=== PATIENT | male | born 1935 | race Caucasian/White ===

== ENCOUNTER → 2016-10-02 | Outpatient (CLI) | payer MEDICARE, BC ==
--- NOTE | 2016-10-04 07:35 | USB ---
Reason for exam: clinical finding. Indicated problem(s): pain in both breasts. Physical Findings: Nurse Summary: bilateral breast pain x 1 month, all soft, nodular, movable on exam (nurse ts). US Breast BILAT Right breast ultrasound including all four quadrants, the retroareolar region and axilla demonstrates no cystic or solid lesion seen. Left breast ultrasound including all four quadrants, the retroareolar region and axilla demonstrates no cystic or solid lesion seen. These results were verbally communicated with the patient and result sheet given to the patient on 10/03/16. ASSESSMENT: Negative, BI-RAD 1 RECOMMENDATION: Clinical management of both breasts. Manage on a clinical basis with regard to pain.
== END | disposition home or self-care (01) ==
LOC: RADUSWWP 14:15
PROVIDERS: ATTEND Family Medicine
DX: N64.4 Mastodynia (principal)

== ENCOUNTER 2017-05-18 12:58 | Inpatient (IN) | payer MEDICARE, BC ==
[2017-05-18] MEDS ORDERED: FUROSEMIDE 10 MG/ML 4 ML VIAL IV STA (13:14)
--- NOTE | 2017-05-18 13:19 | ED ---
General Adult HPI - General Chief complaint: Shortness of Breath Stated complaint: SOB Time Seen by Provider: 05/18/17 13:03 Source: patient, EMS, RN notes reviewed Mode of arrival: EMS Limitations: no limitations - History of Present Illness Initial comments: Patient is a pleasant 81-year-old male presenting to the emergency department with difficulty in breathing. Patient has no history of previous lung problems. Patient did have a fall just over a week ago with reported rib fractures. Patient states breathing started bothering him a couple hours ago and has worsened since that time. No chest pain. No fevers. No cough. No leg pain or leg swelling. No history of similar symptoms previously. - Related Data Home Medications Medication Instructions Recorded Confirmed ALPRAZolam 1 mg PO TID PRN 12/23/15 05/18/17 Isosorbide Mononitrate [Isosorbide 30 mg PO DAILY 12/23/15 05/18/17 Mononitrate ER] Losartan Potassium [Cozaar] 50 mg PO DAILY 12/23/15 05/18/17 Simvastatin [Zocor] 20 mg PO HS 12/23/15 05/18/17 Tamsulosin [Flomax] 0.4 mg PO DAILY 12/23/15 05/18/17 amLODIPine BESYLATE [Norvasc] 5 mg PO DAILY 12/23/15 05/18/17 glyBURIDE [Diabeta] 5 mg PO 5XD 12/23/15 05/18/17 metFORMIN HCL [Glucophage] 500 mg PO TID 12/23/15 05/18/17 Aspirin 81 mg PO DAILY 05/18/17 05/18/17 Cholecalciferol [Vitamin D3] 1,000 unit PO DAILY 05/18/17 05/18/17 Cyanocobalamin (Vitamin B-12) 1,000 mcg PO DAILY 05/18/17 05/18/17 [Vitamin B-12] DULoxetine HCL [Cymbalta] 60 mg PO DAILY 05/18/17 05/18/17 Folic Acid 0.8 mg PO DAILY 05/18/17 05/18/17 Garlic 1 tab PO DAILY 05/18/17 05/18/17 Glucosam/Samy-Msm1/C/Brant/Bosw 1 tab PO DAILY 05/18/17 05/18/17 [Glucosamine-Chondroitin Tablet] Pyridoxine HCl (Vitamin B6) 100 mg PO DAILY 05/18/17 05/18/17 [Vitamin B-6] Vitamin E (Dl,Tocopheryl Acet) 400 unit PO DAILY 05/18/17 05/18/17 [Vitamin E] traZODone HCL [Desyrel] 100 mg PO HS 05/18/17 05/18/17 Allergies Allergy/AdvReac Type Severity Reaction Status Date / Time No Known Allergies Allergy Verified 12/23/15 12:46 Review of Systems ROS Statement: Those systems with pertinent positive or pertinent negative responses have been documented in the HPI. ROS Other: All systems not noted in ROS Statement are negative. Constitutional: Denies: fever Eyes: Denies: eye pain ENT: Denies: ear pain Respiratory: Reports: dyspnea Cardiovascular: Denies: chest pain Endocrine: Reports: fatigue Gastrointestinal: Denies: abdominal pain Genitourinary: Denies: dysuria Musculoskeletal: Reports: back pain (Right-sided rib pain) Skin: Reports: rash (Bruising from rib injury) Neurological: Denies: headache Past Medical History Past Medical History: Diabetes Mellitus, Hyperlipidemia, Hypertension, Prostate Disorder, Skin Disorder History of Any Multi-Drug Resistant Organisms: None Reported Additional Past Surgical History / Comment(s): skin cancer removed from side of left face Past Psychological History: No Psychological Hx Reported Smoking Status: Never smoker Past Alcohol Use History: None Reported Past Drug Use History: None Reported General Exam Limitations: no limitations General appearance: alert, in distress Head exam: Present: atraumatic Eye exam: Present: normal appearance, PERRL ENT exam: Present: normal oropharynx Neck exam: Present: normal inspection Respiratory exam: Present: respiratory distress, rales Cardiovascular Exam: Present: regular rate, normal rhythm GI/Abdominal exam: Present: soft. Absent: tenderness Extremities exam: Present: normal inspection. Absent: pedal edema, calf tenderness Back exam: Present: tenderness (Posterior right lateral ribs below the scapula with ecchymosis.) Neurological exam: Present: alert Psychiatric exam: Present: normal affect, normal mood Skin exam: Present: other (Lower rib bruising posterior.) Course Vital Signs 05/18/17 05/18/17 05/18/17 13:01 13:50 14:06 Temperature 96.9 F L Pulse Rate 91 83 92 Respiratory 30 H 22 22 Rate Blood Pressure 139/68 107/57 88/55 O2 Sat by Pulse 94 L 95 93 L Oximetry EKG Findings - EKG Comments: EKG Findings:: Sinus rhythm and 95. WA 148. QRS 122. QT 390. QTC 490. Left axis. LVH with repolarization changes. Medical Decision Making - Medical Decision Making Patient clinically appears more like CHF than pneumonia. Patient reexamined and significant improvement with BiPAP. Patient updated. Case discussed in detail with Dr. Reynolds, who will admit for Dr. More. He will come to evaluate patient. He does request consults with cardiology and pulmonary Dr. Romero. - Lab Data Result diagrams: 05/18/17 13:14 05/18/17 13:14 Lab Results 05/18/17 05/18/17 05/18/17 Range/Units 13:14 13:14 13:14 WBC 6.8 (3.8-10.6) k/uL RBC 4.14 L (4.30-5.90) m/uL Hgb 13.2 (13.0-17.5) gm/dL Hct 39.8 (39.0-53.0) % MCV 96.1 (80.0-100.0) fL MCH 31.8 (25.0-35.0) pg MCHC 33.1 (31.0-37.0) g/dL RDW 13.9 (11.5-15.5) % Plt Count 139 L (150-450) k/uL Neutrophils % 89 % Lymphocytes % 6 % Monocytes % 3 % Eosinophils % 1 % Basophils % 0 % Neutrophils # 6.0 (1.3-7.7) k/uL Lymphocytes # 0.4 L (1.0-4.8) k/uL Monocytes # 0.2 (0-1.0) k/uL Eosinophils # 0.1 (0-0.7) k/uL Basophils # 0.0 (0-0.2) k/uL PT (9.0-12.0) sec INR (<1.2) APTT (22.0-30.0) sec Sodium 132 L (137-145) mmol/L Potassium 5.9 H (3.5-5.1) mmol/L Chloride 101 (98-107) mmol/L Carbon Dioxide 22 (22-30) mmol/L Anion Gap 9 mmol/L BUN 38 H (9-20) mg/dL Creatinine 0.97 (0.66-1.25) mg/dL Est GFR (MDRD) Af Amer >60 (>60 ml/min/1.73 sqM) Est GFR (MDRD) Non-Af >60 (>60 ml/min/1.73 sqM) Glucose 435 H (74-99) mg/dL Plasma Lactic Acid Nicholas (0.7-2.0) mmol/L Calcium 8.4 (8.4-10.2) mg/dL Total Bilirubin 1.0 (0.2-1.3) mg/dL AST 82 H (17-59) U/L ALT 41 (21-72) U/L Alkaline Phosphatase 53 (38-126) U/L Total Creatine Kinase 151 (55-170) U/L CK-MB (CK-2) 6.2 H* (0.0-2.4) ng/mL CK-MB (CK-2) Rel Index 4.1 Troponin I 1.990 H* (0.000-0.034) ng/mL NT-Pro-B Natriuret Pep pg/mL Total Protein 6.9 (6.3-8.2) g/dL Albumin 3.7 (3.5-5.0) g/dL 05/18/17 05/18/17 05/18/17 Range/Units 13:14 13:14 13:14 WBC (3.8-10.6) k/uL RBC (4.30-5.90) m/uL Hgb (13.0-17.5) gm/dL Hct (39.0-53.0) % MCV (80.0-100.0) fL MCH (25.0-35.0) pg MCHC (31.0-37.0) g/dL RDW (11.5-15.5) % Plt Count (150-450) k/uL Neutrophils % % Lymphocytes % % Monocytes % % Eosinophils % % Basophils % % Neutrophils # (1.3-7.7) k/uL Lymphocytes # (1.0-4.8) k/uL Monocytes # (0-1.0) k/uL Eosinophils # (0-0.7) k/uL Basophils # (0-0.2) k/uL PT 9.9 (9.0-12.0) sec INR 1.0 (<1.2) APTT 20.5 L (22.0-30.0) sec Sodium (137-145) mmol/L Potassium (3.5-5.1) mmol/L Chloride (98-107) mmol/L Carbon Dioxide (22-30) mmol/L Anion Gap mmol/L BUN (9-20) mg/dL Creatinine (0.66-1.25) mg/dL Est GFR (MDRD) Af Amer (>60 ml/min/1.73 sqM) Est GFR (MDRD) Non-Af (>60 ml/min/1.73 sqM) Glucose (74-99) mg/dL Plasma Lactic Acid Nicholas 1.8 (0.7-2.0) mmol/L Calcium (8.4-10.2) mg/dL Total Bilirubin (0.2-1.3) mg/dL AST (17-59) U/L ALT (21-72) U/L Alkaline Phosphatase (38-126) U/L Total Creatine Kinase (55-170) U/L CK-MB (CK-2) (0.0-2.4) ng/mL CK-MB (CK-2) Rel Index Troponin I (0.000-0.034) ng/mL NT-Pro-B Natriuret Pep 2820 pg/mL Total Protein (6.3-8.2) g/dL Albumin (3.5-5.0) g/dL - Radiology Data Radiology results: image reviewed (Chest x-ray is read by radiologist shows bibasilar infiltrates, correlate for atelectasis. Developing pneumonia not excluded. Radiologist did not have concern for pulmonary vasculature however does appear accentuated to me.) Critical Care Time Critical Care Time: Yes Total Critical Care Time: 33 Disposition Clinical Impression: NSTEMI (non-ST elevated myocardial infarction), Acute respiratory failure Disposition: ADMITTED IP TO THIS HOSP Condition: Serious Referrals: Burton More DO [Primary Care Provider] - 1-2 days Decision Time: 14:40
[2017-05-18 13:27] LABS: Basophils % (A) 0 %; CH 31.8; CHCM 33.2; Eosinophils # (A) 0.1 k/uL (0-0.7); Eosinophils % (A) 1 %; HCT 39.8 % (39.0-53.0); HDW 2.69; HGB 13.2 gm/dL (13.0-17.5); Luc % (Auto) 1; Lymphocytes # (A) 0.4 k/uL (1.0-4.8); Lymphocytes % (A) 6 %; MCH 31.8 pg (25.0-35.0); MCHC 33.1 g/dL (31.0-37.0); MCV 96.1 fL (80.0-100.0); Mean Platelet Volume 8.8; Monocytes # (A) 0.2 k/uL (0-1.0); Monocytes % (A) 3 %; Neutrophils % (A) 89 %; RBC 4.14 m/uL (4.30-5.90); RDW 13.9 % (11.5-15.5); WBC 6.8 k/uL (3.8-10.6); WBC (Perox) 7.09
[2017-05-18 13:35] LABS: Prothrombin Time 9.9 sec (9.0-12.0)
[2017-05-18] MEDS ORDERED: NITROGLYCERIN OINT 1 INCH/GM PACKET TOPICAL STA (13:39)
[2017-05-18] MEDS ORDERED: ENALAPRILAT 1.25 MG/ML 1 ML VIAL IVP STA (13:40)
[2017-05-18 13:45] LABS: ALT 41 U/L (21-72); AST 82 U/L (17-59); Alkaline Phosphatase 53 U/L (38-126); Anion Gap 9 mmol/L; Blood Urea Nitrogen 38 mg/dL (9-20); Calcium 8.4 mg/dL (8.4-10.2); Carbon Dioxide 22 mmol/L (22-30); Chloride 101 mmol/L (98-107); Glucose 435 mg/dL (74-99); Non-African American GFR(MDRD) >60 (>60 ml/min/1.73 sqM); Potassium 5.9 mmol/L (3.5-5.1); Sodium 132 mmol/L (137-145); Total Protein 6.9 g/dL (6.3-8.2)
--- NOTE | 2017-05-18 13:46 | XR ---
EXAMINATION TYPE: XR chest 1V portable DATE OF EXAM: 05/18/2017 COMPARISON: 02/11/2013 INDICATION: Dyspnea difficulty breathing TECHNIQUE: Single frontal view of the chest is obtained. FINDINGS: The heart size is normal. The pulmonary vasculature is normal. Bibasilar infiltrates are present. IMPRESSION: 1. Bibasilar infiltrates. Correlate for atelectasis. Developing pneumonia is not excluded.
[2017-05-18 13:53] LABS: Partial Thromboplastin Time 20.5 sec (22.0-30.0)
[2017-05-18 14:20] LABS: Creatine Kinase MB 6.2 ng/mL (0.0-2.4); Troponin I 1.99 ng/mL (0.000-0.034)
[2017-05-18] MEDS ORDERED: ASPIRIN 81 MG CHEW PO STA (14:41)
[2017-05-18] MEDS ORDERED: HEPARIN SODIUM,PORCINE 5,000 UNIT/ML 1 ML VIAL IV ONE (14:42)
[2017-05-18] MEDS ORDERED: NITROGLYCERIN SL TABS 0.4 MG TAB SUBLINGUAL PRN (14:42)
[2017-05-18] MEDS ORDERED: HEPARIN SODIUM,PORCINE 5,000 UNIT/ML 1 ML VIAL IV PRN (14:42)
[2017-05-18] MEDS ORDERED: LEVOFLOXACIN 250MG-D5W PMX 250 MG in DEXTROSE/WATER 1 50ML.BAG IVPB STA (14:49)
[2017-05-18 15:19] LABS: Glucose,Whole Blood 463 mg/dL (75-99)
[2017-05-18] MEDS: HEPARIN SODIUM,PORCINE/D5W PMX 25,000 UNIT in DEXTROSE/WATER 1 500ML.BAG IV SCH (15:27)
--- NOTE | 2017-05-18 15:27 | P.HPIM ---
History of Present Illness H&P Date: 05/18/17 Chief Complaint: Shortness of breath This is an 81-year-old male patient of Dr. More with a past medical history diabetes mellitus type 2, hyperlipidemia, hypertension, enlarged prostate, skin cancer, anxiety and depression, patient was in his usual state of health about Sunday when he fell down and landed on the right side of his back, patient developed to have a significant bruising in the back, he went and saw Dr. More yesterday the office he did receive 2 injection and the patient went back home, patient woke up in the morning he was feeling fine and he took 2 Tylenol No. 3 because of his back pain, and the patient suddenly developed to have a significant rattling in his chest. Patient's the ask with her neighbors oh was a nurse to come and see the patient and she recommended for the patient to go to the ER for evaluation and treatment patient was found to have a an acute diastolic heart failure and his troponin came back surprisingly slightly elevated at 1.9 his EKG did not show any evidence of ST elevation, patient was ruled in non-ST elevation WA he was started on IV heparin, he was started also on nitroglycerin paste, he was placed on aspirin 325 mg orally once every day, metoprolol 25 mg orally twice every day, cardiology consultation was obtained as well as pulmonary consultation, patient was placed initially on the BiPAP because of significant hypoxemia was given Lasix 40 mg IV push 1. Review of Systems Constitutional: Reports weakness, Denies anorexia, Denies chronic headaches, Denies chronic pain, Denies lethargy, Denies malaise, Denies weight gain, Denies weight loss Eyes: denies blurred vision, denies bulging eye, denies decreased vision, denies diplopia Ears: bilateral: decreased hearing Ears, nose, mouth and throat: Denies dysphagia, Denies neck lump, Denies swelling in throat, Denies sore throat Cardiovascular: Reports decreased exercise tolerance, Reports dyspnea on exertion, Reports high blood pressure, Reports shortness of breath, Denies chest pain, Denies rapid heart beat, Denies syncope Respiratory: Reports congestion, Reports dyspnea, Reports wheezing, Denies home oxygen, Denies sleep apnea, Denies snoring Gastrointestinal: Denies abdominal pain, Denies bloating, Denies BRBPR, Denies heartburn, Denies melena, Denies nausea, Denies vomiting Genitourinary: Reports nocturia, Denies dysuria, Denies polyuria Musculoskeletal: Reports low back pain, Denies myalgias Musculoskeletal: absent: ankle pain, ankle stiffness, ankle swelling, elbow pain , elbow stiffness, elbow swelling, foot pain, foot stiffness, foot swelling, hand pain, hand stiffness, hand swelling, hip pain, hip stiffness, hip swelling , knee pain, knee stiffness, knee swelling, shoulder pain, shoulder stiffness, shoulder swelling, wrist pain, wrist stiffness, wrist swelling Integumentary: Denies pruritus, Denies rash Neurological: Denies numbness, Denies weakness Psychiatric: Reports anxiety, Reports depression, Denies sadness/tearfulness, Denies sleep disturbances, Denies suicidal ideation Endocrine: Denies fatigue, Denies weight change Past Medical History Past Medical History: Coronary Artery Disease (CAD), Diabetes Mellitus, GERD/ Reflux, Hyperlipidemia, Hypertension, Osteoarthritis (OA), Prostate Disorder, Skin Disorder History of Any Multi-Drug Resistant Organisms: None Reported Additional Past Surgical History / Comment(s): skin cancer removed from side of left face Past Psychological History: No Psychological Hx Reported, Anxiety, Depression Smoking Status: Never smoker Past Alcohol Use History: None Reported Additional Past Alcohol Use History / Comment(s): Patient was a smoker of cigars briefly. No marijuana or illicit drug use. No alcohol use or abuse. Patient lives at home with his . 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 Past Drug Use History: None Reported - Past Family History Father Additional Family Medical History / Comment(s): Father at age 76 from skin cancer. Mother Family Medical History: Hyperlipidemia Additional Family Medical History / Comment(s): Mother at age 50 from coronary artery disease. Brother(s) Additional Family Medical History / Comment(s): She has one brother that has with competition from diabetes. Patient does not have any sisters. Son(s) Additional Family Medical History / Comment(s): Patient has 2 sons and one has history of coronary artery disease status post 3 vessel CABG. Patient has one daughter with no major medical problems. Medications and Allergies Home Medications Medication Instructions Recorded Confirmed Type ALPRAZolam 1 mg PO TID PRN 12/23/15 05/18/17 History Isosorbide Mononitrate [Isosorbide 30 mg PO DAILY 12/23/15 05/18/17 History Mononitrate ER] Losartan Potassium [Cozaar] 50 mg PO DAILY 12/23/15 05/18/17 History Simvastatin [Zocor] 20 mg PO HS 12/23/15 05/18/17 History Tamsulosin [Flomax] 0.4 mg PO DAILY 12/23/15 05/18/17 History amLODIPine BESYLATE [Norvasc] 5 mg PO DAILY 12/23/15 05/18/17 History glyBURIDE [Diabeta] 5 mg PO 5XD 12/23/15 05/18/17 History metFORMIN HCL [Glucophage] 500 mg PO TID 12/23/15 05/18/17 History Aspirin 81 mg PO DAILY 05/18/17 05/18/17 History Cholecalciferol [Vitamin D3] 1,000 unit PO DAILY 05/18/17 05/18/17 History Cyanocobalamin (Vitamin B-12) 1,000 mcg PO DAILY 05/18/17 05/18/17 History [Vitamin B-12] DULoxetine HCL [Cymbalta] 60 mg PO DAILY 05/18/17 05/18/17 History Folic Acid 0.8 mg PO DAILY 05/18/17 05/18/17 History Garlic 1 tab PO DAILY 05/18/17 05/18/17 History Glucosam/Samy-Msm1/C/Brant/Bosw 1 tab PO DAILY 05/18/17 05/18/17 History [Glucosamine-Chondroitin Tablet] Pyridoxine HCl (Vitamin B6) 100 mg PO DAILY 05/18/17 05/18/17 History [Vitamin B-6] Vitamin E (Dl,Tocopheryl Acet) 400 unit PO DAILY 05/18/17 05/18/17 History [Vitamin E] traZODone HCL [Desyrel] 100 mg PO HS 05/18/17 05/18/17 History Allergies Allergy/AdvReac Type Severity Reaction Status Date / Time No Known Allergies Allergy Verified 12/23/15 12:46 Physical Exam Vitals: Vital Signs Temp Pulse Resp BP Pulse Ox 05/18/17 14:06 92 22 88/55 93 L 05/18/17 13:50 83 22 107/57 95 05/18/17 13:01 96.9 F L 91 30 H 139/68 94 L Intake and Output 05/17/17 05/18/17 05/18/17 22:59 06:59 14:59 Other: Weight 90.718 kg Patient Weight 05/19/17 06:59 Weight 90.718 kg - Constitutional General appearance: average body habitus, mild distress - EENT Eyes: anicteric sclerae, EOMI, PERRLA, no ptosis, no scleral icterus, normal appearance ENT: hard of hearing, NA/AT, no thrush, no tonsillar exudates Ears: bilateral: normal - Neck Neck: no lymphadenopathy, normal ROM, no rigidity, no stridor, no thyromegaly Carotids: bilateral: upstroke normal Thyroid: bilateral: normal size - Respiratory Respiratory: bilateral: diminished, negative: dullness, rales, rhonchi, wheezing , prolonged expiration - Cardiovascular Rhythm: regular Heart sounds: normal: S1, S2 Abnormal Heart Sounds: systolic murmur, no rub, S3 Gallop, no click - Gastrointestinal General gastrointestinal: normal bowel sounds, soft, no splenomegaly, no tenderness, no umbilical hernia, no ventral hernia - Integumentary Integumentary: normal, normal turgor - Neurologic Neurologic: CNII-XII intact - Musculoskeletal Musculoskeletal: generalized weakness, strength equal bilaterally - Psychiatric Psychiatric: A&O x's 3, appropriate affect, intact judgment & insight Results CBC & Chem 7: 05/18/17 13:14 05/18/17 13:14 Labs: Abnormal Lab Results - Last 24 Hours (Table) 05/18/17 05/18/17 05/18/17 Range/Units 13:14 13:14 13:14 RBC 4.14 L (4.30-5.90) m/uL Plt Count 139 L (150-450) k/uL Lymphocytes # 0.4 L (1.0-4.8) k/uL APTT (22.0-30.0) sec Sodium 132 L (137-145) mmol/L Potassium 5.9 H (3.5-5.1) mmol/L BUN 38 H (9-20) mg/dL Glucose 435 H (74-99) mg/dL AST 82 H (17-59) U/L CK-MB (CK-2) 6.2 H* (0.0-2.4) ng/mL Troponin I 1.990 H* (0.000-0.034) ng/mL 05/18/17 Range/Units 13:14 RBC (4.30-5.90) m/uL Plt Count (150-450) k/uL Lymphocytes # (1.0-4.8) k/uL APTT 20.5 L (22.0-30.0) sec Sodium (137-145) mmol/L Potassium (3.5-5.1) mmol/L BUN (9-20) mg/dL Glucose (74-99) mg/dL AST (17-59) U/L CK-MB (CK-2) (0.0-2.4) ng/mL Troponin I (0.000-0.034) ng/mL Thrombosis Risk Factor Assmnt - DVT/VTE Prophylaxis DVT/VTE Prophylaxis: Pharmacologic Prophylaxis ordered, Mechanical Prophylaxis ordered Assessment and Plan Plan: Assessment and plan: 1. Acute respiratory failure due to acute diastolic heart failure due to non- ST elevation WA, and possible pneumonia. Start the patient on IV heparin drip per protocol. Continue patient on aspirin 325 mg orally once every day, nitro glycerin paste 1 inch every 6 hours, continue patient on metoprolol 12.5 mg orally twice every day, hold off losartan because of his hypotension, start the patient on Levaquin 250 mg IV piggyback every 24 hours, place the patient on BiPAP, patient will be given Lasix 40 mg IV push every 12 hours, echocardiogram , cardiology consultation, pulmonary consultation from Dr. Cyr. 2. Acute diastolic heart failure. Continue metoprolol 12.5 mg orally twice every day, hold off losartan for now, continue Lasix 40 mg IV push every 12 hours, continue BiPAP for now. 3. Non-ST elevation WA. The patient would be started on aspirin 325 mg orally once every day, metoprolol 12.5 mg orally twice every day, heparin drip, simvastatin or Lipitor 10 mg orally once every day, cardiology consultation, echocardiogram for evaluation of LV function. 4. Possible bilateral pneumonia. Start the patient on Levaquin 250 mg IV piggyback every 24 hours, nebulized treatment albuterol 2.5 mg every 4 hours as needed, Continue oxygen support, pulmonary consultation. 5. Enlarged prostate. Continue Flomax 0.4 g orally once every day. 6. Diabetes mellitus type 2. Hold the patient metformin and glipizide, start the patient on sliding scale insulin for now. 7. Diabetic polyneuropathy. Stable at this time. 8. Hyperlipidemia. Continue patient on Lipitor 10 mg orally once every day. 9. Depression. Continue Cymbalta 60 mg orally once every day. 10. Anxiety disorder. Continue patient on Xanax 1 mg orally twice a day as needed. 11. DVT prophylaxis. Continue heparin drip for now. 12. GI prophylaxis. Continue PPI. 13. Patient is full code. 14. Admitted to inpatient. Estimate a length of stay 2 midnights.
[2017-05-18] MEDS ORDERED: INSULIN LISPRO (humaLOG) 300 UNIT/3 ML VIAL SQ ONE (15:45)
[2017-05-18 16:46] LABS: Glucose,Whole Blood 445 mg/dL (75-99)
[2017-05-18] MEDS: INSULIN LISPRO (humaLOG) 300 UNIT/3 ML VIAL SQ SCH ×2 (16:54→22:19)
[2017-05-18] MEDS: NITROGLYCERIN OINT 1 INCH/GM PACKET TOPICAL SCH (16:55)
[2017-05-18] MEDS ORDERED: NALOXONE 0.4 MG/ML 1 ML VIAL IV PRN (16:58)
[2017-05-18 18:49] LABS: Appearance,Urine Clear (Clear); Bilirubin,Urine Negative (Negative); Glucose,Urine (UA) 4+ (Negative); Ketones,Urine Trace (Negative); Leukocyte Esterase,Urine Negative (Negative); Nitrite,Urine Negative (Negative); Protein,Urine Negative (Negative); Specific Gravity,Urine 1.011 (1.001-1.035); UA Billing (MACRO vs. MICRO) CHEM; Urobilinogen,Urine <2.0 mg/dL (<2.0)
--- NOTE | 2017-05-18 19:49 | P.CNPUL ---
History of Present Illness Consult date: 05/18/17 Reason for consult: dyspnea History of present illness: 81-year-old male patient, presented to the emergency department today after he had fallen at home and landed on his right posterior chest area and he developed a significant area of bruise at the impact site. The patient came into the hospital because of worsening shortness of breath. He had received 2 injections at that his primary care physician's office for pain and he had been also utilizing Tylenol No. 3's. He has no hemoptysis. No pleurisy. No anginal -type of chest pain. His chest x-ray showed increased pulmonary vascular marking and course infiltrates in the lung bases and the patient's troponin was at 1.9 at time of admission with some nonsignificant ST segment depression over the lateral leads. The patient was started on IV heparin and aspirin and metoprolol. The patient was given a dose of Lasix. His blood pressure is borderline right now with a systolic in the mid 90s. He is admitted to the intensive care unit. Note that he was quite short of breath initially at time of admission where he was placed on a BiPAP at a pressure of 14/7 cm of water. Currently is off the BiPAP. He was on 6 L which got wean down to 4 L and he can be further weaned down knowing that his pulse ox on 4 L around 96-97%. He has a Parker catheter. Urine output is adequate for now. No change in mental status. No head trauma. No exposure to asbestos over the years. No history of any smoking. Review of Systems Constitutional: Reports fever, Reports weakness Eyes: bilateral blurred vision, bilateral decreased vision, denies bulging eye Ears: bilateral: decreased hearing, deny: ear discharge, earache Ears, nose, mouth and throat: Denies headache, Denies sore throat Cardiovascular: Reports chest pain, Reports decreased exercise tolerance, Reports shortness of breath Respiratory: Reports dyspnea Genitourinary: Reports as per HPI Musculoskeletal: Denies myalgias Musculoskeletal: absent: ankle pain, ankle stiffness, ankle swelling Integumentary: Denies pruritus, Denies rash Neurological: Denies numbness, Denies weakness Psychiatric: Denies anxiety, Denies depression Endocrine: Denies fatigue, Denies weight change Past Medical History Past Medical History: Coronary Artery Disease (CAD), Cancer, Diabetes Mellitus, Hyperlipidemia, Hypertension, Osteoarthritis (OA), Prostate Disorder, Skin Disorder Additional Past Medical History / Comment(s): Coronary artery disease, hyperlipidemia, hypertension, osteoarthritis, BPH, diabetes mellitus, shingles, skin cancer History of Any Multi-Drug Resistant Organisms: None Reported Past Surgical History: Heart Catheterization Additional Past Surgical History / Comment(s): skin cancer removed from side of left face, COLONOSCOPY X2, VARICOSE VEINS SX Past Anesthesia/Blood Transfusion Reactions: No Reported Reaction Smoking Status: Former smoker - Past Family History Father Additional Family Medical History / Comment(s): Father at age 76 from skin cancer. Mother Family Medical History: Hyperlipidemia Additional Family Medical History / Comment(s): Mother at age 50 from coronary artery disease. Brother(s) Family Medical History: CVA/TIA, Diabetes Mellitus Additional Family Medical History / Comment(s): one brother that has with competition from diabetes. Patient does not have any sisters. Son(s) Additional Family Medical History / Comment(s): Patient has 2 sons and one has history of coronary artery disease status post 3 vessel CABG. Patient has one daughter with no major medical problems. Medications and Allergies Home Medications Medication Instructions Recorded Confirmed Type ALPRAZolam 1 mg PO TID PRN 12/23/15 05/18/17 History Isosorbide Mononitrate [Isosorbide 30 mg PO DAILY 12/23/15 05/18/17 History Mononitrate ER] Losartan Potassium [Cozaar] 50 mg PO DAILY 12/23/15 05/18/17 History Simvastatin [Zocor] 20 mg PO HS 12/23/15 05/18/17 History Tamsulosin [Flomax] 0.4 mg PO DAILY 12/23/15 05/18/17 History amLODIPine BESYLATE [Norvasc] 5 mg PO DAILY 12/23/15 05/18/17 History glyBURIDE [Diabeta] 5 mg PO 5XD 12/23/15 05/18/17 History metFORMIN HCL [Glucophage] 500 mg PO TID 12/23/15 05/18/17 History Aspirin 81 mg PO DAILY 05/18/17 05/18/17 History Cholecalciferol [Vitamin D3] 1,000 unit PO DAILY 05/18/17 05/18/17 History Cyanocobalamin (Vitamin B-12) 1,000 mcg PO DAILY 05/18/17 05/18/17 History [Vitamin B-12] DULoxetine HCL [Cymbalta] 60 mg PO DAILY 05/18/17 05/18/17 History Folic Acid 0.8 mg PO DAILY 05/18/17 05/18/17 History Garlic 1 tab PO DAILY 05/18/17 05/18/17 History Glucosam/Samy-Msm1/C/Brant/Bosw 1 tab PO DAILY 05/18/17 05/18/17 History [Glucosamine-Chondroitin Tablet] Pyridoxine HCl (Vitamin B6) 100 mg PO DAILY 05/18/17 05/18/17 History [Vitamin B-6] Vitamin E (Dl,Tocopheryl Acet) 400 unit PO DAILY 05/18/17 05/18/17 History [Vitamin E] traZODone HCL [Desyrel] 100 mg PO HS 05/18/17 05/18/17 History Allergies Allergy/AdvReac Type Severity Reaction Status Date / Time No Known Allergies Allergy Verified 12/23/15 12:46 Physical Exam Vitals: Vital Signs Temp Pulse Resp BP Pulse Ox 05/18/17 18:00 72 21 92/51 100 05/18/17 17:00 78 20 100/56 99 05/18/17 16:28 97.5 F L 73 18 100 05/18/17 16:00 97 F L 80 22 88/53 96 05/18/17 15:45 75 20 84/51 99 05/18/17 15:00 79 20 104/56 97 05/18/17 14:06 92 22 88/55 93 L 05/18/17 13:50 83 22 107/57 95 05/18/17 13:01 96.9 F L 91 30 H 139/68 94 L Intake and Output 05/18/17 05/18/17 05/18/17 06:59 14:59 22:59 Intake Total 80 Output Total 675 Balance -595 Intake: IV 80 0.9 60 Heparin Sodium,Porcine/ 20 D5w Pmx 25,000 unit In Dextrose/Water 1 500ml. bag @ 11.024 UNITS/KG/HR 20 mls/hr IV .Q24H [facility] Rx #:[id number] Output: Urine 675 Other: Voiding Method Indwelling Catheter Weight 90.718 kg Patient Weight 05/19/17 06:59 Weight 90.718 kg The patient appeared well nourished and normally developed. Vital signs as documented. Head exam is unremarkable. No scleral icterus or corneal arcus noted. Neck is without jugular venous distension, thyromegaly, or carotid bruits. Carotid upstrokes are brisk bilaterally. Lungs reveal coarse crackles in lung bases bilaterally. There is also an area of bruise over the right lateral chest area. No significant deformity. Area is tender to touch.. Cardiac exam reveals the PMI to be normally sized and situated. Rhythm is regular. First and second heart sounds normal. No murmurs, rubs or gallops. Abdominal exam reveals normal bowel sounds, no masses, no organomegaly and no aortic enlargement. Extremities are nonedematous and both femoral and pedal pulses are normal. Results - Laboratory Findings CBC and BMP: 05/18/17 13:14 05/18/17 13:14 PT/INR, D-dimer PT 9.9 sec (9.0-12.0) 05/18/17 13:14 INR 1.0 (<1.2) 05/18/17 13:14 Abnormal lab findings: Abnormal Labs 05/18/17 05/18/17 05/18/17 13:14 13:14 13:14 RBC 4.14 L Plt Count 139 L Lymphocytes # 0.4 L APTT Sodium 132 L Potassium 5.9 H BUN 38 H Glucose 435 H POC Glucose (mg/dL) AST 82 H CK-MB (CK-2) 6.2 H* Troponin I 1.990 H* Urine Glucose (UA) Urine Ketones 05/18/17 05/18/17 05/18/17 13:14 15:17 16:35 RBC Plt Count Lymphocytes # APTT 20.5 L Sodium Potassium BUN Glucose POC Glucose (mg/dL) 463 H 445 H AST CK-MB (CK-2) Troponin I Urine Glucose (UA) Urine Ketones 05/18/17 16:45 RBC Plt Count Lymphocytes # APTT Sodium Potassium BUN Glucose POC Glucose (mg/dL) AST CK-MB (CK-2) Troponin I Urine Glucose (UA) 4+ H Urine Ketones Trace H - Diagnostic Findings Chest x-ray: image reviewed Assessment and Plan Plan: Assessment 1 acute shortness of breath with acute hypoxic respiratory failure, post fall and blunt trauma to the right chest. Chest x-ray shows coarse interstitial infiltrates bilaterally. Rule out underlying interstitial lung disease/ fibrosis. Rule out underlying CHF. The patient was initially placed on a BiPAP currently is on 4 L about 2 by nasal cannula. Echo cardiac rhythm is in progress. The patient is being diuresis. CAT scan of the chest is to follow 2 acute troponin elevation, rule out non-STEMI. EKG shows some minor ST segment changes 3 coronary artery disease, history of 4 CHF other diastolic dysfunction. History, echocardiogram is pending 5 diabetes mellitus type 2 6 diabetic peripheral neuropathy 7 hyperlipidemia 8 depression 9 chronic anxiety 10 skin cancer 11 BPH 12 marked impaired hearing 13 unexpected falls Plan Proceed with a CAT scan of the chest without contrast to investigate and evaluate the area of trauma and make sure there is no evidence of any pulmonary contusion, rib fractures, or any pleural effusions. This will also be needed to evaluate for interstitial lung disease as I suspect that the patient may have underlying interstitial lung disease/fibrosis. Echocardiogram. Continue IV heparin and aspirin for now. Cardiology evaluation regarding the troponins. Monitor troponin every 8 hours 3 Continue metoprolol. Outpatient medication will be ordered resume. [place] 05/325 for pain control every 6-8 hours. We'll continue to follow. Keep the patient ICU. Discontinue the BiPAP for now. Wean off FiO2 to maintain a saturation above 92%.
[2017-05-18] MEDS ORDERED: HYDROcodone/APAP 5-325MG 1 EACH TAB PO PRN (19:58)
[2017-05-18 20:51] LABS: Troponin I 12.7 ng/mL (0.000-0.034)
[2017-05-18 20:52] LABS: Glucose,Whole Blood 381 mg/dL (75-99)
[2017-05-18] MEDS ORDERED: ATORVASTATIN 10 MG TAB PO SCH (21:00)
[2017-05-18] MEDS ORDERED: traZODone HCL 100 MG TAB PO SCH (21:00)
--- NOTE | 2017-05-18 21:43 | CT ---
EXAMINATION TYPE: CT chest wo con DATE OF EXAM: 05/18/2017 COMPARISON: NONE HISTORY: Recent fall. Shortness of breath. CT DLP: 477.00 mGycm. Automated Exposure Control for Dose Reduction was Utilized. TECHNIQUE: CT scan of the thorax is performed without IV contrast. FINDINGS: There are bilateral pleural effusions with basilar pulmonary infiltrates and atelectasis. There is no sign of a pulmonary mass. Heart is enlarged. There is coronary artery calcification. There is athero sclerotic calcification in the thoracic aorta. There is no evidence of aortic aneurysm. I see no medi astinal adenopathy. There is no pericardial effusion. The bony thorax shows hypertrophic spurring anteriorly in the mid a nd lower thoracic spine. I see no bony destructive process. There is interposition of the hepatic fle xure of the colon noted which is a normal variant. There is dense calcification involving the right a drenal gland consistent with old hemorrhage. IMPRESSION: Atherosclerotic vascular disease. Pleural effusions with basilar pulmonary infiltrates and atelectasi s. Cardiomegaly. This could relate to congestive heart failure.
[2017-05-18 22:19] LABS: Hemoglobin A1C 6.6 % (4.2-6.1)
[2017-05-18] MEDS: FUROSEMIDE 10 MG/ML 4 ML VIAL IV SCH (22:19)
[2017-05-19] MEDS: NITROGLYCERIN OINT 1 INCH/GM PACKET TOPICAL SCH ×4 (00:04→17:31)
[2017-05-19 02:32] LABS: Creatine Kinase MB 43.9 ng/mL (0.0-2.4); Troponin I 21.1 ng/mL (0.000-0.034)
[2017-05-19 04:52] LABS: Basophils % (A) 0 %; CH 32.1; CHCM 34.1; Eosinophils # (A) 0.1 k/uL (0-0.7); Eosinophils % (A) 1 %; HCT 34.3 % (39.0-53.0); HDW 2.66; HGB 11.9 gm/dL (13.0-17.5); Luc % (Auto) 2; Lymphocytes # (A) 0.5 k/uL (1.0-4.8); Lymphocytes % (A) 8 %; MCH 32.9 pg (25.0-35.0); MCHC 34.8 g/dL (31.0-37.0); MCV 94.7 fL (80.0-100.0); Monocytes # (A) 0.4 k/uL (0-1.0); Monocytes % (A) 6 %; Neutrophils # (A) 5.1 k/uL (1.3-7.7); Neutrophils % (A) 84 %; RBC 3.63 m/uL (4.30-5.90); RDW 13.8 % (11.5-15.5); WBC 6.1 k/uL (3.8-10.6); WBC (Perox) 6.69
[2017-05-19 05:07] LABS: Blood Urea Nitrogen 40 mg/dL (9-20); Calcium 8.1 mg/dL (8.4-10.2); Chloride 100 mmol/L (98-107); Cholesterol 129 mg/dL (<200); Glucose 57 mg/dL (74-99); HDL Cholesterol 46 mg/dL (40-60); Magnesium 2.3 mg/dL (1.6-2.3); Non-African American GFR(MDRD) >60 (>60 ml/min/1.73 sqM); Phosphorous 3.6 mg/dL (2.5-4.5); Sodium 136 mmol/L (137-145)
[2017-05-19 05:08] LABS: Anion Gap 7 mmol/L; Carbon Dioxide 29 mmol/L (22-30)
[2017-05-19 06:07] LABS: Glucose,Whole Blood 61 mg/dL (75-99)
[2017-05-19] MEDS: HYDROcodone/APAP 5-325MG 1 EACH TAB PO PRN ×4 (06:11→21:49)
[2017-05-19 06:31] LABS: Glucose,Whole Blood 97 mg/dL (75-99)
[2017-05-19 07:59] LABS: Glucose,Whole Blood 128 mg/dL (75-99)
[2017-05-19] MEDS ORDERED: PANTOPRAZOLE 40 MG/10 ML VIAL IV SCH (09:00)
[2017-05-19] MEDS ORDERED: ASPIRIN 325 MG TAB PO SCH (09:00)
[2017-05-19] MEDS: FUROSEMIDE 10 MG/ML 4 ML VIAL IV SCH ×2 (09:03→21:23)
[2017-05-19] MEDS: TAMSULOSIN 0.4 MG CAP.ER.24H PO SCH (09:04)
[2017-05-19] MEDS: DULoxetine HCL 60 MG CAPSULE.DR PO SCH (09:04)
[2017-05-19] MEDS: INSULIN LISPRO (humaLOG) 300 UNIT/3 ML VIAL SQ SCH ×4 (09:05→21:26)
--- NOTE | 2017-05-19 09:17 | ECHOF ---
Referral Reason:Heart Failure,nstemi MEASUREMENTS -------- HEIGHT: 172.7 cm WEIGHT: 90.7 kg BP: 79/51 RVIDd: 2.9 cm (< 3.3) IVSd: 0.9 cm (0.6 - 1.1) LVIDd: 5.6 cm (3.9 - 5.3) LVPWd: 1.1 cm (0.6 - 1.1) EDV(Teich): 156 ml IVSs: 1.6 cm LVIDs: 4.4 cm LVPWs: 1.3 cm %IVS Thck: 91 % ESV(Teich): 87 ml EF(Teich): 44 % %FS: 22 % SV(Teich): 69 ml LA Diam: 4.1 cm (2.7 - 3.8) LVOT Diam: 2.2 cm LALs A4C: 6.7 cm LAAs A4C: 20.9 cm LAESV A-L A4C: 55 ml LAESV MOD A4C: 53 ml LALs A2C: 6.1 cm LAAs A2C: 21.8 cm LAESV A-L A2C: 67 ml LAESV MOD A2C: 64 ml LAESV(A-L): 64 ml LAESV Index (A-L): 31.02 ml/m Ao Diam: 3.4 cm (2.0 - 3.7) AV Cusp: 1.9 cm (1.5 - 2.6) MV EXCURSION: 15.271 mm (> 18.000) MV EF SLOPE: 41 mm/s (70 - 150) EPSS: 1.5 cm MV E Jake: 0.50 m/s MV DecT: 328 ms MV Dec [place]: 1.5 m/s MV A Jake: 1.15 m/s MV E/A Ratio: 0.43 MV PHT: 95 ms E/E': 13.93 E': 0.04 m/s AV Vmax: 1.42 m/s AV maxP.19 mmHg TR Vmax: 2.42 m/s TR maxP.48 mmHg RAP: 5.00 mmHg RVSP: 28.48 mmHg FINDINGS -------- Sinus rhythm. This was a technically difficult study with suboptimal views. The left ventricular size is normal. There is borderline concentric left ventricular hypertrophy. Overall left ventricular systolic function is mildly impaired with, an EF between 45 - 50 %. The right ventricle is normal in size. LA is midly dilated 29-33ml/m2. The right atrium is normal in size. 1.5mg of Definity was utilized for enhancement of images Aortic valve is trileaflet and is moderately thickened. Mild mitral annular calcification present. Mild tricuspid regurgitation present. Right ventricular systolic pressure is normal at < 35 mmHg. The pulmonic valve was not well visualized. The aortic root size is normal. IVC Not well visulized. There is no pericardial effusion. CONCLUSIONS -------- 1. Sinus rhythm. 2. Mild mitral annular calcification present. 3. Mild tricuspid regurgitation present. 4. Right ventricular systolic pressure is normal at < 35 mmHg. 5. The pulmonic valve was not well visualized. 6. The aortic root size is normal. 7. IVC Not well visulized. 8. There is no pericardial effusion. 9. This was a technically difficult study with suboptimal views. 10. The left ventricular size is normal. 11. There is borderline concentric left ventricular hypertrophy. 12. The right ventricle is normal in size. 13. LA is midly dilated 29-33ml/m2. 14. The right atrium is normal in size. 15. 1.5mg of Definity was utilized for enhancement of images 16. Aortic valve is trileaflet and is moderately thickened. SOCIAL MEDIA JOB TITLES: Airam Justin RDCS
--- NOTE | 2017-05-19 10:10 | P.PN ---
Subjective 81-year-old male patient, presented to the emergency department today after he had fallen at home and landed on his right posterior chest area and he developed a significant area of bruise at the impact site. The patient came into the hospital because of worsening shortness of breath. He had received 2 injections at that his primary care physician's office for pain and he had been also utilizing Tylenol No. 3's. He has no hemoptysis. No pleurisy. No anginal -type of chest pain. His chest x-ray showed increased pulmonary vascular marking and course infiltrates in the lung bases and the patient's troponin was at 1.9 at time of admission with some nonsignificant ST segment depression over the lateral leads. The patient was started on IV heparin and aspirin and metoprolol. The patient was given a dose of Lasix. His blood pressure is borderline right now with a systolic in the mid 90s. He is admitted to the intensive care unit. Note that he was quite short of breath initially at time of admission where he was placed on a BiPAP at a pressure of 14/7 cm of water. Currently is off the BiPAP. He was on 6 L which got wean down to 4 L and he can be further weaned down knowing that his pulse ox on 4 L around 96-97%. He has a Parker catheter. Urine output is adequate for now. No change in mental status. No head trauma. No exposure to asbestos over the years. No history of any smoking. On 05/19/2017 the patient is being seen in follow-up in intensive care unit. A CAT scan of the chest was done yesterday and it showed some small effusion and atelectatic changes in lung bases bilaterally. No evidence of an interstitial lung disease. The patient is resting comfortably in bed on 3:30 of oxygen nasal cannula and a pulse ox around 94%. Troponins peaked at 21 and the patient clearly had an acute non-ST segment elevation myocardial infarction. He remains free of any anginal chest pain. He is having some pain over the bruised area in the right posterior chest area. The patient IV heparin. The patient is on aspirin. The patient is on beta blockers. Cardiology on the case. Echocardiogram will be obtained to assess LV function and looking for any valvular abnormalities. He was taken off diuretics. Blood pressure is in the most recent blood pressure reading is 100/56. Producing adequate amount of urine output. The fluid balance is -1.3 L over the past 24 hours. Cardiac rhythm is sinus. Objective - Vital Signs Vital signs: Vital Signs Temp 97.6 F 05/19/17 08:00 Pulse 83 05/19/17 09:00 Resp 16 05/19/17 09:00 BP 109/56 05/19/17 09:00 Pulse Ox 94 L 05/19/17 09:00 Intake & Output 05/18/17 05/19/17 05/19/17 18:59 06:59 18:59 Intake Total 80 523.667 501.0 Output Total 675 1245 450 Balance -595 -721.333 51.0 Weight 90.718 kg 91.4 kg Intake: IV 80 220 111.0 0.9 60 220 60 Heparin Sodium,Porcine/ 20 51.0 D5w Pmx 25,000 unit In Dextrose/Water 1 500ml. bag @ 11.024 UNITS/KG/HR 20 mls/hr IV .Q24H [facility] Rx #:[id number] Intake, IV Titration 303.667 Amount Heparin Sodium,Porcine/ 303.667 D5w Pmx 25,000 unit In Dextrose/Water 1 500ml. bag @ 11.024 UNITS/KG/HR 20 mls/hr IV .Q24H [facility] Rx #:[id number] Oral 390 Output: Urine 675 1245 450 Other: Voiding Method Indwelling Catheter Indwelling Catheter # Voids 0 - Exam The patient appeared well nourished and normally developed. Vital signs as documented. Head exam is unremarkable. No scleral icterus or corneal arcus noted. Neck is without jugular venous distension, thyromegaly, or carotid bruits. Carotid upstrokes are brisk bilaterally. Lungs reveal coarse crackles in lung bases bilaterally. There is also an area of bruise over the right lateral chest area. No significant deformity. Area is tender to touch.. Cardiac exam reveals the PMI to be normally sized and situated. Rhythm is regular. First and second heart sounds normal. No murmurs, rubs or gallops. Abdominal exam reveals normal bowel sounds, no masses, no organomegaly and no aortic enlargement. Extremities are nonedematous and both femoral and pedal pulses are normal. - Labs CBC & Chem 7: 05/19/17 04:31 05/19/17 04:31 Labs: Abnormal Lab Results - Last 24 Hours (Table) 05/18/17 05/18/17 05/18/17 Range/Units 13:14 13:14 13:14 RBC 4.14 L (4.30-5.90) m/uL Hgb (13.0-17.5) gm/dL Hct (39.0-53.0) % Plt Count 139 L (150-450) k/uL Lymphocytes # 0.4 L (1.0-4.8) k/uL APTT (22.0-30.0) sec Sodium 132 L (137-145) mmol/L Potassium 5.9 H (3.5-5.1) mmol/L BUN 38 H (9-20) mg/dL Glucose 435 H (74-99) mg/dL POC Glucose (mg/dL) (75-99) mg/dL Hemoglobin A1c (4.2-6.1) % Calcium (8.4-10.2) mg/dL AST 82 H (17-59) U/L Total Creatine Kinase (55-170) U/L CK-MB (CK-2) 6.2 H* (0.0-2.4) ng/mL Troponin I 1.990 H* (0.000-0.034) ng/mL Urine Glucose (UA) (Negative) Urine Ketones (Negative) 05/18/17 05/18/17 05/18/17 Range/Units 13:14 13:14 15:17 RBC (4.30-5.90) m/uL Hgb (13.0-17.5) gm/dL Hct (39.0-53.0) % Plt Count (150-450) k/uL Lymphocytes # (1.0-4.8) k/uL APTT 20.5 L (22.0-30.0) sec Sodium (137-145) mmol/L Potassium (3.5-5.1) mmol/L BUN (9-20) mg/dL Glucose (74-99) mg/dL POC Glucose (mg/dL) 463 H (75-99) mg/dL Hemoglobin A1c 6.6 H (4.2-6.1) % Calcium (8.4-10.2) mg/dL AST (17-59) U/L Total Creatine Kinase (55-170) U/L CK-MB (CK-2) (0.0-2.4) ng/mL Troponin I (0.000-0.034) ng/mL Urine Glucose (UA) (Negative) Urine Ketones (Negative) 05/18/17 05/18/17 05/18/17 Range/Units 16:35 16:45 20:02 RBC (4.30-5.90) m/uL Hgb (13.0-17.5) gm/dL Hct (39.0-53.0) % Plt Count (150-450) k/uL Lymphocytes # (1.0-4.8) k/uL APTT (22.0-30.0) sec Sodium (137-145) mmol/L Potassium (3.5-5.1) mmol/L BUN (9-20) mg/dL Glucose (74-99) mg/dL POC Glucose (mg/dL) 445 H (75-99) mg/dL Hemoglobin A1c (4.2-6.1) % Calcium (8.4-10.2) mg/dL AST (17-59) U/L Total Creatine Kinase 432 H (55-170) U/L CK-MB (CK-2) 42.0 H* (0.0-2.4) ng/mL Troponin I 12.700 H* (0.000-0.034) ng/mL Urine Glucose (UA) 4+ H (Negative) Urine Ketones Trace H (Negative) 05/18/17 05/18/17 05/19/17 Range/Units 20:02 20:51 01:48 RBC (4.30-5.90) m/uL Hgb (13.0-17.5) gm/dL Hct (39.0-53.0) % Plt Count (150-450) k/uL Lymphocytes # (1.0-4.8) k/uL APTT 46.6 H (22.0-30.0) sec Sodium (137-145) mmol/L Potassium (3.5-5.1) mmol/L BUN (9-20) mg/dL Glucose (74-99) mg/dL POC Glucose (mg/dL) 381 H (75-99) mg/dL Hemoglobin A1c (4.2-6.1) % Calcium (8.4-10.2) mg/dL AST (17-59) U/L Total Creatine Kinase 494 H (55-170) U/L CK-MB (CK-2) 43.9 H* (0.0-2.4) ng/mL Troponin I 21.100 H* (0.000-0.034) ng/mL Urine Glucose (UA) (Negative) Urine Ketones (Negative) 05/19/17 05/19/17 05/19/17 Range/Units 04:31 04:31 04:31 RBC 3.63 L (4.30-5.90) m/uL Hgb 11.9 L (13.0-17.5) gm/dL Hct 34.3 L (39.0-53.0) % Plt Count 144 L (150-450) k/uL Lymphocytes # 0.5 L (1.0-4.8) k/uL APTT 34.4 H (22.0-30.0) sec Sodium 136 L (137-145) mmol/L Potassium (3.5-5.1) mmol/L BUN 40 H (9-20) mg/dL Glucose 57 L (74-99) mg/dL POC Glucose (mg/dL) (75-99) mg/dL Hemoglobin A1c (4.2-6.1) % Calcium 8.1 L (8.4-10.2) mg/dL AST (17-59) U/L Total Creatine Kinase (55-170) U/L CK-MB (CK-2) (0.0-2.4) ng/mL Troponin I (0.000-0.034) ng/mL Urine Glucose (UA) (Negative) Urine Ketones (Negative) 05/19/17 05/19/17 Range/Units 06:05 07:57 RBC (4.30-5.90) m/uL Hgb (13.0-17.5) gm/dL Hct (39.0-53.0) % Plt Count (150-450) k/uL Lymphocytes # (1.0-4.8) k/uL APTT (22.0-30.0) sec Sodium (137-145) mmol/L Potassium (3.5-5.1) mmol/L BUN (9-20) mg/dL Glucose (74-99) mg/dL POC Glucose (mg/dL) 61 L 128 H (75-99) mg/dL Hemoglobin A1c (4.2-6.1) % Calcium (8.4-10.2) mg/dL AST (17-59) U/L Total Creatine Kinase (55-170) U/L CK-MB (CK-2) (0.0-2.4) ng/mL Troponin I (0.000-0.034) ng/mL Urine Glucose (UA) (Negative) Urine Ketones (Negative) Microbiology - Last 24 Hours (Table) 05/18/17 13:14 Blood Culture - Final Blood Assessment and Plan Plan: Assessment 1 acute shortness of breath with acute hypoxic respiratory failure, post fall and blunt trauma to the right chest. Chest x-ray shows coarse interstitial infiltrates bilaterally. CT of the chest was noted. There is no evidence of any interstitial lung disease. There is some atelectasis and small effusion the lung bases bilaterally. 2 acute nonSTEMI. EKG shows some minor ST segment changes, depression and the troponin peaked at 21. No angina. Currently on IV heparin and aspirin and the patient is also on beta blockers. No significant cardiac arrhythmias. 3 coronary artery disease, history of 4 CHF other diastolic dysfunction. Echocardiogram was ordered for today. 5 diabetes mellitus type 2 6 diabetic peripheral neuropathy 7 hyperlipidemia 8 depression 9 chronic anxiety 10 skin cancer 11 BPH 12 marked impaired hearing 13 unexpected fall Plan The patient will be kept in ICU for another 24 hours. Continue aspirin and IV heparin and beta blockers. Continue pain control with oral [place]. Continue monitoring this patient. Echocardiogram. Cardiology follow-up.
[2017-05-19] MEDS ORDERED: MAGNESIUM HYDROXIDE 2,400 MG/10 ML CUP PO PRN (10:43)
[2017-05-19] MEDS ORDERED: METOPROLOL TARTRATE 12.5 MG TAB PO SCH (10:45)
[2017-05-19] MEDS: SENNOSIDES-DOCUSATE SODIUM 1 EACH TAB PO SCH ×2 (11:19→21:22)
[2017-05-19 12:24] LABS: Glucose,Whole Blood 305 mg/dL (75-99)
[2017-05-19 12:36] LABS: Glucose,Whole Blood 303 mg/dL (75-99)
[2017-05-19] MEDS ORDERED: METOPROLOL TARTRATE 12.5 MG TAB PO STA (13:35)
--- NOTE | 2017-05-19 13:36 | P.PN ---
Subjective This is an 81-year-old male patient of Dr. More with a past medical history diabetes mellitus type 2, hyperlipidemia, hypertension, enlarged prostate, skin cancer, anxiety and depression, patient was in his usual state of health about Sunday when he fell down and landed on the right side of his back, patient developed to have a significant bruising in the back, he went and saw Dr. More yesterday the office he did receive 2 injection and the patient went back home, patient woke up in the morning he was feeling fine and he took 2 Tylenol No. 3 because of his back pain, and the patient suddenly developed to have a significant rattling in his chest. Patient's the ask with her neighbors oh was a nurse to come and see the patient and she recommended for the patient to go to the ER for evaluation and treatment patient was found to have a an acute diastolic heart failure and his troponin came back surprisingly slightly elevated at 1.9 his EKG did not show any evidence of ST elevation, patient was ruled in non-ST elevation NC he was started on IV heparin, he was started also on nitroglycerin paste, he was placed on aspirin 325 mg orally once every day, metoprolol 25 mg orally twice every day, cardiology consultation was obtained as well as pulmonary consultation, patient was placed initially on the BiPAP because of significant hypoxemia was given Lasix 40 mg IV push 1. 9/: Patient remains in intensive care unit. He has been seen and followed by Dr. Cyr. He is currently off BiPAP and pulse ox is 94% on nasal cannula. CAT scan of the chest was done yesterday that shows small effusion and atelectatic changes in the lung bases bilaterally. Cardiology consult is pending. Echocardiogram is pending. Troponins are 1.990, 12.7, 21.1. He is continued on heparin drip, aspirin, Lipitor, Imdur and metoprolol. He is complaining of constipation for which Senokot and milk of magnesia added. Objective - Vital Signs Vital signs: Vital Signs Temp 97.6 F 05/19/17 00:00 Pulse 77 05/19/17 07:00 Resp 13 05/19/17 07:00 BP 147/79 05/19/17 07:00 Pulse Ox 95 05/19/17 07:00 Intake & Output 0905/19/17 05/19/17 18:59 06:59 18:59 Intake Total 80 523.667 170 Output Total 675 1245 100 Balance -595 -721.333 70 Weight 90.718 kg 91.4 kg Intake: IV 80 220 20 0.9 60 220 20 Heparin Sodium,Porcine/ 20 D5w Pmx 25,000 unit In Dextrose/Water 1 500ml. bag @ 11.024 UNITS/KG/HR 20 mls/hr IV .Q24H [facility] Rx #:[id number] Intake, IV Titration 303.667 Amount Heparin Sodium,Porcine/ 303.667 D5w Pmx 25,000 unit In Dextrose/Water 1 500ml. bag @ 11.024 UNITS/KG/HR 20 mls/hr IV .Q24H [facility] Rx #:[id number] Oral 150 Output: Urine 675 1245 100 Other: Voiding Method Indwelling Catheter Indwelling Catheter - Exam General appearance: average body habitus, mild distress - EENT Eyes: anicteric sclerae, EOMI, PERRLA, no ptosis, no scleral icterus, normal appearance ENT: hard of hearing, NA/AT, no thrush, no tonsillar exudates Ears: bilateral: normal - Neck Neck: no lymphadenopathy, normal ROM, no rigidity, no stridor, no thyromegaly Carotids: bilateral: upstroke normal Thyroid: bilateral: normal size - Respiratory Respiratory: bilateral: diminished, negative: dullness, rales, rhonchi, wheezing , prolonged expiration - Cardiovascular Rhythm: regular Heart sounds: normal: S1, S2 Abnormal Heart Sounds: systolic murmur, no rub, S3 Gallop, no click - Gastrointestinal General gastrointestinal: normal bowel sounds, soft, no splenomegaly, no tenderness, no umbilical hernia, no ventral hernia - Integumentary Integumentary: normal, normal turgor - Neurologic Neurologic: CNII-XII intact - Musculoskeletal Musculoskeletal: generalized weakness, strength equal bilaterally - Psychiatric Psychiatric: A&O x's 3, appropriate affect, intact judgment & insight - Labs CBC & Chem 7: 05/19/17 04:31 05/19/17 04:31 Labs: Abnormal Lab Results - Last 24 Hours (Table) 05/18/17 05/18/17 05/18/17 Range/Units 13:14 13:14 13:14 RBC 4.14 L (4.30-5.90) m/uL Hgb (13.0-17.5) gm/dL Hct (39.0-53.0) % Plt Count 139 L (150-450) k/uL Lymphocytes # 0.4 L (1.0-4.8) k/uL APTT (22.0-30.0) sec Sodium 132 L (137-145) mmol/L Potassium 5.9 H (3.5-5.1) mmol/L BUN 38 H (9-20) mg/dL Glucose 435 H (74-99) mg/dL POC Glucose (mg/dL) (75-99) mg/dL Hemoglobin A1c (4.2-6.1) % Calcium (8.4-10.2) mg/dL AST 82 H (17-59) U/L Total Creatine Kinase (55-170) U/L CK-MB (CK-2) 6.2 H* (0.0-2.4) ng/mL Troponin I 1.990 H* (0.000-0.034) ng/mL Urine Glucose (UA) (Negative) Urine Ketones (Negative) 05/18/17 05/18/17 05/18/17 Range/Units 13:14 13:14 15:17 RBC (4.30-5.90) m/uL Hgb (13.0-17.5) gm/dL Hct (39.0-53.0) % Plt Count (150-450) k/uL Lymphocytes # (1.0-4.8) k/uL APTT 20.5 L (22.0-30.0) sec Sodium (137-145) mmol/L Potassium (3.5-5.1) mmol/L BUN (9-20) mg/dL Glucose (74-99) mg/dL POC Glucose (mg/dL) 463 H (75-99) mg/dL Hemoglobin A1c 6.6 H (4.2-6.1) % Calcium (8.4-10.2) mg/dL AST (17-59) U/L Total Creatine Kinase (55-170) U/L CK-MB (CK-2) (0.0-2.4) ng/mL Troponin I (0.000-0.034) ng/mL Urine Glucose (UA) (Negative) Urine Ketones (Negative) 05/18/17 05/18/17 05/18/17 Range/Units 16:35 16:45 20:02 RBC (4.30-5.90) m/uL Hgb (13.0-17.5) gm/dL Hct (39.0-53.0) % Plt Count (150-450) k/uL Lymphocytes # (1.0-4.8) k/uL APTT (22.0-30.0) sec Sodium (137-145) mmol/L Potassium (3.5-5.1) mmol/L BUN (9-20) mg/dL Glucose (74-99) mg/dL POC Glucose (mg/dL) 445 H (75-99) mg/dL Hemoglobin A1c (4.2-6.1) % Calcium (8.4-10.2) mg/dL AST (17-59) U/L Total Creatine Kinase 432 H (55-170) U/L CK-MB (CK-2) 42.0 H* (0.0-2.4) ng/mL Troponin I 12.700 H* (0.000-0.034) ng/mL Urine Glucose (UA) 4+ H (Negative) Urine Ketones Trace H (Negative) 05/18/17 05/18/17 05/19/17 Range/Units 20:02 20:51 01:48 RBC (4.30-5.90) m/uL Hgb (13.0-17.5) gm/dL Hct (39.0-53.0) % Plt Count (150-450) k/uL Lymphocytes # (1.0-4.8) k/uL APTT 46.6 H (22.0-30.0) sec Sodium (137-145) mmol/L Potassium (3.5-5.1) mmol/L BUN (9-20) mg/dL Glucose (74-99) mg/dL POC Glucose (mg/dL) 381 H (75-99) mg/dL Hemoglobin A1c (4.2-6.1) % Calcium (8.4-10.2) mg/dL AST (17-59) U/L Total Creatine Kinase 494 H (55-170) U/L CK-MB (CK-2) 43.9 H* (0.0-2.4) ng/mL Troponin I 21.100 H* (0.000-0.034) ng/mL Urine Glucose (UA) (Negative) Urine Ketones (Negative) 05/19/17 05/19/17 05/19/17 Range/Units 04:31 04:31 04:31 RBC 3.63 L (4.30-5.90) m/uL Hgb 11.9 L (13.0-17.5) gm/dL Hct 34.3 L (39.0-53.0) % Plt Count 144 L (150-450) k/uL Lymphocytes # 0.5 L (1.0-4.8) k/uL APTT 34.4 H (22.0-30.0) sec Sodium 136 L (137-145) mmol/L Potassium (3.5-5.1) mmol/L BUN 40 H (9-20) mg/dL Glucose 57 L (74-99) mg/dL POC Glucose (mg/dL) (75-99) mg/dL Hemoglobin A1c (4.2-6.1) % Calcium 8.1 L (8.4-10.2) mg/dL AST (17-59) U/L Total Creatine Kinase (55-170) U/L CK-MB (CK-2) (0.0-2.4) ng/mL Troponin I (0.000-0.034) ng/mL Urine Glucose (UA) (Negative) Urine Ketones (Negative) 05/19/17 Range/Units 06:05 RBC (4.30-5.90) m/uL Hgb (13.0-17.5) gm/dL Hct (39.0-53.0) % Plt Count (150-450) k/uL Lymphocytes # (1.0-4.8) k/uL APTT (22.0-30.0) sec Sodium (137-145) mmol/L Potassium (3.5-5.1) mmol/L BUN (9-20) mg/dL Glucose (74-99) mg/dL POC Glucose (mg/dL) 61 L (75-99) mg/dL Hemoglobin A1c (4.2-6.1) % Calcium (8.4-10.2) mg/dL AST (17-59) U/L Total Creatine Kinase (55-170) U/L CK-MB (CK-2) (0.0-2.4) ng/mL Troponin I (0.000-0.034) ng/mL Urine Glucose (UA) (Negative) Urine Ketones (Negative) Assessment and Plan Plan: 1. Acute hypoxic respiratory failure due to acute diastolic heart failure due to non-ST elevation NC, and possible pneumonia. Start the patient on IV heparin drip per protocol. Continue patient on aspirin 325 mg orally once every day, nitro glycerin paste 1 inch every 6 hours, continue patient on metoprolol 12.5 mg orally twice every day, hold off losartan because of his hypotension, start the patient on Levaquin 250 mg IV piggyback every 24 hours, place the patient on BiPAP, patient will be given Lasix 40 mg IV push every 12 hours, echocardiogram, cardiology consultation, pulmonary consultation from Dr. Cyr. 2. Acute diastolic heart failure. Continue metoprolol 12.5 mg orally twice every day, hold off losartan for now, continue Lasix 40 mg IV push every 12 hours, continue BiPAP for now. 3. Non-ST elevation NC. The patient would be started on aspirin 325 mg orally once every day, metoprolol 12.5 mg orally twice every day, heparin drip, simvastatin or Lipitor 10 mg orally once every day, cardiology consultation, echocardiogram for evaluation of LV function. 4. Possible bilateral pneumonia. Start the patient on Levaquin 250 mg IV piggyback every 24 hours, nebulized treatment albuterol 2.5 mg every 4 hours as needed, Continue oxygen support, pulmonary consultation. 5. Enlarged prostate. Continue Flomax 0.4 g orally once every day. 6. Diabetes mellitus type 2. Hold the patient metformin and glipizide, start the patient on sliding scale insulin for now. 7. Diabetic polyneuropathy. Stable at this time. 8. Hyperlipidemia. Continue patient on Lipitor 10 mg orally once every day. 9. Depression. Continue Cymbalta 60 mg orally once every day. 10. Anxiety disorder. Continue patient on Xanax 1 mg orally twice a day as needed. 11. DVT prophylaxis. Continue heparin drip for now. 12. GI prophylaxis. Continue PPI. 13. Patient is full code. Discharge plan: To be determined Impression and plan of care have been directed as dictated by the signing physician. Ping Sue nurse practitioner acting as scribe for signing physician.
[2017-05-19] MEDS: HEPARIN SODIUM,PORCINE/D5W PMX 25,000 UNIT in DEXTROSE/WATER 1 500ML.BAG IV SCH (14:24)
[2017-05-19] MEDS ORDERED: LEVOFLOXACIN 250MG-D5W PMX 250 MG in DEXTROSE/WATER 1 50ML.BAG IVPB SCH (15:00)
[2017-05-19] MEDS: ALPRAZolam 0.5 MG TAB PO PRN (15:19)
--- NOTE | 2017-05-19 16:32 | CONS ---
CONSULTATION This is an 81-year-old, male patient, who presents to the ER with difficulty breathing. Cardiology is consulted because of an abnormal ECG and abnormal troponin. The patient denied any chest discomfort. His symptoms are complaints of shortness of breath and frequent falls. He fell about a week back and had rib fractures. MEDICATION LIST: Was reviewed and includes: 1. Alprazolam. 2. Nitrates. 3. Losartan. 4. Simvastatin. 5. Flomax. 6. Amlodipine. 7. Glyburide. 8. Metformin. 9. Aspirin. 10.Vitamin D3. ALLERGIES: No known drug allergies. PATIENT'S PAST MEDICAL HISTORY: Includes diabetes, dyslipidemia, hypertension, enlarged prostate and skin cancer. PHYSICAL EXAMINATION: His initial blood pressure was 110/68 mmHg. His respirations 30 per minute. He was afebrile. Today his blood pressure is 117/76 mmHg, pulse rate in the 80s. He looks a lot more comfortable. Breath sounds are reduced bilaterally. Crackles in the bases. HEART: Sounds S1, S2 was soft and I hear no obvious murmur. ABDOMEN: Soft. Extremities are warm. [address] elevation in leads V1, as well as AVR on admission with ST depression in the lateral precordial leads and high lateral leads. 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 The followup ECG shows improvement in the ST elevations in AVR and V1. LABS: Reviewed. His initial hemoglobin was 13.2, now it is 11.9, initial potassium was 5.9, how it is 4.0, sodium 136, BUN is mildly elevated. Creatinine is 1.02. First troponin 1.9, second troponin 12, third troponin 21 and LDL 73. IMPRESSION: 1. Non-Q-wave myocardial infarction. 2. Coronary artery disease. Probably involving the proximal LAD at least proximal LAD. 3. Patient is DNR status. 4. Diabetes. 5. Hypertension. SUGGEST: Continue two baby aspirins, continue atorvastatin 40 mg p.o. daily. Continue IV Lasix for now and tomorrow we will switch to p.o. Lasix if he is p.o. Lasix switch to isosorbide/nitrates. I would stop the heparin today. Increase metoprolol to 25 mg twice daily and maximize this. Medical management for coronary artery disease. Overall prognosis is poor. MMODL / IJN: [id number] /
[2017-05-19 17:28] LABS: Glucose,Whole Blood 192 mg/dL (75-99)
[2017-05-19] MEDS: ATORVASTATIN 40 MG TAB PO SCH (21:23)
[2017-05-19 21:26] LABS: Glucose,Whole Blood 162 mg/dL (75-99)
[2017-05-19] MEDS: METOPROLOL TARTRATE 25 MG TAB PO SCH (22:57)
[2017-05-20] MEDS: NITROGLYCERIN OINT 1 INCH/GM PACKET TOPICAL SCH ×2 (00:23→05:36)
[2017-05-20 06:21] LABS: Basophils % (A) 0 %; CH 30.8; CHCM 32.9; Eosinophils # (A) 0.1 k/uL (0-0.7); Eosinophils % (A) 2 %; HCT 34.6 % (39.0-53.0); HDW 2.64; HGB 11.6 gm/dL (13.0-17.5); Luc # (Auto) 0.14; Luc % (Auto) 3; Lymphocytes # (A) 0.6 k/uL (1.0-4.8); Lymphocytes % (A) 11 %; MCH 31.6 pg (25.0-35.0); MCHC 33.5 g/dL (31.0-37.0); MCV 94.1 fL (80.0-100.0); Mean Platelet Volume 7.3; Monocytes # (A) 0.3 k/uL (0-1.0); Monocytes % (A) 6 %; Neutrophils # (A) 3.9 k/uL (1.3-7.7); Neutrophils % (A) 78 %; RBC 3.67 m/uL (4.30-5.90); RDW 13.4 % (11.5-15.5); WBC (Perox) 5.17
[2017-05-20 06:27] LABS: Glucose,Whole Blood 144 mg/dL (75-99)
[2017-05-20 06:33] LABS: Anion Gap 4 mmol/L; Blood Urea Nitrogen 32 mg/dL (9-20); Calcium 7.8 mg/dL (8.4-10.2); Carbon Dioxide 33 mmol/L (22-30); Chloride 98 mmol/L (98-107); Glucose 118 mg/dL (74-99); Magnesium 2.2 mg/dL (1.6-2.3); Non-African American GFR(MDRD) >60 (>60 ml/min/1.73 sqM); Phosphorous 3.3 mg/dL (2.5-4.5); Potassium 4.9 mmol/L (3.5-5.1); Sodium 135 mmol/L (137-145)
[2017-05-20] MEDS: PANTOPRAZOLE 40 MG TABLET PO SCH (06:49)
[2017-05-20] MEDS: HYDROcodone/APAP 5-325MG 1 EACH TAB PO PRN ×4 (06:51→21:19)
[2017-05-20] MEDS: INSULIN LISPRO (humaLOG) 300 UNIT/3 ML VIAL SQ SCH ×4 (08:18→21:18)
[2017-05-20] MEDS: DULoxetine HCL 60 MG CAPSULE.DR PO SCH (08:19)
[2017-05-20] MEDS: ASPIRIN 81 MG CHEW PO SCH (08:19)
[2017-05-20] MEDS: METOPROLOL TARTRATE 25 MG TAB PO SCH ×2 (08:19→21:18)
[2017-05-20] MEDS: FUROSEMIDE 10 MG/ML 4 ML VIAL IV SCH ×2 (08:19→21:18)
[2017-05-20] MEDS: TAMSULOSIN 0.4 MG CAP.ER.24H PO SCH (08:20)
[2017-05-20] MEDS: SENNOSIDES-DOCUSATE SODIUM 1 EACH TAB PO SCH ×2 (08:35→21:18)
[2017-05-20] MEDS: ISOSORBIDE MONONITRATE ER 30 MG TAB.ER.24H PO SCH ×2 (08:37→10:14)
[2017-05-20] MEDS ORDERED: TAMSULOSIN 0.4 MG CAP.ER.24H PO SCH (09:02)
--- NOTE | 2017-05-20 10:43 | P.PN ---
Subjective This is an 81-year-old male patient of Dr. More with a past medical history diabetes mellitus type 2, hyperlipidemia, hypertension, enlarged prostate, skin cancer, anxiety and depression, patient was in his usual state of health about Sunday when he fell down and landed on the right side of his back, patient developed to have a significant bruising in the back, he went and saw Dr. More yesterday the office he did receive 2 injection and the patient went back home, patient woke up in the morning he was feeling fine and he took 2 Tylenol No. 3 because of his back pain, and the patient suddenly developed to have a significant rattling in his chest. Patient's the ask with her neighbors oh was a nurse to come and see the patient and she recommended for the patient to go to the ER for evaluation and treatment patient was found to have a an acute diastolic heart failure and his troponin came back surprisingly slightly elevated at 1.9 his EKG did not show any evidence of ST elevation, patient was ruled in non-ST elevation [place] he was started on IV heparin, he was started also on nitroglycerin paste, he was placed on aspirin 325 mg orally once every day, metoprolol 25 mg orally twice every day, cardiology consultation was obtained as well as pulmonary consultation, patient was placed initially on the BiPAP because of significant hypoxemia was given Lasix 40 mg IV push 1. 05/19: Patient remains in intensive care unit. He has been seen and followed by Dr. Cyr. He is currently off BiPAP and pulse ox is 94% on nasal cannula. CAT scan of the chest was done yesterday that shows small effusion and atelectatic changes in the lung bases bilaterally. Cardiology consult is pending. Echocardiogram is pending. Troponins are 1.990, 12.7, 21.1. He is continued on heparin drip, aspirin, Lipitor, Imdur and metoprolol. He is complaining of constipation for which Senokot and milk of magnesia added. 05/20: Patient has been seen by Dr. Savage regarding non-Q wave myocardial infarction. Heparin drip stopped, metoprolol increased. Nitro paste will be discontinued and patient resumed on Imdur as recommended by Dr. Savage. He is currently on Lasix 40 mg IV every 12 hours. Patient states he slept well last night. He denies any shortness of breath. He did have a bowel movement this morning which was normal without blood or tarriness. PT, OT and social work consult added for discharge planning. Objective - Vital Signs Vital signs: Vital Signs Temp 97.4 F L 05/20/17 04:00 Pulse 78 05/20/17 04:00 Resp 15 05/20/17 04:00 BP 121/57 05/20/17 04:00 Pulse Ox 99 05/20/17 04:00 Intake & Output 05/19/17 05/20/17 05/20/17 18:59 06:59 18:59 Intake Total 1962.773 500 Output Total 2795 1915 Balance -832.227 -1415 Intake: IV 515.0 140 0.9 260 140 Heparin Sodium,Porcine/ 255.0 D5w Pmx 25,000 unit In Dextrose/Water 1 500ml. bag @ 11.024 UNITS/KG/HR 20 mls/hr IV .Q24H [facility] Rx #:[id number] Intake, IV Titration 337.773 Amount Heparin Sodium,Porcine/ 287.773 D5w Pmx 25,000 unit In Dextrose/Water 1 500ml. bag @ 11.024 UNITS/KG/HR 20 mls/hr IV .Q24H [facility] Rx #:[id number] Levofloxacin 250Mg-D5w 50 Pmx 250 mg In Dextrose/ Water 1 50ml.bag @ 50 mls /hr IVPB Q24H [facility] Rx#: [id number] Oral 1110 360 Output: Urine 2794 1914 Uretheral (Parker) 850 Other: Voiding Method Indwelling Catheter Indwelling Catheter # Voids 0 - Exam General appearance: average body habitus, mild distress - EENT Eyes: anicteric sclerae, EOMI, PERRLA, no ptosis, no scleral icterus, normal appearance ENT: hard of hearing, NA/AT, no thrush, no tonsillar exudates Ears: bilateral: normal - Neck Neck: no lymphadenopathy, normal ROM, no rigidity, no stridor, no thyromegaly Carotids: bilateral: upstroke normal Thyroid: bilateral: normal size - Respiratory Respiratory: bilateral: diminished, negative: dullness, rales, rhonchi, wheezing , prolonged expiration - Cardiovascular Rhythm: regular Heart sounds: normal: S1, S2 Abnormal Heart Sounds: systolic murmur, no rub, S3 Gallop, no click - Gastrointestinal General gastrointestinal: normal bowel sounds, soft, no splenomegaly, no tenderness, no umbilical hernia, no ventral hernia - Integumentary Integumentary: normal, normal turgor - Neurologic Neurologic: CNII-XII intact - Musculoskeletal Musculoskeletal: generalized weakness, strength equal bilaterally - Psychiatric Psychiatric: A&O x's 3, appropriate affect, intact judgment & insight - Labs CBC & Chem 7: 05/20/17 05:33 05/20/17 05:33 Labs: Abnormal Lab Results - Last 24 Hours (Table) 05/19/17 05/19/17 05/19/17 Range/Units 11:48 12:21 12:36 RBC (4.30-5.90) m/uL Hgb (13.0-17.5) gm/dL Hct (39.0-53.0) % Lymphocytes # (1.0-4.8) k/uL APTT 53.7 H (22.0-30.0) sec Sodium (137-145) mmol/L Carbon Dioxide (22-30) mmol/L BUN (9-20) mg/dL Glucose (74-99) mg/dL POC Glucose (mg/dL) 305 H 303 H (75-99) mg/dL Calcium (8.4-10.2) mg/dL 05/19/17 05/19/17 05/20/17 Range/Units 17:26 21:25 05:33 RBC 3.67 L (4.30-5.90) m/uL Hgb 11.6 L (13.0-17.5) gm/dL Hct 34.6 L (39.0-53.0) % Lymphocytes # 0.6 L (1.0-4.8) k/uL APTT (22.0-30.0) sec Sodium (137-145) mmol/L Carbon Dioxide (22-30) mmol/L BUN (9-20) mg/dL Glucose (74-99) mg/dL POC Glucose (mg/dL) 192 H 162 H (75-99) mg/dL Calcium (8.4-10.2) mg/dL 05/20/17 05/20/17 Range/Units 05:33 06:26 RBC (4.30-5.90) m/uL Hgb (13.0-17.5) gm/dL Hct (39.0-53.0) % Lymphocytes # (1.0-4.8) k/uL APTT (22.0-30.0) sec Sodium 135 L (137-145) mmol/L Carbon Dioxide 33 H (22-30) mmol/L BUN 32 H (9-20) mg/dL Glucose 118 H (74-99) mg/dL POC Glucose (mg/dL) 144 H (75-99) mg/dL Calcium 7.8 L (8.4-10.2) mg/dL Microbiology - Last 24 Hours (Table) 05/18/17 13:14 Blood Culture Gram Stain - Preliminary Blood Blood Culture - Preliminary Coagulase Negative Staph 05/18/17 13:14 Blood Culture - Final Blood Assessment and Plan Plan: 1. Acute hypoxic respiratory failure due to acute diastolic heart failure due to non-ST elevation AR, and possible pneumonia. Off heparin drip. Continue patient on aspirin 162 mg orally once every day, imdur, metoprolol 25 mg orally twice every day, hold off losartan because of his hypotension, start the patient on Levaquin 250 mg oral every 24 hours, oxygen, Lasix 40 mg IV push every 12 hours, echocardiogram, cardiology consultation, pulmonary consultation from Dr. Cyr. 2. Acute diastolic heart failure. Continue metoprolol 25 mg orally twice every day, hold off losartan for now, continue Lasix 40 mg IV push every 12 hours, continue BiPAP for now. 3. Non-ST elevation AR. The patient would be started on aspirin 162 mg orally once every day, metoprolol 25 mg orally twice every day, simvastatin or Lipitor every day, cardiology consultation, echocardiogram for evaluation of LV function. 4. Possible bilateral pneumonia. Start the patient on Levaquin 250 mg IV piggyback every 24 hours, nebulized treatment albuterol 2.5 mg every 4 hours as needed, Continue oxygen support, pulmonary consultation. 5. Enlarged prostate. Continue Flomax 0.8 mg orally once every day. 6. Diabetes mellitus type 2. Hold the patient metformin and glipizide, start the patient on sliding scale insulin for now. 7. Diabetic polyneuropathy. Stable at this time. 8. Hyperlipidemia. Continue patient on Lipitor 10 mg orally once every day. 9. Depression, recurrent. Continue Cymbalta 60 mg orally once every day. 10. Anxiety disorder, generalized. Continue patient on Xanax 1 mg orally twice a day as needed. 11. DVT prophylaxis. Continue heparin drip for now. 12. GI prophylaxis. Continue PPI. 13. Patient is full code. Discharge plan: To be determined Impression and plan of care have been directed as dictated by the signing physician. Ping Sue nurse practitioner acting as scribe for signing physician.
[2017-05-20 11:50] LABS: Glucose,Whole Blood 300 mg/dL (75-99)
[2017-05-20] MEDS ORDERED: LEVOFLOXACIN 250 MG TAB PO SCH (15:00)
--- NOTE | 2017-05-20 15:34 | P.PN ---
Subjective 81-year-old male patient, presented to the emergency department today after he had fallen at home and landed on his right posterior chest area and he developed a significant area of bruise at the impact site. The patient came into the hospital because of worsening shortness of breath. He had received 2 injections at that his primary care physician's office for pain and he had been also utilizing Tylenol No. 3's. He has no hemoptysis. No pleurisy. No anginal -type of chest pain. His chest x-ray showed increased pulmonary vascular marking and course infiltrates in the lung bases and the patient's troponin was at 1.9 at time of admission with some nonsignificant ST segment depression over the lateral leads. The patient was started on IV heparin and aspirin and metoprolol. The patient was given a dose of Lasix. His blood pressure is borderline right now with a systolic in the mid 90s. He is admitted to the intensive care unit. Note that he was quite short of breath initially at time of admission where he was placed on a BiPAP at a pressure of 14/7 cm of water. Currently is off the BiPAP. He was on 6 L which got wean down to 4 L and he can be further weaned down knowing that his pulse ox on 4 L around 96-97%. He has a Parker catheter. Urine output is adequate for now. No change in mental status. No head trauma. No exposure to asbestos over the years. No history of any smoking. On 05/19/2017 the patient is being seen in follow-up in intensive care unit. A CAT scan of the chest was done yesterday and it showed some small effusion and atelectatic changes in lung bases bilaterally. No evidence of an interstitial lung disease. The patient is resting comfortably in bed on 3:30 of oxygen nasal cannula and a pulse ox around 94%. Troponins peaked at 21 and the patient clearly had an acute non-ST segment elevation myocardial infarction. He remains free of any anginal chest pain. He is having some pain over the bruised area in the right posterior chest area. The patient IV heparin. The patient is on aspirin. The patient is on beta blockers. Cardiology on the case. Echocardiogram will be obtained to assess LV function and looking for any valvular abnormalities. He was taken off diuretics. Blood pressure is in the most recent blood pressure reading is 100/56. Producing adequate amount of urine output. The fluid balance is -1.3 L over the past 24 hours. Cardiac rhythm is sinus. On 05/20/2017 I'm seeing this patient in follow-up. The patient is doing well. No specific complaints. No chest pain. No nausea vomiting or abdominal pain. The patient is free of any chest pain. No change in mental status. He is hard of hearing. I'm able to communicate with him. No focal neurological deficits. His been quite stable and moved out of the intensive care unit yesterday and has been no other significant events over the past 24 hours. He is on IV Lasix. B on his up to 32 with a creatinine of 1.1. He is also receiving empiric antibiotic coverage with Levaquin. Objective - Vital Signs Vital signs: Vital Signs Temp 98.3 F 05/20/17 11:15 Pulse 74 05/20/17 11:15 Resp 16 05/20/17 11:15 BP 105/59 05/20/17 11:15 Pulse Ox 97 05/20/17 11:15 Intake & Output 05/19/17 05/20/17 05/20/17 18:59 06:59 18:59 Intake Total 1962.773 500 540 Output Total 2795 1915 Balance -832.227 -1415 540 Intake: IV 515.0 140 0.9 260 140 Heparin Sodium,Porcine/ 255.0 D5w Pmx 25,000 unit In Dextrose/Water 1 500ml. bag @ 11.024 UNITS/KG/HR 20 mls/hr IV .Q24H [facility] Rx #:[id number] Intake, IV Titration 337.773 Amount Heparin Sodium,Porcine/ 287.773 D5w Pmx 25,000 unit In Dextrose/Water 1 500ml. bag @ 11.024 UNITS/KG/HR 20 mls/hr IV .Q24H [facility] Rx #:[id number] Levofloxacin 250Mg-D5w 50 Pmx 250 mg In Dextrose/ Water 1 50ml.bag @ 50 mls /hr IVPB Q24H [facility] Rx#: [id number] Oral 1110 360 540 Output: Urine 2795 1915 Uretheral (Parker) 850 Other: Voiding Method Indwelling Catheter Indwelling Catheter Toilet # Voids 0 2 - Exam The patient appeared well nourished and normally developed. Vital signs as documented. Head exam is unremarkable. No scleral icterus or corneal arcus noted. Neck is without jugular venous distension, thyromegaly, or carotid bruits. Carotid upstrokes are brisk bilaterally. Lungs reveal coarse crackles in lung bases bilaterally. There is also an area of bruise over the right lateral chest area. No significant deformity. Area is tender to touch.. Cardiac exam reveals the PMI to be normally sized and situated. Rhythm is regular. First and second heart sounds normal. No murmurs, rubs or gallops. Abdominal exam reveals normal bowel sounds, no masses, no organomegaly and no aortic enlargement. Extremities are nonedematous and both femoral and pedal pulses are normal. - Labs CBC & Chem 7: 05/20/17 05:33 05/20/17 05:33 Labs: Abnormal Lab Results - Last 24 Hours (Table) 05/19/17 05/19/17 05/20/17 Range/Units 17:26 21:25 05:33 RBC 3.67 L (4.30-5.90) m/uL Hgb 11.6 L (13.0-17.5) gm/dL Hct 34.6 L (39.0-53.0) % Lymphocytes # 0.6 L (1.0-4.8) k/uL Sodium (137-145) mmol/L Carbon Dioxide (22-30) mmol/L BUN (9-20) mg/dL Glucose (74-99) mg/dL POC Glucose (mg/dL) 192 H 162 H (75-99) mg/dL Calcium (8.4-10.2) mg/dL 05/20/17 05/20/17 05/20/17 Range/Units 05:33 06:26 11:48 RBC (4.30-5.90) m/uL Hgb (13.0-17.5) gm/dL Hct (39.0-53.0) % Lymphocytes # (1.0-4.8) k/uL Sodium 135 L (137-145) mmol/L Carbon Dioxide 33 H (22-30) mmol/L BUN 32 H (9-20) mg/dL Glucose 118 H (74-99) mg/dL POC Glucose (mg/dL) 144 H 300 H (75-99) mg/dL Calcium 7.8 L (8.4-10.2) mg/dL Microbiology - Last 24 Hours (Table) 05/19/17 11:48 Blood Culture - Preliminary Blood No Growth after 24 hours 05/18/17 13:14 Blood Culture Gram Stain - Preliminary Blood Blood Culture - Preliminary Coagulase Negative Staph Assessment and Plan Plan: Assessment 1 acute shortness of breath with acute hypoxic respiratory failure, post fall and blunt trauma to the right chest. Chest x-ray shows coarse interstitial infiltrates bilaterally. CT of the chest was noted. There is no evidence of any interstitial lung disease. There is some atelectasis and small effusion the lung bases bilaterally. On 04/19/2017 the patient is being seen in follow-up. Oxygenation is improved and the patient's pulse ox is back to normal, and the patient's has a normal pulse ox on room air. 2 acute nonSTEMI. EKG shows some minor ST segment changes, depression and the troponin peaked at 21. No angina. IV heparin has been discontinued. The patient is currently on aspirin, Lipitor, and metoprolol. Cardiology is on the case. 3 coronary artery disease, history of 4 CHF other diastolic dysfunction. 5 diabetes mellitus type 2 6 diabetic peripheral neuropathy 7 hyperlipidemia 8 depression 9 chronic anxiety 10 skin cancer 11 BPH 12 marked impaired hearing 13 unexpected fall Plan Patient is quite stable at this point. The echocardiogram was noted. The patient has an ejection fraction of 45-50%. Amylase mildly dilated. No significant valvular disease. He is on aspirin. He is on beta blockers. Cardiology is on the case. May switch to oral Lasix in the morning.
[2017-05-20 15:51] VITALS: BMI 30.6
[2017-05-20 17:41] LABS: Glucose,Whole Blood 164 mg/dL (75-99)
[2017-05-20 21:11] LABS: Glucose,Whole Blood 297 mg/dL (75-99)
[2017-05-20] MEDS: ATORVASTATIN 40 MG TAB PO SCH (21:18)
[2017-05-20] MEDS: ALPRAZolam 0.5 MG TAB PO PRN (22:30)
[2017-05-21] MEDS: HYDROcodone/APAP 5-325MG 1 EACH TAB PO PRN (03:13)
[2017-05-21 04:20] VITALS: RESP 18
[2017-05-21 05:53] LABS: Glucose,Whole Blood 208 mg/dL (75-99)
[2017-05-21 06:35] LABS: Basophils % (A) 0 %; CH 32.2; CHCM 34.2; Eosinophils # (A) 0.1 k/uL (0-0.7); Eosinophils % (A) 1 %; HCT 33.2 % (39.0-53.0); HDW 2.68; HGB 11.2 gm/dL (13.0-17.5); Luc # (Auto) 0.12; Luc % (Auto) 3; Lymphocytes # (A) 0.6 k/uL (1.0-4.8); Lymphocytes % (A) 15 %; MCH 31.9 pg (25.0-35.0); MCHC 33.7 g/dL (31.0-37.0); MCV 94.7 fL (80.0-100.0); Monocytes # (A) 0.2 k/uL (0-1.0); Monocytes % (A) 5 %; Neutrophils # (A) 3.1 k/uL (1.3-7.7); Neutrophils % (A) 76 %; RBC 3.51 m/uL (4.30-5.90); RDW 13.9 % (11.5-15.5); WBC 4.1 k/uL (3.8-10.6); WBC (Perox) 4.23
[2017-05-21 06:47] LABS: Anion Gap 6 mmol/L; Blood Urea Nitrogen 29 mg/dL (9-20); Calcium 8.2 mg/dL (8.4-10.2); Carbon Dioxide 32 mmol/L (22-30); Chloride 98 mmol/L (98-107); Glucose 182 mg/dL (74-99); Non-African American GFR(MDRD) >60 (>60 ml/min/1.73 sqM); Phosphorous 3.6 mg/dL (2.5-4.5); Potassium 4.3 mmol/L (3.5-5.1); Sodium 136 mmol/L (137-145)
[2017-05-21] MEDS: PANTOPRAZOLE 40 MG TABLET PO SCH (07:41)
[2017-05-21] MEDS: INSULIN LISPRO (humaLOG) 300 UNIT/3 ML VIAL SQ SCH (07:41)
[2017-05-21] MEDS: DULoxetine HCL 60 MG CAPSULE.DR PO SCH (08:41)
[2017-05-21] MEDS: SENNOSIDES-DOCUSATE SODIUM 1 EACH TAB PO SCH (08:41)
[2017-05-21] MEDS: METOPROLOL TARTRATE 25 MG TAB PO SCH (08:41)
[2017-05-21] MEDS: ISOSORBIDE MONONITRATE ER 30 MG TAB.ER.24H PO SCH (08:42)
[2017-05-21] MEDS: FUROSEMIDE 10 MG/ML 4 ML VIAL IV SCH (08:42)
[2017-05-21] MEDS: ASPIRIN 81 MG CHEW PO SCH (08:43)
[2017-05-21 10:36] VITALS: BP 114/67; PULSE 77; TEMP 98.3
--- NOTE | 2017-05-21 11:23 | P.PN ---
Subjective Elderly gentleman who came in complaining of shortness of breath. Abnormal troponins. He is doing very well he is lying flat in bed he looks very comfortable he is ablating to the bathroom. Vitals are stable blood pressure 114/67 mmHg normal respirations no respiratory distress pulse rate in the 70s and 80s and he is afebrile 98.3F Breath sounds are reduced (No rhonchi no crackles Heart sounds S1 and S2 are soft no S3 gallop Abdomen is soft nontender Extremities are warm there is no edema Impression Non-Q wave myocardial infarction Coronary artery disease possibly involving the proximal LAD Adult-onset diabetes on medical treatment Hypertension Plan Continue medical treatment patient is doing well Ambulate in the hallways Discharge planning Maximal medical treatment for CAD and non-Q wave MN recommended Follow-up with PCP Objective - Vital Signs Vital signs: Vital Signs Temp 98.3 F 05/21/17 08:00 Pulse 77 05/21/17 08:00 Resp 18 05/21/17 08:00 BP 114/67 05/21/17 08:00 Pulse Ox 98 05/21/17 08:00 Intake & Output 05/20/17 05/21/17 05/21/17 18:59 06:59 18:59 Intake Total 660 360 Output Total 900 250 Balance 660 -900 110 Weight 91.4 kg 89.4 kg Intake: IV 20 0.9 20 Oral 660 340 Output: Urine 900 250 Other: Voiding Method Toilet Toilet Toilet Urinal Urinal # Voids 2 4 - Labs CBC & Chem 7: 05/21/17 05:56 05/21/17 05:56 Labs: Abnormal Lab Results - Last 24 Hours (Table) 05/20/17 05/20/17 05/20/17 Range/Units 11:48 17:12 21:06 RBC (4.30-5.90) m/uL Hgb (13.0-17.5) gm/dL Hct (39.0-53.0) % Plt Count (150-450) k/uL Lymphocytes # (1.0-4.8) k/uL Sodium (137-145) mmol/L Carbon Dioxide (22-30) mmol/L BUN (9-20) mg/dL Glucose (74-99) mg/dL POC Glucose (mg/dL) 300 H 164 H 297 H (75-99) mg/dL Calcium (8.4-10.2) mg/dL 05/21/17 05/21/17 05/21/17 Range/Units 05:52 05:56 05:56 RBC 3.51 L (4.30-5.90) m/uL Hgb 11.2 L (13.0-17.5) gm/dL Hct 33.2 L (39.0-53.0) % Plt Count 142 L (150-450) k/uL Lymphocytes # 0.6 L (1.0-4.8) k/uL Sodium 136 L (137-145) mmol/L Carbon Dioxide 32 H (22-30) mmol/L BUN 29 H (9-20) mg/dL Glucose 182 H (74-99) mg/dL POC Glucose (mg/dL) 208 H (75-99) mg/dL Calcium 8.2 L (8.4-10.2) mg/dL Microbiology - Last 24 Hours (Table) 05/18/17 13:14 Blood Culture Gram Stain - Final Blood Blood Culture - Final Staph hominis sub sp. hominis 05/19/17 11:48 Blood Culture - Preliminary Blood No Growth after 24 hours
[2017-05-21 11:41] LABS: Glucose,Whole Blood 269 mg/dL (75-99)
[2017-05-21] MEDS ORDERED: metFORMIN 500 MG TAB PO SCH (12:30)
--- NOTE | 2017-05-21 13:56 | P.PN ---
Subjective 81-year-old male patient, presented to the emergency department today after he had fallen at home and landed on his right posterior chest area and he developed a significant area of bruise at the impact site. The patient came into the hospital because of worsening shortness of breath. He had received 2 injections at that his primary care physician's office for pain and he had been also utilizing Tylenol No. 3's. He has no hemoptysis. No pleurisy. No anginal -type of chest pain. His chest x-ray showed increased pulmonary vascular marking and course infiltrates in the lung bases and the patient's troponin was at 1.9 at time of admission with some nonsignificant ST segment depression over the lateral leads. The patient was started on IV heparin and aspirin and metoprolol. The patient was given a dose of Lasix. His blood pressure is borderline right now with a systolic in the mid 90s. He is admitted to the intensive care unit. Note that he was quite short of breath initially at time of admission where he was placed on a BiPAP at a pressure of 14/7 cm of water. Currently is off the BiPAP. He was on 6 L which got wean down to 4 L and he can be further weaned down knowing that his pulse ox on 4 L around 96-97%. He has a Parker catheter. Urine output is adequate for now. No change in mental status. No head trauma. No exposure to asbestos over the years. No history of any smoking. On 05/19/2017 the patient is being seen in follow-up in intensive care unit. A CAT scan of the chest was done yesterday and it showed some small effusion and atelectatic changes in lung bases bilaterally. No evidence of an interstitial lung disease. The patient is resting comfortably in bed on 3:30 of oxygen nasal cannula and a pulse ox around 94%. Troponins peaked at 21 and the patient clearly had an acute non-ST segment elevation myocardial infarction. He remains free of any anginal chest pain. He is having some pain over the bruised area in the right posterior chest area. The patient IV heparin. The patient is on aspirin. The patient is on beta blockers. Cardiology on the case. Echocardiogram will be obtained to assess LV function and looking for any valvular abnormalities. He was taken off diuretics. Blood pressure is in the most recent blood pressure reading is 100/56. Producing adequate amount of urine output. The fluid balance is -1.3 L over the past 24 hours. Cardiac rhythm is sinus. On 05/20/2017 I'm seeing this patient in follow-up. The patient is doing well. No specific complaints. No chest pain. No nausea vomiting or abdominal pain. The patient is free of any chest pain. No change in mental status. He is hard of hearing. I'm able to communicate with him. No focal neurological deficits. His been quite stable and moved out of the intensive care unit yesterday and has been no other significant events over the past 24 hours. He is on IV Lasix. B on his up to 32 with a creatinine of 1.1. He is also receiving empiric antibiotic coverage with Levaquin. On 4016 the patient has no specific complaints. No chest pain. No shortness of breath. Resting comfortably in bed. No other significant events overnight. The patient is on aspirin. The patient is on metoprolol. The patient is on oral Lasix 40 mg twice a day. The patient is on NG or. The patient is on high- dose Lipitor. He is also completing a course of Levaquin. Objective - Vital Signs Vital signs: Vital Signs Temp 98.3 F 05/21/17 08:00 Pulse 77 05/21/17 08:00 Resp 18 05/21/17 08:00 BP 114/67 05/21/17 08:00 Pulse Ox 98 05/21/17 08:00 Intake & Output 05/20/17 05/21/17 05/21/17 18:59 06:59 18:59 Intake Total 660 360 Output Total 900 250 Balance 660 -900 110 Weight 91.4 kg 89.4 kg Intake: IV 20 0.9 20 Oral 660 340 Output: Urine 900 250 Other: Voiding Method Toilet Toilet Toilet Urinal Urinal # Voids 2 4 - Exam The patient appeared well nourished and normally developed. Vital signs as documented. Head exam is unremarkable. No scleral icterus or corneal arcus noted. Neck is without jugular venous distension, thyromegaly, or carotid bruits. Carotid upstrokes are brisk bilaterally. Lungs reveal coarse crackles in lung bases bilaterally. There is also an area of bruise over the right lateral chest area. No significant deformity. Area is tender to touch.. Cardiac exam reveals the PMI to be normally sized and situated. Rhythm is regular. First and second heart sounds normal. No murmurs, rubs or gallops. Abdominal exam reveals normal bowel sounds, no masses, no organomegaly and no aortic enlargement. Extremities are nonedematous and both femoral and pedal pulses are normal. - Labs CBC & Chem 7: 05/21/17 05:56 05/21/17 05:56 Labs: Abnormal Lab Results - Last 24 Hours (Table) 05/20/17 05/20/17 05/21/17 Range/Units 17:12 21:06 05:52 RBC (4.30-5.90) m/uL Hgb (13.0-17.5) gm/dL Hct (39.0-53.0) % Plt Count (150-450) k/uL Lymphocytes # (1.0-4.8) k/uL Sodium (137-145) mmol/L Carbon Dioxide (22-30) mmol/L BUN (9-20) mg/dL Glucose (74-99) mg/dL POC Glucose (mg/dL) 164 H 297 H 208 H (75-99) mg/dL Calcium (8.4-10.2) mg/dL 05/21/17 05/21/17 05/21/17 Range/Units 05:56 05:56 11:34 RBC 3.51 L (4.30-5.90) m/uL Hgb 11.2 L (13.0-17.5) gm/dL Hct 33.2 L (39.0-53.0) % Plt Count 142 L (150-450) k/uL Lymphocytes # 0.6 L (1.0-4.8) k/uL Sodium 136 L (137-145) mmol/L Carbon Dioxide 32 H (22-30) mmol/L BUN 29 H (9-20) mg/dL Glucose 182 H (74-99) mg/dL POC Glucose (mg/dL) 269 H (75-99) mg/dL Calcium 8.2 L (8.4-10.2) mg/dL Microbiology - Last 24 Hours (Table) 05/18/17 13:14 Blood Culture Gram Stain - Final Blood Blood Culture - Final Staph hominis sub sp. hominis 05/19/17 11:48 Blood Culture - Preliminary Blood No Growth after 24 hours Assessment and Plan Plan: Assessment 1 acute shortness of breath with acute hypoxic respiratory failure, post fall and blunt trauma to the right chest. Chest x-ray shows coarse interstitial infiltrates bilaterally. CT of the chest was noted. There is no evidence of any interstitial lung disease. There is some atelectasis and small effusion the lung bases bilaterally. On 05/20/2017 the patient is being seen in follow-up. Oxygenation is improved and the patient's pulse ox is back to normal, and the patient's has a normal pulse ox on room air. On 05/21/2017 the patient is completely recovered and the patient is back to his baseline. No significant shortness of breath at this point. Is completing a course of Levaquin and he is also on oral diuretics. 2 acute nonSTEMI. EKG shows some minor ST segment changes, depression and the troponin peaked at 21. No angina. IV heparin has been discontinued. The patient is currently on aspirin, Lipitor, and metoprolol. Cardiology is on the case. The recommendations are medical treatment at this point. He will follow- up with cardiology on outpatient basis. 3 coronary artery disease, history of 4 CHF other diastolic dysfunction. 5 diabetes mellitus type 2 6 diabetic peripheral neuropathy 7 hyperlipidemia 8 depression 9 chronic anxiety 10 skin cancer 11 BPH 12 marked impaired hearing 13 unexpected fall Plan Patient is quite stable at this point. The echocardiogram was noted. The patient has an ejection fraction of 45-50%. Discharge planning is in progress. Pulmonary and cardiac status are both stable at this point. Medical treatment regarding the acute non-STEMI. Follow-up with cardiology on outpatient basis.
--- NOTE | 2017-05-23 08:31 | P.DS ---
Providers Date of admission: 05/18/17 14:45 Expected date of discharge: 05/21/17 Attending physician: Tate Reynolds Consults: 05/18/17 14:42 Consult Physician Stat Consulting Provider: Yogesh Cyr Consult Reason/Comments: resp failure Do you want consulting provider notified?: Yes Consult Physician Urgent Consulting Provider: Adrian Savage Consult Reason/Comments: nstemi Do you want consulting provider notified?: Yes Primary care physician: Burton More [facility] Course: This is an 81-year-old male patient of Dr. More with a past medical history diabetes mellitus type 2, hyperlipidemia, hypertension, enlarged prostate, skin cancer, anxiety and depression, patient was in his usual state of health about Sunday when he fell down and landed on the right side of his back, patient developed to have a significant bruising in the back, he went and saw Dr. More yesterday the office he did receive 2 injection and the patient went back home, patient woke up in the morning he was feeling fine and he took 2 Tylenol No. 3 because of his back pain, and the patient suddenly developed to have a significant rattling in his chest. Patient's the ask with her neighbors oh was a nurse to come and see the patient and she recommended for the patient to go to the ER for evaluation and treatment patient was found to have a an acute diastolic heart failure and his troponin came back surprisingly slightly elevated at 1.9 his EKG did not show any evidence of ST elevation, patient was ruled in non-ST elevation ND he was started on IV heparin, he was started also on nitroglycerin paste, he was placed on aspirin 325 mg orally once every day, metoprolol 25 mg orally twice every day, cardiology consultation was obtained as well as pulmonary consultation, patient was placed initially on the BiPAP because of significant hypoxemia was given Lasix 40 mg IV push 1. 05/19: Patient remains in intensive care unit. He has been seen and followed by Dr. Cyr. He is currently off BiPAP and pulse ox is 94% on nasal cannula. CAT scan of the chest was done yesterday that shows small effusion and atelectatic changes in the lung bases bilaterally. Cardiology consult is pending. Echocardiogram is pending. Troponins are 1.990, 12.7, 21.1. He is continued on heparin drip, aspirin, Lipitor, Imdur and metoprolol. He is complaining of constipation for which Senokot and milk of magnesia added. 05/20: Patient has been seen by Dr. Savage regarding non-Q wave myocardial infarction. Heparin drip stopped, metoprolol increased. Nitro paste will be discontinued and patient resumed on Imdur as recommended by Dr. Savage. He is currently on Lasix 40 mg IV every 12 hours. Patient states he slept well last night. He denies any shortness of breath. He did have a bowel movement this morning which was normal without blood or tarriness. PT, OT and social work consult added for discharge planning. 05/21: Patient has been afebrile. Pulse ox 94% on room air. Capillary blood glucose running between 164 and 300. BUN is 29 creatinine 1.07. Hemoglobin is stable at 11.2. Initial blood culture is showing staph hominis subspecies and repeat blood culture the following day showed no growth. Physical therapy has recommended home with homecare. Patient states he did not sleep well last night and trazadone will be resumed. Cardiology has cleared him for discharge. Patient is very anxious to go home today. Patient will be discharged home today in stable condition. Noted that his is concerned about depression and recommended the patient follow-up with counselor as an outpatient.. Discharge diagnoses: 1. Acute hypoxic respiratory failure due to acute diastolic heart failure due to non-ST elevation ND, and possible pneumonia. 2. Acute diastolic heart failure. 3. Non-ST elevation ND. 4. Possible bilateral pneumonia. 5. Enlarged prostate. 6. Diabetes mellitus type 2. 7. Diabetic polyneuropathy. 8. Hyperlipidemia. 9. Depression, recurrent. 10. Anxiety disorder, generalized. Discharge plan: Home with homecare Impression and plan of care have been directed as dictated by the signing physician. Ping Sue nurse practitioner acting as scribe for signing physician. Patient Condition at Discharge: Good Plan - Discharge Summary New Discharge Prescriptions: New Furosemide [Lasix] 40 mg PO BID #60 tablet Levofloxacin [Levaquin] 250 mg PO Q24H #4 tab Metoprolol Tartrate [Lopressor] 25 mg PO BID #60 tab Nitroglycerin Sl Tabs [Nitrostat] 0.4 mg SUBLINGUAL Q5M PRN #50 tab PRN Reason: Chest Pain Continue Simvastatin [Zocor] 20 mg PO HS Isosorbide Mononitrate [Isosorbide Mononitrate ER] 30 mg PO DAILY metFORMIN HCL [Glucophage] 500 mg PO TID glyBURIDE [Diabeta] 5 mg PO 5XD Tamsulosin [Flomax] 0.8 mg PO DAILY ALPRAZolam 1 mg PO TID PRN PRN Reason: Anxiety Aspirin 81 mg PO DAILY DULoxetine HCL [Cymbalta] 60 mg PO DAILY traZODone HCL [Desyrel] 100 mg PO HS Vitamin E (Dl,Tocopheryl Acet) [Vitamin E] 400 unit PO DAILY Pyridoxine HCl (Vitamin B6) [Vitamin B-6] 100 mg PO DAILY Glucosam/Samy-Msm1/C/Brant/Bosw [Glucosamine-Chondroitin Tablet] 1 tab PO DAILY Garlic 1 tab PO DAILY Cyanocobalamin (Vitamin B-12) [Vitamin B-12] 1,000 mcg PO DAILY Cholecalciferol [Vitamin D3] 1,000 unit PO DAILY Folic Acid 0.8 mg PO DAILY Discontinued amLODIPine BESYLATE [Norvasc] 5 mg PO DAILY Losartan Potassium [Cozaar] 50 mg PO DAILY Tamsulosin [Flomax] Tamsulosin [Flomax] Discharge Medication List ALPRAZolam 1 mg PO TID PRN 12/23/15 [History] Isosorbide Mononitrate [Isosorbide Mononitrate ER] 30 mg PO DAILY 12/23/15 [ History] Simvastatin [Zocor] 20 mg PO HS 12/23/15 [History] Tamsulosin [Flomax] 0.8 mg PO DAILY 12/23/15 [History] glyBURIDE [Diabeta] 5 mg PO 5XD 12/23/15 [History] metFORMIN HCL [Glucophage] 500 mg PO TID 12/23/15 [History] Aspirin 81 mg PO DAILY 05/18/17 [History] Cholecalciferol [Vitamin D3] 1,000 unit PO DAILY 05/18/17 [History] Cyanocobalamin (Vitamin B-12) [Vitamin B-12] 1,000 mcg PO DAILY 05/18/17 [ History] DULoxetine HCL [Cymbalta] 60 mg PO DAILY 05/18/17 [History] Folic Acid 0.8 mg PO DAILY 05/18/17 [History] Garlic 1 tab PO DAILY 05/18/17 [History] Glucosam/Samy-Msm1/C/Brant/Bosw [Glucosamine-Chondroitin Tablet] 1 tab PO DAILY 05/18/17 [History] Pyridoxine HCl (Vitamin B6) [Vitamin B-6] 100 mg PO DAILY 05/18/17 [History] Vitamin E (Dl,Tocopheryl Acet) [Vitamin E] 400 unit PO DAILY 05/18/17 [History] traZODone HCL [Desyrel] 100 mg PO HS 05/18/17 [History] Furosemide [Lasix] 40 mg PO BID #60 tablet 05/21/17 [Rx] Levofloxacin [Levaquin] 250 mg PO Q24H #4 tab 05/21/17 [Rx] Metoprolol Tartrate [Lopressor] 25 mg PO BID #60 tab 05/21/17 [Rx] Nitroglycerin Sl Tabs [Nitrostat] 0.4 mg SUBLINGUAL Q5M PRN #50 tab 05/21/17 [Rx ] Follow up Appointment(s)/Referral(s): [facility] [Provider Group] - 1 Week (office closed for holiday all info given to patient.) Burton More DO [Primary Care Provider] - 3 Days (office closed for holiday. ) Yogesh Cyr MD [STAFF PHYSICIAN] - 2 Weeks (office closed for holiday all info given to patient) Discharge Disposition: HOME SELF-CARE
== END 2017-05-21 12:29 | disposition home or self-care (01) | DRG 280 ==
LOC: EC 12:58 → 6ICU 14:45 → 6SEL 05-20 03:03
PROVIDERS: ADMIT Internal Medicine; ATTEND Internal Medicine
DX: I21.4 Non-ST elevation (NSTEMI) myocardial infarction (principal); I50.31 Acute diastolic (congestive) heart failure; J96.01 Acute respiratory failure with hypoxia; J18.9 Pneumonia, unspecified organism; I11.0 Hypertensive heart disease with heart failure; E11.42 Type 2 diabetes mellitus with diabetic polyneuropathy; J98.11 Atelectasis; E78.5 Hyperlipidemia, unspecified; F32.9 Major depressive disorder, single episode, unspecified; F41.1 Generalized anxiety disorder; H91.90 Unspecified hearing loss, unspecified ear; I25.10 Atherosclerotic heart disease of native coronary artery without angina pectoris; K21.9 Gastro-esophageal reflux disease without esophagitis; K59.00 Constipation, unspecified; N40.0 Benign prostatic hyperplasia without lower urinary tract symptoms; R29.6 Repeated falls; Z66 Do not resuscitate; W19.XXXA Unspecified fall, initial encounter; Y92.009 Unspecified place in unspecified non-institutional (private) residence as the place of occurrence of the external cause; Z79.82 Long term (current) use of aspirin; Z79.899 Other long term (current) drug therapy; Z80.8 Family history of malignant neoplasm of other organs or systems; Z82.49 Family history of ischemic heart disease and other diseases of the circulatory system; Z83.3 Family history of diabetes mellitus; Z85.828 Personal history of other malignant neoplasm of skin; Z87.891 Personal history of nicotine dependence; Z79.84 Long term (current) use of oral hypoglycemic drugs
CPT/HCPCS: 36415; 71010; 71250; 80048; 80053; 80061; 81003; 82550; 82553; 83036; 83605; 83735; 83880; 84100; 84484; 85025; 85610; 85730; 87040; 87077; 87186; 93005; 93306; 94660; 94760; 96365; 96368; 96375; 96376; 99291

== ENCOUNTER 2017-05-22 13:04 | Inpatient (IN) | payer MEDICARE, BC ==
[2017-05-22 13:46] LABS: Glucose,Whole Blood >600 mg/dL (75-99)
[2017-05-22] MEDS ORDERED: SODIUM CHLORIDE 0.9% 1,000 ML IV STA (13:46)
--- NOTE | 2017-05-22 14:09 | ED ---
General Adult HPI - General Chief complaint: Neuro Symptoms/Deficit Stated complaint: Confused/Weakness Time Seen by Provider: 05/22/17 13:46 Source: family, RN notes reviewed, old records reviewed Mode of arrival: ambulatory Limitations: no limitations - History of Present Illness Initial comments: This is an 81-year-old male the ER for evaluation. Patient is poor strain secondary to hearing difficulties. Patient states feels weak inability to walk. He has some back pain from a fall as of recently but no neurological issues. Patient was discharged hospital after having a non-ST elevated [place], denies fever but he has severe shortness of breath and hypoxia upon arrival to the emergency room. Patient placed on oxygen with improvement. - Related Data Home Medications Medication Instructions Recorded Confirmed ALPRAZolam 1 mg PO TID PRN 12/23/15 05/18/17 Isosorbide Mononitrate [Isosorbide 30 mg PO DAILY 12/23/15 05/18/17 Mononitrate ER] Simvastatin [Zocor] 20 mg PO HS 12/23/15 05/18/17 Tamsulosin [Flomax] 0.8 mg PO DAILY 12/23/15 05/19/17 glyBURIDE [Diabeta] 5 mg PO 5XD 12/23/15 05/18/17 metFORMIN HCL [Glucophage] 500 mg PO TID 12/23/15 05/18/17 Aspirin 81 mg PO DAILY 05/18/17 05/18/17 Cholecalciferol [Vitamin D3] 1,000 unit PO DAILY 05/18/17 05/18/17 Cyanocobalamin (Vitamin B-12) 1,000 mcg PO DAILY 05/18/17 05/18/17 [Vitamin B-12] DULoxetine HCL [Cymbalta] 60 mg PO DAILY 05/18/17 05/18/17 Folic Acid 0.8 mg PO DAILY 05/18/17 05/18/17 Garlic 1 tab PO DAILY 05/18/17 05/18/17 Glucosam/Samy-Msm1/C/Brant/Bosw 1 tab PO DAILY 05/18/17 05/18/17 [Glucosamine-Chondroitin Tablet] Pyridoxine HCl (Vitamin B6) 100 mg PO DAILY 05/18/17 05/18/17 [Vitamin B-6] Vitamin E (Dl,Tocopheryl Acet) 400 unit PO DAILY 05/18/17 05/18/17 [Vitamin E] traZODone HCL [Desyrel] 100 mg PO HS 05/18/17 05/18/17 Previous Rx's Medication Instructions Recorded Furosemide [Lasix] 40 mg PO BID #60 tablet 05/21/17 Levofloxacin [Levaquin] 250 mg PO Q24H #4 tab 05/21/17 Metoprolol Tartrate [Lopressor] 25 mg PO BID #60 tab 05/21/17 Nitroglycerin Sl Tabs [Nitrostat] 0.4 mg SUBLINGUAL Q5M PRN #50 tab 05/21/17 Allergies Allergy/AdvReac Type Severity Reaction Status Date / Time No Known Allergies Allergy Verified 05/22/17 14:43 Review of Systems ROS Statement: Those systems with pertinent positive or pertinent negative responses have been documented in the HPI. ROS Other: All systems not noted in ROS Statement are negative. Past Medical History Past Medical History: Coronary Artery Disease (CAD), Cancer, Diabetes Mellitus, Hyperlipidemia, Hypertension, Osteoarthritis (OA), Prostate Disorder, Skin Disorder Additional Past Medical History / Comment(s): Coronary artery disease, hyperlipidemia, hypertension, osteoarthritis, BPH, diabetes mellitus, shingles, skin cancer History of Any Multi-Drug Resistant Organisms: None Reported Past Surgical History: Heart Catheterization Additional Past Surgical History / Comment(s): skin cancer removed from side of left face, COLONOSCOPY X2, VARICOSE VEINS SX Past Anesthesia/Blood Transfusion Reactions: No Reported Reaction Past Psychological History: Anxiety, Depression Smoking Status: Former smoker Past Alcohol Use History: None Reported Past Drug Use History: None Reported - Past Family History Father Additional Family Medical History / Comment(s): Father at age 76 from skin cancer. Mother Family Medical History: Hyperlipidemia Additional Family Medical History / Comment(s): Mother at age 50 from coronary artery disease. Brother(s) Family Medical History: CVA/TIA, Diabetes Mellitus Additional Family Medical History / Comment(s): one brother that has with competition from diabetes. Patient does not have any sisters. Son(s) Additional Family Medical History / Comment(s): Patient has 2 sons and one has history of coronary artery disease status post 3 vessel CABG. Patient has one daughter with no major medical problems. General Exam Limitations: no limitations General appearance: anxious Head exam: Present: atraumatic, normocephalic, normal inspection Eye exam: Present: normal appearance, PERRL, EOMI. Absent: scleral icterus, conjunctival injection, periorbital swelling ENT exam: Present: normal exam, mucous membranes moist Neck exam: Present: normal inspection. Absent: tenderness, meningismus, lymphadenopathy Respiratory exam: Present: normal lung sounds bilaterally, accessory muscle use , decreased breath sounds, prolonged expiratory. Absent: respiratory distress, wheezes, rhonchi, stridor Cardiovascular Exam: Present: regular rate, normal rhythm, normal heart sounds. Absent: systolic murmur, diastolic murmur, rubs, gallop, clicks GI/Abdominal exam: Present: soft, normal bowel sounds. Absent: distended, tenderness, guarding, rebound, rigid Extremities exam: Present: normal inspection, full ROM, normal capillary refill. Absent: tenderness, pedal edema, joint swelling, calf tenderness Back exam: Present: normal inspection Neurological exam: Present: alert, oriented X3, CN II-XII intact Psychiatric exam: Present: normal affect, normal mood Skin exam: Present: warm, dry, intact, normal color. Absent: rash Course Vital Signs 05/22/17 05/22/17 05/22/17 13:10 13:46 14:27 Temperature 97 F L Pulse Rate 109 H 105 H 106 H Respiratory 20 20 Rate Blood Pressure 82/50 80/45 O2 Sat by Pulse 93 L 93 L Oximetry 05/22/17 14:36 Temperature Pulse Rate 101 H Respiratory Rate Blood Pressure O2 Sat by Pulse Oximetry - Reevaluation(s) Reevaluation #1: 05/22/17 14:24 Severe shortness of breath which is improved with oxygen Reevaluation #2: 05/22/17 14:48 Patient again was Sapir severe hypoxia we will place on BiPAP, will slowly mildly fluid resuscitate, Reevaluation #3: 05/22/17 14:48 Patient's blood pressure is maintaining though low, will place central line, IV vasopressors EKG Findings - EKG Comments: EKG Findings:: EKG shows sinus tachycardia rate 104, NC 208, QRS 154, QTC 512 Medical Decision Making - Medical Decision Making 81 no BETSY who recently is suffered from non-ST elevated [place], heart failure issue at this time. Patient's having decreased perfusion, shock Q renal failure, lactic acidosis, patient will be admitted for cardiopulmonary resuscitation and further evaluation and treatment - Lab Data Result diagrams: 05/22/17 13:59 05/22/17 13:59 Lab Results 05/22/17 05/22/17 05/22/17 Range/Units 13:35 13:59 13:59 WBC 9.7 (3.8-10.6) k/uL RBC 4.27 L (4.30-5.90) m/uL Hgb 13.4 (13.0-17.5) gm/dL Hct 41.4 (39.0-53.0) % MCV 97.0 (80.0-100.0) fL MCH 31.5 (25.0-35.0) pg MCHC 32.4 (31.0-37.0) g/dL RDW 14.3 (11.5-15.5) % Plt Count 188 (150-450) k/uL Neutrophils % 90 % Lymphocytes % 4 % Monocytes % 4 % Eosinophils % 0 % Basophils % 0 % Neutrophils # 8.8 H (1.3-7.7) k/uL Lymphocytes # 0.4 L (1.0-4.8) k/uL Monocytes # 0.4 (0-1.0) k/uL Eosinophils # 0.0 (0-0.7) k/uL Basophils # 0.0 (0-0.2) k/uL PT (9.0-12.0) sec INR (<1.2) APTT (22.0-30.0) sec VBG pH 7.35 (7.31-7.41) VBG pCO2 36 L (37-51) mmHg VBG HCO3 19 L (24-28) mmol/L Sodium (137-145) mmol/L Potassium (3.5-5.1) mmol/L Chloride (98-107) mmol/L Carbon Dioxide (22-30) mmol/L Anion Gap mmol/L BUN (9-20) mg/dL Creatinine (0.66-1.25) mg/dL Est GFR (MDRD) Af Amer (>60 ml/min/1.73 sqM) Est GFR (MDRD) Non-Af (>60 ml/min/1.73 sqM) Glucose (74-99) mg/dL POC Glucose (mg/dL) >600 H (75-99) mg/dL POC Glu [employer] ID [place] Plasma Lactic Acid Nicholas (0.7-2.0) mmol/L Calcium (8.4-10.2) mg/dL Phosphorus (2.5-4.5) mg/dL Magnesium (1.6-2.3) mg/dL Total Bilirubin (0.2-1.3) mg/dL AST (17-59) U/L ALT (21-72) U/L Alkaline Phosphatase (38-126) U/L Total Protein (6.3-8.2) g/dL Albumin (3.5-5.0) g/dL 05/22/17 05/22/17 05/22/17 Range/Units 13:59 13:59 13:59 WBC (3.8-10.6) k/uL RBC (4.30-5.90) m/uL Hgb (13.0-17.5) gm/dL Hct (39.0-53.0) % MCV (80.0-100.0) fL MCH (25.0-35.0) pg MCHC (31.0-37.0) g/dL RDW (11.5-15.5) % Plt Count (150-450) k/uL Neutrophils % % Lymphocytes % % Monocytes % % Eosinophils % % Basophils % % Neutrophils # (1.3-7.7) k/uL Lymphocytes # (1.0-4.8) k/uL Monocytes # (0-1.0) k/uL Eosinophils # (0-0.7) k/uL Basophils # (0-0.2) k/uL PT 11.6 (9.0-12.0) sec INR 1.2 H (<1.2) APTT 22.2 (22.0-30.0) sec VBG pH (7.31-7.41) VBG pCO2 (37-51) mmHg VBG HCO3 (24-28) mmol/L Sodium 130 L (137-145) mmol/L Potassium 6.4 H* (3.5-5.1) mmol/L Chloride 94 L (98-107) mmol/L Carbon Dioxide 18 L (22-30) mmol/L Anion Gap 18 mmol/L BUN 52 H (9-20) mg/dL Creatinine 2.40 H (0.66-1.25) mg/dL Est GFR (MDRD) Af Amer 32 (>60 ml/min/1.73 sqM) Est GFR (MDRD) Non-Af 26 (>60 ml/min/1.73 sqM) Glucose 610 H* (74-99) mg/dL POC Glucose (mg/dL) (75-99) mg/dL POC Glu [employer] ID Plasma Lactic Acid Nicholas 9.1 H* (0.7-2.0) mmol/L Calcium 8.4 (8.4-10.2) mg/dL Phosphorus 5.7 H (2.5-4.5) mg/dL Magnesium 2.8 H (1.6-2.3) mg/dL Total Bilirubin 1.1 (0.2-1.3) mg/dL AST 1337 H (17-59) U/L ALT 979 H (21-72) U/L Alkaline Phosphatase 80 (38-126) U/L Total Protein 6.1 L (6.3-8.2) g/dL Albumin 3.6 (3.5-5.0) g/dL - Radiology Data Radiology results: report reviewed (Chest x-ray remains the most part unchanged from prior), image reviewed Critical Care Time Critical Care Time: Yes Total Critical Care Time: 31 Disposition Clinical Impression: Acute respiratory failure, NSTEMI (non-ST elevated myocardial infarction), Hypoxia, CHF (congestive heart failure), ARF (acute renal failure), Cardiogenic shock Disposition: ADMITTED IP TO THIS [facility] Condition: Serious Referrals: Burton More DO [Primary Care Provider] - 1-2 days
[2017-05-22] MEDS ORDERED: INSULIN REGULAR 100 UNIT/ML VIAL IV ONE (14:10)
[2017-05-22] MEDS ORDERED: INSULIN REGULAR 100 UNIT/ML VIAL SQ ONE (14:10)
[2017-05-22] MEDS ORDERED: IPRATROPIUM-ALBUTEROL 3 ML NEB INHALATION STA (14:11)
[2017-05-22 14:12] LABS: Basophils % (A) 0 %; CHCM 33.2; Eosinophils % (A) 0 %; HCT 41.4 % (39.0-53.0); HDW 2.59; HGB 13.4 gm/dL (13.0-17.5); Luc % (Auto) 1; Lymphocytes # (A) 0.4 k/uL (1.0-4.8); Lymphocytes % (A) 4 %; MCH 31.5 pg (25.0-35.0); MCHC 32.4 g/dL (31.0-37.0); Mean Platelet Volume 8.5; Monocytes # (A) 0.4 k/uL (0-1.0); Monocytes % (A) 4 %; Neutrophils # (A) 8.8 k/uL (1.3-7.7); Neutrophils % (A) 90 %; RBC 4.27 m/uL (4.30-5.90); RDW 14.3 % (11.5-15.5); WBC 9.7 k/uL (3.8-10.6); WBC (Perox) 10.18
[2017-05-22 14:15] LABS: VBG PH 7.35 (7.31-7.41)
[2017-05-22 14:22] LABS: Calcium 8.4 mg/dL (8.4-10.2); Magnesium 2.8 mg/dL (1.6-2.3); Phosphorous 5.7 mg/dL (2.5-4.5); Total Bilirubin 1.1 mg/dL (0.2-1.3); Total Protein 6.1 g/dL (6.3-8.2)
[2017-05-22 14:23] LABS: INR 1.2 (<1.2); Partial Thromboplastin Time 22.2 sec (22.0-30.0); Prothrombin Time 11.6 sec (9.0-12.0)
[2017-05-22 14:32] LABS: Potassium 6.4 mmol/L (3.5-5.1)
--- NOTE | 2017-05-22 14:37 | XR ---
EXAMINATION TYPE: XR chest 2V DATE OF EXAM: 05/22/2017 COMPARISON: Prior chest x-ray 05/18/2017 HISTORY: Weakness, abnormal chest x-ray TECHNIQUE: Frontal and lateral views of the chest are obtained. FINDINGS: Patient is rotated, heart may be enlarged. No evident pneumothorax. Bibasilar increased de nsity is present. Interstitium is improved. There is some improvement in aeration as compared to prio r exam. Dense vascular calcifications are noted. IMPRESSION: Some improvement in volume status. Suspect basilar pleural effusions and associated atel ectasis versus edema, correlate to exclude pneumonia.
[2017-05-22] MEDS ORDERED: CALCIUM GLUCONATE 1,000 MG in SODIUM CHLORIDE 0.9% 100 ML IVPB ONE (14:39)
[2017-05-22] MEDS ORDERED: SODIUM CHLORIDE 0.9% 500 ML IV STA (14:39)
[2017-05-22] MEDS ORDERED: SODIUM CHLORIDE 0.9% 500 ML IV ONE (14:42)
[2017-05-22] MEDS ORDERED: NITROGLYCERIN SL TABS 0.4 MG TAB SUBLINGUAL PRN (14:42)
[2017-05-22] MEDS ORDERED: LEVOFLOXACIN 750MG-D5W PMX 750 MG in DEXTROSE/WATER 1 150ML.BAG IVPB STA (14:49)
[2017-05-22] MEDS ORDERED: PIPERACILLIN-TAZOBACTAM 3.375 GM in DEXTROSE/WATER 1 50ML.BAG IVPB STA (14:49)
[2017-05-22 15:00] LABS: Troponin I 60.6 ng/mL (0.000-0.034)
[2017-05-22 15:41] LABS: Glucose,Whole Blood 501 mg/dL (75-99)
[2017-05-22 15:46] LABS: Appearance,Urine Clear (Clear); Bilirubin,Urine Negative (Negative); Glucose,Urine (UA) 4+ (Negative); Ketones,Urine Trace (Negative); Leukocyte Esterase,Urine Negative (Negative); Nitrite,Urine Negative (Negative); Protein,Urine Trace (Negative); Specific Gravity,Urine 1.016 (1.001-1.035); UA Billing (MACRO vs. MICRO) CHEM; Urobilinogen,Urine <2.0 mg/dL (<2.0)
--- NOTE | 2017-05-22 15:48 | XR ---
EXAMINATION TYPE: XR chest 1V portable DATE OF EXAM: 05/22/2017 COMPARISON: Prior chest x-ray same date earlier time HISTORY: Status post central venous catheter placement TECHNIQUE: Single frontal view of the chest is obtained. FINDINGS: Interval placement of a right jugular central venous catheter, distal tip is within the ri ght atrium. No evident pneumothorax. IMPRESSION: No evident complication status post central venous catheter placement.
[2017-05-22 16:23] LABS: Glucose,Whole Blood 462 mg/dL (75-99)
[2017-05-22] MEDS ORDERED: INSULIN REGULAR BOLUS (FROM DRIP BAG) IV PRN (16:23)
--- NOTE | 2017-05-22 16:24 | P.CNPUL ---
History of Present Illness Consult date: 05/22/17 Requesting physician: Tate Reynolds Chief complaint: Weakness, back pain from previous follow-up. History of present illness: This is an 81-year-old gentleman who follows with Dr. More as his primary care physician. He has a history of coronary artery disease, hyperlipidemia, hypertension, osteoarthritis, benign prosthetic hypertrophy, diabetes Jeff, shingles, skin cancer. He was recently admitted here on 05/18/2017 for a non- ST segment elevation myocardial infarction. His echocardiogram revealed mildly impaired left ventricular systolic function with estimated ejection fraction 45- 50%. He was seen and evaluated by cardiology who plan to treat the patient medically. He was seen and evaluated by Dr. Cyr as well for acute hypoxic respiratory failure which was felt to be status post blunt trauma to the right chest. His x-ray at that time revealed coarse interstitial infiltrates bilaterally. Computed tomography scan of the chest revealed atherosclerotic valvular disease, pleural effusions with basilar pulmonary infiltrates and atelectasis. The patient had recovered well and was seen last yesterday prior to his discharge he had no pulmonary complaints. No complaints of chest pain and he was discharged home. He presented here to the emergency room today with complaints of significant lower extremity weakness and shortness of breath. His chest x-ray as compared to one on 05/18/2017 showed improvement enzymes status. There is still suspected basilar pleural effusions with associated atelectasis. He did have some issues with hypoxia initially presenting on room air at 93% however he is now on BiPAP at 35% FiO2. He is initially hypotensive but not initiated on pressors. Current blood pressure 94/52 with a mean arterial pressure of 66. He is slightly tachycardic at 103. Lab results reveal a potassium of 6.4. AST 1337, ALT 979, total creatinine kinase of 735 with a troponin of 60.6. Review of Systems ROS unobtainable: due to mental status Past Medical History Past Medical History: Coronary Artery Disease (CAD), Cancer, Diabetes Mellitus, Hyperlipidemia, Hypertension, Osteoarthritis (OA), Prostate Disorder, Skin Disorder Additional Past Medical History / Comment(s): Coronary artery disease, hyperlipidemia, hypertension, osteoarthritis, BPH, diabetes mellitus, shingles, skin cancer History of Any Multi-Drug Resistant Organisms: None Reported Past Surgical History: Heart Catheterization Additional Past Surgical History / Comment(s): skin cancer removed from side of left face, COLONOSCOPY X2, VARICOSE VEINS SX Past Anesthesia/Blood Transfusion Reactions: No Reported Reaction Past Psychological History: Anxiety, Depression Smoking Status: Former smoker Past Alcohol Use History: None Reported Past Drug Use History: None Reported - Past Family History Father Additional Family Medical History / Comment(s): Father at age 76 from skin cancer. Mother Family Medical History: Hyperlipidemia Additional Family Medical History / Comment(s): Mother at age 50 from coronary artery disease. Brother(s) Family Medical History: CVA/TIA, Diabetes Mellitus Additional Family Medical History / Comment(s): one brother that has with competition from diabetes. Patient does not have any sisters. Son(s) Additional Family Medical History / Comment(s): Patient has 2 sons and one has history of coronary artery disease status post 3 vessel CABG. Patient has one daughter with no major medical problems. Medications and Allergies Home Medications Medication Instructions Recorded Confirmed Type ALPRAZolam 1 mg PO TID PRN 12/23/15 05/22/17 History Isosorbide Mononitrate [Isosorbide 30 mg PO DAILY 12/23/15 05/22/17 History Mononitrate ER] Simvastatin [Zocor] 20 mg PO HS 12/23/15 05/22/17 History Tamsulosin [Flomax] 0.8 mg PO DAILY 12/23/15 05/22/17 History glyBURIDE [Diabeta] 5 mg PO 5XD 12/23/15 05/22/17 History metFORMIN HCL [Glucophage] 500 mg PO TID 12/23/15 05/22/17 History Aspirin 81 mg PO DAILY 05/18/17 05/22/17 History Cholecalciferol [Vitamin D3] 1,000 unit PO DAILY 05/18/17 05/22/17 History Cyanocobalamin (Vitamin B-12) 1,000 mcg PO DAILY 05/18/17 05/22/17 History [Vitamin B-12] DULoxetine HCL [Cymbalta] 60 mg PO DAILY 05/18/17 05/22/17 History Folic Acid 0.8 mg PO DAILY 05/18/17 05/22/17 History Garlic 1 tab PO DAILY 05/18/17 05/22/17 History Glucosam/Samy-Msm1/C/Brant/Bosw 1 tab PO DAILY 05/18/17 05/22/17 History [Glucosamine-Chondroitin Tablet] Pyridoxine HCl (Vitamin B6) 100 mg PO DAILY 05/18/17 05/22/17 History [Vitamin B-6] Vitamin E (Dl,Tocopheryl Acet) 400 unit PO DAILY 05/18/17 05/22/17 History [Vitamin E] traZODone HCL [Desyrel] 100 mg PO HS 05/18/17 05/22/17 History Furosemide [Lasix] 40 mg PO BID #60 tablet 05/21/17 05/22/17 Rx Levofloxacin [Levaquin] 250 mg PO Q24H #4 tab 05/21/17 05/22/17 Rx Metoprolol Tartrate [Lopressor] 25 mg PO BID #60 tab 05/21/17 05/22/17 Rx Nitroglycerin Sl Tabs [Nitrostat] 0.4 mg SUBLINGUAL Q5M PRN #50 tab 05/21/1701/31 Rx Allergies Allergy/AdvReac Type Severity Reaction Status Date / Time No Known Allergies Allergy Verified 05/22/17 14:43 Physical Exam Vitals: Vital Signs Temp Pulse Resp BP Pulse Ox 05/22/17 15:37 103 H 20 94/52 98 05/22/17 14:50 104 H 22 81/52 96 05/22/17 14:39 103 H 22 88/50 96 05/22/17 14:36 101 H 05/22/17 14:27 106 H 05/22/17 13:46 105 H 20 80/45 93 L 05/22/17 13:10 97 F L 109 H 20 82/50 93 L Intake and Output 05/22/17 05/22/17 05/22/17 06:59 14:59 22:59 Output Total 300 Balance -300 Output: Urine 300 Uretheral (Parker) 300 Other: Weight 90.718 kg Patient Weight 05/23/17 06:59 Weight 90.718 kg GENERAL EXAM: Obtunded. HEAD: Normocephalic. EYES: Normal reaction of pupils, equal size. NOSE: Clear with pink turbinates. THROAT: No erythema or exudates. NECK: No masses, no JVD. CHEST: No chest wall deformity. LUNGS: Equal air entry with faint crackles in the posterior bases.. CVS: S1 and S2 normal with no audible murmurs, regular rhythm. ABDOMEN: No hepatosplenomegaly, normal bowel sounds, no guarding or rigidity. Extremities: There is trace peripheral edema. No clubbing, no cyanosis. Peripheral pulses are intact. Results - Laboratory Findings CBC and BMP: 05/22/17 13:59 05/22/17 13:59 PT/INR, D-dimer PT 11.6 sec (9.0-12.0) 05/22/17 13:59 INR 1.2 (<1.2) H 05/22/17 13:59 Abnormal lab findings: Abnormal Labs 05/22/17 05/22/17 05/22/17 13:35 13:59 13:59 RBC Neutrophils # Lymphocytes # INR VBG pCO2 36 L VBG HCO3 19 L Sodium Potassium Chloride Carbon Dioxide BUN Creatinine Glucose POC Glucose (mg/dL) >600 H Plasma Lactic Acid Nicholas Phosphorus Magnesium AST ALT Total Creatine Kinase 735 H CK-MB (CK-2) 29.0 H* Troponin I 60.600 H* Total Protein Urine Protein Urine Glucose (UA) Urine Ketones 05/22/17 05/22/17 05/22/17 13:59 13:59 13:59 RBC 4.27 L Neutrophils # 8.8 H Lymphocytes # 0.4 L INR VBG pCO2 VBG HCO3 Sodium 130 L Potassium 6.4 H* Chloride 94 L Carbon Dioxide 18 L BUN 52 H Creatinine 2.40 H Glucose 610 H* POC Glucose (mg/dL) Plasma Lactic Acid Nicholas 9.1 H* Phosphorus 5.7 H Magnesium 2.8 H AST 1337 H ALT 979 H Total Creatine Kinase CK-MB (CK-2) Troponin I Total Protein 6.1 L Urine Protein Urine Glucose (UA) Urine Ketones 05/22/17 05/22/17 05/22/17 13:59 15:34 15:39 RBC Neutrophils # Lymphocytes # INR 1.2 H VBG pCO2 VBG HCO3 Sodium Potassium Chloride Carbon Dioxide BUN Creatinine Glucose POC Glucose (mg/dL) 501 H Plasma Lactic Acid Nicholas Phosphorus Magnesium AST ALT Total Creatine Kinase CK-MB (CK-2) Troponin I Total Protein Urine Protein Trace H Urine Glucose (UA) 4+ H Urine Ketones Trace H - Diagnostic Findings Chest x-ray: image reviewed Assessment and Plan Plan: Impression: #1 Cardiogenic shock secondary to acute myocardial infarction. #2 Elevated LFTs secondary to above. #3 Hyperkalemia with metabolic lactic acidosis. #4 Acute hypoxic respiratory failure secondary to above currently on BiPAP. #5 Recent discharge following non-ST segment elevation myocardial infarction. 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 #7 Diabetes mellitus, type II with significant hyperglycemia initial blood glucose of 610. #8 Diabetic peripheral neuropathy. #9 Hyperlipidemia. #10 History of depression/anxiety. #11 History of skin cancer. #12 Benign prostatic hypertrophy. #13 Hearing-impaired. #14 Recent fall. #15 Poor overall functional performance based on the above-mentioned multiple comorbidities. Plan: The patient was seen and evaluated by Dr. Jolly. His chest x-ray, EKG and labs were all reviewed. He feels this is mostly picture of cardiogenic shock secondary to acute myocardial infarction. We will initiate a heparin drip. We' ll repeat his echo. Obtain blood gases. Continue with BiPAP. Titrate the FiO2 to maintain O2 saturations greater than 90%. We will discontinue the Levaquin and continue with Zosyn. We'll utilize pressors for mean arterial pressures less than 65. We will initiate an insulin drip. We'll transfer the patient to the intensive care unit. CODE STATUS needs to be addressed as he was a DO NOT RESUSCITATE/DO NOT INTUBATE on his last admission. Family is not available at the moment. In the interim, we'll continue with full supportive care. His overall prognosis remains quite poor and guarded. We'll continue to follow. Time with Patient: Greater than 30
[2017-05-22 16:53] LABS: ABG Base Excess -4.2 mmol/L; ABG HCO3 19 mmol/L (21-25); ABG PCO2 27 mmHg (35-45); ABG PH 7.47 (7.35-7.45); ABG PO2 98 mmHg (83-108); ABG TCO2 20 mmol/L (19-24)
[2017-05-22] MEDS: HEPARIN SODIUM,PORCINE/D5W PMX 25,000 UNIT in DEXTROSE/WATER 1 500ML.BAG IV SCH (16:59)
[2017-05-22 17:06] LABS: Glucose,Whole Blood 489 mg/dL (75-99)
[2017-05-22] MEDS: NOREPINEPHRIN 16 MG-0.9%NS PMX 16 MG/250 ML ML IV SCH (17:40)
[2017-05-22] MEDS: INSULIN REGULAR 100 UNIT in SODIUM CHLORIDE 0.9% 100 ML IV SCH (17:50)
[2017-05-22 18:21] LABS: Glucose,Whole Blood 435 mg/dL (75-99)
[2017-05-22 18:57] LABS: Glucose,Whole Blood 362 mg/dL (75-99)
[2017-05-22 20:37] LABS: Glucose,Whole Blood 233 mg/dL (75-99)
[2017-05-22 20:46] LABS: Creatine Kinase MB 53.4 ng/mL (0.0-2.4)
[2017-05-22 22:03] LABS: Glucose,Whole Blood 162 mg/dL (75-99)
--- NOTE | 2017-05-22 22:25 | CONS ---
CONSULTATION This is an 81-year-old gentleman who just got discharged home from the hospital following his admission with non ST-segment elevation OR that was managed with optimal medical therapy. The patient was brought back in complaining of worsening shortness of breath and had very high troponin at 60 for which cardiology has been consulted. He is in the intensive care unit. Hypertensive. Has both renal and liver failure that is new compared to his last admission. The patient appears short of breath and currently has a BiPAP machine on. EKG shows sinus rhythm, with his EKG shows sinus rhythm with changes of left bundle branch block. EKG is somewhat similar to the EKG at last admission. An echocardiogram at that time, revealed a mildly elevated systolic, he has mild LV systolic dysfunction. The patient's prognosis is guarded. We are treating him with intravenous heparin, aspirin. When blood pressure improves we will consider starting him on beta blockers and nitrates. PAST MEDICAL HISTORY: Is significant for hypertension, CAD and [id number] diabetes. ALLERGIES: No known drug allergies. FAMILY HISTORY: Negative for premature coronary artery disease. SOCIAL HISTORY: Is negative for current smoking, ETOH use or drug abuse. REVIEW OF SYSTEMS: HEENT is unremarkable. Cardiac As described above. RESPIRATORY: As described above. GI negative. Genitourinary negative. Allergy/Immunology: Negative. Skin: Negative. Musculoskeletal positive for arthritis. Psycho/social: Negative. Endocrine: Negative. Derm: Negative. CONSTITUTIONAL: Significant for fatigue and tired. Oncological negative. Hematological: Negative. NEUROLOGIC: Alert and oriented. EXAM: The heart rate is around 100 beats per minute. Blood pressure is 94/52, respirations 20, O2 saturation is 98% on BiPAP. There is no jugular venous distention. Chest exam reveals diminished air entry with occasional crackles. Heart exam reveals first and second heart sounds. No gallop. No murmur. No rub. ABDOMEN: Soft, nontender. Extremities did not reveal any edema. Peripheral pulses felt. LABS: Showed that the blood gases showed a pH of 7.4, O2 saturation of 98, troponin is elevated at 60. BUN is 52, creatinine is 2.4. AST and ALT elevated. Hemoglobin is 13.4 and BNP is 52,000. ASSESSMENT: 1. Acute non ST-segment elevation OR. 2. Acute liver failure. 3. Acute onset renal failure. PLAN: The patient's prognosis is guarded. We will continue to treat with IV heparin. Obtain a 2D echo to document his LV function. Give him aspirin, nitrates and beta-blockers when blood pressure improves. MMODL / IJN: [id number] /
[2017-05-22] MEDS: FUROSEMIDE 10 MG/ML 4 ML VIAL IV SCH (22:30)
[2017-05-22 22:54] LABS: Glucose,Whole Blood 153 mg/dL (75-99)
[2017-05-22 23:58] LABS: Glucose,Whole Blood 129 mg/dL (75-99)
[2017-05-23] MEDS ORDERED: FUROSEMIDE 10 MG/ML 10 ML VIAL IV STA (00:12)
[2017-05-23 01:01] LABS: Glucose,Whole Blood 159 mg/dL (75-99)
[2017-05-23] MEDS: HEPARIN SODIUM,PORCINE 5,000 UNIT/ML 1 ML VIAL IV PRN ×2 (01:54→09:54)
[2017-05-23 01:59] LABS: Glucose,Whole Blood 166 mg/dL (75-99)
[2017-05-23 03:04] LABS: Glucose,Whole Blood 187 mg/dL (75-99)
[2017-05-23 03:23] LABS: Creatine Kinase MB 65.2 ng/mL (0.0-2.4)
[2017-05-23 04:03] LABS: Glucose,Whole Blood 207 mg/dL (75-99)
[2017-05-23 04:31] LABS: Basophils % (A) 0 %; CH 32.1; CHCM 33.7; Eosinophils % (A) 0 %; HCT 40.7 % (39.0-53.0); HDW 2.54; HGB 13.5 gm/dL (13.0-17.5); Luc # (Auto) 0.22; Luc % (Auto) 1; Lymphocytes # (A) 0.9 k/uL (1.0-4.8); Lymphocytes % (A) 6 %; MCH 31.7 pg (25.0-35.0); MCHC 33.1 g/dL (31.0-37.0); MCV 95.8 fL (80.0-100.0); Mean Platelet Volume 8.5; Monocytes # (A) 0.6 k/uL (0-1.0); Monocytes % (A) 4 %; Neutrophils # (A) 13.7 k/uL (1.3-7.7); Neutrophils % (A) 89 %; RBC 4.25 m/uL (4.30-5.90); RDW 14.3 % (11.5-15.5); WBC 15.4 k/uL (3.8-10.6); WBC (Perox) 15.21
[2017-05-23 04:51] LABS: Calcium 8.4 mg/dL (8.4-10.2); Magnesium 2.7 mg/dL (1.6-2.3); Phosphorous 5.1 mg/dL (2.5-4.5); Potassium 4.8 mmol/L (3.5-5.1); Total Bilirubin 0.7 mg/dL (0.2-1.3); Total Protein 6.1 g/dL (6.3-8.2)
[2017-05-23 04:58] LABS: Glucose,Whole Blood 194 mg/dL (75-99)
[2017-05-23 06:01] LABS: Glucose,Whole Blood 161 mg/dL (75-99)
[2017-05-23 06:54] LABS: Glucose,Whole Blood 149 mg/dL (75-99)
[2017-05-23 08:06] LABS: Glucose,Whole Blood 152 mg/dL (75-99)
[2017-05-23] MEDS: FUROSEMIDE 10 MG/ML 4 ML VIAL IV SCH ×2 (08:52→20:27)
[2017-05-23] MEDS: ASPIRIN 325 MG TAB PO SCH (08:52)
[2017-05-23] MEDS: DULoxetine HCL 60 MG CAPSULE.DR PO SCH (08:52)
[2017-05-23] MEDS ORDERED: ENOXAPARIN 40 MG/0.4 ML SYRINGE SQ SCH (09:00)
[2017-05-23 09:12] LABS: Glucose,Whole Blood 169 mg/dL (75-99)
--- NOTE | 2017-05-23 09:24 | XR ---
EXAMINATION TYPE: XR chest 1V portable DATE OF EXAM: 05/23/2017 COMPARISON: 05/22/2017 INDICATION: Possible pneumonia, previous abnormal chest TECHNIQUE: Single frontal view of the chest is obtained. FINDINGS: The heart size is normal. The pulmonary vasculature is normal. Small left pleural effusion is present. Mild right lower lobe infiltrate is present. Central venous c atheter is present on the right with the tip in the proximal right atrium. IMPRESSION: 1. Mild developing right lower lobe infiltrate. Correlate for atelectasis or pneumonia. 2. Small left pleural effusion.
[2017-05-23] MEDS: METOPROLOL TARTRATE 25 MG TAB PO SCH ×2 (09:29→20:27)
[2017-05-23 10:11] LABS: Glucose,Whole Blood 182 mg/dL (75-99)
[2017-05-23] MEDS: PIPERACILLIN-TAZOBACTAM 3.375 GM in DEXTROSE/WATER 1 50ML.BAG IVPB SCH ×3 (10:55→23:53)
[2017-05-23 11:27] LABS: Glucose,Whole Blood 235 mg/dL (75-99)
--- NOTE | 2017-05-23 11:34 | P.PN ---
Subjective Principal diagnosis: Acute myocardial infarction with cardiogenic shock Patient was admitted yesterday evening with symptoms of shortness of breath fatigue and not feeling well. He has had acute myocardial infarction. Troponin was 60 and his initial presentation and had gone all the way up to 200. He was in respiratory failure and had cardiogenic shock with hypotension liver failure and renal failure and his initial presentation. His breathing is better this morning. We treated him with intravenous diuretics. He had an echocardiogram. Results are pending at this time. Patient's prognosis is guarded. Is currently on intravenous Levophed. Developed atrial fibrillation. He is on IV heparin. I'm going to start him on oral amiodarone. Objective - Vital Signs Vital signs: Vital Signs Temp 97.8 F 05/23/17 08:15 Pulse 92 05/23/17 10:15 Resp 24 05/23/17 10:15 BP 96/64 05/23/17 10:15 Pulse Ox 100 05/23/17 10:15 Intake & Output 05/22/17 05/23/17 05/23/17 18:59 06:59 18:59 Intake Total 697.962 610.329 766.131 Output Total 720 382 145 Balance -22.038 228.329 621.131 Weight 90.718 kg 94 kg 95.5 kg Intake: IV 690 390 90 0.9 NACL 40 390 90 0.9 nacl bolus 500 levaquin 150 Intake, IV Titration 7.962 220.329 176.131 Amount Heparin Sodium,Porcine/ 178.553 167.64 D5w Pmx 25,000 unit In Dextrose/Water 1 500ml. bag @ 11 UNITS/KG/HR 19. 95 mls/hr IV .Q24H KIM Rx #:[id number] Insulin Regular 100 unit 7.962 41.776 3.791 In Sodium Chloride 0.9% 100 ml @ Per Protocol IV .Q0M KIM Rx#:[id number] Norepinephrin 16 mg-0.9% 4.7 Ns Pmx 16 mg In 250 ml @ Titrate IV .Q0M KIM Rx#: [id number] Oral 500 Output: Urine 720 382 145 Uretheral (Parker) 300 Other: Voiding Method Indwelling Catheter Indwelling Catheter Indwelling Catheter - Exam Patient appears in mild respiratory distress. Blood pressure is in the 90s systolic. Heart rate is 120s and irregularly irregular chest exam reveals diminished air entry with occasional rhonchi heart exam reveals first and second heart sounds are regular rhythm abdomen is soft exemption extremities reveal trace edema I reviewed labs. Patient has renal insufficiency elevated liver enzymes and elevated troponin - Labs CBC & Chem 7: 05/23/17 03:48 05/23/17 03:48 Labs: Abnormal Lab Results - Last 24 Hours (Table) 05/22/17 05/22/17 05/22/17 Range/Units 13:35 13:59 13:59 WBC (3.8-10.6) k/uL RBC (4.30-5.90) m/uL Neutrophils # (1.3-7.7) k/uL Lymphocytes # (1.0-4.8) k/uL INR (<1.2) APTT (22.0-30.0) sec ABG pH (7.35-7.45) ABG pCO2 (35-45) mmHg ABG HCO3 (21-25) mmol/L ABG O2 Saturation (94-97) % VBG pCO2 36 L (37-51) mmHg VBG HCO3 19 L (24-28) mmol/L Sodium (137-145) mmol/L Potassium (3.5-5.1) mmol/L Chloride (98-107) mmol/L Carbon Dioxide (22-30) mmol/L BUN (9-20) mg/dL Creatinine (0.66-1.25) mg/dL Glucose (74-99) mg/dL POC Glucose (mg/dL) >600 H (75-99) mg/dL Plasma Lactic Acid Nicholas (0.7-2.0) mmol/L Phosphorus (2.5-4.5) mg/dL Magnesium (1.6-2.3) mg/dL AST (17-59) U/L ALT (21-72) U/L Total Creatine Kinase 735 H (55-170) U/L CK-MB (CK-2) 29.0 H* (0.0-2.4) ng/mL Troponin I 60.600 H* (0.000-0.034) ng/mL Total Protein (6.3-8.2) g/dL Albumin (3.5-5.0) g/dL HDL Cholesterol (40-60) mg/dL Urine Protein (Negative) Urine Glucose (UA) (Negative) Urine Ketones (Negative) 05/22/17 05/22/17 05/22/17 Range/Units 13:59 13:59 13:59 WBC (3.8-10.6) k/uL RBC 4.27 L (4.30-5.90) m/uL Neutrophils # 8.8 H (1.3-7.7) k/uL Lymphocytes # 0.4 L (1.0-4.8) k/uL INR (<1.2) APTT (22.0-30.0) sec ABG pH (7.35-7.45) ABG pCO2 (35-45) mmHg ABG HCO3 (21-25) mmol/L ABG O2 Saturation (94-97) % VBG pCO2 (37-51) mmHg VBG HCO3 (24-28) mmol/L Sodium 130 L (137-145) mmol/L Potassium 6.4 H* (3.5-5.1) mmol/L Chloride 94 L (98-107) mmol/L Carbon Dioxide 18 L (22-30) mmol/L BUN 52 H (9-20) mg/dL Creatinine 2.40 H (0.66-1.25) mg/dL Glucose 610 H* (74-99) mg/dL POC Glucose (mg/dL) (75-99) mg/dL Plasma Lactic Acid Nicholas 9.1 H* (0.7-2.0) mmol/L Phosphorus 5.7 H (2.5-4.5) mg/dL Magnesium 2.8 H (1.6-2.3) mg/dL AST 1337 H (17-59) U/L ALT 979 H (21-72) U/L Total Creatine Kinase (55-170) U/L CK-MB (CK-2) (0.0-2.4) ng/mL Troponin I (0.000-0.034) ng/mL Total Protein 6.1 L (6.3-8.2) g/dL Albumin (3.5-5.0) g/dL HDL Cholesterol (40-60) mg/dL Urine Protein (Negative) Urine Glucose (UA) (Negative) Urine Ketones (Negative) 05/22/17 05/22/17 05/22/17 Range/Units 13:59 15:34 15:39 WBC (3.8-10.6) k/uL RBC (4.30-5.90) m/uL Neutrophils # (1.3-7.7) k/uL Lymphocytes # (1.0-4.8) k/uL INR 1.2 H (<1.2) APTT (22.0-30.0) sec ABG pH (7.35-7.45) ABG pCO2 (35-45) mmHg ABG HCO3 (21-25) mmol/L ABG O2 Saturation (94-97) % VBG pCO2 (37-51) mmHg VBG HCO3 (24-28) mmol/L Sodium (137-145) mmol/L Potassium (3.5-5.1) mmol/L Chloride (98-107) mmol/L Carbon Dioxide (22-30) mmol/L BUN (9-20) mg/dL Creatinine (0.66-1.25) mg/dL Glucose (74-99) mg/dL POC Glucose (mg/dL) 501 H (75-99) mg/dL Plasma Lactic Acid Nicholas (0.7-2.0) mmol/L Phosphorus (2.5-4.5) mg/dL Magnesium (1.6-2.3) mg/dL AST (17-59) U/L ALT (21-72) U/L Total Creatine Kinase (55-170) U/L CK-MB (CK-2) (0.0-2.4) ng/mL Troponin I (0.000-0.034) ng/mL Total Protein (6.3-8.2) g/dL Albumin (3.5-5.0) g/dL HDL Cholesterol (40-60) mg/dL Urine Protein Trace H (Negative) Urine Glucose (UA) 4+ H (Negative) Urine Ketones Trace H (Negative) 05/22/17 05/22/17 05/22/17 Range/Units 16:15 16:47 17:04 WBC (3.8-10.6) k/uL RBC (4.30-5.90) m/uL Neutrophils # (1.3-7.7) k/uL Lymphocytes # (1.0-4.8) k/uL INR (<1.2) APTT (22.0-30.0) sec ABG pH 7.47 H (7.35-7.45) ABG pCO2 27 L (35-45) mmHg ABG HCO3 19 L (21-25) mmol/L ABG O2 Saturation 98.0 H (94-97) % VBG pCO2 (37-51) mmHg VBG HCO3 (24-28) mmol/L Sodium (137-145) mmol/L Potassium (3.5-5.1) mmol/L Chloride (98-107) mmol/L Carbon Dioxide (22-30) mmol/L BUN (9-20) mg/dL Creatinine (0.66-1.25) mg/dL Glucose (74-99) mg/dL POC Glucose (mg/dL) 462 H 489 H (75-99) mg/dL Plasma Lactic Acid Nicholas (0.7-2.0) mmol/L Phosphorus (2.5-4.5) mg/dL Magnesium (1.6-2.3) mg/dL AST (17-59) U/L ALT (21-72) U/L Total Creatine Kinase (55-170) U/L CK-MB (CK-2) (0.0-2.4) ng/mL Troponin I (0.000-0.034) ng/mL Total Protein (6.3-8.2) g/dL Albumin (3.5-5.0) g/dL HDL Cholesterol (40-60) mg/dL Urine Protein (Negative) Urine Glucose (UA) (Negative) Urine Ketones (Negative) 05/22/17 05/22/17 05/22/17 Range/Units 18:08 18:18 18:55 WBC (3.8-10.6) k/uL RBC (4.30-5.90) m/uL Neutrophils # (1.3-7.7) k/uL Lymphocytes # (1.0-4.8) k/uL INR (<1.2) APTT (22.0-30.0) sec ABG pH (7.35-7.45) ABG pCO2 (35-45) mmHg ABG HCO3 (21-25) mmol/L ABG O2 Saturation (94-97) % VBG pCO2 (37-51) mmHg VBG HCO3 (24-28) mmol/L Sodium (137-145) mmol/L Potassium (3.5-5.1) mmol/L Chloride (98-107) mmol/L Carbon Dioxide (22-30) mmol/L BUN (9-20) mg/dL Creatinine (0.66-1.25) mg/dL Glucose (74-99) mg/dL POC Glucose (mg/dL) 435 H 362 H (75-99) mg/dL Plasma Lactic Acid Nicholas 5.0 H* (0.7-2.0) mmol/L Phosphorus (2.5-4.5) mg/dL Magnesium (1.6-2.3) mg/dL AST (17-59) U/L ALT (21-72) U/L Total Creatine Kinase (55-170) U/L CK-MB (CK-2) (0.0-2.4) ng/mL Troponin I (0.000-0.034) ng/mL Total Protein (6.3-8.2) g/dL Albumin (3.5-5.0) g/dL HDL Cholesterol (40-60) mg/dL Urine Protein (Negative) Urine Glucose (UA) (Negative) Urine Ketones (Negative) 05/22/17 05/22/17 05/22/17 Range/Units 19:38 20:31 22:02 WBC (3.8-10.6) k/uL RBC (4.30-5.90) m/uL Neutrophils # (1.3-7.7) k/uL Lymphocytes # (1.0-4.8) k/uL INR (<1.2) APTT (22.0-30.0) sec ABG pH (7.35-7.45) ABG pCO2 (35-45) mmHg ABG HCO3 (21-25) mmol/L ABG O2 Saturation (94-97) % VBG pCO2 (37-51) mmHg VBG HCO3 (24-28) mmol/L Sodium (137-145) mmol/L Potassium (3.5-5.1) mmol/L Chloride (98-107) mmol/L Carbon Dioxide (22-30) mmol/L BUN (9-20) mg/dL Creatinine (0.66-1.25) mg/dL Glucose (74-99) mg/dL POC Glucose (mg/dL) 233 H 162 H (75-99) mg/dL Plasma Lactic Acid Nicholas (0.7-2.0) mmol/L Phosphorus (2.5-4.5) mg/dL Magnesium (1.6-2.3) mg/dL AST (17-59) U/L ALT (21-72) U/L Total Creatine Kinase 1312 H (55-170) U/L CK-MB (CK-2) 53.4 H* (0.0-2.4) ng/mL Troponin I 182.000 H* (0.000-0.034) ng/mL Total Protein (6.3-8.2) g/dL Albumin (3.5-5.0) g/dL HDL Cholesterol (40-60) mg/dL Urine Protein (Negative) Urine Glucose (UA) (Negative) Urine Ketones (Negative) 05/22/17 05/22/17 05/22/17 Range/Units 22:49 22:52 23:56 WBC (3.8-10.6) k/uL RBC (4.30-5.90) m/uL Neutrophils # (1.3-7.7) k/uL Lymphocytes # (1.0-4.8) k/uL INR (<1.2) APTT (22.0-30.0) sec ABG pH (7.35-7.45) ABG pCO2 (35-45) mmHg ABG HCO3 (21-25) mmol/L ABG O2 Saturation (94-97) % VBG pCO2 (37-51) mmHg VBG HCO3 (24-28) mmol/L Sodium (137-145) mmol/L Potassium (3.5-5.1) mmol/L Chloride (98-107) mmol/L Carbon Dioxide (22-30) mmol/L BUN (9-20) mg/dL Creatinine (0.66-1.25) mg/dL Glucose (74-99) mg/dL POC Glucose (mg/dL) 153 H 129 H (75-99) mg/dL Plasma Lactic Acid Nicholas 4.0 H* (0.7-2.0) mmol/L Phosphorus (2.5-4.5) mg/dL Magnesium (1.6-2.3) mg/dL AST (17-59) U/L ALT (21-72) U/L Total Creatine Kinase (55-170) U/L CK-MB (CK-2) (0.0-2.4) ng/mL Troponin I (0.000-0.034) ng/mL Total Protein (6.3-8.2) g/dL Albumin (3.5-5.0) g/dL HDL Cholesterol (40-60) mg/dL Urine Protein (Negative) Urine Glucose (UA) (Negative) Urine Ketones (Negative) 05/23/17 05/23/17 05/23/17 Range/Units 00:58 01:55 01:58 WBC (3.8-10.6) k/uL RBC (4.30-5.90) m/uL Neutrophils # (1.3-7.7) k/uL Lymphocytes # (1.0-4.8) k/uL INR (<1.2) APTT (22.0-30.0) sec ABG pH (7.35-7.45) ABG pCO2 (35-45) mmHg ABG HCO3 (21-25) mmol/L ABG O2 Saturation (94-97) % VBG pCO2 (37-51) mmHg VBG HCO3 (24-28) mmol/L Sodium (137-145) mmol/L Potassium (3.5-5.1) mmol/L Chloride (98-107) mmol/L Carbon Dioxide (22-30) mmol/L BUN (9-20) mg/dL Creatinine (0.66-1.25) mg/dL Glucose (74-99) mg/dL POC Glucose (mg/dL) 159 H 166 H (75-99) mg/dL Plasma Lactic Acid Nicholas (0.7-2.0) mmol/L Phosphorus (2.5-4.5) mg/dL Magnesium (1.6-2.3) mg/dL AST (17-59) U/L ALT (21-72) U/L Total Creatine Kinase 2082 H (55-170) U/L CK-MB (CK-2) 65.2 H* (0.0-2.4) ng/mL Troponin I 209.000 H* (0.000-0.034) ng/mL Total Protein (6.3-8.2) g/dL Albumin (3.5-5.0) g/dL HDL Cholesterol (40-60) mg/dL Urine Protein (Negative) Urine Glucose (UA) (Negative) Urine Ketones (Negative) 05/23/17 05/23/17 05/23/17 Range/Units 03:02 03:48 03:48 WBC 15.4 H (3.8-10.6) k/uL RBC 4.25 L (4.30-5.90) m/uL Neutrophils # 13.7 H (1.3-7.7) k/uL Lymphocytes # 0.9 L (1.0-4.8) k/uL INR (<1.2) APTT (22.0-30.0) sec ABG pH (7.35-7.45) ABG pCO2 (35-45) mmHg ABG HCO3 (21-25) mmol/L ABG O2 Saturation (94-97) % VBG pCO2 (37-51) mmHg VBG HCO3 (24-28) mmol/L Sodium 133 L (137-145) mmol/L Potassium (3.5-5.1) mmol/L Chloride 96 L (98-107) mmol/L Carbon Dioxide (22-30) mmol/L BUN 68 H (9-20) mg/dL Creatinine 2.50 H (0.66-1.25) mg/dL Glucose 190 H (74-99) mg/dL POC Glucose (mg/dL) 187 H (75-99) mg/dL Plasma Lactic Acid Nicholas (0.7-2.0) mmol/L Phosphorus 5.1 H (2.5-4.5) mg/dL Magnesium 2.7 H (1.6-2.3) mg/dL AST 3335 H (17-59) U/L ALT 3372 H (21-72) U/L Total Creatine Kinase (55-170) U/L CK-MB (CK-2) (0.0-2.4) ng/mL Troponin I (0.000-0.034) ng/mL Total Protein 6.1 L (6.3-8.2) g/dL Albumin 3.4 L (3.5-5.0) g/dL HDL Cholesterol 38 L (40-60) mg/dL Urine Protein (Negative) Urine Glucose (UA) (Negative) Urine Ketones (Negative) 05/23/17 05/23/17 05/23/17 Range/Units 03:48 04:00 04:56 WBC (3.8-10.6) k/uL RBC (4.30-5.90) m/uL Neutrophils # (1.3-7.7) k/uL Lymphocytes # (1.0-4.8) k/uL INR (<1.2) APTT (22.0-30.0) sec ABG pH (7.35-7.45) ABG pCO2 (35-45) mmHg ABG HCO3 (21-25) mmol/L ABG O2 Saturation (94-97) % VBG pCO2 (37-51) mmHg VBG HCO3 (24-28) mmol/L Sodium (137-145) mmol/L Potassium (3.5-5.1) mmol/L Chloride (98-107) mmol/L Carbon Dioxide (22-30) mmol/L BUN (9-20) mg/dL Creatinine (0.66-1.25) mg/dL Glucose (74-99) mg/dL POC Glucose (mg/dL) 207 H 194 H (75-99) mg/dL Plasma Lactic Acid Nicholas 2.6 H* (0.7-2.0) mmol/L Phosphorus (2.5-4.5) mg/dL Magnesium (1.6-2.3) mg/dL AST (17-59) U/L ALT (21-72) U/L Total Creatine Kinase (55-170) U/L CK-MB (CK-2) (0.0-2.4) ng/mL Troponin I (0.000-0.034) ng/mL Total Protein (6.3-8.2) g/dL Albumin (3.5-5.0) g/dL HDL Cholesterol (40-60) mg/dL Urine Protein (Negative) Urine Glucose (UA) (Negative) Urine Ketones (Negative) 05/23/17 05/23/17 05/23/17 Range/Units 05:59 06:53 07:40 WBC (3.8-10.6) k/uL RBC (4.30-5.90) m/uL Neutrophils # (1.3-7.7) k/uL Lymphocytes # (1.0-4.8) k/uL INR (<1.2) APTT 36.5 H (22.0-30.0) sec ABG pH (7.35-7.45) ABG pCO2 (35-45) mmHg ABG HCO3 (21-25) mmol/L ABG O2 Saturation (94-97) % VBG pCO2 (37-51) mmHg VBG HCO3 (24-28) mmol/L Sodium (137-145) mmol/L Potassium (3.5-5.1) mmol/L Chloride (98-107) mmol/L Carbon Dioxide (22-30) mmol/L BUN (9-20) mg/dL Creatinine (0.66-1.25) mg/dL Glucose (74-99) mg/dL POC Glucose (mg/dL) 161 H 149 H (75-99) mg/dL Plasma Lactic Acid Nicholas (0.7-2.0) mmol/L Phosphorus (2.5-4.5) mg/dL Magnesium (1.6-2.3) mg/dL AST (17-59) U/L ALT (21-72) U/L Total Creatine Kinase (55-170) U/L CK-MB (CK-2) (0.0-2.4) ng/mL Troponin I (0.000-0.034) ng/mL Total Protein (6.3-8.2) g/dL Albumin (3.5-5.0) g/dL HDL Cholesterol (40-60) mg/dL Urine Protein (Negative) Urine Glucose (UA) (Negative) Urine Ketones (Negative) 05/23/17 05/23/17 05/23/17 Range/Units 07:40 07:40 08:05 WBC (3.8-10.6) k/uL RBC (4.30-5.90) m/uL Neutrophils # (1.3-7.7) k/uL Lymphocytes # (1.0-4.8) k/uL INR (<1.2) APTT (22.0-30.0) sec ABG pH (7.35-7.45) ABG pCO2 (35-45) mmHg ABG HCO3 (21-25) mmol/L ABG O2 Saturation (94-97) % VBG pCO2 (37-51) mmHg VBG HCO3 (24-28) mmol/L Sodium (137-145) mmol/L Potassium (3.5-5.1) mmol/L Chloride (98-107) mmol/L Carbon Dioxide (22-30) mmol/L BUN (9-20) mg/dL Creatinine (0.66-1.25) mg/dL Glucose (74-99) mg/dL POC Glucose (mg/dL) 152 H (75-99) mg/dL Plasma Lactic Acid Nicholas 2.5 H* (0.7-2.0) mmol/L Phosphorus (2.5-4.5) mg/dL Magnesium (1.6-2.3) mg/dL AST (17-59) U/L ALT (21-72) U/L Total Creatine Kinase (55-170) U/L CK-MB (CK-2) (0.0-2.4) ng/mL Troponin I 125.000 H* (0.000-0.034) ng/mL Total Protein (6.3-8.2) g/dL Albumin (3.5-5.0) g/dL HDL Cholesterol (40-60) mg/dL Urine Protein (Negative) Urine Glucose (UA) (Negative) Urine Ketones (Negative) 05/23/17 05/23/17 05/23/17 Range/Units 09:09 10:09 11:25 WBC (3.8-10.6) k/uL RBC (4.30-5.90) m/uL Neutrophils # (1.3-7.7) k/uL Lymphocytes # (1.0-4.8) k/uL INR (<1.2) APTT (22.0-30.0) sec ABG pH (7.35-7.45) ABG pCO2 (35-45) mmHg ABG HCO3 (21-25) mmol/L ABG O2 Saturation (94-97) % VBG pCO2 (37-51) mmHg VBG HCO3 (24-28) mmol/L Sodium (137-145) mmol/L Potassium (3.5-5.1) mmol/L Chloride (98-107) mmol/L Carbon Dioxide (22-30) mmol/L BUN (9-20) mg/dL Creatinine (0.66-1.25) mg/dL Glucose (74-99) mg/dL POC Glucose (mg/dL) 169 H 182 H 235 H (75-99) mg/dL Plasma Lactic Acid Nicholas (0.7-2.0) mmol/L Phosphorus (2.5-4.5) mg/dL Magnesium (1.6-2.3) mg/dL AST (17-59) U/L ALT (21-72) U/L Total Creatine Kinase (55-170) U/L CK-MB (CK-2) (0.0-2.4) ng/mL Troponin I (0.000-0.034) ng/mL Total Protein (6.3-8.2) g/dL Albumin (3.5-5.0) g/dL HDL Cholesterol (40-60) mg/dL Urine Protein (Negative) Urine Glucose (UA) (Negative) Urine Ketones (Negative) Microbiology - Last 24 Hours (Table) 05/22/17 15:34 Urine Culture - Preliminary Urine,Catheterized Assessment and Plan Plan: Assessment and plan: Acute myocardial infarction Cardiogenic shock Multiorgan failure afib with rvr Prognosis is guarded. He is on Levophed IV Lasix in the urine output doesn't improve by tomorrow I will consider starting on dobutamine. He is in atrial fibrillation I'm going to start him on amiodarone
[2017-05-23] MEDS: AMIODARONE 200 MG TAB PO SCH ×2 (11:51→20:27)
--- NOTE | 2017-05-23 12:08 | P.PN ---
Subjective Principal diagnosis: Acute cardiogenic shock This is an 81-year-old gentleman who follows with Dr. More as his primary care physician. He has a history of coronary artery disease, hyperlipidemia, hypertension, osteoarthritis, benign prosthetic hypertrophy, diabetes Jeff, shingles, skin cancer. He was recently admitted here on 05/18/2017 for a non- ST segment elevation myocardial infarction. His echocardiogram revealed mildly impaired left ventricular systolic function with estimated ejection fraction 45- 50%. He was seen and evaluated by cardiology who plan to treat the patient medically. He was seen and evaluated by Dr. Cyr as well for acute hypoxic respiratory failure which was felt to be status post blunt trauma to the right chest. His x-ray at that time revealed coarse interstitial infiltrates bilaterally. Computed tomography scan of the chest revealed atherosclerotic valvular disease, pleural effusions with basilar pulmonary infiltrates and atelectasis. The patient had recovered well and was seen last yesterday prior to his discharge he had no pulmonary complaints. No complaints of chest pain and he was discharged home. He presented here to the emergency room today with complaints of significant lower extremity weakness and shortness of breath. His chest x-ray as compared to one on 05/18/2017 showed improvement enzymes status. There is still suspected basilar pleural effusions with associated atelectasis. He did have some issues with hypoxia initially presenting on room air at 93% however he is now on BiPAP at 35% FiO2. He is initially hypotensive but not initiated on pressors. Current blood pressure 94/52 with a mean arterial pressure of 66. He is slightly tachycardic at 103. Lab results reveal a potassium of 6.4. AST 1337, ALT 979, total creatinine kinase of 735 with a troponin of 60.6. Patient was reevaluated today on 05/23/2017, seems to be doing surprisingly better than expected. Patient remains on norepinephrine for low blood pressure at 5 mcg/m, urine output seems to be picking up this morning about 50 mL per hour. Mental status seems to be much improved compared to yesterday. Patient is intermittently on BiPAP and on nasal cannula. Denies any specific complaints , no shortness of breath, no chest pain, no nausea, no vomiting, patient is actually sitting in bed and eating his breakfast. WBC count is 15.4 hemoglobin is 13.5 PTT is 36.5. BUN is about the same at 68 creatinine is about the same at 2.50 sugar is well controlled 190 today. Liver enzymes are much higher today compared to yesterday, patient basically has a shock liver. Troponin is coming down from 180 to yesterday, today it is 125. Chest x-ray is showing mostly atelectasis in the right lower lobe and small left pleural effusion. Objective - Vital Signs Vital signs: Vital Signs Temp 97.8 F 05/23/17 08:15 Pulse 135 H 05/23/17 11:45 Resp 21 05/23/17 11:45 BP 98/61 05/23/17 11:45 Pulse Ox 100 05/23/17 11:45 Intake & Output 05/22/17 05/23/17 05/23/17 18:59 06:59 18:59 Intake Total 697.962 610.329 822.411 Output Total 720 382 255 Balance -22.038 228.329 567.411 Weight 90.718 kg 94 kg 95.5 kg Intake: IV 690 390 130 0.9 NACL 40 390 130 0.9 nacl bolus 500 levaquin 150 Intake, IV Titration 7.962 220.329 192.411 Amount Heparin Sodium,Porcine/ 178.553 167.64 D5w Pmx 25,000 unit In Dextrose/Water 1 500ml. bag @ 11 UNITS/KG/HR 19. 95 mls/hr IV .Q24H [facility] Rx #:[id number] Insulin Regular 100 unit 7.962 41.776 7.571 In Sodium Chloride 0.9% 100 ml @ Per Protocol IV .Q0M [facility] Rx#:[id number] Norepinephrin 16 mg-0.9% 4.7 Ns Pmx 16 mg In 250 ml @ Titrate IV .Q0M [facility] Rx#: [id number] Piperacillin-Tazobactam 3 12.5 .375 gm In Dextrose/Water 1 50ml.bag @ 12.5 mls/hr IVPB ONCE [facility] Rx#: [id number] Oral 500 Output: Urine 720 382 255 Uretheral (Parker) 300 Other: Voiding Method Indwelling Catheter Indwelling Catheter Indwelling Catheter - Exam GENERAL EXAM: Obtunded. HEAD: Normocephalic. EYES: Normal reaction of pupils, equal size. NOSE: Clear with pink turbinates. THROAT: No erythema or exudates. NECK: No masses, no JVD. CHEST: No chest wall deformity. LUNGS: Equal air entry with faint crackles in the posterior bases.. CVS: S1 and S2 normal with no audible murmurs, regular rhythm. ABDOMEN: No hepatosplenomegaly, normal bowel sounds, no guarding or rigidity. Extremities: There is trace peripheral edema. No clubbing, no cyanosis. Peripheral pulses are intact. - Labs CBC & Chem 7: 05/23/17 03:48 05/23/17 03:48 Labs: Abnormal Lab Results - Last 24 Hours (Table) 05/22/17 05/22/17 05/22/17 Range/Units 13:35 13:59 13:59 WBC (3.8-10.6) k/uL RBC (4.30-5.90) m/uL Neutrophils # (1.3-7.7) k/uL Lymphocytes # (1.0-4.8) k/uL INR (<1.2) APTT (22.0-30.0) sec ABG pH (7.35-7.45) ABG pCO2 (35-45) mmHg ABG HCO3 (21-25) mmol/L ABG O2 Saturation (94-97) % VBG pCO2 36 L (37-51) mmHg VBG HCO3 19 L (24-28) mmol/L Sodium (137-145) mmol/L Potassium (3.5-5.1) mmol/L Chloride (98-107) mmol/L Carbon Dioxide (22-30) mmol/L BUN (9-20) mg/dL Creatinine (0.66-1.25) mg/dL Glucose (74-99) mg/dL POC Glucose (mg/dL) >600 H (75-99) mg/dL Plasma Lactic Acid Nicholas (0.7-2.0) mmol/L Phosphorus (2.5-4.5) mg/dL Magnesium (1.6-2.3) mg/dL AST (17-59) U/L ALT (21-72) U/L Total Creatine Kinase 735 H (55-170) U/L CK-MB (CK-2) 29.0 H* (0.0-2.4) ng/mL Troponin I 60.600 H* (0.000-0.034) ng/mL Total Protein (6.3-8.2) g/dL Albumin (3.5-5.0) g/dL HDL Cholesterol (40-60) mg/dL Urine Protein (Negative) Urine Glucose (UA) (Negative) Urine Ketones (Negative) 05/22/17 05/22/17 05/22/17 Range/Units 13:59 13:59 13:59 WBC (3.8-10.6) k/uL RBC 4.27 L (4.30-5.90) m/uL Neutrophils # 8.8 H (1.3-7.7) k/uL Lymphocytes # 0.4 L (1.0-4.8) k/uL INR (<1.2) APTT (22.0-30.0) sec ABG pH (7.35-7.45) ABG pCO2 (35-45) mmHg ABG HCO3 (21-25) mmol/L ABG O2 Saturation (94-97) % VBG pCO2 (37-51) mmHg VBG HCO3 (24-28) mmol/L Sodium 130 L (137-145) mmol/L Potassium 6.4 H* (3.5-5.1) mmol/L Chloride 94 L (98-107) mmol/L Carbon Dioxide 18 L (22-30) mmol/L BUN 52 H (9-20) mg/dL Creatinine 2.40 H (0.66-1.25) mg/dL Glucose 610 H* (74-99) mg/dL POC Glucose (mg/dL) (75-99) mg/dL Plasma Lactic Acid Nicholas 9.1 H* (0.7-2.0) mmol/L Phosphorus 5.7 H (2.5-4.5) mg/dL Magnesium 2.8 H (1.6-2.3) mg/dL AST 1337 H (17-59) U/L ALT 979 H (21-72) U/L Total Creatine Kinase (55-170) U/L CK-MB (CK-2) (0.0-2.4) ng/mL Troponin I (0.000-0.034) ng/mL Total Protein 6.1 L (6.3-8.2) g/dL Albumin (3.5-5.0) g/dL HDL Cholesterol (40-60) mg/dL Urine Protein (Negative) Urine Glucose (UA) (Negative) Urine Ketones (Negative) 05/22/17 05/22/17 05/22/17 Range/Units 13:59 15:34 15:39 WBC (3.8-10.6) k/uL RBC (4.30-5.90) m/uL Neutrophils # (1.3-7.7) k/uL Lymphocytes # (1.0-4.8) k/uL INR 1.2 H (<1.2) APTT (22.0-30.0) sec ABG pH (7.35-7.45) ABG pCO2 (35-45) mmHg ABG HCO3 (21-25) mmol/L ABG O2 Saturation (94-97) % VBG pCO2 (37-51) mmHg VBG HCO3 (24-28) mmol/L Sodium (137-145) mmol/L Potassium (3.5-5.1) mmol/L Chloride (98-107) mmol/L Carbon Dioxide (22-30) mmol/L BUN (9-20) mg/dL Creatinine (0.66-1.25) mg/dL Glucose (74-99) mg/dL POC Glucose (mg/dL) 501 H (75-99) mg/dL Plasma Lactic Acid Nicholas (0.7-2.0) mmol/L Phosphorus (2.5-4.5) mg/dL Magnesium (1.6-2.3) mg/dL AST (17-59) U/L ALT (21-72) U/L Total Creatine Kinase (55-170) U/L CK-MB (CK-2) (0.0-2.4) ng/mL Troponin I (0.000-0.034) ng/mL Total Protein (6.3-8.2) g/dL Albumin (3.5-5.0) g/dL HDL Cholesterol (40-60) mg/dL Urine Protein Trace H (Negative) Urine Glucose (UA) 4+ H (Negative) Urine Ketones Trace H (Negative) 05/22/17 05/22/17 05/22/17 Range/Units 16:15 16:47 17:04 WBC (3.8-10.6) k/uL RBC (4.30-5.90) m/uL Neutrophils # (1.3-7.7) k/uL Lymphocytes # (1.0-4.8) k/uL INR (<1.2) APTT (22.0-30.0) sec ABG pH 7.47 H (7.35-7.45) ABG pCO2 27 L (35-45) mmHg ABG HCO3 19 L (21-25) mmol/L ABG O2 Saturation 98.0 H (94-97) % VBG pCO2 (37-51) mmHg VBG HCO3 (24-28) mmol/L Sodium (137-145) mmol/L Potassium (3.5-5.1) mmol/L Chloride (98-107) mmol/L Carbon Dioxide (22-30) mmol/L BUN (9-20) mg/dL Creatinine (0.66-1.25) mg/dL Glucose (74-99) mg/dL POC Glucose (mg/dL) 462 H 489 H (75-99) mg/dL Plasma Lactic Acid Nicholas (0.7-2.0) mmol/L Phosphorus (2.5-4.5) mg/dL Magnesium (1.6-2.3) mg/dL AST (17-59) U/L ALT (21-72) U/L Total Creatine Kinase (55-170) U/L CK-MB (CK-2) (0.0-2.4) ng/mL Troponin I (0.000-0.034) ng/mL Total Protein (6.3-8.2) g/dL Albumin (3.5-5.0) g/dL HDL Cholesterol (40-60) mg/dL Urine Protein (Negative) Urine Glucose (UA) (Negative) Urine Ketones (Negative) 05/22/17 05/22/17 05/22/17 Range/Units 18:08 18:18 18:55 WBC (3.8-10.6) k/uL RBC (4.30-5.90) m/uL Neutrophils # (1.3-7.7) k/uL Lymphocytes # (1.0-4.8) k/uL INR (<1.2) APTT (22.0-30.0) sec ABG pH (7.35-7.45) ABG pCO2 (35-45) mmHg ABG HCO3 (21-25) mmol/L ABG O2 Saturation (94-97) % VBG pCO2 (37-51) mmHg VBG HCO3 (24-28) mmol/L Sodium (137-145) mmol/L Potassium (3.5-5.1) mmol/L Chloride (98-107) mmol/L Carbon Dioxide (22-30) mmol/L BUN (9-20) mg/dL Creatinine (0.66-1.25) mg/dL Glucose (74-99) mg/dL POC Glucose (mg/dL) 435 H 362 H (75-99) mg/dL Plasma Lactic Acid Nicholas 5.0 H* (0.7-2.0) mmol/L Phosphorus (2.5-4.5) mg/dL Magnesium (1.6-2.3) mg/dL AST (17-59) U/L ALT (21-72) U/L Total Creatine Kinase (55-170) U/L CK-MB (CK-2) (0.0-2.4) ng/mL Troponin I (0.000-0.034) ng/mL Total Protein (6.3-8.2) g/dL Albumin (3.5-5.0) g/dL HDL Cholesterol (40-60) mg/dL Urine Protein (Negative) Urine Glucose (UA) (Negative) Urine Ketones (Negative) 05/22/17 05/22/17 05/22/17 Range/Units 19:38 20:31 22:02 WBC (3.8-10.6) k/uL RBC (4.30-5.90) m/uL Neutrophils # (1.3-7.7) k/uL Lymphocytes # (1.0-4.8) k/uL INR (<1.2) APTT (22.0-30.0) sec ABG pH (7.35-7.45) ABG pCO2 (35-45) mmHg ABG HCO3 (21-25) mmol/L ABG O2 Saturation (94-97) % VBG pCO2 (37-51) mmHg VBG HCO3 (24-28) mmol/L Sodium (137-145) mmol/L Potassium (3.5-5.1) mmol/L Chloride (98-107) mmol/L Carbon Dioxide (22-30) mmol/L BUN (9-20) mg/dL Creatinine (0.66-1.25) mg/dL Glucose (74-99) mg/dL POC Glucose (mg/dL) 233 H 162 H (75-99) mg/dL Plasma Lactic Acid Nicholas (0.7-2.0) mmol/L Phosphorus (2.5-4.5) mg/dL Magnesium (1.6-2.3) mg/dL AST (17-59) U/L ALT (21-72) U/L Total Creatine Kinase 1312 H (55-170) U/L CK-MB (CK-2) 53.4 H* (0.0-2.4) ng/mL Troponin I 182.000 H* (0.000-0.034) ng/mL Total Protein (6.3-8.2) g/dL Albumin (3.5-5.0) g/dL HDL Cholesterol (40-60) mg/dL Urine Protein (Negative) Urine Glucose (UA) (Negative) Urine Ketones (Negative) 05/22/17 05/22/17 05/22/17 Range/Units 22:49 22:52 23:56 WBC (3.8-10.6) k/uL RBC (4.30-5.90) m/uL Neutrophils # (1.3-7.7) k/uL Lymphocytes # (1.0-4.8) k/uL INR (<1.2) APTT (22.0-30.0) sec ABG pH (7.35-7.45) ABG pCO2 (35-45) mmHg ABG HCO3 (21-25) mmol/L ABG O2 Saturation (94-97) % VBG pCO2 (37-51) mmHg VBG HCO3 (24-28) mmol/L Sodium (137-145) mmol/L Potassium (3.5-5.1) mmol/L Chloride (98-107) mmol/L Carbon Dioxide (22-30) mmol/L BUN (9-20) mg/dL Creatinine (0.66-1.25) mg/dL Glucose (74-99) mg/dL POC Glucose (mg/dL) 153 H 129 H (75-99) mg/dL Plasma Lactic Acid Nicholas 4.0 H* (0.7-2.0) mmol/L Phosphorus (2.5-4.5) mg/dL Magnesium (1.6-2.3) mg/dL AST (17-59) U/L ALT (21-72) U/L Total Creatine Kinase (55-170) U/L CK-MB (CK-2) (0.0-2.4) ng/mL Troponin I (0.000-0.034) ng/mL Total Protein (6.3-8.2) g/dL Albumin (3.5-5.0) g/dL HDL Cholesterol (40-60) mg/dL Urine Protein (Negative) Urine Glucose (UA) (Negative) Urine Ketones (Negative) 05/23/17 05/23/17 05/23/17 Range/Units 00:58 01:55 01:58 WBC (3.8-10.6) k/uL RBC (4.30-5.90) m/uL Neutrophils # (1.3-7.7) k/uL Lymphocytes # (1.0-4.8) k/uL INR (<1.2) APTT (22.0-30.0) sec ABG pH (7.35-7.45) ABG pCO2 (35-45) mmHg ABG HCO3 (21-25) mmol/L ABG O2 Saturation (94-97) % VBG pCO2 (37-51) mmHg VBG HCO3 (24-28) mmol/L Sodium (137-145) mmol/L Potassium (3.5-5.1) mmol/L Chloride (98-107) mmol/L Carbon Dioxide (22-30) mmol/L BUN (9-20) mg/dL Creatinine (0.66-1.25) mg/dL Glucose (74-99) mg/dL POC Glucose (mg/dL) 159 H 166 H (75-99) mg/dL Plasma Lactic Acid Nicholas (0.7-2.0) mmol/L Phosphorus (2.5-4.5) mg/dL Magnesium (1.6-2.3) mg/dL AST (17-59) U/L ALT (21-72) U/L Total Creatine Kinase 2082 H (55-170) U/L CK-MB (CK-2) 65.2 H* (0.0-2.4) ng/mL Troponin I 209.000 H* (0.000-0.034) ng/mL Total Protein (6.3-8.2) g/dL Albumin (3.5-5.0) g/dL HDL Cholesterol (40-60) mg/dL Urine Protein (Negative) Urine Glucose (UA) (Negative) Urine Ketones (Negative) 05/23/17 05/23/17 05/23/17 Range/Units 03:02 03:48 03:48 WBC 15.4 H (3.8-10.6) k/uL RBC 4.25 L (4.30-5.90) m/uL Neutrophils # 13.7 H (1.3-7.7) k/uL Lymphocytes # 0.9 L (1.0-4.8) k/uL INR (<1.2) APTT (22.0-30.0) sec ABG pH (7.35-7.45) ABG pCO2 (35-45) mmHg ABG HCO3 (21-25) mmol/L ABG O2 Saturation (94-97) % VBG pCO2 (37-51) mmHg VBG HCO3 (24-28) mmol/L Sodium 133 L (137-145) mmol/L Potassium (3.5-5.1) mmol/L Chloride 96 L (98-107) mmol/L Carbon Dioxide (22-30) mmol/L BUN 68 H (9-20) mg/dL Creatinine 2.50 H (0.66-1.25) mg/dL Glucose 190 H (74-99) mg/dL POC Glucose (mg/dL) 187 H (75-99) mg/dL Plasma Lactic Acid Nicholas (0.7-2.0) mmol/L Phosphorus 5.1 H (2.5-4.5) mg/dL Magnesium 2.7 H (1.6-2.3) mg/dL AST 3335 H (17-59) U/L ALT 3372 H (21-72) U/L Total Creatine Kinase (55-170) U/L CK-MB (CK-2) (0.0-2.4) ng/mL Troponin I (0.000-0.034) ng/mL Total Protein 6.1 L (6.3-8.2) g/dL Albumin 3.4 L (3.5-5.0) g/dL HDL Cholesterol 38 L (40-60) mg/dL Urine Protein (Negative) Urine Glucose (UA) (Negative) Urine Ketones (Negative) 05/23/17 05/23/17 05/23/17 Range/Units 03:48 04:00 04:56 WBC (3.8-10.6) k/uL RBC (4.30-5.90) m/uL Neutrophils # (1.3-7.7) k/uL Lymphocytes # (1.0-4.8) k/uL INR (<1.2) APTT (22.0-30.0) sec ABG pH (7.35-7.45) ABG pCO2 (35-45) mmHg ABG HCO3 (21-25) mmol/L ABG O2 Saturation (94-97) % VBG pCO2 (37-51) mmHg VBG HCO3 (24-28) mmol/L Sodium (137-145) mmol/L Potassium (3.5-5.1) mmol/L Chloride (98-107) mmol/L Carbon Dioxide (22-30) mmol/L BUN (9-20) mg/dL Creatinine (0.66-1.25) mg/dL Glucose (74-99) mg/dL POC Glucose (mg/dL) 207 H 194 H (75-99) mg/dL Plasma Lactic Acid Nicholas 2.6 H* (0.7-2.0) mmol/L Phosphorus (2.5-4.5) mg/dL Magnesium (1.6-2.3) mg/dL AST (17-59) U/L ALT (21-72) U/L Total Creatine Kinase (55-170) U/L CK-MB (CK-2) (0.0-2.4) ng/mL Troponin I (0.000-0.034) ng/mL Total Protein (6.3-8.2) g/dL Albumin (3.5-5.0) g/dL HDL Cholesterol (40-60) mg/dL Urine Protein (Negative) Urine Glucose (UA) (Negative) Urine Ketones (Negative) 05/23/17 05/23/17 05/23/17 Range/Units 05:59 06:53 07:40 WBC (3.8-10.6) k/uL RBC (4.30-5.90) m/uL Neutrophils # (1.3-7.7) k/uL Lymphocytes # (1.0-4.8) k/uL INR (<1.2) APTT 36.5 H (22.0-30.0) sec ABG pH (7.35-7.45) ABG pCO2 (35-45) mmHg ABG HCO3 (21-25) mmol/L ABG O2 Saturation (94-97) % VBG pCO2 (37-51) mmHg VBG HCO3 (24-28) mmol/L Sodium (137-145) mmol/L Potassium (3.5-5.1) mmol/L Chloride (98-107) mmol/L Carbon Dioxide (22-30) mmol/L BUN (9-20) mg/dL Creatinine (0.66-1.25) mg/dL Glucose (74-99) mg/dL POC Glucose (mg/dL) 161 H 149 H (75-99) mg/dL Plasma Lactic Acid Nicholas (0.7-2.0) mmol/L Phosphorus (2.5-4.5) mg/dL Magnesium (1.6-2.3) mg/dL AST (17-59) U/L ALT (21-72) U/L Total Creatine Kinase (55-170) U/L CK-MB (CK-2) (0.0-2.4) ng/mL Troponin I (0.000-0.034) ng/mL Total Protein (6.3-8.2) g/dL Albumin (3.5-5.0) g/dL HDL Cholesterol (40-60) mg/dL Urine Protein (Negative) Urine Glucose (UA) (Negative) Urine Ketones (Negative) 05/23/17 05/23/17 05/23/17 Range/Units 07:40 07:40 08:05 WBC (3.8-10.6) k/uL RBC (4.30-5.90) m/uL Neutrophils # (1.3-7.7) k/uL Lymphocytes # (1.0-4.8) k/uL INR (<1.2) APTT (22.0-30.0) sec ABG pH (7.35-7.45) ABG pCO2 (35-45) mmHg ABG HCO3 (21-25) mmol/L ABG O2 Saturation (94-97) % VBG pCO2 (37-51) mmHg VBG HCO3 (24-28) mmol/L Sodium (137-145) mmol/L Potassium (3.5-5.1) mmol/L Chloride (98-107) mmol/L Carbon Dioxide (22-30) mmol/L BUN (9-20) mg/dL Creatinine (0.66-1.25) mg/dL Glucose (74-99) mg/dL POC Glucose (mg/dL) 152 H (75-99) mg/dL Plasma Lactic Acid Nicholas 2.5 H* (0.7-2.0) mmol/L Phosphorus (2.5-4.5) mg/dL Magnesium (1.6-2.3) mg/dL AST (17-59) U/L ALT (21-72) U/L Total Creatine Kinase (55-170) U/L CK-MB (CK-2) (0.0-2.4) ng/mL Troponin I 125.000 H* (0.000-0.034) ng/mL Total Protein (6.3-8.2) g/dL Albumin (3.5-5.0) g/dL HDL Cholesterol (40-60) mg/dL Urine Protein (Negative) Urine Glucose (UA) (Negative) Urine Ketones (Negative) 05/23/17 05/23/17 05/23/17 Range/Units 09:09 10:09 11:25 WBC (3.8-10.6) k/uL RBC (4.30-5.90) m/uL Neutrophils # (1.3-7.7) k/uL Lymphocytes # (1.0-4.8) k/uL INR (<1.2) APTT (22.0-30.0) sec ABG pH (7.35-7.45) ABG pCO2 (35-45) mmHg ABG HCO3 (21-25) mmol/L ABG O2 Saturation (94-97) % VBG pCO2 (37-51) mmHg VBG HCO3 (24-28) mmol/L Sodium (137-145) mmol/L Potassium (3.5-5.1) mmol/L Chloride (98-107) mmol/L Carbon Dioxide (22-30) mmol/L BUN (9-20) mg/dL Creatinine (0.66-1.25) mg/dL Glucose (74-99) mg/dL POC Glucose (mg/dL) 169 H 182 H 235 H (75-99) mg/dL Plasma Lactic Acid Nicholas (0.7-2.0) mmol/L Phosphorus (2.5-4.5) mg/dL Magnesium (1.6-2.3) mg/dL AST (17-59) U/L ALT (21-72) U/L Total Creatine Kinase (55-170) U/L CK-MB (CK-2) (0.0-2.4) ng/mL Troponin I (0.000-0.034) ng/mL Total Protein (6.3-8.2) g/dL Albumin (3.5-5.0) g/dL HDL Cholesterol (40-60) mg/dL Urine Protein (Negative) Urine Glucose (UA) (Negative) Urine Ketones (Negative) Microbiology - Last 24 Hours (Table) 05/22/17 15:34 Urine Culture - Preliminary Urine,Catheterized Assessment and Plan Plan: #1 acute Cardiogenic shock secondary to acute myocardial infarction. #2 Elevated LFTs secondary to above. #3 Hyperkalemia with metabolic lactic acidosis. #4 Acute hypoxic respiratory failure secondary to above currently on BiPAP. #5 Recent discharge following non-ST segment elevation myocardial infarction. 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 #7 Diabetes mellitus, type II with significant hyperglycemia initial blood glucose of 610. #8 Diabetic peripheral neuropathy. #9 Hyperlipidemia. #10 History of depression/anxiety. #11 History of skin cancer. #12 Benign prostatic hypertrophy. #13 Hearing-impaired. #14 Recent fall. #15 Poor overall functional performance based on the above-mentioned multiple comorbidities. Recommendation: Continue present supportive care measures, continue norepinephrine, continue BiPAP as needed, continue heparin drip, continue insulin drip, continue antibiotics empirically, continue Lasix 40 mg IV push every 12 hours, continue amiodarone, and continue beta blockers as well as Nitrostat. Prognosis remains extremely poor and guarded, we'll continue to follow closely in the ICU. Surprisingly again, the patient is doing much better clinically than expected considering his abnormal labs and his presentation. Time with Patient: Less than 30
[2017-05-23 12:20] LABS: Glucose,Whole Blood 202 mg/dL (75-99)
[2017-05-23 13:21] LABS: Glucose,Whole Blood 201 mg/dL (75-99)
--- NOTE | 2017-05-23 13:38 | P.HPIM ---
History of Present Illness H&P Date: 05/23/17 Chief Complaint: Difficulty in ambulating This is an 81-year-old gentleman who is a poor historian, patient of Dr. Burton More. He has underlying history off recent non-ST myocardial infarction recently discharged from our facility from 05/18/2017 to 05/21/2017 at that admission he also had trauma and lumbar contusion from a fall at home, diastolic CHF with elevated troponins, he required management of his hypoxemia with Lasix and BiPAP, he was heparinized. His peak troponin during the last admission was 21.1 Dr. alvarez has seen the patient from cardiology, and medical management was provided for the non-Q-wave UT with increasing dose off metoprolol and resumption of oral Imdur. CAT scan of the chest shows pleural effusion no discrete changes for pneumonia, he has atelectasis during this last admission, echocardiogram was performed with an EF of 45-50%, right ventricle systolic pressure less than 35, borderline concentric LVH, no aortic stenosis, mild TR and mild MR and no pericardial effusion He presented to the ER secondary to inability to walk, has a hard time walking, patient denies any chest pain or shortness of breath most likely has shortness of breath on exertion, patient denies any worsening edema, however patient is up poor historian with that regard. He complained off low back pain from where the trauma was. He she was hypotensive and dyspneic on ER evaluation, he was transferred to ICU for hemodynamic instability, required pressor agents Levophed , and IV Lasix for CHF. IV Zosyn for possible pneumonia. Liver function tests is elevated so his both the troponin and CPKs. Peak troponin is 182, escalating CPK MB with a peak of 65 Patient aortic initial BiPAP treatments at 35% FiO2. And 3 AST of 13 and 37, ALT 979, CK of 735 troponin 60. ABG of 7.47 , pCO2 of 27 [address]icar[address] Jolly from pulmonary is on consult along with cardiology Review of Systems ROS unobtainable: due to mental status Constitutional: Reports as per HPI Ears, nose, mouth and throat: Reports as per HPI Cardiovascular: Reports as per HPI, Reports decreased exercise tolerance, Reports dyspnea on exertion, Reports edema, Denies chest pain, Denies high blood pressure, Denies irregular heart beat, Denies leg edema, Denies lightheadedness, Denies orthopnea, Denies palpitations, Denies paroxysmal nocturnal dyspnea, Denies phlebitis, Denies rapid heart beat, Denies shortness of breath, Denies syncope Respiratory: Reports as per HPI Gastrointestinal: Reports as per HPI, Reports constipation Genitourinary: Reports as per HPI, Reports flank pain Musculoskeletal: Reports as per HPI, Denies arm numbness/tingling, Denies atrophy, Denies fractures, Denies frequent falls, Denies gait dysfunction, Denies hot joints, Denies leg numbness/tingling, Denies limitation of motion, Denies loss of height, Denies low back pain, Denies morning stiffness, Denies muscle cramps, Denies muscle weakness, Denies myalgias, Denies neck pain, Denies neck stiffness, Denies prior amputations, Denies redness of joints, Denies shooting arm pain, Denies shooting leg pain Integumentary: Reports as per HPI, Denies acne, Denies boils, Denies brittle nails, Denies change in hair/nails, Denies color changes, Denies darkening of skin, Denies depigmentation, Denies dryness, Denies foot/leg ulcers, Denies growths, Denies hirsutism, Denies lesions, Denies onychomycosis, Denies pruritus , Denies rash, Denies sores, Denies striae, Denies unusual bruising, Denies wounds Neurological: Reports as per HPI, Denies aphasia, Denies ataxia, Denies balance difficulties, Denies burning pain, Denies change in mentation, Denies change in smell/taste, Denies change in speech, Denies confusion, Denies convulsions, Denies double vision, Denies gait dysfunction, Denies head injury, Denies headaches, Denies hearing difficulties, Denies lack of coordination, Denies loss of vision, Denies memory loss, Denies migraines, Denies motor disturbance, Denies numbness, Denies paralysis, Denies paresthesias, Denies seizures, Denies sensory deficit, Denies spasticity, Denies syncope, Denies tic, Denies tingling , Denies transient paralysis, Denies tremors, Denies vertigo, Denies weakness, Denies visual changes Psychiatric: Reports as per HPI, Denies anhedonia, Denies anxiety, Denies anxiety attacks, Denies change in appetite, Denies change in libido, Denies change in sleep habits, Denies confusion, Denies depression, Denies difficulty concentrating, Denies disorientation, Denies hallucinations, Denies hopelessness , Denies hypersomnia, Denies insomnia, Denies irritability, Denies memory loss, Denies mood swings, Denies paranoia, Denies sadness/tearfulness, Denies sleep disturbances, Denies suicidal ideation Endocrine: Reports as per HPI, Denies cold intolerance, Denies deepening of the voice, Denies excessive sweating, Denies excessive thirst, Denies fatigue, Denies flushing, Denies heat intolerance, Denies high blood sugars, Denies increase in ring/shoe/hat size, Denies low blood sugars, Denies nocturia, Denies palpitations, Denies polydipsia, Denies polyphagia, Denies polyuria, Denies proptosis, Denies recent glucocorticoid use, Denies thyroid mass, Denies weight change Hematologic/Lymphatic: Reports as per HPI, Denies easy bleeding, Denies easy bruising, Denies lymphadenopathy, Denies lymphedema, Denies thrombophilia Allergic/Immunologic: Reports as per HPI, Denies allergic rhinitis, Denies anaphylaxis, Denies angioedema, Denies gluten intolerance, Denies persistent infections, Denies seasonal allergies, Denies urticaria, Denies wheezing Past Medical History Past Medical History: Coronary Artery Disease (CAD), Cancer, Diabetes Mellitus, Hyperlipidemia, Hypertension, Osteoarthritis (OA), Prostate Disorder, Skin Disorder Additional Past Medical History / Comment(s): Coronary artery disease, hyperlipidemia, hypertension, osteoarthritis, BPH, diabetes mellitus, shingles, skin cancer History of Any Multi-Drug Resistant Organisms: None Reported Past Surgical History: Heart Catheterization Additional Past Surgical History / Comment(s): skin cancer removed from side of left face, COLONOSCOPY X2, VARICOSE VEINS SX Past Anesthesia/Blood Transfusion Reactions: No Reported Reaction Past Psychological History: Anxiety, Depression Smoking Status: Former smoker Past Alcohol Use History: None Reported Past Drug Use History: None Reported - Past Family History Father Additional Family Medical History / Comment(s): Father at age 76 from skin cancer. Mother Family Medical History: Hyperlipidemia Additional Family Medical History / Comment(s): Mother at age 50 from coronary artery disease. Brother(s) Family Medical History: CVA/TIA, Diabetes Mellitus Additional Family Medical History / Comment(s): one brother that has with competition from diabetes. Patient does not have any sisters. Son(s) Additional Family Medical History / Comment(s): Patient has 2 sons and one has history of coronary artery disease status post 3 vessel CABG. Patient has one daughter with no major medical problems. Medications and Allergies Home Medications Medication Instructions Recorded Confirmed Type ALPRAZolam 1 mg PO TID PRN 12/23/15 05/22/17 History Isosorbide Mononitrate [Isosorbide 30 mg PO DAILY 12/23/15 05/22/17 History Mononitrate ER] Simvastatin [Zocor] 20 mg PO HS 12/23/15 05/22/17 History Tamsulosin [Flomax] 0.8 mg PO DAILY 12/23/15 05/22/17 History glyBURIDE [Diabeta] 5 mg PO 5XD 12/23/15 05/22/17 History metFORMIN HCL [Glucophage] 500 mg PO TID 12/23/15 05/22/17 History Aspirin 81 mg PO DAILY 05/18/17 05/22/17 History Cholecalciferol [Vitamin D3] 1,000 unit PO DAILY 05/18/17 05/22/17 History Cyanocobalamin (Vitamin B-12) 1,000 mcg PO DAILY 05/18/17 05/22/17 History [Vitamin B-12] DULoxetine HCL [Cymbalta] 60 mg PO DAILY 05/18/17 05/22/17 History Folic Acid 0.8 mg PO DAILY 05/18/17 05/22/17 History Garlic 1 tab PO DAILY 05/18/17 05/22/17 History Glucosam/Samy-Msm1/C/Brant/Bosw 1 tab PO DAILY 05/18/17 05/22/17 History [Glucosamine-Chondroitin Tablet] Pyridoxine HCl (Vitamin B6) 100 mg PO DAILY 05/18/17 05/22/17 History [Vitamin B-6] Vitamin E (Dl,Tocopheryl Acet) 400 unit PO DAILY 05/18/17 05/22/17 History [Vitamin E] traZODone HCL [Desyrel] 100 mg PO HS 09/01/17 09/05/17 History Furosemide [Lasix] 40 mg PO BID #60 tablet 05/21/17 05/22/17 Rx Levofloxacin [Levaquin] 250 mg PO Q24H #4 tab 05/21/17 05/22/17 Rx Metoprolol Tartrate [Lopressor] 25 mg PO BID #60 tab 05/21/17 05/22/17 Rx Nitroglycerin Sl Tabs [Nitrostat] 0.4 mg SUBLINGUAL Q5M PRN #50 tab 05/21/1701/31 Rx Allergies Allergy/AdvReac Type Severity Reaction Status Date / Time No Known Allergies Allergy Verified 05/22/17 14:43 Physical Exam Vitals: Vital Signs Temp Pulse Pulse Resp BP BP Pulse Ox 05/23/17 12:00 97.5 F L 128 H 130 H 24 93/67 100 05/23/17 11:45 135 H 21 98/61 100 05/23/17 11:30 104 H 24 98/61 100 05/23/17 11:15 115 H 22 98/61 90 L 05/23/17 11:00 101 H 20 96/58 99 05/23/17 10:45 93 24 98 05/23/17 10:30 91 24 96/64 100 05/23/17 10:15 92 24 96/64 100 05/23/17 10:00 101 H 23 96/64 100 05/23/17 09:45 95 20 96/64 100 05/23/17 09:30 97 22 96/64 98 05/23/17 09:15 97 20 96/64 100 05/23/17 09:00 99 21 96/64 100 05/23/17 08:45 100 27 H 99 05/23/17 08:30 97 20 100/73 100 05/23/17 08:15 97.8 F 100 18 107/75 100 05/23/17 08:00 102 H 26 H 99/71 98 05/23/17 07:45 100 15 102/73 100 05/23/17 07:30 98 18 104/62 100 05/23/17 07:15 99 19 108/70 100 05/23/17 07:00 98 20 97/68 100 05/23/17 06:45 100 19 101/68 100 05/23/17 06:30 94 17 100/65 100 05/23/17 06:15 102 H 21 92/58 100 05/23/17 06:00 98 19 100/61 100 05/23/17 05:45 96 21 105/64 100 05/23/17 05:30 95 21 102/65 100 05/23/17 05:15 92 21 103/56 100 05/23/17 05:00 94 19 105/66 100 05/23/17 04:45 93 22 111/75 100 05/23/17 04:30 96 19 104/62 100 05/23/17 04:15 99 17 100 05/23/17 04:00 98 21 107/69 91 L 05/23/17 03:45 90 17 103/70 98 05/23/17 03:30 94 19 106/70 97 05/23/17 03:15 98 18 112/70 98 05/23/17 03:00 95 22 111/63 98 05/23/17 02:45 93 18 106/71 97 05/23/17 02:30 93 21 112/72 97 05/23/17 02:15 97 19 114/69 98 05/23/17 02:00 93 20 111/74 94 L 05/23/17 01:45 92 22 109/72 96 05/23/17 01:30 100 21 107/67 97 05/23/17 01:15 97 21 110/73 97 05/23/17 01:00 95 22 107/74 98 05/23/17 00:45 97 21 111/69 97 05/23/17 00:30 95 21 111/55 97 05/23/17 00:15 95 20 109/71 97 05/23/17 00:04 90 19 105/73 97 05/23/17 00:00 98.4 F 93 21 105/73 97 05/22/17 23:45 93 19 104/67 97 05/22/17 23:30 93 23 113/78 97 05/22/17 23:15 94 22 110/78 97 05/22/17 23:00 91 22 108/63 98 05/22/17 22:45 93 22 109/69 98 05/22/17 22:30 94 22 110/69 97 05/22/17 22:15 93 20 106/74 98 05/22/17 22:00 92 21 116/65 98 05/22/17 21:45 102 H 18 116/73 98 05/22/17 21:30 96 20 100/67 98 05/22/17 21:15 94 20 105/71 98 05/22/17 21:00 90 24 111/72 99 05/22/17 20:45 90 22 111/74 99 05/22/17 20:34 95 24 110/71 98 05/22/17 20:07 94 19 114/72 98 05/22/17 19:22 94 21 113/74 05/22/17 18:44 91 22 111/75 99 05/22/17 17:45 90 33 H 91/59 98 05/22/17 17:30 96 30 H 83/63 98 05/22/17 17:15 96 21 90/66 96 05/22/17 17:00 96 33 H 93/66 97 05/22/17 16:45 93 29 H 91/65 98 05/22/17 16:30 98.4 F 97 18 91/65 98 05/22/17 16:20 102 H 23 97 05/22/17 15:37 103 H 20 94/52 98 05/22/17 14:50 104 H 22 81/52 96 05/22/17 14:39 103 H 22 88/50 96 05/22/17 14:36 101 H 05/22/17 14:27 106 H 05/22/17 13:46 105 H 20 80/45 93 L 05/22/17 13:10 97 F L 109 H 20 82/50 93 L Intake and Output 05/22/17 05/23/17 05/23/17 22:59 06:59 14:59 Intake Total 845.469 712.193 1405.411 Output Total 803 299 330 Balance 42.469 421.725 3369.411 Intake: IV 810 270 170 0.9 NACL 160 270 170 0.9 nacl bolus 500 levaquin 150 Intake, IV Titration 35.469 192.822 192.411 Amount Heparin Sodium,Porcine/ 178.553 167.64 D5w Pmx 25,000 unit In Dextrose/Water 1 500ml. bag @ 11 UNITS/KG/HR 19. 95 mls/hr IV .Q24H KIM Rx #:[id number] Insulin Regular 100 unit 35.469 14.269 7.571 In Sodium Chloride 0.9% 100 ml @ Per Protocol IV .Q0M KIM Rx#:[id number] Norepinephrin 16 mg-0.9% 4.7 Ns Pmx 16 mg In 250 ml @ Titrate IV .Q0M KIM Rx#: [id number] Piperacillin-Tazobactam 3 12.5 .375 gm In Dextrose/Water 1 50ml.bag @ 12.5 mls/hr IVPB ONCE STA Rx#: [id number] Oral 1000 Output: Urine 803 299 330 Uretheral (Parker) 300 Other: Voiding Method Indwelling Catheter Indwelling Catheter Indwelling Catheter Weight 94 kg 95.5 kg Patient Weight 05/24/17 06:59 Weight 95.5 kg - Constitutional General appearance: no average body habitus, cooperative, no disheveled, no mild distress, no morbidly obese, no no acute distress, obese, no severe distress, no thin - EENT Eyes: no abnormal pupil, anicteric sclerae, no disc margins sharp, no edentulous , EOMI, no PERRLA, no fundus normal, no photophobia, dentition normal, no poor dentition, no ptosis, no scleral icterus, normal appearance ENT: hard of hearing, no hearing grossly normal, NA/AT, normal oropharynx, no other, no pharyngeal erythema, no thrush, no tonsillar exudates, no tonsillar swelling - Neck Neck: no lymphadenopathy, normal ROM, no other, no rigidity, no stridor, no thyromegaly - Respiratory Respiratory: bilateral: CTA, diminished, rales - Cardiovascular Rhythm: regular Abnormal Heart Sounds: systolic murmur - Gastrointestinal General gastrointestinal: normal bowel sounds, soft - Integumentary Integumentary: normal - Neurologic Neurologic: CNII-XII intact - Musculoskeletal Musculoskeletal: gait normal, strength equal bilaterally - Psychiatric Psychiatric: A&O x's 3, appropriate affect, intact judgment & insight Results CBC & Chem 7: 05/23/17 03:48 05/23/17 03:48 Labs: Abnormal Lab Results - Last 24 Hours (Table) 05/22/17 05/22/17 05/22/17 Range/Units 13:35 13:59 13:59 WBC (3.8-10.6) k/uL RBC (4.30-5.90) m/uL Neutrophils # (1.3-7.7) k/uL Lymphocytes # (1.0-4.8) k/uL INR (<1.2) APTT (22.0-30.0) sec ABG pH (7.35-7.45) ABG pCO2 (35-45) mmHg ABG HCO3 (21-25) mmol/L ABG O2 Saturation (94-97) % VBG pCO2 36 L (37-51) mmHg VBG HCO3 19 L (24-28) mmol/L Sodium (137-145) mmol/L Potassium (3.5-5.1) mmol/L Chloride (98-107) mmol/L Carbon Dioxide (22-30) mmol/L BUN (9-20) mg/dL Creatinine (0.66-1.25) mg/dL Glucose (74-99) mg/dL POC Glucose (mg/dL) >600 H (75-99) mg/dL Plasma Lactic Acid Nicholas (0.7-2.0) mmol/L Phosphorus (2.5-4.5) mg/dL Magnesium (1.6-2.3) mg/dL AST (17-59) U/L ALT (21-72) U/L Total Creatine Kinase 735 H (55-170) U/L CK-MB (CK-2) 29.0 H* (0.0-2.4) ng/mL Troponin I 60.600 H* (0.000-0.034) ng/mL Total Protein (6.3-8.2) g/dL Albumin (3.5-5.0) g/dL HDL Cholesterol (40-60) mg/dL Urine Protein (Negative) Urine Glucose (UA) (Negative) Urine Ketones (Negative) 05/22/17 05/22/17 05/22/17 Range/Units 13:59 13:59 13:59 WBC (3.8-10.6) k/uL RBC 4.27 L (4.30-5.90) m/uL Neutrophils # 8.8 H (1.3-7.7) k/uL Lymphocytes # 0.4 L (1.0-4.8) k/uL INR (<1.2) APTT (22.0-30.0) sec ABG pH (7.35-7.45) ABG pCO2 (35-45) mmHg ABG HCO3 (21-25) mmol/L ABG O2 Saturation (94-97) % VBG pCO2 (37-51) mmHg VBG HCO3 (24-28) mmol/L Sodium 130 L (137-145) mmol/L Potassium 6.4 H* (3.5-5.1) mmol/L Chloride 94 L (98-107) mmol/L Carbon Dioxide 18 L (22-30) mmol/L BUN 52 H (9-20) mg/dL Creatinine 2.40 H (0.66-1.25) mg/dL Glucose 610 H* (74-99) mg/dL POC Glucose (mg/dL) (75-99) mg/dL Plasma Lactic Acid Nicholas 9.1 H* (0.7-2.0) mmol/L Phosphorus 5.7 H (2.5-4.5) mg/dL Magnesium 2.8 H (1.6-2.3) mg/dL AST 1337 H (17-59) U/L ALT 979 H (21-72) U/L Total Creatine Kinase (55-170) U/L CK-MB (CK-2) (0.0-2.4) ng/mL Troponin I (0.000-0.034) ng/mL Total Protein 6.1 L (6.3-8.2) g/dL Albumin (3.5-5.0) g/dL HDL Cholesterol (40-60) mg/dL Urine Protein (Negative) Urine Glucose (UA) (Negative) Urine Ketones (Negative) 05/22/17 05/22/17 05/22/17 Range/Units 13:59 15:34 15:39 WBC (3.8-10.6) k/uL RBC (4.30-5.90) m/uL Neutrophils # (1.3-7.7) k/uL Lymphocytes # (1.0-4.8) k/uL INR 1.2 H (<1.2) APTT (22.0-30.0) sec ABG pH (7.35-7.45) ABG pCO2 (35-45) mmHg ABG HCO3 (21-25) mmol/L ABG O2 Saturation (94-97) % VBG pCO2 (37-51) mmHg VBG HCO3 (24-28) mmol/L Sodium (137-145) mmol/L Potassium (3.5-5.1) mmol/L Chloride (98-107) mmol/L Carbon Dioxide (22-30) mmol/L BUN (9-20) mg/dL Creatinine (0.66-1.25) mg/dL Glucose (74-99) mg/dL POC Glucose (mg/dL) 501 H (75-99) mg/dL Plasma Lactic Acid Nicholas (0.7-2.0) mmol/L Phosphorus (2.5-4.5) mg/dL Magnesium (1.6-2.3) mg/dL AST (17-59) U/L ALT (21-72) U/L Total Creatine Kinase (55-170) U/L CK-MB (CK-2) (0.0-2.4) ng/mL Troponin I (0.000-0.034) ng/mL Total Protein (6.3-8.2) g/dL Albumin (3.5-5.0) g/dL HDL Cholesterol (40-60) mg/dL Urine Protein Trace H (Negative) Urine Glucose (UA) 4+ H (Negative) Urine Ketones Trace H (Negative) 05/22/17 05/22/17 05/22/17 Range/Units 16:15 16:47 17:04 WBC (3.8-10.6) k/uL RBC (4.30-5.90) m/uL Neutrophils # (1.3-7.7) k/uL Lymphocytes # (1.0-4.8) k/uL INR (<1.2) APTT (22.0-30.0) sec ABG pH 7.47 H (7.35-7.45) ABG pCO2 27 L (35-45) mmHg ABG HCO3 19 L (21-25) mmol/L ABG O2 Saturation 98.0 H (94-97) % VBG pCO2 (37-51) mmHg VBG HCO3 (24-28) mmol/L Sodium (137-145) mmol/L Potassium (3.5-5.1) mmol/L Chloride (98-107) mmol/L Carbon Dioxide (22-30) mmol/L BUN (9-20) mg/dL Creatinine (0.66-1.25) mg/dL Glucose (74-99) mg/dL POC Glucose (mg/dL) 462 H 489 H (75-99) mg/dL Plasma Lactic Acid Nicholas (0.7-2.0) mmol/L Phosphorus (2.5-4.5) mg/dL Magnesium (1.6-2.3) mg/dL AST (17-59) U/L ALT (21-72) U/L Total Creatine Kinase (55-170) U/L CK-MB (CK-2) (0.0-2.4) ng/mL Troponin I (0.000-0.034) ng/mL Total Protein (6.3-8.2) g/dL Albumin (3.5-5.0) g/dL HDL Cholesterol (40-60) mg/dL Urine Protein (Negative) Urine Glucose (UA) (Negative) Urine Ketones (Negative) 05/22/17 05/22/17 05/22/17 Range/Units 18:08 18:18 18:55 WBC (3.8-10.6) k/uL RBC (4.30-5.90) m/uL Neutrophils # (1.3-7.7) k/uL Lymphocytes # (1.0-4.8) k/uL INR (<1.2) APTT (22.0-30.0) sec ABG pH (7.35-7.45) ABG pCO2 (35-45) mmHg ABG HCO3 (21-25) mmol/L ABG O2 Saturation (94-97) % VBG pCO2 (37-51) mmHg VBG HCO3 (24-28) mmol/L Sodium (137-145) mmol/L Potassium (3.5-5.1) mmol/L Chloride (98-107) mmol/L Carbon Dioxide (22-30) mmol/L BUN (9-20) mg/dL Creatinine (0.66-1.25) mg/dL Glucose (74-99) mg/dL POC Glucose (mg/dL) 435 H 362 H (75-99) mg/dL Plasma Lactic Acid Nicholas 5.0 H* (0.7-2.0) mmol/L Phosphorus (2.5-4.5) mg/dL Magnesium (1.6-2.3) mg/dL AST (17-59) U/L ALT (21-72) U/L Total Creatine Kinase (55-170) U/L CK-MB (CK-2) (0.0-2.4) ng/mL Troponin I (0.000-0.034) ng/mL Total Protein (6.3-8.2) g/dL Albumin (3.5-5.0) g/dL HDL Cholesterol (40-60) mg/dL Urine Protein (Negative) Urine Glucose (UA) (Negative) Urine Ketones (Negative) 05/22/17 05/22/17 05/22/17 Range/Units 19:38 20:31 22:02 WBC (3.8-10.6) k/uL RBC (4.30-5.90) m/uL Neutrophils # (1.3-7.7) k/uL Lymphocytes # (1.0-4.8) k/uL INR (<1.2) APTT (22.0-30.0) sec ABG pH (7.35-7.45) ABG pCO2 (35-45) mmHg ABG HCO3 (21-25) mmol/L ABG O2 Saturation (94-97) % VBG pCO2 (37-51) mmHg VBG HCO3 (24-28) mmol/L Sodium (137-145) mmol/L Potassium (3.5-5.1) mmol/L Chloride (98-107) mmol/L Carbon Dioxide (22-30) mmol/L BUN (9-20) mg/dL Creatinine (0.66-1.25) mg/dL Glucose (74-99) mg/dL POC Glucose (mg/dL) 233 H 162 H (75-99) mg/dL Plasma Lactic Acid Nicholas (0.7-2.0) mmol/L Phosphorus (2.5-4.5) mg/dL Magnesium (1.6-2.3) mg/dL AST (17-59) U/L ALT (21-72) U/L Total Creatine Kinase 1312 H (55-170) U/L CK-MB (CK-2) 53.4 H* (0.0-2.4) ng/mL Troponin I 182.000 H* (0.000-0.034) ng/mL Total Protein (6.3-8.2) g/dL Albumin (3.5-5.0) g/dL HDL Cholesterol (40-60) mg/dL Urine Protein (Negative) Urine Glucose (UA) (Negative) Urine Ketones (Negative) 05/22/17 05/22/17 05/22/17 Range/Units 22:49 22:52 23:56 WBC (3.8-10.6) k/uL RBC (4.30-5.90) m/uL Neutrophils # (1.3-7.7) k/uL Lymphocytes # (1.0-4.8) k/uL INR (<1.2) APTT (22.0-30.0) sec ABG pH (7.35-7.45) ABG pCO2 (35-45) mmHg ABG HCO3 (21-25) mmol/L ABG O2 Saturation (94-97) % VBG pCO2 (37-51) mmHg VBG HCO3 (24-28) mmol/L Sodium (137-145) mmol/L Potassium (3.5-5.1) mmol/L Chloride (98-107) mmol/L Carbon Dioxide (22-30) mmol/L BUN (9-20) mg/dL Creatinine (0.66-1.25) mg/dL Glucose (74-99) mg/dL POC Glucose (mg/dL) 153 H 129 H (75-99) mg/dL Plasma Lactic Acid Nicholas 4.0 H* (0.7-2.0) mmol/L Phosphorus (2.5-4.5) mg/dL Magnesium (1.6-2.3) mg/dL AST (17-59) U/L ALT (21-72) U/L Total Creatine Kinase (55-170) U/L CK-MB (CK-2) (0.0-2.4) ng/mL Troponin I (0.000-0.034) ng/mL Total Protein (6.3-8.2) g/dL Albumin (3.5-5.0) g/dL HDL Cholesterol (40-60) mg/dL Urine Protein (Negative) Urine Glucose (UA) (Negative) Urine Ketones (Negative) 05/23/17 05/23/17 05/23/17 Range/Units 00:58 01:55 01:58 WBC (3.8-10.6) k/uL RBC (4.30-5.90) m/uL Neutrophils # (1.3-7.7) k/uL Lymphocytes # (1.0-4.8) k/uL INR (<1.2) APTT (22.0-30.0) sec ABG pH (7.35-7.45) ABG pCO2 (35-45) mmHg ABG HCO3 (21-25) mmol/L ABG O2 Saturation (94-97) % VBG pCO2 (37-51) mmHg VBG HCO3 (24-28) mmol/L Sodium (137-145) mmol/L Potassium (3.5-5.1) mmol/L Chloride (98-107) mmol/L Carbon Dioxide (22-30) mmol/L BUN (9-20) mg/dL Creatinine (0.66-1.25) mg/dL Glucose (74-99) mg/dL POC Glucose (mg/dL) 159 H 166 H (75-99) mg/dL Plasma Lactic Acid Nicholas (0.7-2.0) mmol/L Phosphorus (2.5-4.5) mg/dL Magnesium (1.6-2.3) mg/dL AST (17-59) U/L ALT (21-72) U/L Total Creatine Kinase 2082 H (55-170) U/L CK-MB (CK-2) 65.2 H* (0.0-2.4) ng/mL Troponin I 209.000 H* (0.000-0.034) ng/mL Total Protein (6.3-8.2) g/dL Albumin (3.5-5.0) g/dL HDL Cholesterol (40-60) mg/dL Urine Protein (Negative) Urine Glucose (UA) (Negative) Urine Ketones (Negative) 05/23/17 05/23/17 05/23/17 Range/Units 03:02 03:48 03:48 WBC 15.4 H (3.8-10.6) k/uL RBC 4.25 L (4.30-5.90) m/uL Neutrophils # 13.7 H (1.3-7.7) k/uL Lymphocytes # 0.9 L (1.0-4.8) k/uL INR (<1.2) APTT (22.0-30.0) sec ABG pH (7.35-7.45) ABG pCO2 (35-45) mmHg ABG HCO3 (21-25) mmol/L ABG O2 Saturation (94-97) % VBG pCO2 (37-51) mmHg VBG HCO3 (24-28) mmol/L Sodium 133 L (137-145) mmol/L Potassium (3.5-5.1) mmol/L Chloride 96 L (98-107) mmol/L Carbon Dioxide (22-30) mmol/L BUN 68 H (9-20) mg/dL Creatinine 2.50 H (0.66-1.25) mg/dL Glucose 190 H (74-99) mg/dL POC Glucose (mg/dL) 187 H (75-99) mg/dL Plasma Lactic Acid Nicholas (0.7-2.0) mmol/L Phosphorus 5.1 H (2.5-4.5) mg/dL Magnesium 2.7 H (1.6-2.3) mg/dL AST 3335 H (17-59) U/L ALT 3372 H (21-72) U/L Total Creatine Kinase (55-170) U/L CK-MB (CK-2) (0.0-2.4) ng/mL Troponin I (0.000-0.034) ng/mL Total Protein 6.1 L (6.3-8.2) g/dL Albumin 3.4 L (3.5-5.0) g/dL HDL Cholesterol 38 L (40-60) mg/dL Urine Protein (Negative) Urine Glucose (UA) (Negative) Urine Ketones (Negative) 05/23/17 05/23/17 05/23/17 Range/Units 03:48 04:00 04:56 WBC (3.8-10.6) k/uL RBC (4.30-5.90) m/uL Neutrophils # (1.3-7.7) k/uL Lymphocytes # (1.0-4.8) k/uL INR (<1.2) APTT (22.0-30.0) sec ABG pH (7.35-7.45) ABG pCO2 (35-45) mmHg ABG HCO3 (21-25) mmol/L ABG O2 Saturation (94-97) % VBG pCO2 (37-51) mmHg VBG HCO3 (24-28) mmol/L Sodium (137-145) mmol/L Potassium (3.5-5.1) mmol/L Chloride (98-107) mmol/L Carbon Dioxide (22-30) mmol/L BUN (9-20) mg/dL Creatinine (0.66-1.25) mg/dL Glucose (74-99) mg/dL POC Glucose (mg/dL) 207 H 194 H (75-99) mg/dL Plasma Lactic Acid Nicholas 2.6 H* (0.7-2.0) mmol/L Phosphorus (2.5-4.5) mg/dL Magnesium (1.6-2.3) mg/dL AST (17-59) U/L ALT (21-72) U/L Total Creatine Kinase (55-170) U/L CK-MB (CK-2) (0.0-2.4) ng/mL Troponin I (0.000-0.034) ng/mL Total Protein (6.3-8.2) g/dL Albumin (3.5-5.0) g/dL HDL Cholesterol (40-60) mg/dL Urine Protein (Negative) Urine Glucose (UA) (Negative) Urine Ketones (Negative) 05/23/17 05/23/17 05/23/17 Range/Units 05:59 06:53 07:40 WBC (3.8-10.6) k/uL RBC (4.30-5.90) m/uL Neutrophils # (1.3-7.7) k/uL Lymphocytes # (1.0-4.8) k/uL INR (<1.2) APTT 36.5 H (22.0-30.0) sec ABG pH (7.35-7.45) ABG pCO2 (35-45) mmHg ABG HCO3 (21-25) mmol/L ABG O2 Saturation (94-97) % VBG pCO2 (37-51) mmHg VBG HCO3 (24-28) mmol/L Sodium (137-145) mmol/L Potassium (3.5-5.1) mmol/L Chloride (98-107) mmol/L Carbon Dioxide (22-30) mmol/L BUN (9-20) mg/dL Creatinine (0.66-1.25) mg/dL Glucose (74-99) mg/dL POC Glucose (mg/dL) 161 H 149 H (75-99) mg/dL Plasma Lactic Acid Nicholas (0.7-2.0) mmol/L Phosphorus (2.5-4.5) mg/dL Magnesium (1.6-2.3) mg/dL AST (17-59) U/L ALT (21-72) U/L Total Creatine Kinase (55-170) U/L CK-MB (CK-2) (0.0-2.4) ng/mL Troponin I (0.000-0.034) ng/mL Total Protein (6.3-8.2) g/dL Albumin (3.5-5.0) g/dL HDL Cholesterol (40-60) mg/dL Urine Protein (Negative) Urine Glucose (UA) (Negative) Urine Ketones (Negative) 05/23/17 05/23/17 05/23/17 Range/Units 07:40 07:40 08:05 WBC (3.8-10.6) k/uL RBC (4.30-5.90) m/uL Neutrophils # (1.3-7.7) k/uL Lymphocytes # (1.0-4.8) k/uL INR (<1.2) APTT (22.0-30.0) sec ABG pH (7.35-7.45) ABG pCO2 (35-45) mmHg ABG HCO3 (21-25) mmol/L ABG O2 Saturation (94-97) % VBG pCO2 (37-51) mmHg VBG HCO3 (24-28) mmol/L Sodium (137-145) mmol/L Potassium (3.5-5.1) mmol/L Chloride (98-107) mmol/L Carbon Dioxide (22-30) mmol/L BUN (9-20) mg/dL Creatinine (0.66-1.25) mg/dL Glucose (74-99) mg/dL POC Glucose (mg/dL) 152 H (75-99) mg/dL Plasma Lactic Acid Nicholas 2.5 H* (0.7-2.0) mmol/L Phosphorus (2.5-4.5) mg/dL Magnesium (1.6-2.3) mg/dL AST (17-59) U/L ALT (21-72) U/L Total Creatine Kinase (55-170) U/L CK-MB (CK-2) (0.0-2.4) ng/mL Troponin I 125.000 H* (0.000-0.034) ng/mL Total Protein (6.3-8.2) g/dL Albumin (3.5-5.0) g/dL HDL Cholesterol (40-60) mg/dL Urine Protein (Negative) Urine Glucose (UA) (Negative) Urine Ketones (Negative) 05/23/17 05/23/17 05/23/17 Range/Units 09:09 10:09 11:25 WBC (3.8-10.6) k/uL RBC (4.30-5.90) m/uL Neutrophils # (1.3-7.7) k/uL Lymphocytes # (1.0-4.8) k/uL INR (<1.2) APTT (22.0-30.0) sec ABG pH (7.35-7.45) ABG pCO2 (35-45) mmHg ABG HCO3 (21-25) mmol/L ABG O2 Saturation (94-97) % VBG pCO2 (37-51) mmHg VBG HCO3 (24-28) mmol/L Sodium (137-145) mmol/L Potassium (3.5-5.1) mmol/L Chloride (98-107) mmol/L Carbon Dioxide (22-30) mmol/L BUN (9-20) mg/dL Creatinine (0.66-1.25) mg/dL Glucose (74-99) mg/dL POC Glucose (mg/dL) 169 H 182 H 235 H (75-99) mg/dL Plasma Lactic Acid Nicholas (0.7-2.0) mmol/L Phosphorus (2.5-4.5) mg/dL Magnesium (1.6-2.3) mg/dL AST (17-59) U/L ALT (21-72) U/L Total Creatine Kinase (55-170) U/L CK-MB (CK-2) (0.0-2.4) ng/mL Troponin I (0.000-0.034) ng/mL Total Protein (6.3-8.2) g/dL Albumin (3.5-5.0) g/dL HDL Cholesterol (40-60) mg/dL Urine Protein (Negative) Urine Glucose (UA) (Negative) Urine Ketones (Negative) 05/23/17 05/23/17 Range/Units 12:18 12:18 WBC (3.8-10.6) k/uL RBC (4.30-5.90) m/uL Neutrophils # (1.3-7.7) k/uL Lymphocytes # (1.0-4.8) k/uL INR (<1.2) APTT (22.0-30.0) sec ABG pH (7.35-7.45) ABG pCO2 (35-45) mmHg ABG HCO3 (21-25) mmol/L ABG O2 Saturation (94-97) % VBG pCO2 (37-51) mmHg VBG HCO3 (24-28) mmol/L Sodium (137-145) mmol/L Potassium (3.5-5.1) mmol/L Chloride (98-107) mmol/L Carbon Dioxide (22-30) mmol/L BUN (9-20) mg/dL Creatinine (0.66-1.25) mg/dL Glucose (74-99) mg/dL POC Glucose (mg/dL) 202 H (75-99) mg/dL Plasma Lactic Acid Nicholas 2.7 H* (0.7-2.0) mmol/L Phosphorus (2.5-4.5) mg/dL Magnesium (1.6-2.3) mg/dL AST (17-59) U/L ALT (21-72) U/L Total Creatine Kinase (55-170) U/L CK-MB (CK-2) (0.0-2.4) ng/mL Troponin I (0.000-0.034) ng/mL Total Protein (6.3-8.2) g/dL Albumin (3.5-5.0) g/dL HDL Cholesterol (40-60) mg/dL Urine Protein (Negative) Urine Glucose (UA) (Negative) Urine Ketones (Negative) Microbiology - Last 24 Hours (Table) 05/22/17 15:34 Urine Culture - Preliminary Urine,Catheterized Laboratory Results WBC 15.4 k/uL (3.8-10.6) H 05/23/17 03:48 RBC 4.25 m/uL (4.30-5.90) L 05/23/17 03:48 Hgb 13.5 gm/dL (13.0-17.5) 05/23/17 03:48 Hct 40.7 % (39.0-53.0) 05/23/17 03:48 MCV 95.8 fL (80.0-100.0) 05/23/17 03:48 MCH 31.7 pg (25.0-35.0) 05/23/17 03:48 MCHC 33.1 g/dL (31.0-37.0) 05/23/17 03:48 RDW 14.3 % (11.5-15.5) 05/23/17 03:48 Plt Count 194 k/uL (150-450) 05/23/17 03:48 Neutrophils % 89 % 05/23/17 03:48 Lymphocytes % 6 % 05/23/17 03:48 Monocytes % 4 % 05/23/17 03:48 Eosinophils % 0 % 05/23/17 03:48 Basophils % 0 % 05/23/17 03:48 Neutrophils # 13.7 k/uL (1.3-7.7) H 05/23/17 03:48 Lymphocytes # 0.9 k/uL (1.0-4.8) L 05/23/17 03:48 Monocytes # 0.6 k/uL (0-1.0) 05/23/17 03:48 Eosinophils # 0.0 k/uL (0-0.7) 05/23/17 03:48 Basophils # 0.0 k/uL (0-0.2) 05/23/17 03:48 PT 11.6 sec (9.0-12.0) 05/22/17 13:59 INR 1.2 (<1.2) H 05/22/17 13:59 APTT 36.5 sec (22.0-30.0) H 05/23/17 07:40 Sample Site LBRA 05/22/17 16:47 ABG pH 7.47 (7.35-7.45) H 05/22/17 16:47 ABG pCO2 27 mmHg (35-45) L 05/22/17 16:47 ABG pO2 98 mmHg (83-108) 05/22/17 16:47 ABG HCO3 19 mmol/L (21-25) L 05/22/17 16:47 ABG Total CO2 20 mmol/L (19-24) 05/22/17 16:47 ABG O2 Saturation 98.0 % (94-97) H 05/22/17 16:47 ABG Base Excess -4.2 mmol/L 05/22/17 16:47 VBG pH 7.35 (7.31-7.41) 05/22/17 13:59 VBG pCO2 36 mmHg (37-51) L 05/22/17 13:59 VBG HCO3 19 mmol/L (24-28) L 05/22/17 13:59 FiO2 30 % 05/22/17 16:47 Sodium 133 mmol/L (137-145) L 05/23/17 03:48 Potassium 4.8 mmol/L (3.5-5.1) 05/23/17 03:48 Chloride 96 mmol/L (98-107) L 05/23/17 03:48 Carbon Dioxide 25 mmol/L (22-30) 05/23/17 03:48 Anion Gap 12 mmol/L 05/23/17 03:48 BUN 68 mg/dL (9-20) H 05/23/17 03:48 Creatinine 2.50 mg/dL (0.66-1.25) H 05/23/17 03:48 Est GFR (MDRD) Af Amer 30 (>60 ml/min/1.73 sqM) 05/23/17 03:48 Est GFR (MDRD) Non-Af 25 (>60 ml/min/1.73 sqM) 05/23/17 03:48 Glucose 190 mg/dL (74-99) H 05/23/17 03:48 POC Glucose (mg/dL) 202 mg/dL (75-99) H 05/23/17 12:18 POC Glu Performance Test Engineer ID Yrn Hicks 05/23/17 12:18 Lactic Ac Sepsis Rflx Y 05/23/17 08:57 Plasma Lactic Acid Nicholas 2.7 mmol/L (0.7-2.0) H* 05/23/17 12:18 Calcium 8.4 mg/dL (8.4-10.2) 05/23/17 03:48 Phosphorus 5.1 mg/dL (2.5-4.5) H 05/23/17 03:48 Magnesium 2.7 mg/dL (1.6-2.3) H 05/23/17 03:48 Total Bilirubin 0.7 mg/dL (0.2-1.3) 05/23/17 03:48 AST 3335 U/L (17-59) H 05/23/17 03:48 ALT 3372 U/L (21-72) H 05/23/17 03:48 Alkaline Phosphatase 73 U/L (38-126) 05/23/17 03:48 Total Creatine Kinase 2082 U/L (55-170) H 05/23/17 01:55 CK-MB (CK-2) 65.2 ng/mL (0.0-2.4) H* 05/23/17 01:55 CK-MB (CK-2) Rel Index 05/23/17 01:55 Troponin I 125.000 ng/mL (0.000-0.034) H* 05/23/17 07:40 NT-Pro-B Natriuret Pep 31359 pg/mL 05/22/17 13:59 Total Protein 6.1 g/dL (6.3-8.2) L 05/23/17 03:48 Albumin 3.4 g/dL (3.5-5.0) L 05/23/17 03:48 Triglycerides 42 mg/dL (<150) 05/23/17 03:48 Cholesterol 94 mg/dL (<200) 05/23/17 03:48 LDL Cholesterol, Calc 48 mg/dL (0-99) 05/23/17 03:48 HDL Cholesterol 38 mg/dL (40-60) L 05/23/17 03:48 Lipase 249 U/L (23-300) 05/22/17 13:59 Urine Color Yellow 05/22/17 15:34 Urine Appearance Clear (Clear) 05/22/17 15:34 Urine pH 5.0 (5.0-8.0) 05/22/17 15:34 Ur Specific Hamilton 1.016 (1.001-1.035) 05/22/17 15:34 Urine Protein Trace (Negative) H 05/22/17 15:34 Urine Glucose (UA) 4+ (Negative) H 05/22/17 15:34 Urine Ketones Trace (Negative) H 05/22/17 15:34 Urine Blood Negative (Negative) 05/22/17 15:34 Urine Nitrite Negative (Negative) 05/22/17 15:34 Urine Bilirubin Negative (Negative) 05/22/17 15:34 Urine Urobilinogen <2.0 mg/dL (<2.0) 05/22/17 15:34 Ur Leukocyte Esterase Negative (Negative) 05/22/17 15:34 Thrombosis Risk Factor Assmnt - DVT/VTE Prophylaxis DVT/VTE Prophylaxis: Pharmacologic Prophylaxis ordered, Mechanical Prophylaxis ordered - Choose All That Apply Any of the Below Risk Factors Present?: Yes Each Factor Represents 1 point: Abnormal pulmonary function (COPD), Acute UT, Heart failure (<1month), Sepsis (< 1month) Other Risk Factors: Yes Each Risk Factor Represents 2 Points: Central venous access Thrombosis Risk Factor Assessment Total Risk Factor Score: 6 Thrombosis Risk Factor Assessment Level: High Risk Assessment and Plan Plan: 1 Acute hypoxic respiratory failure due to 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 IV Levophed currently at 4.7 mics Continue patient on aspirin 325 mg orally once every day, sublingual nitroglycerin, metoprolol 25 mg orally twice every day, hold off losartan because of his hypotension, oxygen, Lasix 40 mg IV push every 12 hours, echocardiogram, cardiology consultation, pulmonary consultation from Dr. Cyr. 2. Acute on chronic mixed systolic diastolic heart failure exacerbation with hemodynamic instability and hypotension last echocardiogram and off April 2017. Continue metoprolol 25 mg orally twice every day, hold off losartan for now, continue Lasix 40 mg IV push every 12 hours, continue BiPAP for now. Cardiology following 3. Non-ST elevation UT. The patient would be started on aspirin 325 mg orally once every day, metoprolol 25 mg orally twice every day, simvastatin or Lipitor every day, cardiology consultation, echocardiogram for evaluation of LV function. 4. Possible bilateral pneumonia. Start the patient on Zosyn IV piggyback every 24 hours, with recent hospitalization, hospital acquired pneumonia needs to be covered, nebulized treatment albuterol 2.5 mg every 4 hours as needed, Continue oxygen support, pulmonary consultation. 5 elevated liver function test most likely secondary to CHF, patient however is on amiodarone that was started secondary to atrial fibrillation, this would need to be monitored very closely as well 6. Acute acute kidney failure most likely secondary to ATN and cardiorenal syndrome with hypotension and cardiogenic shock, nephrotoxins will be avoided, maintain systolic blood pressure over 110, patient was seen consultation by Dr. Norman, delaney ultrasound to evaluate for hydronephrosis and urinary retention 7. Diabetes mellitus type 2. Hold the patient metformin and glipizide, currently on insulin drip 8. Diabetic polyneuropathy. Stable at this time. With impaired balance and falls, physical therapy will be seeing the patient 9. Hyperlipidemia. Continue patient on Lipitor 10 mg orally once every day. 10. Anxiety disorder, generalized Depression, recurrent. Continue Cymbalta 60 mg orally once every day.. Continue patient on Xanax 1 mg orally twice a day as needed. Would decrease this to 0.5 mg. 3 times a day a when necessary 11 rhabdomoysis secondary to recent fall, contusion of right flank with bruising , present prior to admission, maintain IV hydration at this time monitor CPKs as well and renal function 12. DVT prophylaxis. Continue heparin drip for now. 13. GI prophylaxis. Continue PPI. 14. Patient is full code. 15. Debility with recurrent falls, contusion on the right lumbar flank area, spine x-rays to be obtained, patient would meet needing therapy at post discharge most likely subacute 16. Enlarged prostate. Continue Flomax 0.8 mg orally once every day. Discharge plan: Subacute rehab expected
[2017-05-23 14:02] LABS: Glucose,Whole Blood 201 mg/dL (75-99)
[2017-05-23 14:43] LABS: Hemoglobin A1C 7.6 % (4.2-6.1)
[2017-05-23 15:07] LABS: Glucose,Whole Blood 167 mg/dL (75-99)
--- NOTE | 2017-05-23 15:14 | CONS ---
CONSULTATION DATE OF CONSULTATION: 05/23/2017 REASON FOR CONSULT: Renal failure. HISTORY OF PRESENT ILLNESS: The patient is an 81-year-old male who was admitted to the hospital with weakness and shortness of breath. He was found to be in CHF. He was also hypotensive and admitted to the ICU. Patient was found to have had an acute TX. His troponin was as high as 200. The troponin I was as high as 209, it is now down to about 125. Patient is maintained on Levophed at 5 mcg. His creatinine was 2.5 mg/dL. Urine output had dropped overnight to about 10 to 15 mL. It seems to have picked up again. Patient did receive 2 doses of IV Lasix with no significant response. His previous creatinine was 1.07 on 05/21/2017. Liver enzymes are also elevated from hypoperfusion and hypotension. PAST MEDICAL HISTORY: Significant for coronary artery disease, hypertension, type 2 diabetes, osteoarthritis, hyperlipidemia, BPH, anxiety, depression. PAST SURGICAL HISTORY: Skin cancer removal from the face and surgery for varicose veins, colonoscopy, heart catheterization. SOCIAL HISTORY: Patient is an ex-smoker. No history of drug abuse or alcohol abuse. MEDICATIONS: At home prior to admission included Zocor, Flomax, DiaBeta, Glucophage, Imdur, vitamin D3, Cymbalta, glucosamine, vitamin B6, trazodone, Lasix, Levaquin, Lopressor, Nitrostat. ALLERGIES: None. REVIEW OF SYSTEMS: As per HPI. Other systems negative. PHYSICAL EXAMINATION: Patient is comfortable. He is on BiPAP. He is not in any acute distress. Blood pressure is 93/67, heart rate 128 per minute. He is afebrile. Examination of the heart S1, S2. Examination lungs, decreased breath sounds at the bases with crackles noted at the bases. Abdomen is soft, nontender. Examination of lower extremities shows no significant edema. Chronic skin changes are noted. CORE DRILL OPERATOR exam is grossly intact. LABS: Sodium 133, potassium 4.8, BUN 68, serum creatinine 2.5, hemoglobin 13.5 g/dL. Lactic acid at 2.6, ALT 3372, AST 3335, and troponin is down to 125 from 209. The UA shows trace protein, no blood. ASSESSMENT: 1. Acute kidney injury secondary to hypotension, hypoperfusion and cardiorenal syndrome with cardiogenic shock. Urine output seems to have improved over the last couple of hours. Will continue with the Levophed. Patient did not respond to Lasix earlier; however, as his urine output picks up and he is more hemodynamically stable, we can repeat the IV Lasix. 2. Status post acute myocardial infarction. Repeat echocardiogram is currently pending. Previous ejection fraction was about 45% to 50%. 3. Hypotension, rule out sepsis. The x-ray shows possible underlying pneumonia. Patient is maintained on antibiotics. PLAN: Continue pressors as needed. Recommend changing the Levaquin to Zosyn and if Levaquin is needed, we need to decrease the dose to adjust for his renal failure. Once the urine output picks up, we can try another dose of Lasix. I discussed with Cardiology regarding dobutamine/inotropic agents; however, in the setting of the acute TX with increased propensity for arrhythmias, we will hold off on that, particularly as urine output seems to have picked up over the last couple of hours. Thank you for this consultation. Will continue to follow the patient with you during his hospitalization. ADRIANO / IJN: [id number] /
--- NOTE | 2017-05-23 15:47 | US ---
EXAMINATION TYPE: US kidneys/renal and bladder DATE OF EXAM: 05/23/2017 COMPARISON: NONE CLINICAL HISTORY: renal failure chf, . EXAM MEASUREMENTS: Right Kidney: 9.5 x 5.0 x 5.1 cm Left Kidney: 11.0 x 5.3 4.5 cm ICU patient, unable to move or hold his breath. Incidental finding some fluid surrounding liver. Right Kidney: No hydronephrosis or masses seen Left Kidney: No hydronephrosis or masses seen Bladder: wnl IMPRESSION: 1. Normal renal ultrasound. 2. Minimal fluid adjacent to the liver noted during this exam
[2017-05-23] MEDS ORDERED: LEVOFLOXACIN 500MG-D5W PMX 500 MG in DEXTROSE/WATER 1 100ML.BAG IVPB SCH ×3 (16:00)
[2017-05-23 16:11] LABS: Glucose,Whole Blood 120 mg/dL (75-99)
[2017-05-23] MEDS: HEPARIN SODIUM,PORCINE/D5W PMX 25,000 UNIT in DEXTROSE/WATER 1 500ML.BAG IV SCH (16:12)
[2017-05-23 17:10] LABS: Glucose,Whole Blood 119 mg/dL (75-99)
[2017-05-23] MEDS: MAG HYDROX/AL HYDROX/SIMETH 30 ML CUP PO PRN (17:42)
[2017-05-23 18:17] LABS: Glucose,Whole Blood 161 mg/dL (75-99)
[2017-05-23 18:56] LABS: Glucose,Whole Blood 189 mg/dL (75-99)
[2017-05-23 19:58] LABS: Glucose,Whole Blood 200 mg/dL (75-99)
[2017-05-23] MEDS: traZODone HCL 100 MG TAB PO SCH (20:28)
[2017-05-23 23:00] LABS: Glucose,Whole Blood 165 mg/dL (75-99)
[2017-05-23 23:49] LABS: Glucose,Whole Blood 143 mg/dL (75-99)
[2017-05-24 00:57] LABS: Glucose,Whole Blood 130 mg/dL (75-99)
[2017-05-24 02:03] LABS: Glucose,Whole Blood 179 mg/dL (75-99)
[2017-05-24 02:59] LABS: Glucose,Whole Blood 185 mg/dL (75-99)
[2017-05-24] MEDS: ALPRAZolam 0.5 MG TAB PO PRN ×2 (03:02→20:08)
[2017-05-24] MEDS: HEPARIN SODIUM,PORCINE/D5W PMX 25,000 UNIT in DEXTROSE/WATER 1 500ML.BAG IV SCH ×2 (03:21→20:09)
[2017-05-24 04:04] LABS: Glucose,Whole Blood 155 mg/dL (75-99)
[2017-05-24 04:54] LABS: Glucose,Whole Blood 140 mg/dL (75-99)
[2017-05-24 05:08] LABS: Basophils % (A) 0 %; CH 32.4; CHCM 34.4; Eosinophils % (A) 0 %; HCT 37.7 % (39.0-53.0); HDW 2.53; HGB 12.7 gm/dL (13.0-17.5); Luc # (Auto) 0.15; Luc % (Auto) 1; Lymphocytes # (A) 0.6 k/uL (1.0-4.8); Lymphocytes % (A) 4 %; MCH 31.8 pg (25.0-35.0); MCHC 33.6 g/dL (31.0-37.0); MCV 94.7 fL (80.0-100.0); Mean Platelet Volume 8.5; Monocytes # (A) 0.7 k/uL (0-1.0); Monocytes % (A) 5 %; Neutrophils # (A) 13.3 k/uL (1.3-7.7); Neutrophils % (A) 90 %; RBC 3.98 m/uL (4.30-5.90); RDW 14.3 % (11.5-15.5); WBC 14.7 k/uL (3.8-10.6); WBC (Perox) 15.58
[2017-05-24 06:01] LABS: Calcium 7.5 mg/dL (8.4-10.2); Magnesium 2.6 mg/dL (1.6-2.3); Phosphorous 5.7 mg/dL (2.5-4.5)
[2017-05-24 06:21] LABS: Glucose,Whole Blood 144 mg/dL (75-99)
[2017-05-24] MEDS: INSULIN REGULAR 100 UNIT in SODIUM CHLORIDE 0.9% 100 ML IV SCH (06:50)
[2017-05-24 06:51] LABS: Glucose,Whole Blood 140 mg/dL (75-99)
--- NOTE | 2017-05-24 07:28 | XR ---
EXAMINATION TYPE: XR chest 1V portable DATE OF EXAM: 05/24/2017 HISTORY: Shortness of breath. COMPARISON: 05/23/2017 TECHNIQUE: Single view of the chest is submitted. FINDINGS: Demonstrated are scattered senescent parenchymal change. Right IJ central venous line is unchanged in position. Increasing opacity right lung may reflect a pleural effusion. Developing infiltrate is difficult to e xclude. The heart is stable. Hilar and mediastinal structures are within normal limits. Degenerative changes are seen of the dorsal spine. IMPRESSION: 1. Increasing opacity right lung may reflect a pleural effusion. Developing infiltrate is difficult to exclude.
[2017-05-24 08:20] LABS: Glucose,Whole Blood 148 mg/dL (75-99)
--- NOTE | 2017-05-24 08:35 | ECHOF ---
Referral Reason:ACS MEASUREMENTS -------- HEIGHT: 172.7 cm WEIGHT: 90.7 kg BP: 90/66 RVIDd: 2.8 cm (< 3.3) IVSd: 0.9 cm (0.6 - 1.1) LVIDd: 6.2 cm (3.9 - 5.3) LVPWd: 0.9 cm (0.6 - 1.1) IVSs: 1.2 cm LVIDs: 5.6 cm LVPWs: 1.2 cm LAESV Index (A-L): 32.91 ml/m Ao Diam: 3.1 cm (2.0 - 3.7) AV Cusp: 1.5 cm (1.5 - 2.6) LA Diam: 4.1 cm (2.7 - 3.8) MV E Jake: 0.59 m/s MV DecT: 163 ms MV A Jake: 0.52 m/s MV E/A Ratio: 1.13 FINDINGS -------- Sinus rhythm. This was a technically difficult study with suboptimal views. The left ventricle is severely dilated. Overall left ventricular systolic function is severely impaired with, an EF < 20%. Global hypokinesis The right ventricle is normal in size. The right ventricular systolic function is severely impaired. LA is midly dilated 29-33ml/m2. The right atrium is normal in size. 1.5MG OF DEFINITY UTLIZED: 2 OR MORE WALL SEGMENTS NOT VISUALIZED. Aortic valve is trileaflet and is moderately thickened. There is no evidence of aortic regurgitation. There is no evidence of aortic stenosis. The mitral valve leaflets are mildly thickened. Mild mitral regurgitation is present. Trace tricuspid regurgitation present. There is no evidence of pulmonary hypertension. The right ventricular systolic pressure, as measured by Doppler, is {RVSP}. The pulmonic valve was not well visualized. The aortic root size is normal. The inferior vena cava is dilated with poor inspiratory collapse which is consistent with estimated right atrial pressure of 20 mmHg. The pericardium is normal. There is no pericardial effusion. CONCLUSIONS -------- 1. Sinus rhythm. 2. The mitral valve leaflets are mildly thickened. 3. Mild mitral regurgitation is present. 4. Trace tricuspid regurgitation present. 5. There is no evidence of pulmonary hypertension. 6. The right ventricular systolic pressure, as measured by Doppler, is {RVSP}. 7. The pulmonic valve was not well visualized. 8. The aortic root size is normal. 9. The inferior vena cava is dilated with poor inspiratory collapse which is consistent with estimated right atrial pressure of 20 mmHg. 10. There is no pericardial effusion. 11. This was a technically difficult study with suboptimal views. 12. The left ventricle is severely dilated. 13. Overall left ventricular systolic function is severely impaired with, an EF < 20%. 14. Global hypokinesis 15. The right ventricular systolic function is severely impaired. 16. LA is midly dilated 29-33ml/m2. 17. 1.5MG OF DEFINITY UTLIZED: 2 OR MORE WALL SEGMENTS NOT VISUALIZED. 18. Aortic valve is trileaflet and is moderately thickened. BIOMEDICAL SPECIALIST: Diaz Gomez RDCS
[2017-05-24] MEDS: PIPERACILLIN-TAZOBACTAM 3.375 GM in DEXTROSE/WATER 1 50ML.BAG IVPB SCH ×2 (08:53→16:56)
[2017-05-24] MEDS: SENNOSIDES-DOCUSATE SODIUM 1 EACH TAB PO SCH (08:57)
[2017-05-24] MEDS: AMIODARONE 200 MG TAB PO SCH ×2 (08:57→20:09)
[2017-05-24] MEDS: ASPIRIN 325 MG TAB PO SCH (08:57)
[2017-05-24] MEDS: DULoxetine HCL 60 MG CAPSULE.DR PO SCH (08:57)
[2017-05-24] MEDS: FUROSEMIDE 10 MG/ML 4 ML VIAL IV SCH ×2 (09:02→20:10)
[2017-05-24 09:14] LABS: Glucose,Whole Blood 233 mg/dL (75-99)
[2017-05-24] MEDS: METOPROLOL TARTRATE 25 MG TAB PO SCH ×2 (10:02→20:16)
[2017-05-24 10:10] LABS: Glucose,Whole Blood 220 mg/dL (75-99)
[2017-05-24] MEDS: NOREPINEPHRIN 16 MG-0.9%NS PMX 16 MG/250 ML ML IV SCH (11:07)
[2017-05-24 11:18] LABS: Glucose,Whole Blood 187 mg/dL (75-99)
--- NOTE | 2017-05-24 11:29 | P.PN ---
Subjective Principal diagnosis: Acute cardiogenic shock This is an 81-year-old gentleman who follows with Dr. More as his primary care physician. He has a history of coronary artery disease, hyperlipidemia, hypertension, osteoarthritis, benign prosthetic hypertrophy, diabetes Jeff, shingles, skin cancer. He was recently admitted here on 05/18/2017 for a non- ST segment elevation myocardial infarction. His echocardiogram revealed mildly impaired left ventricular systolic function with estimated ejection fraction 45- 50%. He was seen and evaluated by cardiology who plan to treat the patient medically. He was seen and evaluated by Dr. Cyr as well for acute hypoxic respiratory failure which was felt to be status post blunt trauma to the right chest. His x-ray at that time revealed coarse interstitial infiltrates bilaterally. Computed tomography scan of the chest revealed atherosclerotic valvular disease, pleural effusions with basilar pulmonary infiltrates and atelectasis. The patient had recovered well and was seen last yesterday prior to his discharge he had no pulmonary complaints. No complaints of chest pain and he was discharged home. He presented here to the emergency room today with complaints of significant lower extremity weakness and shortness of breath. His chest x-ray as compared to one on 05/18/2017 showed improvement enzymes status. There is still suspected basilar pleural effusions with associated atelectasis. He did have some issues with hypoxia initially presenting on room air at 93% however he is now on BiPAP at 35% FiO2. He is initially hypotensive but not initiated on pressors. Current blood pressure 94/52 with a mean arterial pressure of 66. He is slightly tachycardic at 103. Lab results reveal a potassium of 6.4. AST 1337, ALT 979, total creatinine kinase of 735 with a troponin of 60.6. Patient was reevaluated today on 05/23/2017, seems to be doing surprisingly better than expected. Patient remains on norepinephrine for low blood pressure at 5 mcg/m, urine output seems to be picking up this morning about 50 mL per hour. Mental status seems to be much improved compared to yesterday. Patient is intermittently on BiPAP and on nasal cannula. Denies any specific complaints , no shortness of breath, no chest pain, no nausea, no vomiting, patient is actually sitting in bed and eating his breakfast. WBC count is 15.4 hemoglobin is 13.5 PTT is 36.5. BUN is about the same at 68 creatinine is about the same at 2.50 sugar is well controlled 190 today. Liver enzymes are much higher today compared to yesterday, patient basically has a shock liver. Troponin is coming down from 180 to yesterday, today it is 125. Chest x-ray is showing mostly atelectasis in the right lower lobe and small left pleural effusion. Patient was reevaluated today on 05/24/2017, remains on 5 g of norepinephrine, blood pressure remains marginal. Urine output is also marginal about 40 mL per hour. Mental status continues to improve. Patient is on 4 L nasal cannula, off BiPAP. He denies any specific complaints, no shortness of breath no cough no wheezing no chest pain. No nausea no vomiting no abdominal pain. The UVC count is 14.7 hemoglobin is 12.7. PTT is 68.4. Chest x-ray is showing increased opacity in the right lung significance of which is not clear, could very well be an early infiltrate, patient is on Zosyn. Objective - Vital Signs Vital signs: Vital Signs Temp 98.3 F 05/24/17 08:39 Pulse 94 05/24/17 11:00 Resp 21 05/24/17 11:00 BP 94/65 05/24/17 11:00 Pulse Ox 100 05/24/17 11:00 Intake & Output 05/23/17 05/24/17 05/24/17 18:59 06:59 18:59 Intake Total 2528.616 1055.192 497.520 Output Total 600 882 340 Balance 1928.616 173.192 157.520 Weight 95.5 kg 98.2 kg Intake: IV 410 440 120 0.9 NACL 410 440 120 Intake, IV Titration 378.616 615.192 77.520 Amount Heparin Sodium,Porcine/ 321.447 343.866 D5w Pmx 25,000 unit In Dextrose/Water 1 500ml. bag @ 11 UNITS/KG/HR 19. 95 mls/hr IV .Q24H [facility] Rx #:[id number] Insulin Regular 100 unit 27.469 23.793 12.553 In Sodium Chloride 0.9% 100 ml @ Per Protocol IV .Q0M [facility] Rx#:[id number] Norepinephrin 16 mg-0.9% 4.7 185.033 64.967 Ns Pmx 16 mg In 250 ml @ Titrate IV .Q0M [facility] Rx#: [id number] Piperacillin-Tazobactam 3 12.5 .375 gm In Dextrose/Water 1 50ml.bag @ 12.5 mls/hr IVPB ONCE [facility] Rx#: [id number] Piperacillin-Tazobactam 3 12.5 62.5 .375 gm In Dextrose/Water 1 50ml.bag @ 12.5 mls/hr IVPB Q8HR [facility] Rx#: [id number] Oral 1740 300 Output: Urine 600 882 340 Other: Voiding Method Indwelling Catheter Indwelling Catheter Indwelling Catheter - Exam GENERAL EXAM: Alert oriented 3, HEAD: Normocephalic. EYES: Normal reaction of pupils, equal size. NOSE: Clear with pink turbinates. THROAT: No erythema or exudates. NECK: No masses, no JVD. CHEST: No chest wall deformity. LUNGS: Equal air entry with faint crackles in the posterior bases.. CVS: S1 and S2 normal with no audible murmurs, regular rhythm. ABDOMEN: No hepatosplenomegaly, normal bowel sounds, no guarding or rigidity. Extremities: There is trace peripheral edema. No clubbing, no cyanosis. Peripheral pulses are intact. - Labs CBC & Chem 7: 05/24/17 04:45 05/24/17 04:45 Labs: Abnormal Lab Results - Last 24 Hours (Table) 05/23/17 05/23/17 05/23/17 Range/Units 03:48 11:25 12:18 WBC (3.8-10.6) k/uL RBC (4.30-5.90) m/uL Hgb (13.0-17.5) gm/dL Hct (39.0-53.0) % Neutrophils # (1.3-7.7) k/uL Lymphocytes # (1.0-4.8) k/uL APTT (22.0-30.0) sec Sodium (137-145) mmol/L Chloride (98-107) mmol/L BUN (9-20) mg/dL Creatinine (0.66-1.25) mg/dL Glucose (74-99) mg/dL POC Glucose (mg/dL) 235 H (75-99) mg/dL Hemoglobin A1c 7.6 H (4.2-6.1) % Plasma Lactic Acid Nicholas 2.7 H* (0.7-2.0) mmol/L Calcium (8.4-10.2) mg/dL Phosphorus (2.5-4.5) mg/dL Magnesium (1.6-2.3) mg/dL Creatine Kinase (55-170) U/L 05/23/17 05/23/17 05/23/17 Range/Units 12:18 13:19 13:59 WBC (3.8-10.6) k/uL RBC (4.30-5.90) m/uL Hgb (13.0-17.5) gm/dL Hct (39.0-53.0) % Neutrophils # (1.3-7.7) k/uL Lymphocytes # (1.0-4.8) k/uL APTT (22.0-30.0) sec Sodium (137-145) mmol/L Chloride (98-107) mmol/L BUN (9-20) mg/dL Creatinine (0.66-1.25) mg/dL Glucose (74-99) mg/dL POC Glucose (mg/dL) 202 H 201 H 201 H (75-99) mg/dL Hemoglobin A1c (4.2-6.1) % Plasma Lactic Acid Nicholas (0.7-2.0) mmol/L Calcium (8.4-10.2) mg/dL Phosphorus (2.5-4.5) mg/dL Magnesium (1.6-2.3) mg/dL Creatine Kinase (55-170) U/L 05/23/17 05/23/17 05/23/17 Range/Units 15:06 15:25 16:09 WBC (3.8-10.6) k/uL RBC (4.30-5.90) m/uL Hgb (13.0-17.5) gm/dL Hct (39.0-53.0) % Neutrophils # (1.3-7.7) k/uL Lymphocytes # (1.0-4.8) k/uL APTT 58.3 H (22.0-30.0) sec Sodium (137-145) mmol/L Chloride (98-107) mmol/L BUN (9-20) mg/dL Creatinine (0.66-1.25) mg/dL Glucose (74-99) mg/dL POC Glucose (mg/dL) 167 H 120 H (75-99) mg/dL Hemoglobin A1c (4.2-6.1) % Plasma Lactic Acid Nicholas (0.7-2.0) mmol/L Calcium (8.4-10.2) mg/dL Phosphorus (2.5-4.5) mg/dL Magnesium (1.6-2.3) mg/dL Creatine Kinase (55-170) U/L 05/23/17 05/23/17 05/23/17 Range/Units 17:07 18:15 18:54 WBC (3.8-10.6) k/uL RBC (4.30-5.90) m/uL Hgb (13.0-17.5) gm/dL Hct (39.0-53.0) % Neutrophils # (1.3-7.7) k/uL Lymphocytes # (1.0-4.8) k/uL APTT (22.0-30.0) sec Sodium (137-145) mmol/L Chloride (98-107) mmol/L BUN (9-20) mg/dL Creatinine (0.66-1.25) mg/dL Glucose (74-99) mg/dL POC Glucose (mg/dL) 119 H 161 H 189 H (75-99) mg/dL Hemoglobin A1c (4.2-6.1) % Plasma Lactic Acid Nicholas (0.7-2.0) mmol/L Calcium (8.4-10.2) mg/dL Phosphorus (2.5-4.5) mg/dL Magnesium (1.6-2.3) mg/dL Creatine Kinase (55-170) U/L 05/23/17 05/23/17 05/23/17 Range/Units 19:55 22:58 23:45 WBC (3.8-10.6) k/uL RBC (4.30-5.90) m/uL Hgb (13.0-17.5) gm/dL Hct (39.0-53.0) % Neutrophils # (1.3-7.7) k/uL Lymphocytes # (1.0-4.8) k/uL APTT (22.0-30.0) sec Sodium (137-145) mmol/L Chloride (98-107) mmol/L BUN (9-20) mg/dL Creatinine (0.66-1.25) mg/dL Glucose (74-99) mg/dL POC Glucose (mg/dL) 200 H 165 H 143 H (75-99) mg/dL Hemoglobin A1c (4.2-6.1) % Plasma Lactic Acid Nicholas (0.7-2.0) mmol/L Calcium (8.4-10.2) mg/dL Phosphorus (2.5-4.5) mg/dL Magnesium (1.6-2.3) mg/dL Creatine Kinase (55-170) U/L 05/24/17 05/24/17 05/24/17 Range/Units 00:55 02:01 02:57 WBC (3.8-10.6) k/uL RBC (4.30-5.90) m/uL Hgb (13.0-17.5) gm/dL Hct (39.0-53.0) % Neutrophils # (1.3-7.7) k/uL Lymphocytes # (1.0-4.8) k/uL APTT (22.0-30.0) sec Sodium (137-145) mmol/L Chloride (98-107) mmol/L BUN (9-20) mg/dL Creatinine (0.66-1.25) mg/dL Glucose (74-99) mg/dL POC Glucose (mg/dL) 130 H 179 H 185 H (75-99) mg/dL Hemoglobin A1c (4.2-6.1) % Plasma Lactic Acid Nicholas (0.7-2.0) mmol/L Calcium (8.4-10.2) mg/dL Phosphorus (2.5-4.5) mg/dL Magnesium (1.6-2.3) mg/dL Creatine Kinase (55-170) U/L 05/24/17 05/24/17 05/24/17 Range/Units 04:01 04:45 04:45 WBC 14.7 H (3.8-10.6) k/uL RBC 3.98 L (4.30-5.90) m/uL Hgb 12.7 L (13.0-17.5) gm/dL Hct 37.7 L (39.0-53.0) % Neutrophils # 13.3 H (1.3-7.7) k/uL Lymphocytes # 0.6 L (1.0-4.8) k/uL APTT (22.0-30.0) sec Sodium 132 L (137-145) mmol/L Chloride 96 L (98-107) mmol/L BUN 77 H (9-20) mg/dL Creatinine 2.48 H (0.66-1.25) mg/dL Glucose 129 H (74-99) mg/dL POC Glucose (mg/dL) 155 H (75-99) mg/dL Hemoglobin A1c (4.2-6.1) % Plasma Lactic Acid Nicholas (0.7-2.0) mmol/L Calcium 7.5 L (8.4-10.2) mg/dL Phosphorus 5.7 H (2.5-4.5) mg/dL Magnesium 2.6 H (1.6-2.3) mg/dL Creatine Kinase 412 H (55-170) U/L 05/24/17 05/24/17 05/24/17 Range/Units 04:45 04:49 06:20 WBC (3.8-10.6) k/uL RBC (4.30-5.90) m/uL Hgb (13.0-17.5) gm/dL Hct (39.0-53.0) % Neutrophils # (1.3-7.7) k/uL Lymphocytes # (1.0-4.8) k/uL APTT 68.4 H (22.0-30.0) sec Sodium (137-145) mmol/L Chloride (98-107) mmol/L BUN (9-20) mg/dL Creatinine (0.66-1.25) mg/dL Glucose (74-99) mg/dL POC Glucose (mg/dL) 140 H 144 H (75-99) mg/dL Hemoglobin A1c (4.2-6.1) % Plasma Lactic Acid Nicholas (0.7-2.0) mmol/L Calcium (8.4-10.2) mg/dL Phosphorus (2.5-4.5) mg/dL Magnesium (1.6-2.3) mg/dL Creatine Kinase (55-170) U/L 05/24/17 05/24/17 05/24/17 Range/Units 06:49 08:18 09:12 WBC (3.8-10.6) k/uL RBC (4.30-5.90) m/uL Hgb (13.0-17.5) gm/dL Hct (39.0-53.0) % Neutrophils # (1.3-7.7) k/uL Lymphocytes # (1.0-4.8) k/uL APTT (22.0-30.0) sec Sodium (137-145) mmol/L Chloride (98-107) mmol/L BUN (9-20) mg/dL Creatinine (0.66-1.25) mg/dL Glucose (74-99) mg/dL POC Glucose (mg/dL) 140 H 148 H 233 H (75-99) mg/dL Hemoglobin A1c (4.2-6.1) % Plasma Lactic Acid Nicholas (0.7-2.0) mmol/L Calcium (8.4-10.2) mg/dL Phosphorus (2.5-4.5) mg/dL Magnesium (1.6-2.3) mg/dL Creatine Kinase (55-170) U/L 05/24/17 05/24/17 Range/Units 10:08 11:16 WBC (3.8-10.6) k/uL RBC (4.30-5.90) m/uL Hgb (13.0-17.5) gm/dL Hct (39.0-53.0) % Neutrophils # (1.3-7.7) k/uL Lymphocytes # (1.0-4.8) k/uL APTT (22.0-30.0) sec Sodium (137-145) mmol/L Chloride (98-107) mmol/L BUN (9-20) mg/dL Creatinine (0.66-1.25) mg/dL Glucose (74-99) mg/dL POC Glucose (mg/dL) 220 H 187 H (75-99) mg/dL Hemoglobin A1c (4.2-6.1) % Plasma Lactic Acid Nicholas (0.7-2.0) mmol/L Calcium (8.4-10.2) mg/dL Phosphorus (2.5-4.5) mg/dL Magnesium (1.6-2.3) mg/dL Creatine Kinase (55-170) U/L Microbiology - Last 24 Hours (Table) 05/22/17 15:34 Urine Culture - Final Urine,Catheterized Assessment and Plan Plan: #1 acute Cardiogenic shock secondary to acute myocardial infarction. #2 Elevated LFTs secondary to above. #3 Hyperkalemia with metabolic lactic acidosis. #4 Acute hypoxic respiratory failure secondary to above currently on BiPAP. #5 Recent discharge following non-ST segment elevation myocardial infarction. 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 #7 Diabetes mellitus, type II with significant hyperglycemia initial blood glucose of 610. #8 Diabetic peripheral neuropathy. #9 Hyperlipidemia. #10 History of depression/anxiety. #11 History of skin cancer. #12 Benign prostatic hypertrophy. #13 Hearing-impaired. #14 Recent fall. #15 Poor overall functional performance based on the above-mentioned multiple comorbidities. Recommendation: Continue present supportive care measures, continue norepinephrine, continue BiPAP as needed, continue heparin drip, continue insulin drip, continue antibiotics empirically, continue Lasix 40 mg IV push every 12 hours, continue amiodarone, and continue beta blockers as well as Nitrostat. Prognosis remains extremely poor and guarded, we'll continue to follow closely in the ICU. Time with Patient: Less than 30
--- NOTE | 2017-05-24 11:59 | P.PN ---
Subjective Patient is seen in follow-up for acute kidney injury. Renal function is stable with creatinine at 2.48 today. Patient presented with an acute MN. His oral intake is good. He's currently on 14 mics of levofed. He remains nonoliguric. Patient is not a very reliable historian. He is still maintained on heparin drip as well as oral amiodarone for atrial fibrillation. Vital signs are stable. General: The patient appeared well nourished and normally developed. HEENT: Head exam is unremarkable. Neck is without jugular venous distension. LUNGS: Lungs are clear to auscultation and percussion. Breath sounds decreased. HEART: Rate and Rhythm are regular. First and second heart sounds normal. No murmurs, rubs or gallops. ABDOMEN: Abdominal exam reveals normal bowel sounds. Non-tender and non- distended. No evidence of peritonitis. EXTREMITITES: No clubbing, cyanosis, or edema. Objective - Vital Signs Vital signs: Vital Signs Temp 98.3 F 05/24/17 08:39 Pulse 94 05/24/17 11:00 Resp 21 05/24/17 11:00 BP 94/65 05/24/17 11:00 Pulse Ox 100 05/24/17 11:00 Intake & Output 05/23/17 05/24/17 05/24/17 18:59 06:59 18:59 Intake Total 2528.616 1055.192 497.520 Output Total 600 882 340 Balance 1928.616 173.192 157.520 Weight 95.5 kg 98.2 kg Intake: IV 410 440 120 0.9 NACL 410 440 120 Intake, IV Titration 378.616 615.192 77.520 Amount Heparin Sodium,Porcine/ 321.447 343.866 D5w Pmx 25,000 unit In Dextrose/Water 1 500ml. bag @ 11 UNITS/KG/HR 19. 95 mls/hr IV .Q24H [facility] Rx #:[id number] Insulin Regular 100 unit 27.469 23.793 12.553 In Sodium Chloride 0.9% 100 ml @ Per Protocol IV .Q0M [facility] Rx#:[id number] Norepinephrin 16 mg-0.9% 4.7 185.033 64.967 Ns Pmx 16 mg In 250 ml @ Titrate IV .Q0M [facility] Rx#: [id number] Piperacillin-Tazobactam 3 12.5 .375 gm In Dextrose/Water 1 50ml.bag @ 12.5 mls/hr IVPB ONCE [facility] Rx#: [id number] Piperacillin-Tazobactam 3 12.5 62.5 .375 gm In Dextrose/Water 1 50ml.bag @ 12.5 mls/hr IVPB Q8HR [facility] Rx#: [id number] Oral 1740 300 Output: Urine 600 882 340 Other: Voiding Method Indwelling Catheter Indwelling Catheter Indwelling Catheter - Labs CBC & Chem 7: 05/24/17 04:45 05/24/17 04:45 Labs: Abnormal Lab Results - Last 24 Hours (Table) 05/23/17 05/23/17 05/23/17 Range/Units 03:48 12:18 12:18 WBC (3.8-10.6) k/uL RBC (4.30-5.90) m/uL Hgb (13.0-17.5) gm/dL Hct (39.0-53.0) % Neutrophils # (1.3-7.7) k/uL Lymphocytes # (1.0-4.8) k/uL APTT (22.0-30.0) sec Sodium (137-145) mmol/L Chloride (98-107) mmol/L BUN (9-20) mg/dL Creatinine (0.66-1.25) mg/dL Glucose (74-99) mg/dL POC Glucose (mg/dL) 202 H (75-99) mg/dL Hemoglobin A1c 7.6 H (4.2-6.1) % Plasma Lactic Acid Nicholas 2.7 H* (0.7-2.0) mmol/L Calcium (8.4-10.2) mg/dL Phosphorus (2.5-4.5) mg/dL Magnesium (1.6-2.3) mg/dL Creatine Kinase (55-170) U/L 05/23/17 05/23/17 05/23/17 Range/Units 13:19 13:59 15:06 WBC (3.8-10.6) k/uL RBC (4.30-5.90) m/uL Hgb (13.0-17.5) gm/dL Hct (39.0-53.0) % Neutrophils # (1.3-7.7) k/uL Lymphocytes # (1.0-4.8) k/uL APTT (22.0-30.0) sec Sodium (137-145) mmol/L Chloride (98-107) mmol/L BUN (9-20) mg/dL Creatinine (0.66-1.25) mg/dL Glucose (74-99) mg/dL POC Glucose (mg/dL) 201 H 201 H 167 H (75-99) mg/dL Hemoglobin A1c (4.2-6.1) % Plasma Lactic Acid Nicholas (0.7-2.0) mmol/L Calcium (8.4-10.2) mg/dL Phosphorus (2.5-4.5) mg/dL Magnesium (1.6-2.3) mg/dL Creatine Kinase (55-170) U/L 05/23/17 05/23/17 05/23/17 Range/Units 15:25 16:09 17:07 WBC (3.8-10.6) k/uL RBC (4.30-5.90) m/uL Hgb (13.0-17.5) gm/dL Hct (39.0-53.0) % Neutrophils # (1.3-7.7) k/uL Lymphocytes # (1.0-4.8) k/uL APTT 58.3 H (22.0-30.0) sec Sodium (137-145) mmol/L Chloride (98-107) mmol/L BUN (9-20) mg/dL Creatinine (0.66-1.25) mg/dL Glucose (74-99) mg/dL POC Glucose (mg/dL) 120 H 119 H (75-99) mg/dL Hemoglobin A1c (4.2-6.1) % Plasma Lactic Acid Nicholas (0.7-2.0) mmol/L Calcium (8.4-10.2) mg/dL Phosphorus (2.5-4.5) mg/dL Magnesium (1.6-2.3) mg/dL Creatine Kinase (55-170) U/L 05/23/17 05/23/17 05/23/17 Range/Units 18:15 18:54 19:55 WBC (3.8-10.6) k/uL RBC (4.30-5.90) m/uL Hgb (13.0-17.5) gm/dL Hct (39.0-53.0) % Neutrophils # (1.3-7.7) k/uL Lymphocytes # (1.0-4.8) k/uL APTT (22.0-30.0) sec Sodium (137-145) mmol/L Chloride (98-107) mmol/L BUN (9-20) mg/dL Creatinine (0.66-1.25) mg/dL Glucose (74-99) mg/dL POC Glucose (mg/dL) 161 H 189 H 200 H (75-99) mg/dL Hemoglobin A1c (4.2-6.1) % Plasma Lactic Acid Nicholas (0.7-2.0) mmol/L Calcium (8.4-10.2) mg/dL Phosphorus (2.5-4.5) mg/dL Magnesium (1.6-2.3) mg/dL Creatine Kinase (55-170) U/L 05/23/17 05/23/17 05/24/17 Range/Units 22:58 23:45 00:55 WBC (3.8-10.6) k/uL RBC (4.30-5.90) m/uL Hgb (13.0-17.5) gm/dL Hct (39.0-53.0) % Neutrophils # (1.3-7.7) k/uL Lymphocytes # (1.0-4.8) k/uL APTT (22.0-30.0) sec Sodium (137-145) mmol/L Chloride (98-107) mmol/L BUN (9-20) mg/dL Creatinine (0.66-1.25) mg/dL Glucose (74-99) mg/dL POC Glucose (mg/dL) 165 H 143 H 130 H (75-99) mg/dL Hemoglobin A1c (4.2-6.1) % Plasma Lactic Acid Nicholas (0.7-2.0) mmol/L Calcium (8.4-10.2) mg/dL Phosphorus (2.5-4.5) mg/dL Magnesium (1.6-2.3) mg/dL Creatine Kinase (55-170) U/L 05/24/17 05/24/17 05/24/17 Range/Units 02:01 02:57 04:01 WBC (3.8-10.6) k/uL RBC (4.30-5.90) m/uL Hgb (13.0-17.5) gm/dL Hct (39.0-53.0) % Neutrophils # (1.3-7.7) k/uL Lymphocytes # (1.0-4.8) k/uL APTT (22.0-30.0) sec Sodium (137-145) mmol/L Chloride (98-107) mmol/L BUN (9-20) mg/dL Creatinine (0.66-1.25) mg/dL Glucose (74-99) mg/dL POC Glucose (mg/dL) 179 H 185 H 155 H (75-99) mg/dL Hemoglobin A1c (4.2-6.1) % Plasma Lactic Acid Nicholas (0.7-2.0) mmol/L Calcium (8.4-10.2) mg/dL Phosphorus (2.5-4.5) mg/dL Magnesium (1.6-2.3) mg/dL Creatine Kinase (55-170) U/L 05/24/17 05/24/17 05/24/17 Range/Units 04:45 04:45 04:45 WBC 14.7 H (3.8-10.6) k/uL RBC 3.98 L (4.30-5.90) m/uL Hgb 12.7 L (13.0-17.5) gm/dL Hct 37.7 L (39.0-53.0) % Neutrophils # 13.3 H (1.3-7.7) k/uL Lymphocytes # 0.6 L (1.0-4.8) k/uL APTT 68.4 H (22.0-30.0) sec Sodium 132 L (137-145) mmol/L Chloride 96 L (98-107) mmol/L BUN 77 H (9-20) mg/dL Creatinine 2.48 H (0.66-1.25) mg/dL Glucose 129 H (74-99) mg/dL POC Glucose (mg/dL) (75-99) mg/dL Hemoglobin A1c (4.2-6.1) % Plasma Lactic Acid Nicholas (0.7-2.0) mmol/L Calcium 7.5 L (8.4-10.2) mg/dL Phosphorus 5.7 H (2.5-4.5) mg/dL Magnesium 2.6 H (1.6-2.3) mg/dL Creatine Kinase 412 H (55-170) U/L 05/24/17 05/24/17 05/24/17 Range/Units 04:49 06:20 06:49 WBC (3.8-10.6) k/uL RBC (4.30-5.90) m/uL Hgb (13.0-17.5) gm/dL Hct (39.0-53.0) % Neutrophils # (1.3-7.7) k/uL Lymphocytes # (1.0-4.8) k/uL APTT (22.0-30.0) sec Sodium (137-145) mmol/L Chloride (98-107) mmol/L BUN (9-20) mg/dL Creatinine (0.66-1.25) mg/dL Glucose (74-99) mg/dL POC Glucose (mg/dL) 140 H 144 H 140 H (75-99) mg/dL Hemoglobin A1c (4.2-6.1) % Plasma Lactic Acid Nicholas (0.7-2.0) mmol/L Calcium (8.4-10.2) mg/dL Phosphorus (2.5-4.5) mg/dL Magnesium (1.6-2.3) mg/dL Creatine Kinase (55-170) U/L 05/24/17 05/24/17 05/24/17 Range/Units 08:18 09:12 10:08 WBC (3.8-10.6) k/uL RBC (4.30-5.90) m/uL Hgb (13.0-17.5) gm/dL Hct (39.0-53.0) % Neutrophils # (1.3-7.7) k/uL Lymphocytes # (1.0-4.8) k/uL APTT (22.0-30.0) sec Sodium (137-145) mmol/L Chloride (98-107) mmol/L BUN (9-20) mg/dL Creatinine (0.66-1.25) mg/dL Glucose (74-99) mg/dL POC Glucose (mg/dL) 148 H 233 H 220 H (75-99) mg/dL Hemoglobin A1c (4.2-6.1) % Plasma Lactic Acid Nicholas (0.7-2.0) mmol/L Calcium (8.4-10.2) mg/dL Phosphorus (2.5-4.5) mg/dL Magnesium (1.6-2.3) mg/dL Creatine Kinase (55-170) U/L 05/24/17 Range/Units 11:16 WBC (3.8-10.6) k/uL RBC (4.30-5.90) m/uL Hgb (13.0-17.5) gm/dL Hct (39.0-53.0) % Neutrophils # (1.3-7.7) k/uL Lymphocytes # (1.0-4.8) k/uL APTT (22.0-30.0) sec Sodium (137-145) mmol/L Chloride (98-107) mmol/L BUN (9-20) mg/dL Creatinine (0.66-1.25) mg/dL Glucose (74-99) mg/dL POC Glucose (mg/dL) 187 H (75-99) mg/dL Hemoglobin A1c (4.2-6.1) % Plasma Lactic Acid Nicholas (0.7-2.0) mmol/L Calcium (8.4-10.2) mg/dL Phosphorus (2.5-4.5) mg/dL Magnesium (1.6-2.3) mg/dL Creatine Kinase (55-170) U/L Microbiology - Last 24 Hours (Table) 05/22/17 15:34 Urine Culture - Final Urine,Catheterized Assessment and Plan Plan: Assessment: #1. Nonoliguric acute kidney injury secondary to ischemic ATN secondary to cardiogenic shock. Renal function stable with creatinine at 2.4 today. No evidence of obstructive uropathy. #2. Status post acute myocardial infarction. #3. Atrial fibrillation maintained on IV heparin as well as oral amiodarone. #4. Questionable pneumonia. #5. Systolic CHF with repeat echocardiogram revealing ejection fraction of less than 20%. #6. Transaminitis related to hypotension and hypoperfusion. Plan: Continue Lasix 40 mg IV twice daily. Follow-up morning chest x-ray. Wean levofed as blood pressure tolerates. Encourage oral intake. Cardiology following. Continue to avoid nephrotoxins.
[2017-05-24 12:16] LABS: Glucose,Whole Blood 157 mg/dL (75-99)
[2017-05-24] MEDS ORDERED: BENZOCAINE/MENTHOL LOZENG 1 EACH LOZENGE MUCOUS MEM PRN (12:19)
--- NOTE | 2017-05-24 12:22 | P.PN ---
Subjective Principal diagnosis: Acute myocardial infarction with cardiogenic shock Patient is doing much better urine output has improved renal functions are getting better he is on IV Lasix echocardiogram shows severe LV dysfunction. Patient still remains in cardiogenic shock with hypotension related to recent large myocardial infarction is not a candidate for invasive angiography. Will continue with aggressive medical therapy Objective - Vital Signs Vital signs: Vital Signs Temp 98.3 F 05/24/17 08:39 Pulse 94 05/24/17 11:00 Resp 21 05/24/17 11:00 BP 94/65 05/24/17 11:00 Pulse Ox 100 05/24/17 11:00 Intake & Output 05/23/17 05/24/17 05/24/17 18:59 06:59 18:59 Intake Total 2528.616 1055.192 497.520 Output Total 600 882 340 Balance 1928.616 173.192 157.520 Weight 95.5 kg 98.2 kg Intake: IV 410 440 120 0.9 NACL 410 440 120 Intake, IV Titration 378.616 615.192 77.520 Amount Heparin Sodium,Porcine/ 321.447 343.866 D5w Pmx 25,000 unit In Dextrose/Water 1 500ml. bag @ 11 UNITS/KG/HR 19. 95 mls/hr IV .Q24H [facility] Rx #:[id number] Insulin Regular 100 unit 27.469 23.793 12.553 In Sodium Chloride 0.9% 100 ml @ Per Protocol IV .Q0M [facility] Rx#:[id number] Norepinephrin 16 mg-0.9% 4.7 185.033 64.967 Ns Pmx 16 mg In 250 ml @ Titrate IV .Q0M [facility] Rx#: [id number] Piperacillin-Tazobactam 3 12.5 .375 gm In Dextrose/Water 1 50ml.bag @ 12.5 mls/hr IVPB ONCE [facility] Rx#: [id number] Piperacillin-Tazobactam 3 12.5 62.5 .375 gm In Dextrose/Water 1 50ml.bag @ 12.5 mls/hr IVPB Q8HR [facility] Rx#: [id number] Oral 1740 300 Output: Urine 600 882 340 Other: Voiding Method Indwelling Catheter Indwelling Catheter Indwelling Catheter - Exam Patient is comfortable at rest heart rate is 80 bpm remains in sinus rhythm blood pressure is 90/60 chest exam reveals good air entry without any crackles or rhonchi heart exam reveals first and second heart sounds no gallop no murmur abdomen is soft exam extremities did not reveal any edema per for pulses are felt - Labs CBC & Chem 7: 05/24/17 04:45 05/24/17 04:45 Labs: Abnormal Lab Results - Last 24 Hours (Table) 05/23/17 05/23/17 05/23/17 Range/Units 03:48 12:18 12:18 WBC (3.8-10.6) k/uL RBC (4.30-5.90) m/uL Hgb (13.0-17.5) gm/dL Hct (39.0-53.0) % Neutrophils # (1.3-7.7) k/uL Lymphocytes # (1.0-4.8) k/uL APTT (22.0-30.0) sec Sodium (137-145) mmol/L Chloride (98-107) mmol/L BUN (9-20) mg/dL Creatinine (0.66-1.25) mg/dL Glucose (74-99) mg/dL POC Glucose (mg/dL) 202 H (75-99) mg/dL Hemoglobin A1c 7.6 H (4.2-6.1) % Plasma Lactic Acid Nicholas 2.7 H* (0.7-2.0) mmol/L Calcium (8.4-10.2) mg/dL Phosphorus (2.5-4.5) mg/dL Magnesium (1.6-2.3) mg/dL Creatine Kinase (55-170) U/L 05/23/17 05/23/17 05/23/17 Range/Units 13:19 13:59 15:06 WBC (3.8-10.6) k/uL RBC (4.30-5.90) m/uL Hgb (13.0-17.5) gm/dL Hct (39.0-53.0) % Neutrophils # (1.3-7.7) k/uL Lymphocytes # (1.0-4.8) k/uL APTT (22.0-30.0) sec Sodium (137-145) mmol/L Chloride (98-107) mmol/L BUN (9-20) mg/dL Creatinine (0.66-1.25) mg/dL Glucose (74-99) mg/dL POC Glucose (mg/dL) 201 H 201 H 167 H (75-99) mg/dL Hemoglobin A1c (4.2-6.1) % Plasma Lactic Acid Nicholas (0.7-2.0) mmol/L Calcium (8.4-10.2) mg/dL Phosphorus (2.5-4.5) mg/dL Magnesium (1.6-2.3) mg/dL Creatine Kinase (55-170) U/L 05/23/17 05/23/17 05/23/17 Range/Units 15:25 16:09 17:07 WBC (3.8-10.6) k/uL RBC (4.30-5.90) m/uL Hgb (13.0-17.5) gm/dL Hct (39.0-53.0) % Neutrophils # (1.3-7.7) k/uL Lymphocytes # (1.0-4.8) k/uL APTT 58.3 H (22.0-30.0) sec Sodium (137-145) mmol/L Chloride (98-107) mmol/L BUN (9-20) mg/dL Creatinine (0.66-1.25) mg/dL Glucose (74-99) mg/dL POC Glucose (mg/dL) 120 H 119 H (75-99) mg/dL Hemoglobin A1c (4.2-6.1) % Plasma Lactic Acid Nicholas (0.7-2.0) mmol/L Calcium (8.4-10.2) mg/dL Phosphorus (2.5-4.5) mg/dL Magnesium (1.6-2.3) mg/dL Creatine Kinase (55-170) U/L 05/23/17 05/23/17 05/23/17 Range/Units 18:15 18:54 19:55 WBC (3.8-10.6) k/uL RBC (4.30-5.90) m/uL Hgb (13.0-17.5) gm/dL Hct (39.0-53.0) % Neutrophils # (1.3-7.7) k/uL Lymphocytes # (1.0-4.8) k/uL APTT (22.0-30.0) sec Sodium (137-145) mmol/L Chloride (98-107) mmol/L BUN (9-20) mg/dL Creatinine (0.66-1.25) mg/dL Glucose (74-99) mg/dL POC Glucose (mg/dL) 161 H 189 H 200 H (75-99) mg/dL Hemoglobin A1c (4.2-6.1) % Plasma Lactic Acid Nicholas (0.7-2.0) mmol/L Calcium (8.4-10.2) mg/dL Phosphorus (2.5-4.5) mg/dL Magnesium (1.6-2.3) mg/dL Creatine Kinase (55-170) U/L 05/23/17 05/23/17 05/24/17 Range/Units 22:58 23:45 00:55 WBC (3.8-10.6) k/uL RBC (4.30-5.90) m/uL Hgb (13.0-17.5) gm/dL Hct (39.0-53.0) % Neutrophils # (1.3-7.7) k/uL Lymphocytes # (1.0-4.8) k/uL APTT (22.0-30.0) sec Sodium (137-145) mmol/L Chloride (98-107) mmol/L BUN (9-20) mg/dL Creatinine (0.66-1.25) mg/dL Glucose (74-99) mg/dL POC Glucose (mg/dL) 165 H 143 H 130 H (75-99) mg/dL Hemoglobin A1c (4.2-6.1) % Plasma Lactic Acid Nicholas (0.7-2.0) mmol/L Calcium (8.4-10.2) mg/dL Phosphorus (2.5-4.5) mg/dL Magnesium (1.6-2.3) mg/dL Creatine Kinase (55-170) U/L 05/24/17 05/24/17 05/24/17 Range/Units 02:01 02:57 04:01 WBC (3.8-10.6) k/uL RBC (4.30-5.90) m/uL Hgb (13.0-17.5) gm/dL Hct (39.0-53.0) % Neutrophils # (1.3-7.7) k/uL Lymphocytes # (1.0-4.8) k/uL APTT (22.0-30.0) sec Sodium (137-145) mmol/L Chloride (98-107) mmol/L BUN (9-20) mg/dL Creatinine (0.66-1.25) mg/dL Glucose (74-99) mg/dL POC Glucose (mg/dL) 179 H 185 H 155 H (75-99) mg/dL Hemoglobin A1c (4.2-6.1) % Plasma Lactic Acid Nicholas (0.7-2.0) mmol/L Calcium (8.4-10.2) mg/dL Phosphorus (2.5-4.5) mg/dL Magnesium (1.6-2.3) mg/dL Creatine Kinase (55-170) U/L 05/24/17 05/24/17 05/24/17 Range/Units 04:45 04:45 04:45 WBC 14.7 H (3.8-10.6) k/uL RBC 3.98 L (4.30-5.90) m/uL Hgb 12.7 L (13.0-17.5) gm/dL Hct 37.7 L (39.0-53.0) % Neutrophils # 13.3 H (1.3-7.7) k/uL Lymphocytes # 0.6 L (1.0-4.8) k/uL APTT 68.4 H (22.0-30.0) sec Sodium 132 L (137-145) mmol/L Chloride 96 L (98-107) mmol/L BUN 77 H (9-20) mg/dL Creatinine 2.48 H (0.66-1.25) mg/dL Glucose 129 H (74-99) mg/dL POC Glucose (mg/dL) (75-99) mg/dL Hemoglobin A1c (4.2-6.1) % Plasma Lactic Acid Nicholas (0.7-2.0) mmol/L Calcium 7.5 L (8.4-10.2) mg/dL Phosphorus 5.7 H (2.5-4.5) mg/dL Magnesium 2.6 H (1.6-2.3) mg/dL Creatine Kinase 412 H (55-170) U/L 05/24/17 05/24/17 05/24/17 Range/Units 04:49 06:20 06:49 WBC (3.8-10.6) k/uL RBC (4.30-5.90) m/uL Hgb (13.0-17.5) gm/dL Hct (39.0-53.0) % Neutrophils # (1.3-7.7) k/uL Lymphocytes # (1.0-4.8) k/uL APTT (22.0-30.0) sec Sodium (137-145) mmol/L Chloride (98-107) mmol/L BUN (9-20) mg/dL Creatinine (0.66-1.25) mg/dL Glucose (74-99) mg/dL POC Glucose (mg/dL) 140 H 144 H 140 H (75-99) mg/dL Hemoglobin A1c (4.2-6.1) % Plasma Lactic Acid Nicholas (0.7-2.0) mmol/L Calcium (8.4-10.2) mg/dL Phosphorus (2.5-4.5) mg/dL Magnesium (1.6-2.3) mg/dL Creatine Kinase (55-170) U/L 05/24/17 05/24/17 05/24/17 Range/Units 08:18 09:12 10:08 WBC (3.8-10.6) k/uL RBC (4.30-5.90) m/uL Hgb (13.0-17.5) gm/dL Hct (39.0-53.0) % Neutrophils # (1.3-7.7) k/uL Lymphocytes # (1.0-4.8) k/uL APTT (22.0-30.0) sec Sodium (137-145) mmol/L Chloride (98-107) mmol/L BUN (9-20) mg/dL Creatinine (0.66-1.25) mg/dL Glucose (74-99) mg/dL POC Glucose (mg/dL) 148 H 233 H 220 H (75-99) mg/dL Hemoglobin A1c (4.2-6.1) % Plasma Lactic Acid Nicholas (0.7-2.0) mmol/L Calcium (8.4-10.2) mg/dL Phosphorus (2.5-4.5) mg/dL Magnesium (1.6-2.3) mg/dL Creatine Kinase (55-170) U/L 05/24/17 05/24/17 Range/Units 11:16 12:13 WBC (3.8-10.6) k/uL RBC (4.30-5.90) m/uL Hgb (13.0-17.5) gm/dL Hct (39.0-53.0) % Neutrophils # (1.3-7.7) k/uL Lymphocytes # (1.0-4.8) k/uL APTT (22.0-30.0) sec Sodium (137-145) mmol/L Chloride (98-107) mmol/L BUN (9-20) mg/dL Creatinine (0.66-1.25) mg/dL Glucose (74-99) mg/dL POC Glucose (mg/dL) 187 H 157 H (75-99) mg/dL Hemoglobin A1c (4.2-6.1) % Plasma Lactic Acid Nicholas (0.7-2.0) mmol/L Calcium (8.4-10.2) mg/dL Phosphorus (2.5-4.5) mg/dL Magnesium (1.6-2.3) mg/dL Creatine Kinase (55-170) U/L Microbiology - Last 24 Hours (Table) 05/22/17 15:34 Urine Culture - Final Urine,Catheterized Assessment and Plan Plan: Acute myocardial infarction with cardiogenic shock Acute renal failure Paroxysmal atrial fibrillation I will continue the IV heparin for today. Patient is an amiodarone which I'm going to continue patient is on Levophed which will be continued. I will take the heparin off tomorrow and consider starting him on anticoagulant.
[2017-05-24] MEDS: INSULIN LISPRO (humaLOG) 300 UNIT/3 ML VIAL SQ SCH ×3 (12:40→20:10)
[2017-05-24] MEDS: glipiZIDE 5 MG TAB PO SCH ×2 (13:03→18:10)
[2017-05-24] MEDS: guaiFENesin 600 MG TABLET.ER PO SCH ×2 (13:03→20:15)
[2017-05-24] MEDS: LACTULOSE 20 GM/30 ML CUP PO SCH ×2 (14:07→18:25)
--- NOTE | 2017-05-24 14:51 | P.PN ---
Subjective This is an 81-year-old gentleman who is a poor historian, patient of Dr. Burton More. He has underlying history of recent non-ST myocardial infarction recently discharged from our facility from 05/18/2017 to 05/21/2017 at that admission he also had trauma and lumbar contusion from a fall at home, diastolic CHF with elevated troponins, he required management of his hypoxemia with Lasix and BiPAP, he was heparinized. His peak troponin during the last admission was 21.1 Dr. alvarez has seen the patient from cardiology, and medical management was provided for the non-Q-wave ME with increasing dose off metoprolol and resumption of oral Imdur. CAT scan of the chest shows pleural effusion no discrete changes for pneumonia, he has atelectasis during this last admission, echocardiogram was performed with an EF of 45-50%, right ventricle systolic pressure less than 35, borderline concentric LVH, no aortic stenosis, mild TR and mild MR and no pericardial effusion He presented to the ER secondary to inability to walk, has a hard time walking, patient denies any chest pain or shortness of breath most likely has shortness of breath on exertion, patient denies any worsening edema, however patient is up poor historian with that regard. He complained off low back pain from where the trauma was. He she was hypotensive and dyspneic on ER evaluation, he was transferred to ICU for hemodynamic instability, required pressor agents Levophed , and IV Lasix for CHF. IV Zosyn for possible pneumonia. Liver function tests is elevated so his both the troponin and CPKs. Peak troponin is 182, escalating CPK MB with a peak of 65 Patient aortic initial BiPAP treatments at 35% FiO2. And 3 AST of 13 and 37, ALT 979, CK of 735 troponin 60. ABG of 7.47 , pCO2 of 27 [address]icarb [address] Jolly from pulmonary is on consult along with cardiology 05/24: Patient remains in the intensive care unit. He is on vasopressors. Insulin drip will be changed over to glipizide and Humalog scale before meals and at bedtime. Lumbar x-rays to be done once patient is hemodynamically stable. Renal ultrasound shows normal findings. There is minimal fluid adjacent to the liver noted. Patient is eating and drinking well. He has had adequate urine output. Repeat BUN is 77 and creatinine 2.48. He is on heparin drip and now switched to oral amiodarone. Nephrology is following for nonoliguric acute kidney injury secondary to ischemic ATN secondary to cardiogenic shock. He is continued on Lasix 40 mg IV twice daily. Echocardiogram reveals EF of less than 20%, mild mitral regurgitation, trace tricuspid regurgitation, no pulmonary hypertension, global hypokinesia. Objective - Vital Signs Vital signs: Vital Signs Temp 98.3 F 05/24/17 08:39 Pulse 73 05/24/17 08:00 Resp 30 H 05/24/17 08:00 BP 73/44 05/24/17 08:39 Pulse Ox 99 05/24/17 08:00 Intake & Output 05/23/17 05/24/17 05/24/17 18:59 06:59 18:59 Intake Total 2528.616 1055.192 396.219 Output Total 600 882 140 Balance 1928.616 173.192 256.219 Weight 95.5 kg 98.2 kg Intake: IV 410 440 60 0.9 NACL 410 440 60 Intake, IV Titration 378.616 615.192 36.219 Amount Heparin Sodium,Porcine/ 321.447 343.866 D5w Pmx 25,000 unit In Dextrose/Water 1 500ml. bag @ 11 UNITS/KG/HR 19. 95 mls/hr IV .Q24H [facility] Rx #:[id number] Insulin Regular 100 unit 27.469 23.793 In Sodium Chloride 0.9% 100 ml @ Per Protocol IV .Q0M [facility] Rx#:[id number] Norepinephrin 16 mg-0.9% 4.7 185.033 36.219 Ns Pmx 16 mg In 250 ml @ Titrate IV .Q0M [facility] Rx#: [id number] Piperacillin-Tazobactam 3 12.5 .375 gm In Dextrose/Water 1 50ml.bag @ 12.5 mls/hr IVPB ONCE [facility] Rx#: [id number] Piperacillin-Tazobactam 3 12.5 62.5 .375 gm In Dextrose/Water 1 50ml.bag @ 12.5 mls/hr IVPB Q8HR [facility] Rx#: [id number] Oral 1740 300 Output: Urine 600 882 140 Other: Voiding Method Indwelling Catheter Indwelling Catheter - Exam General appearance: no average body habitus, cooperative, no disheveled, no mild distress, no morbidly obese, no no acute distress, obese, no severe distress, no thin - EENT Eyes: no abnormal pupil, anicteric sclerae, no disc margins sharp, no edentulous , EOMI, no PERRLA, no fundus normal, no photophobia, dentition normal, no poor dentition, no ptosis, no scleral icterus, normal appearance ENT: hard of hearing, no hearing grossly normal, NA/AT, normal oropharynx, no other, no pharyngeal erythema, no thrush, no tonsillar exudates, no tonsillar swelling - Neck Neck: no lymphadenopathy, normal ROM, no other, no rigidity, no stridor, no thyromegaly - Respiratory Respiratory: bilateral: CTA, diminished, rales - Cardiovascular Rhythm: regular Abnormal Heart Sounds: systolic murmur - Gastrointestinal General gastrointestinal: normal bowel sounds, soft - Integumentary Integumentary: normal - Neurologic Neurologic: CNII-XII intact - Musculoskeletal Musculoskeletal: gait normal, strength equal bilaterally - Psychiatric Psychiatric: A&O x's 3, appropriate affect, intact judgment & insight - Labs CBC & Chem 7: 05/24/17 04:45 05/24/17 04:45 Labs: Abnormal Lab Results - Last 24 Hours (Table) 05/23/17 05/23/17 05/23/17 Range/Units 03:48 07:40 10:09 WBC (3.8-10.6) k/uL RBC (4.30-5.90) m/uL Hgb (13.0-17.5) gm/dL Hct (39.0-53.0) % Neutrophils # (1.3-7.7) k/uL Lymphocytes # (1.0-4.8) k/uL APTT (22.0-30.0) sec Sodium (137-145) mmol/L Chloride (98-107) mmol/L BUN (9-20) mg/dL Creatinine (0.66-1.25) mg/dL Glucose (74-99) mg/dL POC Glucose (mg/dL) 182 H (75-99) mg/dL Hemoglobin A1c 7.6 H (4.2-6.1) % Plasma Lactic Acid Nicholas (0.7-2.0) mmol/L Calcium (8.4-10.2) mg/dL Phosphorus (2.5-4.5) mg/dL Magnesium (1.6-2.3) mg/dL Creatine Kinase (55-170) U/L Troponin I 125.000 H* (0.000-0.034) ng/mL 05/23/17 05/23/17 05/23/17 Range/Units 11:25 12:18 12:18 WBC (3.8-10.6) k/uL RBC (4.30-5.90) m/uL Hgb (13.0-17.5) gm/dL Hct (39.0-53.0) % Neutrophils # (1.3-7.7) k/uL Lymphocytes # (1.0-4.8) k/uL APTT (22.0-30.0) sec Sodium (137-145) mmol/L Chloride (98-107) mmol/L BUN (9-20) mg/dL Creatinine (0.66-1.25) mg/dL Glucose (74-99) mg/dL POC Glucose (mg/dL) 235 H 202 H (75-99) mg/dL Hemoglobin A1c (4.2-6.1) % Plasma Lactic Acid Nicholas 2.7 H* (0.7-2.0) mmol/L Calcium (8.4-10.2) mg/dL Phosphorus (2.5-4.5) mg/dL Magnesium (1.6-2.3) mg/dL Creatine Kinase (55-170) U/L Troponin I (0.000-0.034) ng/mL 05/23/17 05/23/17 05/23/17 Range/Units 13:19 13:59 15:06 WBC (3.8-10.6) k/uL RBC (4.30-5.90) m/uL Hgb (13.0-17.5) gm/dL Hct (39.0-53.0) % Neutrophils # (1.3-7.7) k/uL Lymphocytes # (1.0-4.8) k/uL APTT (22.0-30.0) sec Sodium (137-145) mmol/L Chloride (98-107) mmol/L BUN (9-20) mg/dL Creatinine (0.66-1.25) mg/dL Glucose (74-99) mg/dL POC Glucose (mg/dL) 201 H 201 H 167 H (75-99) mg/dL Hemoglobin A1c (4.2-6.1) % Plasma Lactic Acid Nicholas (0.7-2.0) mmol/L Calcium (8.4-10.2) mg/dL Phosphorus (2.5-4.5) mg/dL Magnesium (1.6-2.3) mg/dL Creatine Kinase (55-170) U/L Troponin I (0.000-0.034) ng/mL 05/23/17 05/23/17 05/23/17 Range/Units 15:25 16:09 17:07 WBC (3.8-10.6) k/uL RBC (4.30-5.90) m/uL Hgb (13.0-17.5) gm/dL Hct (39.0-53.0) % Neutrophils # (1.3-7.7) k/uL Lymphocytes # (1.0-4.8) k/uL APTT 58.3 H (22.0-30.0) sec Sodium (137-145) mmol/L Chloride (98-107) mmol/L BUN (9-20) mg/dL Creatinine (0.66-1.25) mg/dL Glucose (74-99) mg/dL POC Glucose (mg/dL) 120 H 119 H (75-99) mg/dL Hemoglobin A1c (4.2-6.1) % Plasma Lactic Acid Nicholas (0.7-2.0) mmol/L Calcium (8.4-10.2) mg/dL Phosphorus (2.5-4.5) mg/dL Magnesium (1.6-2.3) mg/dL Creatine Kinase (55-170) U/L Troponin I (0.000-0.034) ng/mL 05/23/17 05/23/17 05/23/17 Range/Units 18:15 18:54 19:55 WBC (3.8-10.6) k/uL RBC (4.30-5.90) m/uL Hgb (13.0-17.5) gm/dL Hct (39.0-53.0) % Neutrophils # (1.3-7.7) k/uL Lymphocytes # (1.0-4.8) k/uL APTT (22.0-30.0) sec Sodium (137-145) mmol/L Chloride (98-107) mmol/L BUN (9-20) mg/dL Creatinine (0.66-1.25) mg/dL Glucose (74-99) mg/dL POC Glucose (mg/dL) 161 H 189 H 200 H (75-99) mg/dL Hemoglobin A1c (4.2-6.1) % Plasma Lactic Acid Nicholas (0.7-2.0) mmol/L Calcium (8.4-10.2) mg/dL Phosphorus (2.5-4.5) mg/dL Magnesium (1.6-2.3) mg/dL Creatine Kinase (55-170) U/L Troponin I (0.000-0.034) ng/mL 05/23/17 05/23/17 05/24/17 Range/Units 22:58 23:45 00:55 WBC (3.8-10.6) k/uL RBC (4.30-5.90) m/uL Hgb (13.0-17.5) gm/dL Hct (39.0-53.0) % Neutrophils # (1.3-7.7) k/uL Lymphocytes # (1.0-4.8) k/uL APTT (22.0-30.0) sec Sodium (137-145) mmol/L Chloride (98-107) mmol/L BUN (9-20) mg/dL Creatinine (0.66-1.25) mg/dL Glucose (74-99) mg/dL POC Glucose (mg/dL) 165 H 143 H 130 H (75-99) mg/dL Hemoglobin A1c (4.2-6.1) % Plasma Lactic Acid Nicholas (0.7-2.0) mmol/L Calcium (8.4-10.2) mg/dL Phosphorus (2.5-4.5) mg/dL Magnesium (1.6-2.3) mg/dL Creatine Kinase (55-170) U/L Troponin I (0.000-0.034) ng/mL 05/24/17 05/24/17 05/24/17 Range/Units 02:01 02:57 04:01 WBC (3.8-10.6) k/uL RBC (4.30-5.90) m/uL Hgb (13.0-17.5) gm/dL Hct (39.0-53.0) % Neutrophils # (1.3-7.7) k/uL Lymphocytes # (1.0-4.8) k/uL APTT (22.0-30.0) sec Sodium (137-145) mmol/L Chloride (98-107) mmol/L BUN (9-20) mg/dL Creatinine (0.66-1.25) mg/dL Glucose (74-99) mg/dL POC Glucose (mg/dL) 179 H 185 H 155 H (75-99) mg/dL Hemoglobin A1c (4.2-6.1) % Plasma Lactic Acid Nicholas (0.7-2.0) mmol/L Calcium (8.4-10.2) mg/dL Phosphorus (2.5-4.5) mg/dL Magnesium (1.6-2.3) mg/dL Creatine Kinase (55-170) U/L Troponin I (0.000-0.034) ng/mL 05/24/17 05/24/17 05/24/17 Range/Units 04:45 04:45 04:45 WBC 14.7 H (3.8-10.6) k/uL RBC 3.98 L (4.30-5.90) m/uL Hgb 12.7 L (13.0-17.5) gm/dL Hct 37.7 L (39.0-53.0) % Neutrophils # 13.3 H (1.3-7.7) k/uL Lymphocytes # 0.6 L (1.0-4.8) k/uL APTT 68.4 H (22.0-30.0) sec Sodium 132 L (137-145) mmol/L Chloride 96 L (98-107) mmol/L BUN 77 H (9-20) mg/dL Creatinine 2.48 H (0.66-1.25) mg/dL Glucose 129 H (74-99) mg/dL POC Glucose (mg/dL) (75-99) mg/dL Hemoglobin A1c (4.2-6.1) % Plasma Lactic Acid Nicholas (0.7-2.0) mmol/L Calcium 7.5 L (8.4-10.2) mg/dL Phosphorus 5.7 H (2.5-4.5) mg/dL Magnesium 2.6 H (1.6-2.3) mg/dL Creatine Kinase 412 H (55-170) U/L Troponin I (0.000-0.034) ng/mL 05/24/17 05/24/17 05/24/17 Range/Units 04:49 06:20 06:49 WBC (3.8-10.6) k/uL RBC (4.30-5.90) m/uL Hgb (13.0-17.5) gm/dL Hct (39.0-53.0) % Neutrophils # (1.3-7.7) k/uL Lymphocytes # (1.0-4.8) k/uL APTT (22.0-30.0) sec Sodium (137-145) mmol/L Chloride (98-107) mmol/L BUN (9-20) mg/dL Creatinine (0.66-1.25) mg/dL Glucose (74-99) mg/dL POC Glucose (mg/dL) 140 H 144 H 140 H (75-99) mg/dL Hemoglobin A1c (4.2-6.1) % Plasma Lactic Acid Nicholas (0.7-2.0) mmol/L Calcium (8.4-10.2) mg/dL Phosphorus (2.5-4.5) mg/dL Magnesium (1.6-2.3) mg/dL Creatine Kinase (55-170) U/L Troponin I (0.000-0.034) ng/mL 05/24/17 05/24/17 Range/Units 08:18 09:12 WBC (3.8-10.6) k/uL RBC (4.30-5.90) m/uL Hgb (13.0-17.5) gm/dL Hct (39.0-53.0) % Neutrophils # (1.3-7.7) k/uL Lymphocytes # (1.0-4.8) k/uL APTT (22.0-30.0) sec Sodium (137-145) mmol/L Chloride (98-107) mmol/L BUN (9-20) mg/dL Creatinine (0.66-1.25) mg/dL Glucose (74-99) mg/dL POC Glucose (mg/dL) 148 H 233 H (75-99) mg/dL Hemoglobin A1c (4.2-6.1) % Plasma Lactic Acid Nicholas (0.7-2.0) mmol/L Calcium (8.4-10.2) mg/dL Phosphorus (2.5-4.5) mg/dL Magnesium (1.6-2.3) mg/dL Creatine Kinase (55-170) U/L Troponin I (0.000-0.034) ng/mL Microbiology - Last 24 Hours (Table) 05/22/17 15:34 Urine Culture - Final Urine,Catheterized Assessment and Plan Plan: 1 Acute hypoxic respiratory failure due to acute on chronic systolic and diastolic heart failure due to non-ST elevation ME, with cardiogenic shock. Continue heparin drip. IV Levophed, aspirin 325 mg orally once every day, sublingual nitroglycerin, metoprolol 25 mg orally twice every day, hold off losartan because of his hypotension, oxygen, Lasix 40 mg IV push every 12 hours, echocardiogram, cardiology consultation, pulmonary consultation from Dr. Cyr. 2. Acute on chronic systolic and diastolic heart failure. Continue metoprolol 25 mg orally twice every day, hold off losartan for now, continue Lasix 40 mg IV push every 12 hours, continue BiPAP or oxygen support for now. Cardiology and pulmonary medicine following 3. New non-ST elevation ME with multi-organ failure including acute respiratory failure, acute shock liver, acute kidney injury. Continue aspirin 325 mg orally once every day, metoprolol 25 mg orally twice every day, statin on hold, cardiology consultation, echocardiogram as above. 4. Possible bilateral pneumonia. Start the patient on Zosyn IV piggyback every 24 hours, with recent hospitalization, hospital acquired pneumonia needs to be covered, nebulized treatment albuterol 2.5 mg every 4 hours as needed, Continue oxygen support, pulmonary consultation. 5. Shock liver with acute liver failure. Avoid hypotension. Continue to monitor liver function tests. 6. Acute nonoliguric kidney injury secondary to ischemic ATN secondary to cardiogenic shock. Avoid nephrotoxins, maintain systolic blood pressure over 110, patient was seen consultation by Dr. Norman, renal ultrasound was normal. 7. Paroxysmal atrial fibrillation. Patient is now on amiodarone 400 mg twice daily Diabetes mellitus type 2. Hold the patient metformin. Resume glipizide and discontinue insulin drip. Patient started on Humalog scale 8. Diabetic polyneuropathy. Stable at this time. With impaired balance and falls, physical therapy will be seeing the patient 9. Hyperlipidemia. Continue patient on Lipitor 10 mg orally once every day. 10. Anxiety disorder, generalized Depression, recurrent. Continue Cymbalta 60 mg orally once every day.. Continue patient on Xanax 1 mg orally twice a day as needed. Would decrease this to 0.5 mg. 3 times a day a when necessary 11 rhabdomoysis secondary to recent fall, contusion of right flank with bruising , present prior to admission, maintain IV hydration at this time monitor CPKs as well and renal function. Lumbar x-rays ordered and will be done once hemodynamically stable. 12. DVT prophylaxis. Continue heparin drip for now. 13. GI prophylaxis. Continue PPI. 14. Patient is NO code. 15. Debility with recurrent falls, contusion on the right lumbar flank area, spine x-rays to be obtained, patient would meet needing therapy at post discharge most likely subacute 16. Enlarged prostate. Continue Flomax 0.8 mg orally once every day. Discharge plan: Subacute rehab expected Impression and plan of care have been directed as dictated by the signing physician. Ping Sue nurse practitioner acting as scribe for signing physician.
--- NOTE | 2017-05-24 14:57 | XR ---
EXAMINATION TYPE: XR lumbar spine 2 or 3V DATE OF EXAM: 05/24/2017 CLINICAL HISTORY: pain TECHNIQUE: Three views of the lumbar spine are submitted. COMPARISON: None. FINDINGS: There are 5 lumbar type vertebral bodies identified. The lumbar spine shows satisfactory alignment w ithout evidence of acute fracture or dislocation. Vertebral body heights are within normal limits. Moderate degenerative disc space narrowing and spondylosis. The overlying soft tissue appears unrema rkable. IMPRESSION: No acute fracture or dislocation is seen in the lumbar spine. ICD 10 NO FRACTURE, INITIAL EVALUATION
[2017-05-24 18:08] LABS: Glucose,Whole Blood 345 mg/dL (75-99)
[2017-05-24] MEDS ORDERED: INSULIN LISPRO (humaLOG) 300 UNIT/3 ML VIAL SQ ONE (18:35)
[2017-05-24 20:03] LABS: Glucose,Whole Blood 336 mg/dL (75-99)
[2017-05-24] MEDS: traZODone HCL 100 MG TAB PO SCH (20:15)
[2017-05-25] MEDS: PIPERACILLIN-TAZOBACTAM 3.375 GM in DEXTROSE/WATER 1 50ML.BAG IVPB SCH ×4 (00:27→23:55)
[2017-05-25 02:14] LABS: Glucose,Whole Blood 184 mg/dL (75-99)
[2017-05-25] MEDS: INSULIN LISPRO (humaLOG) 300 UNIT/3 ML VIAL SQ SCH ×5 (03:10→20:23)
[2017-05-25] MEDS: NOREPINEPHRIN 16 MG-0.9%NS PMX 16 MG/250 ML ML IV SCH (04:30)
[2017-05-25 05:44] LABS: Basophils % (A) 0 %; CH 32.3; CHCM 34.7; Eosinophils % (A) 0 %; HCT 38.4 % (39.0-53.0); HGB 13.2 gm/dL (13.0-17.5); Luc # (Auto) 0.25; Luc % (Auto) 2; Lymphocytes # (A) 0.6 k/uL (1.0-4.8); Lymphocytes % (A) 4 %; MCH 32.3 pg (25.0-35.0); MCHC 34.5 g/dL (31.0-37.0); MCV 93.7 fL (80.0-100.0); Mean Platelet Volume 8.2; Monocytes # (A) 0.8 k/uL (0-1.0); Monocytes % (A) 5 %; Neutrophils # (A) 12.7 k/uL (1.3-7.7); Neutrophils % (A) 88 %; RDW 14.6 % (11.5-15.5); WBC 14.4 k/uL (3.8-10.6); WBC (Perox) 14.05
[2017-05-25] MEDS: HEPARIN SODIUM,PORCINE 5,000 UNIT/ML 1 ML VIAL IV PRN (06:08)
[2017-05-25] MEDS ORDERED: GLIMEPIRIDE 1 MG TAB PO SCH ×2 (07:30→17:30)
[2017-05-25 07:49] LABS: Calcium 7.3 mg/dL (8.4-10.2); Potassium 3.8 mmol/L (3.5-5.1)
[2017-05-25 08:00] LABS: Glucose,Whole Blood 169 mg/dL (75-99)
[2017-05-25] MEDS: DULoxetine HCL 60 MG CAPSULE.DR PO SCH (08:37)
[2017-05-25] MEDS: guaiFENesin 600 MG TABLET.ER PO SCH ×2 (08:37→19:09)
[2017-05-25] MEDS: ASPIRIN 325 MG TAB PO SCH (08:37)
[2017-05-25] MEDS: AMIODARONE 200 MG TAB PO SCH ×2 (08:38→20:13)
[2017-05-25] MEDS: LACTULOSE 20 GM/30 ML CUP PO SCH ×2 (08:38→20:12)
[2017-05-25] MEDS: TAMSULOSIN 0.4 MG CAP.ER.24H PO SCH (08:40)
[2017-05-25] MEDS: SENNOSIDES-DOCUSATE SODIUM 1 EACH TAB PO SCH (08:45)
[2017-05-25] MEDS: FUROSEMIDE 10 MG/ML 4 ML VIAL IV SCH ×2 (08:53→20:13)
[2017-05-25] MEDS: METOPROLOL TARTRATE 25 MG TAB PO SCH ×2 (09:00→22:01)
[2017-05-25 10:04] LABS: Glucose,Whole Blood 320 mg/dL (75-99)
[2017-05-25 10:04] LABS: Glucose,Whole Blood 284 mg/dL (75-99)
[2017-05-25 11:02] VITALS: BMI 33.5
[2017-05-25 12:00] LABS: Glucose,Whole Blood 364 mg/dL (75-99)
[2017-05-25] MEDS: HEPARIN SODIUM,PORCINE/D5W PMX 25,000 UNIT in DEXTROSE/WATER 1 500ML.BAG IV SCH (12:09)
--- NOTE | 2017-05-25 12:14 | P.PN ---
Subjective Principal diagnosis: Acute cardiogenic shock This is an 81-year-old gentleman who follows with Dr. More as his primary care physician. He has a history of coronary artery disease, hyperlipidemia, hypertension, osteoarthritis, benign prosthetic hypertrophy, diabetes Jeff, shingles, skin cancer. He was recently admitted here on 05/18/2017 for a non- ST segment elevation myocardial infarction. His echocardiogram revealed mildly impaired left ventricular systolic function with estimated ejection fraction 45- 50%. He was seen and evaluated by cardiology who plan to treat the patient medically. He was seen and evaluated by Dr. Cyr as well for acute hypoxic respiratory failure which was felt to be status post blunt trauma to the right chest. His x-ray at that time revealed coarse interstitial infiltrates bilaterally. Computed tomography scan of the chest revealed atherosclerotic valvular disease, pleural effusions with basilar pulmonary infiltrates and atelectasis. The patient had recovered well and was seen last yesterday prior to his discharge he had no pulmonary complaints. No complaints of chest pain and he was discharged home. He presented here to the emergency room today with complaints of significant lower extremity weakness and shortness of breath. His chest x-ray as compared to one on 05/18/2017 showed improvement enzymes status. There is still suspected basilar pleural effusions with associated atelectasis. He did have some issues with hypoxia initially presenting on room air at 93% however he is now on BiPAP at 35% FiO2. He is initially hypotensive but not initiated on pressors. Current blood pressure 94/52 with a mean arterial pressure of 66. He is slightly tachycardic at 103. Lab results reveal a potassium of 6.4. AST 1337, ALT 979, total creatinine kinase of 735 with a troponin of 60.6. Patient was reevaluated today on 05/23/2017, seems to be doing surprisingly better than expected. Patient remains on norepinephrine for low blood pressure at 5 mcg/m, urine output seems to be picking up this morning about 50 mL per hour. Mental status seems to be much improved compared to yesterday. Patient is intermittently on BiPAP and on nasal cannula. Denies any specific complaints , no shortness of breath, no chest pain, no nausea, no vomiting, patient is actually sitting in bed and eating his breakfast. WBC count is 15.4 hemoglobin is 13.5 PTT is 36.5. BUN is about the same at 68 creatinine is about the same at 2.50 sugar is well controlled 190 today. Liver enzymes are much higher today compared to yesterday, patient basically has a shock liver. Troponin is coming down from 180 to yesterday, today it is 125. Chest x-ray is showing mostly atelectasis in the right lower lobe and small left pleural effusion. Patient was reevaluated today on 05/24/2017, remains on 5 g of norepinephrine, blood pressure remains marginal. Urine output is also marginal about 40 mL per hour. Mental status continues to improve. Patient is on 4 L nasal cannula, off BiPAP. He denies any specific complaints, no shortness of breath no cough no wheezing no chest pain. No nausea no vomiting no abdominal pain. The UVC count is 14.7 hemoglobin is 12.7. PTT is 68.4. Chest x-ray is showing increased opacity in the right lung significance of which is not clear, could very well be an early infiltrate, patient is on Zosyn. Reevaluated today on 05/25/2017, patient is now on a higher dose of norepinephrine , 20 mcg/m, however his mean arterial pressure is in the high 70s, and I recommended cutting down the norepinephrine to a lower dose and titrate to a mean arterial pressure of 65. His urine output seems to be picking up nicely, much improved. Mental status continues to improve. Patient remains on nasal cannula at 4 L. Off BiPAP. Relatively asymptomatic, no cough no wheezing no shortness of breath no chest pain no nausea no vomiting and no abdominal pain. CBC showed leukocytosis with WBC count of 14.4, PTT is therapeutic at 44.5. Basic metabolic profile is normal, BUN is 79 creatinine is 2.08 and significantly improved compared to admission creatinine. No chest x-ray was done today, however the chest x-ray will be ordered for a.m. Objective - Vital Signs Vital signs: Vital Signs Temp 98.4 F 05/25/17 09:00 Pulse 110 H 05/25/17 11:00 Resp 20 05/25/17 11:00 BP 100/58 05/25/17 11:00 Pulse Ox 96 05/25/17 11:00 Intake & Output 05/24/17 05/25/17 05/25/17 18:59 06:59 18:59 Intake Total 7302.546 0022.338 701.925 Output Total 1045 2200 350 Balance 365.952 -270.662 351.925 Weight 98.5 kg 99.9 kg Intake: IV 330 390 90 0.9 NACL 330 390 90 Intake, IV Titration 80.952 1139.338 111.925 Amount Heparin Sodium,Porcine/ 808.4 D5w Pmx 25,000 unit In Dextrose/Water 1 500ml. bag @ 11 UNITS/KG/HR 19. 95 mls/hr IV .Q24H KIM Rx #:[id number] Insulin Regular 100 unit 15.985 In Sodium Chloride 0.9% 100 ml @ Per Protocol IV .Q0M KIM Rx#:[id number] Norepinephrin 16 mg-0.9% 64.967 280.938 111.925 Ns Pmx 16 mg In 250 ml @ Titrate IV .Q0M KIM Rx#: [id number] Piperacillin-Tazobactam 3 50 .375 gm In Dextrose/Water 1 50ml.bag @ 12.5 mls/hr IVPB Q8HR KIM Rx#: [id number] Oral 1000 400 500 Output: Urine 1045 2200 350 Other: Voiding Method Indwelling Catheter Indwelling Catheter - Exam GENERAL EXAM: Alert oriented 3, HEAD: Normocephalic. EYES: Normal reaction of pupils, equal size. NOSE: Clear with pink turbinates. THROAT: No erythema or exudates. NECK: No masses, no JVD. CHEST: No chest wall deformity. LUNGS: Equal air entry with faint crackles in the posterior bases.. CVS: S1 and S2 normal with no audible murmurs, regular rhythm. ABDOMEN: No hepatosplenomegaly, normal bowel sounds, no guarding or rigidity. Extremities: There is trace peripheral edema. No clubbing, no cyanosis. Peripheral pulses are intact. - Labs CBC & Chem 7: 05/25/17 05:05 05/25/17 05:05 Labs: Abnormal Lab Results - Last 24 Hours (Table) 05/24/17 05/24/17 05/24/17 Range/Units 12:13 18:06 20:01 WBC (3.8-10.6) k/uL RBC (4.30-5.90) m/uL Hct (39.0-53.0) % Neutrophils # (1.3-7.7) k/uL Lymphocytes # (1.0-4.8) k/uL APTT (22.0-30.0) sec Sodium (137-145) mmol/L Chloride (98-107) mmol/L BUN (9-20) mg/dL Creatinine (0.66-1.25) mg/dL Glucose (74-99) mg/dL POC Glucose (mg/dL) 157 H 345 H 336 H (75-99) mg/dL Calcium (8.4-10.2) mg/dL 05/25/17 05/25/17 05/25/17 Range/Units 02:12 05:05 05:05 WBC 14.4 H (3.8-10.6) k/uL RBC 4.10 L (4.30-5.90) m/uL Hct 38.4 L (39.0-53.0) % Neutrophils # 12.7 H (1.3-7.7) k/uL Lymphocytes # 0.6 L (1.0-4.8) k/uL APTT 44.5 H (22.0-30.0) sec Sodium (137-145) mmol/L Chloride (98-107) mmol/L BUN (9-20) mg/dL Creatinine (0.66-1.25) mg/dL Glucose (74-99) mg/dL POC Glucose (mg/dL) 184 H (75-99) mg/dL Calcium (8.4-10.2) mg/dL 05/25/17 05/25/17 05/25/17 Range/Units 05:05 07:58 09:59 WBC (3.8-10.6) k/uL RBC (4.30-5.90) m/uL Hct (39.0-53.0) % Neutrophils # (1.3-7.7) k/uL Lymphocytes # (1.0-4.8) k/uL APTT (22.0-30.0) sec Sodium 133 L (137-145) mmol/L Chloride 96 L (98-107) mmol/L BUN 79 H (9-20) mg/dL Creatinine 2.08 H (0.66-1.25) mg/dL Glucose 124 H (74-99) mg/dL POC Glucose (mg/dL) 169 H 320 H (75-99) mg/dL Calcium 7.3 L (8.4-10.2) mg/dL 05/25/17 05/25/17 Range/Units 10:02 11:59 WBC (3.8-10.6) k/uL RBC (4.30-5.90) m/uL Hct (39.0-53.0) % Neutrophils # (1.3-7.7) k/uL Lymphocytes # (1.0-4.8) k/uL APTT (22.0-30.0) sec Sodium (137-145) mmol/L Chloride (98-107) mmol/L BUN (9-20) mg/dL Creatinine (0.66-1.25) mg/dL Glucose (74-99) mg/dL POC Glucose (mg/dL) 284 H 364 H (75-99) mg/dL Calcium (8.4-10.2) mg/dL Assessment and Plan Plan: #1 acute Cardiogenic shock secondary to acute myocardial infarction. #2 Elevated LFTs secondary to above. Being monitored #3 Hyperkalemia with metabolic lactic acidosis. Resolved. #4 Acute hypoxic respiratory failure secondary to above currently on 4 L nasal cannula, improving #5 Recent discharge following non-ST segment elevation myocardial infarction. 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 #7 Diabetes mellitus, type II with significant hyperglycemia initial blood glucose of 610. Patient remains on insulin drip intermittently #8 Diabetic peripheral neuropathy. #9 Hyperlipidemia. #10 History of depression/anxiety. #11 History of skin cancer. #12 Benign prostatic hypertrophy. #13 Hearing-impaired. #14 Recent fall. #15 Poor overall functional performance based on the above-mentioned multiple comorbidities. Recommendation: Continue present supportive care measures, continue norepinephrine, continue BiPAP as needed, continue heparin drip, continue insulin drip, continue antibiotics empirically, continue Lasix 40 mg IV push every 12 hours, continue amiodarone, and continue beta blockers as well as Nitrostat. Prognosis remains extremely poor and guarded, we'll continue to follow closely in the ICU. Discussed his condition with his at bedside. Time with Patient: Less than 30
[2017-05-25] MEDS ORDERED: INSULIN LISPRO (humaLOG) 300 UNIT/3 ML VIAL SQ ONE (13:13)
--- NOTE | 2017-05-25 13:53 | P.PN ---
Subjective Principal diagnosis: Acute myocardial infarction with cardiogenic shock Patient is doing much better urine output has improved renal functions are getting better he is on IV Lasix echocardiogram shows severe LV dysfunction. Patient still remains in cardiogenic shock with hypotension related to recent large myocardial infarction is not a candidate for invasive angiography. Will continue with aggressive medical therapy Patient is reevaluated today. He is feeling much better. Urine output has improved. Renal functions have improved. I'm going to stop the IV heparin put him on a liquid is 2.5 mg twice a day. Still on pressors. Objective - Vital Signs Vital signs: Vital Signs Temp 98.0 F 05/25/17 13:00 Pulse 107 H 05/25/17 13:20 Resp 16 05/25/17 13:20 BP 102/52 05/25/17 13:20 Pulse Ox 100 05/25/17 13:20 Intake & Output 05/24/17 05/25/17 05/25/17 18:59 06:59 18:59 Intake Total 4157.078 0633.338 1723.525 Output Total 1045 2200 675 Balance 365.952 -944.675 6279.525 Weight 98.5 kg 99.9 kg Intake: IV 330 390 180 0.9 NACL 330 390 180 Intake, IV Titration 80.952 1139.338 303.525 Amount Heparin Sodium,Porcine/ 808.4 191.6 D5w Pmx 25,000 unit In Dextrose/Water 1 500ml. bag @ 11 UNITS/KG/HR 19. 95 mls/hr IV .Q24H [facility] Rx #:[id number] Insulin Regular 100 unit 15.985 In Sodium Chloride 0.9% 100 ml @ Per Protocol IV .Q0M KIM Rx#:[id number] Norepinephrin 16 mg-0.9% 64.967 280.938 111.925 Ns Pmx 16 mg In 250 ml @ Titrate IV .Q0M KIM Rx#: [id number] Piperacillin-Tazobactam 3 50 .375 gm In Dextrose/Water 1 50ml.bag @ 12.5 mls/hr IVPB Q8HR K[facility] Rx#: [id number] Oral 8640 659 0163 Output: Urine 1045 2200 675 Other: Voiding Method Indwelling Catheter Indwelling Catheter - Exam Patient is comfortable at rest heart rate is 80 did not 100 bpm blood pressure is 90/60 chest exam reveals diminished air entry with occasional rhonchi bilaterally heart exam reveals first and second heart sounds no gallop abdomen is soft exam extremities did not reveal any edema - Labs CBC & Chem 7: 05/25/17 05:05 05/25/17 05:05 Labs: Abnormal Lab Results - Last 24 Hours (Table) 05/24/17 05/24/17 05/25/17 Range/Units 18:06 20:01 02:12 WBC (3.8-10.6) k/uL RBC (4.30-5.90) m/uL Hct (39.0-53.0) % Neutrophils # (1.3-7.7) k/uL Lymphocytes # (1.0-4.8) k/uL APTT (22.0-30.0) sec Sodium (137-145) mmol/L Chloride (98-107) mmol/L BUN (9-20) mg/dL Creatinine (0.66-1.25) mg/dL Glucose (74-99) mg/dL POC Glucose (mg/dL) 345 H 336 H 184 H (75-99) mg/dL Calcium (8.4-10.2) mg/dL 05/25/17 05/25/17 05/25/17 Range/Units 05:05 05:05 05:05 WBC 14.4 H (3.8-10.6) k/uL RBC 4.10 L (4.30-5.90) m/uL Hct 38.4 L (39.0-53.0) % Neutrophils # 12.7 H (1.3-7.7) k/uL Lymphocytes # 0.6 L (1.0-4.8) k/uL APTT 44.5 H (22.0-30.0) sec Sodium 133 L (137-145) mmol/L Chloride 96 L (98-107) mmol/L BUN 79 H (9-20) mg/dL Creatinine 2.08 H (0.66-1.25) mg/dL Glucose 124 H (74-99) mg/dL POC Glucose (mg/dL) (75-99) mg/dL Calcium 7.3 L (8.4-10.2) mg/dL 05/25/17 05/25/17 05/25/17 Range/Units 07:58 09:59 10:02 WBC (3.8-10.6) k/uL RBC (4.30-5.90) m/uL Hct (39.0-53.0) % Neutrophils # (1.3-7.7) k/uL Lymphocytes # (1.0-4.8) k/uL APTT (22.0-30.0) sec Sodium (137-145) mmol/L Chloride (98-107) mmol/L BUN (9-20) mg/dL Creatinine (0.66-1.25) mg/dL Glucose (74-99) mg/dL POC Glucose (mg/dL) 169 H 320 H 284 H (75-99) mg/dL Calcium (8.4-10.2) mg/dL 05/25/17 Range/Units 11:59 WBC (3.8-10.6) k/uL RBC (4.30-5.90) m/uL Hct (39.0-53.0) % Neutrophils # (1.3-7.7) k/uL Lymphocytes # (1.0-4.8) k/uL APTT (22.0-30.0) sec Sodium (137-145) mmol/L Chloride (98-107) mmol/L BUN (9-20) mg/dL Creatinine (0.66-1.25) mg/dL Glucose (74-99) mg/dL POC Glucose (mg/dL) 364 H (75-99) mg/dL Calcium (8.4-10.2) mg/dL Assessment and Plan Plan: Acute myocardial infarction cardiogenic shock Hypotension Chronic renal insufficiency . The IV heparin start on a eliquis continue the pressors
--- NOTE | 2017-05-25 16:30 | P.PN ---
Subjective This is an 81-year-old gentleman who is a poor historian, patient of Dr. Burton More. He has underlying history of recent non-ST myocardial infarction recently discharged from our facility from 05/18/2017 to 05/21/2017 at that admission he also had trauma and lumbar contusion from a fall at home, diastolic CHF with elevated troponins, he required management of his hypoxemia with Lasix and BiPAP, he was heparinized. His peak troponin during the last admission was 21.1 Dr. alvarez has seen the patient from cardiology, and medical management was provided for the non-Q-wave SC with increasing dose off metoprolol and resumption of oral Imdur. CAT scan of the chest shows pleural effusion no discrete changes for pneumonia, he has atelectasis during this last admission, echocardiogram was performed with an EF of 45-50%, right ventricle systolic pressure less than 35, borderline concentric LVH, no aortic stenosis, mild TR and mild MR and no pericardial effusion He presented to the ER secondary to inability to walk, has a hard time walking, patient denies any chest pain or shortness of breath most likely has shortness of breath on exertion, patient denies any worsening edema, however patient is up poor historian with that regard. He complained off low back pain from where the trauma was. He she was hypotensive and dyspneic on ER evaluation, he was transferred to ICU for hemodynamic instability, required pressor agents Levophed , and IV Lasix for CHF. IV Zosyn for possible pneumonia. Liver function tests is elevated so his both the troponin and CPKs. Peak troponin is 182, escalating CPK MB with a peak of 65 Patient aortic initial BiPAP treatments at 35% FiO2. And 3 AST of 13 and 37, ALT 979, CK of 735 troponin 60. ABG of 7.47 , pCO2 of 27 [address]icarb [address] Jolly from pulmonary is on consult along with cardiology 05/24: Patient remains in the intensive care unit. He is on vasopressors. Insulin drip will be changed over to glipizide and Humalog scale before meals and at bedtime. Lumbar x-rays to be done once patient is hemodynamically stable. Renal ultrasound shows normal findings. There is minimal fluid adjacent to the liver noted. Patient is eating and drinking well. He has had adequate urine output. Repeat BUN is 77 and creatinine 2.48. He is on heparin drip and now switched to oral amiodarone. Nephrology is following for nonoliguric acute kidney injury secondary to ischemic ATN secondary to cardiogenic shock. He is continued on Lasix 40 mg IV twice daily. Echocardiogram reveals EF of less than 20%, mild mitral regurgitation, trace tricuspid regurgitation, no pulmonary hypertension, global hypokinesia. patient remains in ICU, still on Levophed still titrated up to bp currently at 12 mics patient clinically feels better however b but still without appetite, blood sugars elevated, glimepiride increased to3 mg twice a day with coverage, with low titration secondary to CK D 3 patient might need Levemir Objective - Vital Signs Vital signs: Vital Signs Temp 98.0 F 05/25/17 13:00 Pulse 112 H 05/25/17 15:00 Resp 29 H 05/25/17 15:00 BP 95/59 05/25/17 15:00 Pulse Ox 93 L 05/25/17 15:00 Intake & Output 05/24/17 05/25/17 05/25/17 18:59 06:59 18:59 Intake Total 6838.992 5734.338 1783.525 Output Total 1045 2200 900 Balance 365.952 -270.662 883.525 Weight 98.5 kg 99.9 kg Intake: IV 330 390 240 0.9 NACL 330 390 240 Intake, IV Titration 80.952 1139.338 303.525 Amount Heparin Sodium,Porcine/ 808.4 191.6 D5w Pmx 25,000 unit In Dextrose/Water 1 500ml. bag @ 11 UNITS/KG/HR 19. 95 mls/hr IV .Q24H [facility] Rx #:[id number] Insulin Regular 100 unit 15.985 In Sodium Chloride 0.9% 100 ml @ Per Protocol IV .Q0M KIM Rx#:[id number] Norepinephrin 16 mg-0.9% 64.967 280.938 111.925 Ns Pmx 16 mg In 250 ml @ Titrate IV .Q0M KIM Rx#: [id number] Piperacillin-Tazobactam 3 50 .375 gm In Dextrose/Water 1 50ml.bag @ 12.5 mls/hr IVPB Q8HR KIM Rx#: [id number] Oral [id number] [id number] 3060 Output: Urine 1045 2200 900 Other: Voiding Method Indwelling Catheter Indwelling Catheter Indwelling Catheter - Constitutional General appearance: Present: cooperative, no acute distress - EENT Eyes: Present: anicteric sclerae, EOMI, dentition normal, normal appearance ENT: Present: NA/AT - Neck Neck: Present: normal ROM - Respiratory Respiratory: bilateral: CTA, diminished, rales, negative: dullness, rhonchi, wheezing - Cardiovascular Rhythm: regular Heart sounds: normal: S1 Abnormal Heart Sounds: Present: systolic murmur - Gastrointestinal General gastrointestinal: Present: normal bowel sounds, soft - Integumentary Integumentary: Present: decreased turgor, normal - Neurologic Neurologic: Present: CNII-XII intact - Musculoskeletal Musculoskeletal: Present: generalized weakness, strength equal bilaterally - Psychiatric Psychiatric: Present: A&O x's 3, appropriate affect - Labs CBC & Chem 7: 05/25/17 05:05 05/25/17 05:05 Labs: Abnormal Lab Results - Last 24 Hours (Table) 05/24/17 05/24/17 05/25/17 Range/Units 18:06 20:01 02:12 WBC (3.8-10.6) k/uL RBC (4.30-5.90) m/uL Hct (39.0-53.0) % Neutrophils # (1.3-7.7) k/uL Lymphocytes # (1.0-4.8) k/uL APTT (22.0-30.0) sec Sodium (137-145) mmol/L Chloride (98-107) mmol/L BUN (9-20) mg/dL Creatinine (0.66-1.25) mg/dL Glucose (74-99) mg/dL POC Glucose (mg/dL) 345 H 336 H 184 H (75-99) mg/dL Calcium (8.4-10.2) mg/dL 05/25/17 05/25/17 05/25/17 Range/Units 05:05 05:05 05:05 WBC 14.4 H (3.8-10.6) k/uL RBC 4.10 L (4.30-5.90) m/uL Hct 38.4 L (39.0-53.0) % Neutrophils # 12.7 H (1.3-7.7) k/uL Lymphocytes # 0.6 L (1.0-4.8) k/uL APTT 44.5 H (22.0-30.0) sec Sodium 133 L (137-145) mmol/L Chloride 96 L (98-107) mmol/L BUN 79 H (9-20) mg/dL Creatinine 2.08 H (0.66-1.25) mg/dL Glucose 124 H (74-99) mg/dL POC Glucose (mg/dL) (75-99) mg/dL Calcium 7.3 L (8.4-10.2) mg/dL 05/25/17 05/25/17 05/25/17 Range/Units 07:58 09:59 10:02 WBC (3.8-10.6) k/uL RBC (4.30-5.90) m/uL Hct (39.0-53.0) % Neutrophils # (1.3-7.7) k/uL Lymphocytes # (1.0-4.8) k/uL APTT (22.0-30.0) sec Sodium (137-145) mmol/L Chloride (98-107) mmol/L BUN (9-20) mg/dL Creatinine (0.66-1.25) mg/dL Glucose (74-99) mg/dL POC Glucose (mg/dL) 169 H 320 H 284 H (75-99) mg/dL Calcium (8.4-10.2) mg/dL 05/25/17 Range/Units 11:59 WBC (3.8-10.6) k/uL RBC (4.30-5.90) m/uL Hct (39.0-53.0) % Neutrophils # (1.3-7.7) k/uL Lymphocytes # (1.0-4.8) k/uL APTT (22.0-30.0) sec Sodium (137-145) mmol/L Chloride (98-107) mmol/L BUN (9-20) mg/dL Creatinine (0.66-1.25) mg/dL Glucose (74-99) mg/dL POC Glucose (mg/dL) 364 H (75-99) mg/dL Calcium (8.4-10.2) mg/dL Assessment and Plan Plan: 1 Acute hypoxic respiratory failure due to acute on chronic systolic and diastolic heart failure due to non-ST elevation SC, with cardiogenic shock. Continue heparin drip. IV Levophed, aspirin 325 mg orally once every day, sublingual nitroglycerin, metoprolol 25 mg orally twice every day, hold off losartan because of his hypotension, oxygen, Lasix 40 mg IV push every 12 hours, echocardiogram, cardiology consultation, pulmonary consultation from Dr. Cyr. New ejection fraction 20% from previous of 40% 2. Acute on chronic systolic and diastolic heart failure. Continue metoprolol 25 mg orally twice every day, hold off losartan for now, continue Lasix 40 mg IV push every 12 hours, continue BiPAP or oxygen support for now. Cardiology and pulmonary medicine following 3. New non-ST elevation SC with multi-organ failure including acute respiratory failure, acute shock liver, acute kidney injury. Continue aspirin 325 mg orally once every day, metoprolol 25 mg orally twice every day, statin on hold, cardiology consultation, echocardiogram as above. 4. Possible bilateral pneumonia. Start the patient on Zosyn IV piggyback every 24 hours, with recent hospitalization, hospital acquired pneumonia needs to be covered, nebulized treatment albuterol 2.5 mg every 4 hours as needed, Continue oxygen support, pulmonary consultation. 5. Shock liver with acute liver failure. Avoid hypotension. Continue to monitor liver function tests. 6. Acute nonoliguric kidney injury secondary to ischemic ATN secondary to cardiogenic shock. Avoid nephrotoxins, maintain systolic blood pressure over 110, patient was seen consultation by Dr. Norman, renal ultrasound was normal. 7. Paroxysmal atrial fibrillation. Patient is now on amiodarone 400 mg twice daily Diabetes mellitus type 2. Uncontrolled, A1c of 7.6 Hold the patient metformin. Glipizide changed to glimepiride 3 mg twice a day from 1.5 mg twice a day and discontinue insulin drip. Titrate slowly, Patient started on Humalog scale patient might need Levemir 8. Diabetic polyneuropathy uncontrolled diabetes mellitus2. Stable at this time. With impaired balance and falls, physical therapy will be seeing the patient 9. Hyperlipidemia. Continue patient on Lipitor 10 mg orally once every day. 10. Anxiety disorder, generalized Depression, recurrent. Continue Cymbalta 60 mg orally once every day.. Continue patient on Xanax 1 mg orally twice a day as needed. Would decrease this to 0.5 mg. 3 times a day a when necessary 11 rhabdomoysis secondary to recent fall, contusion of right flank with bruising , present prior to admission, maintain IV hydration at this time monitor CPKs as well and renal function. Lumbar x-rays ordered and will be done once hemodynamically stable. 12. DVT prophylaxis. Continue heparin drip for now. 13. GI prophylaxis. Continue PPI. 14. Patient is NO code. 15. Debility with recurrent falls, contusion on the right lumbar flank area, spine x-rays to be obtained, patient would meet needing therapy at post discharge most likely subacute 16. Enlarged prostate. Continue Flomax 0.8 mg orally once every day. Discharge plan: Subacute rehab expected
[2017-05-25 17:38] LABS: Glucose,Whole Blood 431 mg/dL (75-99)
[2017-05-25] MEDS: MAG HYDROX/AL HYDROX/SIMETH 30 ML CUP PO PRN (20:10)
[2017-05-25] MEDS: APIXABAN 2.5 MG TABLET PO SCH (20:13)
[2017-05-25 20:14] LABS: Glucose,Whole Blood 330 mg/dL (75-99)
[2017-05-25] MEDS: INSULIN DETEMIR 100 UNIT/ML 10 ML VIAL SQ SCH (20:23)
[2017-05-25] MEDS: LEVALBUTEROL NEB 1.25 MG/3 ML AMP INHALATION PRN (21:29)
[2017-05-25] MEDS ORDERED: ALBUMIN HUMAN 25% 50 ML in EMPTY BAG 1 BAG IVPB SCH ×2 (21:30→22:30)
[2017-05-25] MEDS: ALPRAZolam 0.5 MG TAB PO PRN (22:01)
--- NOTE | 2017-05-25 22:06 | XR ---
EXAMINATION TYPE: XR chest 1V portable DATE OF EXAM: 05/25/2017 COMPARISON: Yesterday HISTORY: Short of breath TECHNIQUE: Single frontal view of the chest is obtained. FINDINGS: There is pulmonary vascular congestion. There is blunting of costophrenic angles. There is a right central venous catheter with tip in the right atrium. There is no pneumothorax. There are ch est leads. IMPRESSION: Congestive heart failure with pleural effusions. No significant change compared to yeste rday.
[2017-05-25] MEDS: MIDODRINE 5 MG TAB PO SCH (22:23)
[2017-05-25] MEDS: ALBUMIN HUMAN 25% 50 ML in EMPTY BAG 1 BAG IVPB SCH ×2 (22:24→22:34)
[2017-05-25] MEDS: traZODone HCL 100 MG TAB PO SCH ×2 (22:33→23:56)
[2017-05-26 01:48] LABS: Glucose,Whole Blood 153 mg/dL (75-99)
[2017-05-26 03:11] LABS: Glucose,Whole Blood 174 mg/dL (75-99)
[2017-05-26 03:31] LABS: Glucose,Whole Blood 160 mg/dL (75-99)
[2017-05-26] MEDS ORDERED: SODIUM CHLORIDE 0.9% 1,000 ML IV ONE (05:53)
[2017-05-26 06:12] LABS: Basophils % (A) 0 %; CH 30.8; CHCM 33.1; Eosinophils % (A) 0 %; HCT 35.5 % (39.0-53.0); HDW 2.66; Luc # (Auto) 0.23; Luc % (Auto) 2; Lymphocytes # (A) 0.5 k/uL (1.0-4.8); Lymphocytes % (A) 4 %; MCH 31.5 pg (25.0-35.0); MCHC 33.7 g/dL (31.0-37.0); MCV 93.5 fL (80.0-100.0); Mean Platelet Volume 8.1; Monocytes # (A) 0.5 k/uL (0-1.0); Monocytes % (A) 4 %; Neutrophils # (A) 11.5 k/uL (1.3-7.7); Neutrophils % (A) 90 %; RDW 13.6 % (11.5-15.5); WBC 12.8 k/uL (3.8-10.6); WBC (Perox) 13.71
[2017-05-26 06:32] LABS: Calcium 7.3 mg/dL (8.4-10.2); Potassium 4.3 mmol/L (3.5-5.1); Total Bilirubin 0.7 mg/dL (0.2-1.3); Total Protein 5.7 g/dL (6.3-8.2)
[2017-05-26 06:46] LABS: Glucose,Whole Blood 169 mg/dL (75-99)
[2017-05-26] MEDS: MIDODRINE 5 MG TAB PO SCH (07:10)
[2017-05-26] MEDS: GLIMEPIRIDE 4 MG TAB PO SCH ×2 (07:17→18:10)
[2017-05-26 07:47] LABS: Glucose,Whole Blood 157 mg/dL (75-99)
[2017-05-26] MEDS: INSULIN LISPRO (humaLOG) 300 UNIT/3 ML VIAL SQ SCH ×4 (08:13→21:13)
[2017-05-26] MEDS: PIPERACILLIN-TAZOBACTAM 3.375 GM in DEXTROSE/WATER 1 50ML.BAG IVPB SCH ×3 (08:15→23:53)
[2017-05-26] MEDS: AMIODARONE 200 MG TAB PO SCH ×2 (08:16→19:58)
[2017-05-26] MEDS: FUROSEMIDE 10 MG/ML 4 ML VIAL IV SCH ×3 (08:16→23:49)
[2017-05-26] MEDS: APIXABAN 2.5 MG TABLET PO SCH ×2 (08:16→19:58)
[2017-05-26] MEDS: ASPIRIN 325 MG TAB PO SCH (08:16)
[2017-05-26] MEDS: guaiFENesin 600 MG TABLET.ER PO SCH ×2 (08:16→19:58)
[2017-05-26] MEDS: LACTULOSE 20 GM/30 ML CUP PO SCH (08:17)
[2017-05-26] MEDS: DULoxetine HCL 60 MG CAPSULE.DR PO SCH (08:17)
[2017-05-26] MEDS: METOPROLOL TARTRATE 25 MG TAB PO SCH (08:18)
[2017-05-26] MEDS: SENNOSIDES-DOCUSATE SODIUM 1 EACH TAB PO SCH (08:18)
[2017-05-26] MEDS: TAMSULOSIN 0.4 MG CAP.ER.24H PO SCH (08:19)
[2017-05-26] MEDS: LEVALBUTEROL NEB 1.25 MG/3 ML AMP INHALATION PRN ×3 (09:16→21:24)
[2017-05-26] MEDS: NOREPINEPHRIN 16 MG-0.9%NS PMX 16 MG/250 ML ML IV SCH ×2 (09:48→23:48)
--- NOTE | 2017-05-26 09:52 | P.PN ---
Subjective Agent is seen for follow-up for acute kidney injury secondary to cardiorenal syndrome and hypotension. Urine output has been quite good. Patient is maintained on Lasix at 40 mg every 12 hours. His blood pressure overnight had dropped and therefore the levo fed has been increased to about 20 to mics. Patient did get a dose of Lopressor and the dose has been decreased to 25 mg which and it is currently on hold. No new fever no diarrhea patient is currently maintained on BiPAP. Renal function has been improving. Objective - Vital Signs Vital signs: Vital Signs Temp 98.0 F 05/26/17 08:00 Pulse 101 H 05/26/17 09:35 Resp 31 H 05/26/17 09:00 BP 96/59 05/26/17 09:00 Pulse Ox 100 05/26/17 09:00 Intake & Output 05/25/17 05/26/17 05/26/17 18:59 06:59 18:59 Intake Total 1843.525 500 202.137 Output Total 1075 515 400 Balance 768.525 -15 -197.863 Weight 99.9 kg 99.6 kg Intake: IV 300 500 95.0 0.9 NACL 300 300 70 Albumin Human 25% 50 ml 200 In Empty Bag 1 bag @ 100 mls/hr IVPB Q12H K[facility] Rx#: [id number] zosyn 25.0 Intake, IV Titration 303.525 107.137 Amount Heparin Sodium,Porcine/ 191.6 D5w Pmx 25,000 unit In Dextrose/Water 1 500ml. bag @ 11 UNITS/KG/HR 19. 95 mls/hr IV .Q24H KIM Rx #:[id number] Norepinephrin 16 mg-0.9% 111.925 107.137 Ns Pmx 16 mg In 250 ml @ Titrate IV .Q0M KIM Rx#: [id number] Oral 1240 Output: Urine 1075 515 400 Other: Voiding Method Indwelling Catheter Indwelling Catheter Indwelling Catheter # Bowel Movements 1 - Exam Examination patient is comfortable blood pressure 96/59. Heart rate 10 1/m. Patient is afebrile Examination of the heart S1 and S2 Examination lungs decreased breath sounds bases. Basal crackles are heard bilaterally. Abdomen is soft nontender Examination lower extremities shows chronic skin changes trace edema bilaterally. - Labs CBC & Chem 7: 05/26/17 05:50 05/26/17 05:50 Labs: Abnormal Lab Results - Last 24 Hours (Table) 05/25/17 05/25/17 05/25/17 Range/Units 09:59 10:02 11:59 WBC (3.8-10.6) k/uL RBC (4.30-5.90) m/uL Hgb (13.0-17.5) gm/dL Hct (39.0-53.0) % Neutrophils # (1.3-7.7) k/uL Lymphocytes # (1.0-4.8) k/uL Sodium (137-145) mmol/L Chloride (98-107) mmol/L BUN (9-20) mg/dL Creatinine (0.66-1.25) mg/dL Glucose (74-99) mg/dL POC Glucose (mg/dL) 320 H 284 H 364 H (75-99) mg/dL Calcium (8.4-10.2) mg/dL AST (17-59) U/L ALT (21-72) U/L Total Protein (6.3-8.2) g/dL Albumin (3.5-5.0) g/dL 05/25/17 05/25/17 05/26/17 Range/Units 17:34 20:11 01:46 WBC (3.8-10.6) k/uL RBC (4.30-5.90) m/uL Hgb (13.0-17.5) gm/dL Hct (39.0-53.0) % Neutrophils # (1.3-7.7) k/uL Lymphocytes # (1.0-4.8) k/uL Sodium (137-145) mmol/L Chloride (98-107) mmol/L BUN (9-20) mg/dL Creatinine (0.66-1.25) mg/dL Glucose (74-99) mg/dL POC Glucose (mg/dL) 431 H 330 H 153 H (75-99) mg/dL Calcium (8.4-10.2) mg/dL AST (17-59) U/L ALT (21-72) U/L Total Protein (6.3-8.2) g/dL Albumin (3.5-5.0) g/dL 05/26/17 05/26/17 05/26/17 Range/Units 03:09 03:30 05:50 WBC 12.8 H (3.8-10.6) k/uL RBC 3.80 L (4.30-5.90) m/uL Hgb 12.0 L (13.0-17.5) gm/dL Hct 35.5 L (39.0-53.0) % Neutrophils # 11.5 H (1.3-7.7) k/uL Lymphocytes # 0.5 L (1.0-4.8) k/uL Sodium (137-145) mmol/L Chloride (98-107) mmol/L BUN (9-20) mg/dL Creatinine (0.66-1.25) mg/dL Glucose (74-99) mg/dL POC Glucose (mg/dL) 174 H 160 H (75-99) mg/dL Calcium (8.4-10.2) mg/dL AST (17-59) U/L ALT (21-72) U/L Total Protein (6.3-8.2) g/dL Albumin (3.5-5.0) g/dL 05/26/17 05/26/17 05/26/17 Range/Units 05:50 06:44 07:29 WBC (3.8-10.6) k/uL RBC (4.30-5.90) m/uL Hgb (13.0-17.5) gm/dL Hct (39.0-53.0) % Neutrophils # (1.3-7.7) k/uL Lymphocytes # (1.0-4.8) k/uL Sodium 132 L (137-145) mmol/L Chloride 95 L (98-107) mmol/L BUN 79 H (9-20) mg/dL Creatinine 1.90 H (0.66-1.25) mg/dL Glucose 193 H (74-99) mg/dL POC Glucose (mg/dL) 169 H 157 H (75-99) mg/dL Calcium 7.3 L (8.4-10.2) mg/dL AST 336 H (17-59) U/L ALT 1643 H (21-72) U/L Total Protein 5.7 L (6.3-8.2) g/dL Albumin 3.0 L (3.5-5.0) g/dL Assessment and Plan Plan: Assessment 1. Acute kidney injury mainly cardiorenal and secondary to some degree of ATN with hypotension and hypoperfusion. Currently nonoliguric with significantly improve urine output. I will continue with the Lasix we can increase to 40 mg IV every 8 hours for about 24 hours. Patient had a fluid bolus last night. Renal function has been improving. 2. Severe cardiomyopathy and EF of about 20% status post acute VA next #3. Status post acute VA 4. A. fib with controlled ventricular response maintained on IV heparin and amiodarone 5. Elevated liver enzymes secondary to hypotension and hypoperfusion. Plan Increase Lasix to 40 mg IV every 12 8 hours for about 24 hours. Repeat labs in a.m.
--- NOTE | 2017-05-26 10:39 | PN ---
PROGRESS NOTE DATE OF SERVICE: 05/25/2017 Patient is seen for followup for acute kidney injury associated with hypotension, hypoperfusion. Currently, patient's urine output is at about 100 mL an hour. He is maintained on Lasix 40 mg IV q.12 hours. He also remains on Levophed, which is at about 11 mcg. The patient is lying in bed. He denies any severe chest pain or shortness of breath. On examination, blood pressure 95/59, heart rate 110 per minute. He is afebrile. EXAMINATION OF THE HEART: S1, S2. EXAMINATION OF THE LUNGS: Bilateral breath sounds are heard. Decreased breath sounds at bases. Abdomen is soft, nontender. Examination lower extremities shows no significant edema. DRUM TENDER exam is grossly intact. LABS: Labs reveal a serum creatinine of 2.08, which is down from yesterday at 2.4. Sodium 133, potassium 3.8. Hemoglobin 13.2 gram/dL. ASSESSMENT: 1. Acute kidney injury, acute tubular necrosis and secondary to cardiogenic shock and cardiorenal syndrome, currently nonoliguric and improving. Continue with current dose of Lasix and try to wean Levophed as tolerated. 2. Severe cardiomyopathy, ejection fraction of about 20%, which is new post myocardial infarction. 3. Status post acute myocardial infarction. PLAN: Try to wean down Levophed. Continue current dose of Lasix. Repeat labs in a.m. Overall prognosis is guarded. MMODL / IJN: [id number] /
--- NOTE | 2017-05-26 11:20 | P.PN ---
Subjective Principal diagnosis: Acute myocardial infarction with cardiogenic shock Patient is doing much better urine output has improved renal functions are getting better he is on IV Lasix echocardiogram shows severe LV dysfunction. Patient still remains in cardiogenic shock with hypotension related to recent large myocardial infarction is not a candidate for invasive angiography. Will continue with aggressive medical therapy Patient is reevaluated today. He is feeling much better. Urine output has improved. Renal functions have improved. I'm going to stop the IV heparin put him on a liquid is 2.5 mg twice a day. Still on pressors. Patient has had worsening hypotension in the liver foot dose had been increased. He remains in sinus rhythm blood pressures have been marginal. Urine output is good but still has elevated BUN/creatinine creatinine is improving. The beta kelsie that he was on had been stopped. Patient has ischemic cardiomyopathy with severe LV dysfunction. Prognosis guarded. Objective - Vital Signs Vital signs: Vital Signs Temp 98.0 F 05/26/17 08:00 Pulse 101 H 05/26/17 09:35 Resp 31 H 05/26/17 09:00 BP 96/59 05/26/17 09:00 Pulse Ox 100 05/26/17 09:00 Intake & Output 05/25/17 05/26/17 05/26/17 18:59 06:59 18:59 Intake Total 1843.525 500 202.137 Output Total 1075 515 400 Balance 768.525 -15 -197.863 Weight 99.9 kg 99.6 kg Intake: IV 300 500 95.0 0.9 NACL 300 300 70 Albumin Human 25% 50 ml 200 In Empty Bag 1 bag @ 100 mls/hr IVPB Q12H [facility] Rx#: [id number] zosyn 25.0 Intake, IV Titration 303.525 107.137 Amount Heparin Sodium,Porcine/ 191.6 D5w Pmx 25,000 unit In Dextrose/Water 1 500ml. bag @ 11 UNITS/KG/HR 19. 95 mls/hr IV .Q24H K[facility] Rx #:[id number] Norepinephrin 16 mg-0.9% 111.925 107.137 Ns Pmx 16 mg In 250 ml @ Titrate IV .Q0M KIM Rx#: [id number] Oral 1240 Output: Urine 1075 515 400 Other: Voiding Method Indwelling Catheter Indwelling Catheter Indwelling Catheter # Bowel Movements 1 - Exam Patient is using a BiPAP. Remains in sinus rhythm with a heart rate of 86 bpm. Blood pressure is 88/60 respirators 18 chest exam reveals diminished air entry at the bases heart exam reveals first and second heart sounds no gallop abdomen is soft exemption extremities did not reveal 1plus edema per for pulses are felt - Labs CBC & Chem 7: 05/26/17 05:50 05/26/17 05:50 Labs: Abnormal Lab Results - Last 24 Hours (Table) 05/25/17 05/25/17 05/25/17 Range/Units 11:59 17:34 20:11 WBC (3.8-10.6) k/uL RBC (4.30-5.90) m/uL Hgb (13.0-17.5) gm/dL Hct (39.0-53.0) % Neutrophils # (1.3-7.7) k/uL Lymphocytes # (1.0-4.8) k/uL Sodium (137-145) mmol/L Chloride (98-107) mmol/L BUN (9-20) mg/dL Creatinine (0.66-1.25) mg/dL Glucose (74-99) mg/dL POC Glucose (mg/dL) 364 H 431 H 330 H (75-99) mg/dL Calcium (8.4-10.2) mg/dL AST (17-59) U/L ALT (21-72) U/L Total Protein (6.3-8.2) g/dL Albumin (3.5-5.0) g/dL 05/26/17 05/26/17 05/26/17 Range/Units 01:46 03:09 03:30 WBC (3.8-10.6) k/uL RBC (4.30-5.90) m/uL Hgb (13.0-17.5) gm/dL Hct (39.0-53.0) % Neutrophils # (1.3-7.7) k/uL Lymphocytes # (1.0-4.8) k/uL Sodium (137-145) mmol/L Chloride (98-107) mmol/L BUN (9-20) mg/dL Creatinine (0.66-1.25) mg/dL Glucose (74-99) mg/dL POC Glucose (mg/dL) 153 H 174 H 160 H (75-99) mg/dL Calcium (8.4-10.2) mg/dL AST (17-59) U/L ALT (21-72) U/L Total Protein (6.3-8.2) g/dL Albumin (3.5-5.0) g/dL 05/26/17 05/26/17 05/26/17 Range/Units 05:50 05:50 06:44 WBC 12.8 H (3.8-10.6) k/uL RBC 3.80 L (4.30-5.90) m/uL Hgb 12.0 L (13.0-17.5) gm/dL Hct 35.5 L (39.0-53.0) % Neutrophils # 11.5 H (1.3-7.7) k/uL Lymphocytes # 0.5 L (1.0-4.8) k/uL Sodium 132 L (137-145) mmol/L Chloride 95 L (98-107) mmol/L BUN 79 H (9-20) mg/dL Creatinine 1.90 H (0.66-1.25) mg/dL Glucose 193 H (74-99) mg/dL POC Glucose (mg/dL) 169 H (75-99) mg/dL Calcium 7.3 L (8.4-10.2) mg/dL AST 336 H (17-59) U/L ALT 1643 H (21-72) U/L Total Protein 5.7 L (6.3-8.2) g/dL Albumin 3.0 L (3.5-5.0) g/dL 05/26/17 Range/Units 07:29 WBC (3.8-10.6) k/uL RBC (4.30-5.90) m/uL Hgb (13.0-17.5) gm/dL Hct (39.0-53.0) % Neutrophils # (1.3-7.7) k/uL Lymphocytes # (1.0-4.8) k/uL Sodium (137-145) mmol/L Chloride (98-107) mmol/L BUN (9-20) mg/dL Creatinine (0.66-1.25) mg/dL Glucose (74-99) mg/dL POC Glucose (mg/dL) 157 H (75-99) mg/dL Calcium (8.4-10.2) mg/dL AST (17-59) U/L ALT (21-72) U/L Total Protein (6.3-8.2) g/dL Albumin (3.5-5.0) g/dL Assessment and Plan Plan: Acute myocardial infarction with cardiogenic shock Severe hypotension Paroxysmal atrial fibrillation Please continue current supportive care prognosis guarded
[2017-05-26 12:14] LABS: Glucose,Whole Blood 282 mg/dL (75-99)
[2017-05-26] MEDS: DOBUTamine DRIP 500 MG in DEXTROSE/WATER 1 250ML.BAG IV SCH (12:39)
--- NOTE | 2017-05-26 12:55 | P.PN ---
Subjective Principal diagnosis: Acute cardiogenic shock This is an 81-year-old gentleman who follows with Dr. More as his primary care physician. He has a history of coronary artery disease, hyperlipidemia, hypertension, osteoarthritis, benign prosthetic hypertrophy, diabetes Jeff, shingles, skin cancer. He was recently admitted here on 05/18/2017 for a non- ST segment elevation myocardial infarction. His echocardiogram revealed mildly impaired left ventricular systolic function with estimated ejection fraction 45- 50%. He was seen and evaluated by cardiology who plan to treat the patient medically. He was seen and evaluated by Dr. Cyr as well for acute hypoxic respiratory failure which was felt to be status post blunt trauma to the right chest. His x-ray at that time revealed coarse interstitial infiltrates bilaterally. Computed tomography scan of the chest revealed atherosclerotic valvular disease, pleural effusions with basilar pulmonary infiltrates and atelectasis. The patient had recovered well and was seen last yesterday prior to his discharge he had no pulmonary complaints. No complaints of chest pain and he was discharged home. He presented here to the emergency room today with complaints of significant lower extremity weakness and shortness of breath. His chest x-ray as compared to one on 05/18/2017 showed improvement enzymes status. There is still suspected basilar pleural effusions with associated atelectasis. He did have some issues with hypoxia initially presenting on room air at 93% however he is now on BiPAP at 35% FiO2. He is initially hypotensive but not initiated on pressors. Current blood pressure 94/52 with a mean arterial pressure of 66. He is slightly tachycardic at 103. Lab results reveal a potassium of 6.4. AST 1337, ALT 979, total creatinine kinase of 735 with a troponin of 60.6. Patient was reevaluated today on 05/23/2017, seems to be doing surprisingly better than expected. Patient remains on norepinephrine for low blood pressure at 5 mcg/m, urine output seems to be picking up this morning about 50 mL per hour. Mental status seems to be much improved compared to yesterday. Patient is intermittently on BiPAP and on nasal cannula. Denies any specific complaints , no shortness of breath, no chest pain, no nausea, no vomiting, patient is actually sitting in bed and eating his breakfast. WBC count is 15.4 hemoglobin is 13.5 PTT is 36.5. BUN is about the same at 68 creatinine is about the same at 2.50 sugar is well controlled 190 today. Liver enzymes are much higher today compared to yesterday, patient basically has a shock liver. Troponin is coming down from 180 to yesterday, today it is 125. Chest x-ray is showing mostly atelectasis in the right lower lobe and small left pleural effusion. Patient was reevaluated today on 05/24/2017, remains on 5 g of norepinephrine, blood pressure remains marginal. Urine output is also marginal about 40 mL per hour. Mental status continues to improve. Patient is on 4 L nasal cannula, off BiPAP. He denies any specific complaints, no shortness of breath no cough no wheezing no chest pain. No nausea no vomiting no abdominal pain. The UVC count is 14.7 hemoglobin is 12.7. PTT is 68.4. Chest x-ray is showing increased opacity in the right lung significance of which is not clear, could very well be an early infiltrate, patient is on Zosyn. Reevaluated today on 05/25/2017, patient is now on a higher dose of norepinephrine , 20 mcg/m, however his mean arterial pressure is in the high 70s, and I recommended cutting down the norepinephrine to a lower dose and titrate to a mean arterial pressure of 65. His urine output seems to be picking up nicely, much improved. Mental status continues to improve. Patient remains on nasal cannula at 4 L. Off BiPAP. Relatively asymptomatic, no cough no wheezing no shortness of breath no chest pain no nausea no vomiting and no abdominal pain. CBC showed leukocytosis with WBC count of 14.4, PTT is therapeutic at 44.5. Basic metabolic profile is normal, BUN is 79 creatinine is 2.08 and significantly improved compared to admission creatinine. No chest x-ray was done today, however the chest x-ray will be ordered for a.m. Patient was reevaluated today on 05/26/2017, remains on almost 24 g of norepinephrine, blood pressure is marginal, however patient received Lopressor last night. Hence I have discontinued all blood pressure medications since the patient remains relatively hypotensive. Patient will remain on norepinephrine, one fluid bolus was given yesterday, however the patient developed worsening pulmonary edema, and today I recommended aggressive diuresis. Lasix will be given at 40 mg IV push every 8 hours. Cardiology is planning to stop heparin, and place him on eliquis instead. Labs were reviewed, WBC count is 12.8 hemoglobin is 12 basic metabolic profile is relatively normal, however his BUN is up to 79 creatinine remains holding about 1.90. Liver enzymes are also improving. Chest x-ray showed evidence of mild congestive heart failure. Objective - Vital Signs Vital signs: Vital Signs Temp 97.8 F 05/26/17 12:00 Pulse 100 05/26/17 12:30 Resp 22 05/26/17 12:30 BP 108/58 05/26/17 12:30 Pulse Ox 95 05/26/17 12:30 Intake & Output 05/25/17 05/26/17 05/26/17 18:59 06:59 18:59 Intake Total 1843.525 500 287.137 Output Total 1075 515 725 Balance 768.525 -15 -437.863 Weight 99.9 kg 99.6 kg Intake: IV 300 500 180.0 0.9 NACL 300 300 130 Albumin Human 25% 50 ml 200 In Empty Bag 1 bag @ 100 mls/hr IVPB Q12H KIM Rx#: [id number] zosyn 50.0 Intake, IV Titration 303.525 107.137 Amount Heparin Sodium,Porcine/ 191.6 D5w Pmx 25,000 unit In Dextrose/Water 1 500ml. bag @ 11 UNITS/KG/HR 19. 95 mls/hr IV .Q24H KIM Rx #:[id number] Norepinephrin 16 mg-0.9% 111.925 107.137 Ns Pmx 16 mg In 250 ml @ Titrate IV .Q0M KIM Rx#: [id number] Oral 1240 Output: Urine 1075 515 725 Other: Voiding Method Indwelling Catheter Indwelling Catheter Indwelling Catheter # Bowel Movements 1 - Exam GENERAL EXAM: Alert oriented 3, HEAD: Normocephalic. EYES: Normal reaction of pupils, equal size. NOSE: Clear with pink turbinates. THROAT: No erythema or exudates. NECK: No masses, no JVD. CHEST: No chest wall deformity. LUNGS: Equal air entry with faint crackles in the posterior bases.. CVS: S1 and S2 normal with no audible murmurs, regular rhythm. ABDOMEN: No hepatosplenomegaly, normal bowel sounds, no guarding or rigidity. Extremities: There is trace peripheral edema. No clubbing, no cyanosis. Peripheral pulses are intact. - Labs CBC & Chem 7: 05/26/17 05:50 05/26/17 05:50 Labs: Abnormal Lab Results - Last 24 Hours (Table) 05/25/17 05/25/17 05/26/17 Range/Units 17:34 20:11 01:46 WBC (3.8-10.6) k/uL RBC (4.30-5.90) m/uL Hgb (13.0-17.5) gm/dL Hct (39.0-53.0) % Neutrophils # (1.3-7.7) k/uL Lymphocytes # (1.0-4.8) k/uL Sodium (137-145) mmol/L Chloride (98-107) mmol/L BUN (9-20) mg/dL Creatinine (0.66-1.25) mg/dL Glucose (74-99) mg/dL POC Glucose (mg/dL) 431 H 330 H 153 H (75-99) mg/dL Calcium (8.4-10.2) mg/dL AST (17-59) U/L ALT (21-72) U/L Total Protein (6.3-8.2) g/dL Albumin (3.5-5.0) g/dL 05/26/17 05/26/17 05/26/17 Range/Units 03:09 03:30 05:50 WBC 12.8 H (3.8-10.6) k/uL RBC 3.80 L (4.30-5.90) m/uL Hgb 12.0 L (13.0-17.5) gm/dL Hct 35.5 L (39.0-53.0) % Neutrophils # 11.5 H (1.3-7.7) k/uL Lymphocytes # 0.5 L (1.0-4.8) k/uL Sodium (137-145) mmol/L Chloride (98-107) mmol/L BUN (9-20) mg/dL Creatinine (0.66-1.25) mg/dL Glucose (74-99) mg/dL POC Glucose (mg/dL) 174 H 160 H (75-99) mg/dL Calcium (8.4-10.2) mg/dL AST (17-59) U/L ALT (21-72) U/L Total Protein (6.3-8.2) g/dL Albumin (3.5-5.0) g/dL 05/26/17 05/26/17 05/26/17 Range/Units 05:50 06:44 07:29 WBC (3.8-10.6) k/uL RBC (4.30-5.90) m/uL Hgb (13.0-17.5) gm/dL Hct (39.0-53.0) % Neutrophils # (1.3-7.7) k/uL Lymphocytes # (1.0-4.8) k/uL Sodium 132 L (137-145) mmol/L Chloride 95 L (98-107) mmol/L BUN 79 H (9-20) mg/dL Creatinine 1.90 H (0.66-1.25) mg/dL Glucose 193 H (74-99) mg/dL POC Glucose (mg/dL) 169 H 157 H (75-99) mg/dL Calcium 7.3 L (8.4-10.2) mg/dL AST 336 H (17-59) U/L ALT 1643 H (21-72) U/L Total Protein 5.7 L (6.3-8.2) g/dL Albumin 3.0 L (3.5-5.0) g/dL 05/26/17 Range/Units 12:11 WBC (3.8-10.6) k/uL RBC (4.30-5.90) m/uL Hgb (13.0-17.5) gm/dL Hct (39.0-53.0) % Neutrophils # (1.3-7.7) k/uL Lymphocytes # (1.0-4.8) k/uL Sodium (137-145) mmol/L Chloride (98-107) mmol/L BUN (9-20) mg/dL Creatinine (0.66-1.25) mg/dL Glucose (74-99) mg/dL POC Glucose (mg/dL) 282 H (75-99) mg/dL Calcium (8.4-10.2) mg/dL AST (17-59) U/L ALT (21-72) U/L Total Protein (6.3-8.2) g/dL Albumin (3.5-5.0) g/dL Assessment and Plan Plan: #1 acute Cardiogenic shock secondary to acute myocardial infarction. #2 Elevated LFTs secondary to above. Improving #3 Hyperkalemia with metabolic lactic acidosis. Resolved. #4 Acute hypoxic respiratory failure secondary to above currently on 4 L nasal cannula, improving #5 Recent discharge following non-ST segment elevation myocardial infarction. 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 #7 Diabetes mellitus, type II with significant hyperglycemia initial blood glucose of 610. Patient remains on insulin drip intermittently #8 Diabetic peripheral neuropathy. #9 Hyperlipidemia. #10 History of depression/anxiety. #11 History of skin cancer. #12 Benign prostatic hypertrophy. #13 Hearing-impaired. #14 Recent fall. #15 Poor overall functional performance based on the above-mentioned multiple comorbidities. Recommendation: Continue present supportive care measures, continue norepinephrine, continue BiPAP as needed, continue eliquis , continue insulin continue antibiotics empirically, continue Lasix 40 mg IV push every 8 hours, continue amiodarone, and continue beta blockers as well as Nitrostat. Prognosis remains extremely poor and guarded, we'll continue to follow closely in the ICU. Time with Patient: Less than 30
--- NOTE | 2017-05-26 16:19 | P.PN ---
Subjective This is an 81-year-old gentleman who is a poor historian, patient of Dr. Burton More. He has underlying history of recent non-ST myocardial infarction recently discharged from our facility from 05/18/2017 to 05/21/2017 at that admission he also had trauma and lumbar contusion from a fall at home, diastolic CHF with elevated troponins, he required management of his hypoxemia with Lasix and BiPAP, he was heparinized. His peak troponin during the last admission was 21.1 Dr. alvarez has seen the patient from cardiology, and medical management was provided for the non-Q-wave RI with increasing dose off metoprolol and resumption of oral Imdur. CAT scan of the chest shows pleural effusion no discrete changes for pneumonia, he has atelectasis during this last admission, echocardiogram was performed with an EF of 45-50%, right ventricle systolic pressure less than 35, borderline concentric LVH, no aortic stenosis, mild TR and mild MR and no pericardial effusion He presented to the ER secondary to inability to walk, has a hard time walking, patient denies any chest pain or shortness of breath most likely has shortness of breath on exertion, patient denies any worsening edema, however patient is up poor historian with that regard. He complained off low back pain from where the trauma was. He she was hypotensive and dyspneic on ER evaluation, he was transferred to ICU for hemodynamic instability, required pressor agents Levophed , and IV Lasix for CHF. IV Zosyn for possible pneumonia. Liver function tests is elevated so his both the troponin and CPKs. Peak troponin is 182, escalating CPK MB with a peak of 65 Patient aortic initial BiPAP treatments at 35% FiO2. And 3 AST of 13 and 37, ALT 979, CK of 735 troponin 60. ABG of 7.47 , pCO2 of 27 [address]icar[address] Jolly from pulmonary is on consult along with cardiology 05/24: Patient remains in the intensive care unit. He is on vasopressors. Insulin drip will be changed over to glipizide and Humalog scale before meals and at bedtime. Lumbar x-rays to be done once patient is hemodynamically stable. Renal ultrasound shows normal findings. There is minimal fluid adjacent to the liver noted. Patient is eating and drinking well. He has had adequate urine output. Repeat BUN is 77 and creatinine 2.48. He is on heparin drip and now switched to oral amiodarone. Nephrology is following for nonoliguric acute kidney injury secondary to ischemic ATN secondary to cardiogenic shock. He is continued on Lasix 40 mg IV twice daily. Echocardiogram reveals EF of less than 20%, mild mitral regurgitation, trace tricuspid regurgitation, no pulmonary hypertension, global hypokinesia. 05/25 patient remains in ICU, still on Levophed still titrated up to bp currently at 12 mics patient clinically feels better however b but still without appetite , blood sugars elevated, glimepiride increased to3 mg twice a day with coverage , with low titration secondary to CK D 3 patient might need Levemir 05/26: Patient reminds in ICU, still on pressor agents 22 mics of Levophed, Proamatine started on 10 mg 3 times a day, albumin infusion given,, xcr CHF changes, patient was more dyspneic last night, marginally low blood pressure still, patient is on maintenance Lasix 40 mg iv every 8 hours. Patient might need to be transitioned to Lasix drip. will discuss with stem frazer. BiPAP treatments given last night patient maintains BiPAP treatments currently. yancey cath. negative balance weight gain 10 kg since admission. Objective - Vital Signs Vital signs: Vital Signs Temp 98.0 F 05/26/17 08:00 Pulse 100 05/26/17 11:00 Resp 22 05/26/17 11:00 BP 98/59 05/26/17 11:00 Pulse Ox 96 05/26/17 11:00 Intake & Output 05/25/17 05/26/17 05/26/17 18:59 06:59 18:59 Intake Total 1843.525 500 267.137 Output Total 1075 515 625 Balance 768.525 -15 -357.863 Weight 99.9 kg 99.6 kg Intake: IV 300 500 160.0 0.9 NACL 300 300 110 Albumin Human 25% 50 ml 200 In Empty Bag 1 bag @ 100 mls/hr IVPB Q12H KIM Rx#: [id number] zosyn 50.0 Intake, IV Titration 303.525 107.137 Amount Heparin Sodium,Porcine/ 191.6 D5w Pmx 25,000 unit In Dextrose/Water 1 500ml. bag @ 11 UNITS/KG/HR 19. 95 mls/hr IV .Q24H KIM Rx #:[id number] Norepinephrin 16 mg-0.9% 111.925 107.137 Ns Pmx 16 mg In 250 ml @ Titrate IV .Q0M KIM Rx#: [id number] Oral 1240 Output: Urine 1075 515 625 Other: Voiding Method Indwelling Catheter Indwelling Catheter Indwelling Catheter # Bowel Movements 1 - Constitutional General appearance: Present: cooperative, mild distress - EENT Eyes: Present: anicteric sclerae, normal appearance ENT: Present: NA/AT, normal oropharynx - Neck Neck: Present: normal ROM - Respiratory Respiratory: bilateral: diminished, rales, prolonged expiration - Cardiovascular Rhythm: irregularly irregular Heart sounds: normal: S2, abnormal: S1 Abnormal Heart Sounds: Present: systolic murmur. Absent: diastolic murmur, rub , S3 Gallop, S4 Gallop, click, other - Gastrointestinal General gastrointestinal: Present: normal bowel sounds, soft - Integumentary Integumentary: Present: normal, normal turgor - Neurologic Neurologic: Present: CNII-XII intact - Musculoskeletal Musculoskeletal: Present: gait normal, strength equal bilaterally - Labs CBC & Chem 7: 05/26/17 05:50 05/26/17 05:50 Labs: Abnormal Lab Results - Last 24 Hours (Table) 05/25/17 05/25/17 05/26/17 Range/Units 17:34 20:11 01:46 WBC (3.8-10.6) k/uL RBC (4.30-5.90) m/uL Hgb (13.0-17.5) gm/dL Hct (39.0-53.0) % Neutrophils # (1.3-7.7) k/uL Lymphocytes # (1.0-4.8) k/uL Sodium (137-145) mmol/L Chloride (98-107) mmol/L BUN (9-20) mg/dL Creatinine (0.66-1.25) mg/dL Glucose (74-99) mg/dL POC Glucose (mg/dL) 431 H 330 H 153 H (75-99) mg/dL Calcium (8.4-10.2) mg/dL AST (17-59) U/L ALT (21-72) U/L Total Protein (6.3-8.2) g/dL Albumin (3.5-5.0) g/dL 05/26/17 05/26/17 05/26/17 Range/Units 03:09 03:30 05:50 WBC 12.8 H (3.8-10.6) k/uL RBC 3.80 L (4.30-5.90) m/uL Hgb 12.0 L (13.0-17.5) gm/dL Hct 35.5 L (39.0-53.0) % Neutrophils # 11.5 H (1.3-7.7) k/uL Lymphocytes # 0.5 L (1.0-4.8) k/uL Sodium (137-145) mmol/L Chloride (98-107) mmol/L BUN (9-20) mg/dL Creatinine (0.66-1.25) mg/dL Glucose (74-99) mg/dL POC Glucose (mg/dL) 174 H 160 H (75-99) mg/dL Calcium (8.4-10.2) mg/dL AST (17-59) U/L ALT (21-72) U/L Total Protein (6.3-8.2) g/dL Albumin (3.5-5.0) g/dL 05/26/17 05/26/17 05/26/17 Range/Units 05:50 06:44 07:29 WBC (3.8-10.6) k/uL RBC (4.30-5.90) m/uL Hgb (13.0-17.5) gm/dL Hct (39.0-53.0) % Neutrophils # (1.3-7.7) k/uL Lymphocytes # (1.0-4.8) k/uL Sodium 132 L (137-145) mmol/L Chloride 95 L (98-107) mmol/L BUN 79 H (9-20) mg/dL Creatinine 1.90 H (0.66-1.25) mg/dL Glucose 193 H (74-99) mg/dL POC Glucose (mg/dL) 169 H 157 H (75-99) mg/dL Calcium 7.3 L (8.4-10.2) mg/dL AST 336 H (17-59) U/L ALT 1643 H (21-72) U/L Total Protein 5.7 L (6.3-8.2) g/dL Albumin 3.0 L (3.5-5.0) g/dL 05/26/17 Range/Units 12:11 WBC (3.8-10.6) k/uL RBC (4.30-5.90) m/uL Hgb (13.0-17.5) gm/dL Hct (39.0-53.0) % Neutrophils # (1.3-7.7) k/uL Lymphocytes # (1.0-4.8) k/uL Sodium (137-145) mmol/L Chloride (98-107) mmol/L BUN (9-20) mg/dL Creatinine (0.66-1.25) mg/dL Glucose (74-99) mg/dL POC Glucose (mg/dL) 282 H (75-99) mg/dL Calcium (8.4-10.2) mg/dL AST (17-59) U/L ALT (21-72) U/L Total Protein (6.3-8.2) g/dL Albumin (3.5-5.0) g/dL Assessment and Plan Plan: 1 Acute hypoxic respiratory failure due to acute on chronic systolic and diastolic heart failure due to non-ST elevation RI, with cardiogenic shock. Continue heparin drip. IV Levophed, aspirin 325 mg orally once every day, sublingual nitroglycerin, metoprolol 25 mg orally twice every day, hold off losartan because of his hypotension, oxygen, Lasix 40 mg IV push increased every 8 hours, echocardiogram, cardiology consultation, pulmonary consultation from Dr. Cyr. Patient currently is on Levophed with titrations, albumin infusion given, ProAmatine started, New ejection fraction 20% from previous of 40% 2. Acute on chronic systolic and diastolic heart failure. Continue metoprolol 25 mg orally twice every day, hold of losartan for now, continue Lasix 40 mg IV push every 12 hours, continue BiPAP or oxygen support for now. Cardiology and pulmonary medicine following 3. New non-ST elevation RI with multi-organ failure including acute respiratory failure, acute shock liver, acute kidney injury. Continue aspirin 325 mg orally once every day, metoprolol 25 mg orally twice every day, statin on hold, cardiology consultation, echocardiogram as above. 4. Possible bilateral pneumonia. Start the patient on Zosyn IV piggyback every 24 hours, with recent hospitalization, hospital acquired pneumonia needs to be covered, nebulized treatment albuterol 2.5 mg every 4 hours as needed, Continue oxygen support, pulmonary consultation. 5. Shock liver with acute liver failure. Avoid hypotension. Continue to monitor liver function tests. 6. Acute nonoliguric kidney injury secondary to ischemic ATN secondary to cardiogenic shock. Avoid nephrotoxins, maintain systolic blood pressure over 110, patient was seen consultation by Dr. Norman, renal ultrasound was normal. 7. Paroxysmal atrial fibrillation. Patient is now on amiodarone 400 mg twice daily Diabetes mellitus type 2. Uncontrolled, A1c of 7.6 Hold the patient metformin. Glipizide changed to glimepiride 3 mg twice a day from 1.5 mg twice a day and discontinue insulin drip. Titrate slowly, Patient started on Humalog scale patient might need Levemir 8. Diabetic polyneuropathy uncontrolled diabetes mellitus2. Stable at this time. With impaired balance and falls, physical therapy will be seeing the patient 9. Hyperlipidemia. Continue patient on Lipitor 10 mg orally once every day. 10. Anxiety disorder, generalized Depression, recurrent. Continue Cymbalta 60 mg orally once every day.. Continue patient on Xanax 1 mg orally twice a day as needed. Would decrease this to 0.5 mg. 3 times a day a when necessary 11 rhabdomoysis secondary to recent fall, contusion of right flank with bruising , present prior to admission, maintain IV hydration at this time monitor CPKs as well and renal function. Lumbar x-rays ordered and will be done once hemodynamically stable. 12. DVT prophylaxis. Continue heparin drip for now. 13. GI prophylaxis. Continue PPI. 14. Patient is NO code. 15. Debility with recurrent falls, contusion on the right lumbar flank area, spine x-rays to be obtained, patient would meet needing therapy at post discharge most likely subacute 16. Enlarged prostate. Continue Flomax 0.8 mg orally once every day. Discharge plan: Subacute rehab expected
[2017-05-26 16:58] LABS: Glucose,Whole Blood 226 mg/dL (75-99)
[2017-05-26] MEDS ORDERED: MIDODRINE 5 MG TAB PO SCH (17:30)
[2017-05-26 20:58] LABS: Glucose,Whole Blood 245 mg/dL (75-99)
[2017-05-26] MEDS: INSULIN DETEMIR 100 UNIT/ML 10 ML VIAL SQ SCH (21:12)
[2017-05-26] MEDS: ALPRAZolam 0.5 MG TAB PO PRN (23:11)
[2017-05-27 04:14] LABS: Glucose,Whole Blood 165 mg/dL (75-99)
[2017-05-27 04:45] LABS: Basophils % (A) 0 %; CH 31.2; CHCM 33.1; Eosinophils % (A) 0 %; HCT 35.3 % (39.0-53.0); HDW 2.61; HGB 11.9 gm/dL (13.0-17.5); Luc % (Auto) 2; Lymphocytes # (A) 0.4 k/uL (1.0-4.8); Lymphocytes % (A) 3 %; MCH 31.9 pg (25.0-35.0); MCHC 33.7 g/dL (31.0-37.0); MCV 94.6 fL (80.0-100.0); Mean Platelet Volume 7.9; Monocytes # (A) 0.4 k/uL (0-1.0); Monocytes % (A) 4 %; Neutrophils % (A) 91 %; RBC 3.74 m/uL (4.30-5.90); RDW 13.8 % (11.5-15.5)
[2017-05-27 05:09] LABS: Calcium 7.4 mg/dL (8.4-10.2); Magnesium 2.4 mg/dL (1.6-2.3); Phosphorous 4.4 mg/dL (2.5-4.5); Potassium 3.9 mmol/L (3.5-5.1)
[2017-05-27] MEDS ORDERED: Potassium Replacement Protocol 1 EACH MISC MISCELLANE PRN (06:54)
[2017-05-27 07:19] LABS: Glucose,Whole Blood 163 mg/dL (75-99)
--- NOTE | 2017-05-27 07:27 | XR ---
EXAMINATION TYPE: XR chest 1V portable DATE OF EXAM: 05/27/2017 HISTORY: chf. REFERENCE: Previous study dated 05/25/2017. FINDINGS: There is a right internal jugular catheter in place. Its tip is in the superior vena cava. The heart enlarged. There is by lateral airspace disease. There is vascular congestion and pulmonary edema. There are bilateral effusions, larger on the right than the left. IMPRESSION: 1. WORSENING CHANGES OF PULMONARY EDEMA. 2. I CANNOT EXCLUDE SUPERIMPOSED AIRSPACE DISEASE AT BOTH LUNG BASES.
[2017-05-27] MEDS: APIXABAN 2.5 MG TABLET PO SCH ×2 (08:48→20:12)
[2017-05-27] MEDS: GLIMEPIRIDE 4 MG TAB PO SCH ×2 (08:48→17:48)
[2017-05-27] MEDS: FUROSEMIDE 10 MG/ML 4 ML VIAL IV SCH (08:48)
[2017-05-27] MEDS: guaiFENesin 600 MG TABLET.ER PO SCH ×2 (08:48→20:12)
[2017-05-27] MEDS: DULoxetine HCL 60 MG CAPSULE.DR PO SCH (08:48)
[2017-05-27] MEDS: AMIODARONE 200 MG TAB PO SCH ×2 (08:49→20:12)
[2017-05-27] MEDS: ASPIRIN 325 MG TAB PO SCH (08:49)
[2017-05-27] MEDS: TAMSULOSIN 0.4 MG CAP.ER.24H PO SCH (08:49)
[2017-05-27] MEDS: POTASSIUM CHLORIDE 10 MEQ in WATER FOR INJECTION 1 100ML.BAG IVPB SCH (08:51)
[2017-05-27] MEDS: INSULIN LISPRO (humaLOG) 300 UNIT/3 ML VIAL SQ SCH ×4 (08:51→20:19)
[2017-05-27] MEDS: SENNOSIDES-DOCUSATE SODIUM 1 EACH TAB PO SCH (08:53)
[2017-05-27] MEDS: PIPERACILLIN-TAZOBACTAM 3.375 GM in DEXTROSE/WATER 1 50ML.BAG IVPB SCH ×2 (09:20→16:20)
[2017-05-27] MEDS ORDERED: POTASSIUM CHLORIDE ER 20 MEQ TAB.ER PO SCH (10:00)
[2017-05-27] MEDS: MORPHINE SULFATE 2 MG/ML SYRINGE IVP PRN ×2 (11:43→19:41)
[2017-05-27] MEDS: DOBUTamine DRIP 500 MG in DEXTROSE/WATER 1 250ML.BAG IV SCH ×3 (11:43→16:14)
[2017-05-27 11:55] LABS: Glucose,Whole Blood 244 mg/dL (75-99)
--- NOTE | 2017-05-27 13:00 | P.PN ---
Subjective Principal diagnosis: Acute cardiogenic shock This is an 81-year-old gentleman who follows with Dr. More as his primary care physician. He has a history of coronary artery disease, hyperlipidemia, hypertension, osteoarthritis, benign prosthetic hypertrophy, diabetes Jeff, shingles, skin cancer. He was recently admitted here on 05/18/2017 for a non- ST segment elevation myocardial infarction. His echocardiogram revealed mildly impaired left ventricular systolic function with estimated ejection fraction 45- 50%. He was seen and evaluated by cardiology who plan to treat the patient medically. He was seen and evaluated by Dr. Cyr as well for acute hypoxic respiratory failure which was felt to be status post blunt trauma to the right chest. His x-ray at that time revealed coarse interstitial infiltrates bilaterally. Computed tomography scan of the chest revealed atherosclerotic valvular disease, pleural effusions with basilar pulmonary infiltrates and atelectasis. The patient had recovered well and was seen last yesterday prior to his discharge he had no pulmonary complaints. No complaints of chest pain and he was discharged home. He presented here to the emergency room today with complaints of significant lower extremity weakness and shortness of breath. His chest x-ray as compared to one on 05/18/2017 showed improvement enzymes status. There is still suspected basilar pleural effusions with associated atelectasis. He did have some issues with hypoxia initially presenting on room air at 93% however he is now on BiPAP at 35% FiO2. He is initially hypotensive but not initiated on pressors. Current blood pressure 94/52 with a mean arterial pressure of 66. He is slightly tachycardic at 103. Lab results reveal a potassium of 6.4. AST 1337, ALT 979, total creatinine kinase of 735 with a troponin of 60.6. Patient was reevaluated today on 05/23/2017, seems to be doing surprisingly better than expected. Patient remains on norepinephrine for low blood pressure at 5 mcg/m, urine output seems to be picking up this morning about 50 mL per hour. Mental status seems to be much improved compared to yesterday. Patient is intermittently on BiPAP and on nasal cannula. Denies any specific complaints , no shortness of breath, no chest pain, no nausea, no vomiting, patient is actually sitting in bed and eating his breakfast. WBC count is 15.4 hemoglobin is 13.5 PTT is 36.5. BUN is about the same at 68 creatinine is about the same at 2.50 sugar is well controlled 190 today. Liver enzymes are much higher today compared to yesterday, patient basically has a shock liver. Troponin is coming down from 180 to yesterday, today it is 125. Chest x-ray is showing mostly atelectasis in the right lower lobe and small left pleural effusion. Patient was reevaluated today on 05/24/2017, remains on 5 g of norepinephrine, blood pressure remains marginal. Urine output is also marginal about 40 mL per hour. Mental status continues to improve. Patient is on 4 L nasal cannula, off BiPAP. He denies any specific complaints, no shortness of breath no cough no wheezing no chest pain. No nausea no vomiting no abdominal pain. The UVC count is 14.7 hemoglobin is 12.7. PTT is 68.4. Chest x-ray is showing increased opacity in the right lung significance of which is not clear, could very well be an early infiltrate, patient is on Zosyn. Reevaluated today on 05/25/2017, patient is now on a higher dose of norepinephrine , 20 mcg/m, however his mean arterial pressure is in the high 70s, and I recommended cutting down the norepinephrine to a lower dose and titrate to a mean arterial pressure of 65. His urine output seems to be picking up nicely, much improved. Mental status continues to improve. Patient remains on nasal cannula at 4 L. Off BiPAP. Relatively asymptomatic, no cough no wheezing no shortness of breath no chest pain no nausea no vomiting and no abdominal pain. CBC showed leukocytosis with WBC count of 14.4, PTT is therapeutic at 44.5. Basic metabolic profile is normal, BUN is 79 creatinine is 2.08 and significantly improved compared to admission creatinine. No chest x-ray was done today, however the chest x-ray will be ordered for a.m. Patient was reevaluated today on 05/26/2017, remains on almost 24 g of norepinephrine, blood pressure is marginal, however patient received Lopressor last night. Hence I have discontinued all blood pressure medications since the patient remains relatively hypotensive. Patient will remain on norepinephrine, one fluid bolus was given yesterday, however the patient developed worsening pulmonary edema, and today I recommended aggressive diuresis. Lasix will be given at 40 mg IV push every 8 hours. Cardiology is planning to stop heparin, and place him on eliquis instead. Labs were reviewed, WBC count is 12.8 hemoglobin is 12 basic metabolic profile is relatively normal, however his BUN is up to 79 creatinine remains holding about 1.90. Liver enzymes are also improving. Chest x-ray showed evidence of mild congestive heart failure. Reevaluated today on 05/27/2017, remains on norepinephrine, blood pressure remains marginal, however urine output seems to be excellent and the patient seems to be perfusing at least his kidneys relatively well. In spite of being in a negative balance, patient is developing some component of pulmonary edema as noted on the chest x-ray today. Surprisingly the patient is not symptomatic , denies any cough no wheezing or shortness of breath. Patient did receive some fluid boluses yesterday for low blood pressure hoping to get him off norepinephrine. Hence the patient will be kept today on Lasix IV push every 8 hours, labs were reviewed CBC is relatively normal basic metabolic profile is normal BUN is down to 72 creatinine is down to 1.78. Objective - Vital Signs Vital signs: Vital Signs Temp 98.0 F 05/27/17 12:00 Pulse 99 05/27/17 12:30 Resp 17 05/27/17 12:30 BP 91/51 05/27/17 12:30 Pulse Ox 99 05/27/17 12:30 Intake & Output 05/26/17 05/27/17 05/27/17 18:59 06:59 18:59 Intake Total 419.637 567.25 459.361 Output Total 1475 1495 785 Balance -1055.363 -927.75 -325.639 Weight 99 kg Intake: IV 312.5 277.5 120 0.9 NACL 250 240 120 zosyn 62.5 37.5 Intake, IV Titration 107.137 289.75 189.361 Amount Norepinephrin 16 mg-0.9% 107.137 289.75 139.361 Ns Pmx 16 mg In 250 ml @ Titrate IV .Q0M KIM Rx#: [id number] Piperacillin-Tazobactam 3 50.0 .375 gm In Dextrose/Water 1 50ml.bag @ 12.5 mls/hr IVPB Q8HR KIM Rx#: [id number] Oral 150 Output: Urine 1475 1495 785 Other: Voiding Method Indwelling Catheter Indwelling Catheter - Exam GENERAL EXAM: Alert oriented 3, HEAD: Normocephalic. EYES: Normal reaction of pupils, equal size. NOSE: Clear with pink turbinates. THROAT: No erythema or exudates. NECK: No masses, no JVD. CHEST: No chest wall deformity. LUNGS: Equal air entry with faint crackles in the posterior bases.. CVS: S1 and S2 normal with no audible murmurs, regular rhythm. ABDOMEN: No hepatosplenomegaly, normal bowel sounds, no guarding or rigidity. Extremities: There is trace peripheral edema. No clubbing, no cyanosis. Peripheral pulses are intact. - Labs CBC & Chem 7: 05/27/17 04:25 05/27/17 04:25 Labs: Abnormal Lab Results - Last 24 Hours (Table) 05/26/17 05/26/17 05/27/17 Range/Units 16:57 20:56 04:12 WBC (3.8-10.6) k/uL RBC (4.30-5.90) m/uL Hgb (13.0-17.5) gm/dL Hct (39.0-53.0) % Neutrophils # (1.3-7.7) k/uL Lymphocytes # (1.0-4.8) k/uL Sodium (137-145) mmol/L BUN (9-20) mg/dL Creatinine (0.66-1.25) mg/dL Glucose (74-99) mg/dL POC Glucose (mg/dL) 226 H 245 H 165 H (75-99) mg/dL Calcium (8.4-10.2) mg/dL Magnesium (1.6-2.3) mg/dL Creatine Kinase (55-170) U/L 05/27/17 05/27/17 05/27/17 Range/Units 04:25 04:25 07:18 WBC 12.0 H (3.8-10.6) k/uL RBC 3.74 L (4.30-5.90) m/uL Hgb 11.9 L (13.0-17.5) gm/dL Hct 35.3 L (39.0-53.0) % Neutrophils # 11.0 H (1.3-7.7) k/uL Lymphocytes # 0.4 L (1.0-4.8) k/uL Sodium 135 L (137-145) mmol/L BUN 72 H (9-20) mg/dL Creatinine 1.78 H (0.66-1.25) mg/dL Glucose 159 H (74-99) mg/dL POC Glucose (mg/dL) 163 H (75-99) mg/dL Calcium 7.4 L (8.4-10.2) mg/dL Magnesium 2.4 H (1.6-2.3) mg/dL Creatine Kinase 48 L (55-170) U/L 05/27/17 Range/Units 11:54 WBC (3.8-10.6) k/uL RBC (4.30-5.90) m/uL Hgb (13.0-17.5) gm/dL Hct (39.0-53.0) % Neutrophils # (1.3-7.7) k/uL Lymphocytes # (1.0-4.8) k/uL Sodium (137-145) mmol/L BUN (9-20) mg/dL Creatinine (0.66-1.25) mg/dL Glucose (74-99) mg/dL POC Glucose (mg/dL) 244 H (75-99) mg/dL Calcium (8.4-10.2) mg/dL Magnesium (1.6-2.3) mg/dL Creatine Kinase (55-170) U/L Assessment and Plan Plan: #1 acute Cardiogenic shock secondary to acute myocardial infarction. #2 Elevated LFTs secondary to above. Improving #3 Hyperkalemia with metabolic lactic acidosis. Resolved. #4 Acute hypoxic respiratory failure secondary to above currently on 4 L nasal cannula, improving #5 Recent discharge following non-ST segment elevation myocardial infarction. 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 #7 Diabetes mellitus, type II with significant hyperglycemia initial blood glucose of 610. Patient remains on insulin drip intermittently #8 Diabetic peripheral neuropathy. #9 Hyperlipidemia. #10 History of depression/anxiety. #11 History of skin cancer. #12 Benign prostatic hypertrophy. #13 Hearing-impaired. #14 Recent fall. #15 Poor overall functional performance based on the above-mentioned multiple comorbidities Recommendation: Continue present supportive care measures, continue norepinephrine, continue BiPAP as needed, continue eliquis , continue insulin continue antibiotics empirically, continue Lasix 40 mg IV push every 8 hours, continue amiodarone, hold beta blockers because of low blood pressure, continue to monitor in the ICU, patient remains critically ill, and cannot be transferred out of the ICU yet. Prognosis remains poor and guarded. However if his renal functioning improves back to normal, may have to be seriously considered for cardiac catheterization and further evaluation of his underlying coronary artery disease. Time with Patient: Less than 30
--- NOTE | 2017-05-27 13:43 | PN ---
PROGRESS NOTE An 81-year-old gentleman is admitted to hospital with acute myocardial infarction. He is making slow but steady recovery. Blood pressures are improving. I started him on 2.5 mcg of dobutamine yesterday and increasing it to 5 today. His Levophed dose had come. Blood pressures are still kind of marginal but he is still is in renal failure with BUN of 72, creatinine 1.78 and hemoglobin is 11.9. EXAM: On exam, comfortable at rest. Vital signs are stable. Chest exam reveals diminished air entry at the bases. Heart exam reveals first and second heart sounds. No gallop. Exam of extremities did not reveal any edema. Peripheral pulses are felt. ASSESSMENT: 1. Acute myocardial infarction. 2. Respiratory failure. 3. Cardiogenic shock. 4. Renal failure. PLAN: We will continue with supportive care. I will continue with the dobutamine and Levophed. Prognosis is guarded. MMODL / IJN: [id number] /
[2017-05-27] MEDS: MAG HYDROX/AL HYDROX/SIMETH 30 ML CUP PO PRN (14:50)
--- NOTE | 2017-05-27 14:57 | PN ---
PROGRESS NOTE DATE OF SERVICE: From today 05/27/2017 Patient is seen for followup for acute kidney injury, ATN and cardiorenal syndrome with significant hypotension. The patient has been maintained on Levophed. The dose of which has been slowly decreasing and it is now down to 7 mcg. The patient had worsening heart failure and Lasix was increased yesterday. He has been putting out a lot of urine with hourly output at about 150-135 mL/minute. Currently, patient is lying flat. He is not acutely short of breath. His x-ray was apparently worse as per Pulmonary. EXAMINATION: Blood pressure is 91/51, heart rate 99 per minute. Patient is afebrile. Examination of the heart S1, S2. Examination of the lungs decreased breath sounds at the bases. Basal crackles are heard. ABDOMEN: Soft, nontender. Examination lower extremities shows edema 1+ bilaterally. INVENTORY [employer]OL PLANNER exam shows patient moving all 4 extremities. LABS SHOW: Sodium 135, potassium 3.9, serum creatinine 1.78, hemoglobin 11.9 g/dL. ASSESSMENT: 1. Acute kidney injury associated with hypotension hypoperfusion and acute tubular necrosis, currently nonoliguric. Initially patient was oliguric. His renal function has been improved and progressively improving. Continue to wean down the Levophed. 2. Hypotension. Currently maintained on Levophed. The dose of which has been decreasing. I will check a random cortisol level. 3. Congestive heart failure, fluid overload, maintained on Lasix. Chest x-ray from today showing worsening changes of pulmonary edema. The Lasix will be increased to 80 mg q.8 hours. PLAN: Increase Lasix to 80 mg q.8 hours. Check random cortisol level. Monitor electrolytes and repeat labs in a.m. Continue to avoid nephrotoxic agents. MMODL / IJN: [id number] /
--- NOTE | 2017-05-27 15:49 | P.PN ---
Subjective This is an 81-year-old gentleman who is a poor historian, patient of Dr. Burton More. He has underlying history of recent non-ST myocardial infarction recently discharged from our facility from 05/18/2017 to 05/21/2017 at that admission he also had trauma and lumbar contusion from a fall at home, diastolic CHF with elevated troponins, he required management of his hypoxemia with Lasix and BiPAP, he was heparinized. His peak troponin during the last admission was 21.1 Dr. alvarez has seen the patient from cardiology, and medical management was provided for the non-Q-wave OR with increasing dose off metoprolol and resumption of oral Imdur. CAT scan of the chest shows pleural effusion no discrete changes for pneumonia, he has atelectasis during this last admission, echocardiogram was performed with an EF of 45-50%, right ventricle systolic pressure less than 35, borderline concentric LVH, no aortic stenosis, mild TR and mild MR and no pericardial effusion He presented to the ER secondary to inability to walk, has a hard time walking, patient denies any chest pain or shortness of breath most likely has shortness of breath on exertion, patient denies any worsening edema, however patient is up poor historian with that regard. He complained off low back pain from where the trauma was. He she was hypotensive and dyspneic on ER evaluation, he was transferred to ICU for hemodynamic instability, required pressor agents Levophed , and IV Lasix for CHF. IV Zosyn for possible pneumonia. Liver function tests is elevated so his both the troponin and CPKs. Peak troponin is 182, escalating CPK MB with a peak of 65 Patient aortic initial BiPAP treatments at 35% FiO2. And 3 AST of 13 and 37, ALT 979, CK of 735 troponin 60. ABG of 7.47 , pCO2 of 27 [address]icarb [address] Jolly from pulmonary is on consult along with cardiology 05/24: Patient remains in the intensive care unit. He is on vasopressors. Insulin drip will be changed over to glipizide and Humalog scale before meals and at bedtime. Lumbar x-rays to be done once patient is hemodynamically stable. Renal ultrasound shows normal findings. There is minimal fluid adjacent to the liver noted. Patient is eating and drinking well. He has had adequate urine output. Repeat BUN is 77 and creatinine 2.48. He is on heparin drip and now switched to oral amiodarone. Nephrology is following for nonoliguric acute kidney injury secondary to ischemic ATN secondary to cardiogenic shock. He is continued on Lasix 40 mg IV twice daily. Echocardiogram reveals EF of less than 20%, mild mitral regurgitation, trace tricuspid regurgitation, no pulmonary hypertension, global hypokinesia. 05/25 patient remains in ICU, still on Levophed still titrated up to bp currently at 12 mics patient clinically feels better however b but still without appetite , blood sugars elevated, glimepiride increased to3 mg twice a day with coverage , with low titration secondary to CK D 3 patient might need Levemir 05/26: Patient reminds in ICU, still on pressor agents 22 mics of Levophed, Proamatine started on 10 mg 3 times a day, albumin infusion given,, xcr CHF changes, patient was more dyspneic last night, marginally low blood pressure still, patient is on maintenance Lasix 40 mg iv every 8 hours. Patient might need to be transitioned to Lasix drip. will discuss with derrickman helper. BiPAP treatments given last night patient maintains BiPAP treatments currently. yancey cath. negative balance weight gain 10 kg since admission. 05/27; patients remains in icu on o2 supplementation, chf worse by cxr, lasix increased by nephrology to 80 mg q 8 h, levophed down now to 7 mcg. completed albumin infusions x3. hydrocortisone 100 mg daily 8 hours started, the patient has more conversational dyspnea. Patient has fairly good urine output Objective - Vital Signs Vital signs: Vital Signs Temp 98.4 F 05/27/17 08:00 Pulse 92 05/27/17 11:00 Resp 21 05/27/17 11:00 BP 98/61 05/27/17 11:00 Pulse Ox 97 05/27/17 11:00 Intake & Output 05/26/17 05/27/17 05/27/17 18:59 06:59 18:59 Intake Total 419.637 567.25 459.361 Output Total 1475 1495 785 Balance -1055.363 -927.75 -325.639 Weight 99 kg Intake: IV 312.5 277.5 120 0.9 NACL 250 240 120 zosyn 62.5 37.5 Intake, IV Titration 107.137 289.75 189.361 Amount Norepinephrin 16 mg-0.9% 107.137 289.75 139.361 Ns Pmx 16 mg In 250 ml @ Titrate IV .Q0M [facility] Rx#: [id number] Piperacillin-Tazobactam 3 50.0 .375 gm In Dextrose/Water 1 50ml.bag @ 12.5 mls/hr IVPB Q8HR [facility] Rx#: [id number] Oral 150 Output: Urine 1475 1495 785 Other: Voiding Method Indwelling Catheter Indwelling Catheter - Constitutional General appearance: Present: cooperative, no acute distress - EENT Eyes: Present: anicteric sclerae, EOMI, PERRLA, normal appearance ENT: Present: hearing grossly normal, NA/AT, normal oropharynx - Neck Neck: Present: normal ROM - Respiratory Respiratory: bilateral: diminished, prolonged expiration, negative: CTA, dullness - Cardiovascular Rhythm: irregularly irregular Heart sounds: normal: S1, S2 Abnormal Heart Sounds: Present: systolic murmur. Absent: diastolic murmur, rub , S3 Gallop, S4 Gallop, click, other - Gastrointestinal General gastrointestinal: Present: normal bowel sounds, soft - Integumentary Integumentary: Present: normal, normal turgor - Neurologic Neurologic: Present: CNII-XII intact - Musculoskeletal Musculoskeletal: Present: gait normal, generalized weakness, strength equal bilaterally - Psychiatric Psychiatric: Present: A&O x's 3, appropriate affect - Labs CBC & Chem 7: 05/27/17 04:25 05/27/17 14:15 Labs: Abnormal Lab Results - Last 24 Hours (Table) 05/26/17 05/26/17 05/27/17 Range/Units 16:57 20:56 04:12 WBC (3.8-10.6) k/uL RBC (4.30-5.90) m/uL Hgb (13.0-17.5) gm/dL Hct (39.0-53.0) % Neutrophils # (1.3-7.7) k/uL Lymphocytes # (1.0-4.8) k/uL Sodium (137-145) mmol/L BUN (9-20) mg/dL Creatinine (0.66-1.25) mg/dL Glucose (74-99) mg/dL POC Glucose (mg/dL) 226 H 245 H 165 H (75-99) mg/dL Calcium (8.4-10.2) mg/dL Magnesium (1.6-2.3) mg/dL Creatine Kinase (55-170) U/L 05/27/17 05/27/17 05/27/17 Range/Units 04:25 04:25 07:18 WBC 12.0 H (3.8-10.6) k/uL RBC 3.74 L (4.30-5.90) m/uL Hgb 11.9 L (13.0-17.5) gm/dL Hct 35.3 L (39.0-53.0) % Neutrophils # 11.0 H (1.3-7.7) k/uL Lymphocytes # 0.4 L (1.0-4.8) k/uL Sodium 135 L (137-145) mmol/L BUN 72 H (9-20) mg/dL Creatinine 1.78 H (0.66-1.25) mg/dL Glucose 159 H (74-99) mg/dL POC Glucose (mg/dL) 163 H (75-99) mg/dL Calcium 7.4 L (8.4-10.2) mg/dL Magnesium 2.4 H (1.6-2.3) mg/dL Creatine Kinase 48 L (55-170) U/L 05/27/17 Range/Units 11:54 WBC (3.8-10.6) k/uL RBC (4.30-5.90) m/uL Hgb (13.0-17.5) gm/dL Hct (39.0-53.0) % Neutrophils # (1.3-7.7) k/uL Lymphocytes # (1.0-4.8) k/uL Sodium (137-145) mmol/L BUN (9-20) mg/dL Creatinine (0.66-1.25) mg/dL Glucose (74-99) mg/dL POC Glucose (mg/dL) 244 H (75-99) mg/dL Calcium (8.4-10.2) mg/dL Magnesium (1.6-2.3) mg/dL Creatine Kinase (55-170) U/L Laboratory Results WBC 12.0 k/uL (3.8-10.6) H 05/27/17 04:25 RBC 3.74 m/uL (4.30-5.90) L 05/27/17 04:25 Hgb 11.9 gm/dL (13.0-17.5) L 05/27/17 04:25 Hct 35.3 % (39.0-53.0) L 05/27/17 04:25 MCV 94.6 fL (80.0-100.0) 05/27/17 04:25 MCH 31.9 pg (25.0-35.0) 05/27/17 04:25 MCHC 33.7 g/dL (31.0-37.0) 05/27/17 04:25 RDW 13.8 % (11.5-15.5) 05/27/17 04:25 Plt Count 162 k/uL (150-450) 05/27/17 04:25 Neutrophils % 91 % 05/27/17 04:25 Lymphocytes % 3 % 05/27/17 04:25 Monocytes % 4 % 05/27/17 04:25 Eosinophils % 0 % 05/27/17 04:25 Basophils % 0 % 05/27/17 04:25 Neutrophils # 11.0 k/uL (1.3-7.7) H 05/27/17 04:25 Lymphocytes # 0.4 k/uL (1.0-4.8) L 05/27/17 04:25 Monocytes # 0.4 k/uL (0-1.0) 05/27/17 04:25 Eosinophils # 0.0 k/uL (0-0.7) 05/27/17 04:25 Basophils # 0.0 k/uL (0-0.2) 05/27/17 04:25 PT 11.6 sec (9.0-12.0) 05/22/17 13:59 INR 1.2 (<1.2) H 05/22/17 13:59 APTT 44.5 sec (22.0-30.0) H 05/25/17 05:05 Sample Site LBRA 05/22/17 16:47 ABG pH 7.47 (7.35-7.45) H 05/22/17 16:47 ABG pCO2 27 mmHg (35-45) L 05/22/17 16:47 ABG pO2 98 mmHg (83-108) 05/22/17 16:47 ABG HCO3 19 mmol/L (21-25) L 05/22/17 16:47 ABG Total CO2 20 mmol/L (19-24) 05/22/17 16:47 ABG O2 Saturation 98.0 % (94-97) H 05/22/17 16:47 ABG Base Excess -4.2 mmol/L 05/22/17 16:47 VBG pH 7.35 (7.31-7.41) 05/22/17 13:59 VBG pCO2 36 mmHg (37-51) L 05/22/17 13:59 VBG HCO3 19 mmol/L (24-28) L 05/22/17 13:59 FiO2 30 % 05/22/17 16:47 Sodium 135 mmol/L (137-145) L 05/27/17 04:25 Potassium 4.1 mmol/L (3.5-5.1) 05/27/17 14:15 Chloride 98 mmol/L (98-107) 05/27/17 04:25 Carbon Dioxide 28 mmol/L (22-30) 05/27/17 04:25 Anion Gap 9 mmol/L 05/27/17 04:25 BUN 72 mg/dL (9-20) H 05/27/17 04:25 Creatinine 1.78 mg/dL (0.66-1.25) H 05/27/17 04:25 Est GFR (MDRD) Af Amer 45 (>60 ml/min/1.73 sqM) 05/27/17 04:25 Est GFR (MDRD) Non-Af 37 (>60 ml/min/1.73 sqM) 05/27/17 04:25 Glucose 159 mg/dL (74-99) H 05/27/17 04:25 POC Glucose (mg/dL) 244 mg/dL (75-99) H 05/27/17 11:54 POC Glu Spanner Operator BARBARA Sissy Rodriguez 05/27/17 11:[address] Glu mg/dL 171 mg/dL 05/23/17 03:48 Hemoglobin A1c 7.6 % (4.2-6.1) H 05/23/17 03:48 Lactic Ac Sepsis Rflx Y 05/23/17 08:57 Plasma Lactic Acid Nicholas 2.7 mmol/L (0.7-2.0) H* 05/23/17 12:18 Calcium 7.4 mg/dL (8.4-10.2) L 05/27/17 04:25 Phosphorus 4.4 mg/dL (2.5-4.5) 05/27/17 04:25 Magnesium 2.4 mg/dL (1.6-2.3) H 05/27/17 04:25 Total Bilirubin 0.7 mg/dL (0.2-1.3) 05/26/17 05:50 AST 336 U/L (17-59) H 05/26/17 05:50 ALT 1643 U/L (21-72) H 05/26/17 05:50 Alkaline Phosphatase 115 U/L (38-126) 05/26/17 05:50 Creatine Kinase 48 U/L (55-170) L 05/27/17 04:25 Total Creatine Kinase 2082 U/L (55-170) H 05/23/17 01:55 CK-MB (CK-2) 65.2 ng/mL (0.0-2.4) H* 05/23/17 01:55 CK-MB (CK-2) Rel Index 05/23/17 01:55 Troponin I 125.000 ng/mL (0.000-0.034) H* 05/23/17 07:40 NT-Pro-B Natriuret Pep 68234 pg/mL 05/22/17 13:59 Total Protein 5.7 g/dL (6.3-8.2) L 05/26/17 05:50 Albumin 3.0 g/dL (3.5-5.0) L 05/26/17 05:50 Triglycerides 42 mg/dL (<150) 05/23/17 03:48 Cholesterol 94 mg/dL (<200) 05/23/17 03:48 LDL Cholesterol, Calc 48 mg/dL (0-99) 05/23/17 03:48 HDL Cholesterol 38 mg/dL (40-60) L 05/23/17 03:48 Lipase 249 U/L (23-300) 05/22/17 13:59 Cortisol 23 ug/dL 05/27/17 04:25 Urine Color Yellow 05/22/17 15:34 Urine Appearance Clear (Clear) 05/22/17 15:34 Urine pH 5.0 (5.0-8.0) 05/22/17 15:34 Ur Specific Gilbert 1.016 (1.001-1.035) 05/22/17 15:34 Urine Protein Trace (Negative) H 05/22/17 15:34 Urine Glucose (UA) 4+ (Negative) H 05/22/17 15:34 Urine Ketones Trace (Negative) H 05/22/17 15:34 Urine Blood Negative (Negative) 05/22/17 15:34 Urine Nitrite Negative (Negative) 05/22/17 15:34 Urine Bilirubin Negative (Negative) 05/22/17 15:34 Urine Urobilinogen <2.0 mg/dL (<2.0) 05/22/17 15:34 Ur Leukocyte Esterase Negative (Negative) 05/22/17 15:34 Stool Occult Blood Positive (Negative) 05/25/17 15:00 Assessment and Plan Plan: 1 Acute hypoxic respiratory failure due to acute on chronic systolic and diastolic heart failure due to non-ST elevation OR, with cardiogenic shock. Continue heparin drip. IV Levophed, aspirin 325 mg orally once every day, sublingual nitroglycerin, metoprolol 25 mg orally twice every day, hold off losartan because of his hypotension, oxygen, Lasix 40 mg IV push increased every 8 hours, echocardiogram, cardiology consultation, pulmonary consultation from Dr. Cyr. Patient currently is on Levophed with titrations, albumin infusion given, ProAmatine started, but later discontinued New ejection fraction 20% from previous of 40% 2. Acute on chronic systolic and diastolic heart failure. Continue metoprolol 25 mg orally twice every day, hold of losartan for now, continue Lasix 40 mg IV push every 12 hours, continue BiPAP or oxygen support for now. Cardiology and pulmonary medicine following 3. New non-ST elevation OR with multi-organ failure including acute respiratory failure, acute shock liver, acute kidney injury. Continue aspirin 325 mg orally once every day, metoprolol 25 mg orally twice every day, statin on hold, cardiology consultation, echocardiogram as above. 4. Possible bilateral pneumonia. Start the patient on Zosyn IV piggyback every 24 hours, with recent hospitalization, hospital acquired pneumonia needs to be covered, nebulized treatment albuterol 2.5 mg every 4 hours as needed, Continue oxygen support, pulmonary consultation. 5. Shock liver with acute liver failure. Avoid hypotension. Continue to monitor liver function tests. 6. Acute nonoliguric kidney injury secondary to ischemic ATN secondary to cardiogenic shock. Avoid nephrotoxins, maintain systolic blood pressure over 110, patient was seen consultation by Dr. Norman, renal ultrasound was normal. 7. Paroxysmal atrial fibrillation. Patient is now on amiodarone 400 mg twice daily Diabetes mellitus type 2. Uncontrolled, A1c of 7.6 Hold the patient metformin. Glipizide changed to glimepiride 3 mg twice a day from 1.5 mg twice a day and discontinue insulin drip. Titrate slowly, Patient started on Humalog scale patient might need Levemir 8. Diabetic polyneuropathy uncontrolled diabetes mellitus2. Stable at this time. With impaired balance and falls, physical therapy will be seeing the patient 9. Hyperlipidemia. Continue patient on Lipitor 10 mg orally once every day. 10. Anxiety disorder, generalized Depression, recurrent. Continue Cymbalta 60 mg orally once every day.. Continue patient on Xanax 1 mg orally twice a day as needed. Would decrease this to 0.5 mg. 3 times a day a when necessary 11 rhabdomoysis secondary to recent fall, contusion of right flank with bruising , present prior to admission, maintain IV hydration at this time monitor CPKs as well and renal function. Lumbar x-rays ordered and will be done once hemodynamically stable. 12. DVT prophylaxis. Continue heparin drip for now. 13. GI prophylaxis. Continue PPI. 14. Patient is NO code. 15. Debility with recurrent falls, contusion on the right lumbar flank area, spine x-rays to be obtained, patient would meet needing therapy at post discharge most likely subacute 16. Enlarged prostate. Continue Flomax 0.8 mg orally once every day. 17. addrenal insufficiency hyrocortisone stress dose at 100 mg q 8h started Discharge plan: Subacute rehab expected
[2017-05-27] MEDS: FUROSEMIDE 10 MG/ML 10 ML VIAL IV SCH (16:15)
[2017-05-27 17:24] LABS: Glucose,Whole Blood 232 mg/dL (75-99)
[2017-05-27] MEDS: traZODone HCL 100 MG TAB PO SCH (20:12)
[2017-05-27 20:17] LABS: Glucose,Whole Blood 281 mg/dL (75-99)
[2017-05-27] MEDS: INSULIN DETEMIR 100 UNIT/ML 10 ML VIAL SQ SCH (20:19)
[2017-05-27] MEDS ORDERED: HYDROCORTISONE SUCCINATE 100 MG/2 ML VIAL IV SCH (21:00)
[2017-05-27] MEDS: ALPRAZolam 0.5 MG TAB PO PRN (21:31)
[2017-05-28] MEDS: FUROSEMIDE 10 MG/ML 10 ML VIAL IV SCH ×2 (00:42→08:15)
[2017-05-28] MEDS: PIPERACILLIN-TAZOBACTAM 3.375 GM in DEXTROSE/WATER 1 50ML.BAG IVPB SCH ×4 (00:42→23:45)
[2017-05-28] MEDS: NOREPINEPHRIN 16 MG-0.9%NS PMX 16 MG/250 ML ML IV SCH (00:43)
[2017-05-28 05:52] LABS: Basophils % (A) 0 %; CH 31.6; CHCM 33.6; Eosinophils % (A) 0 %; HCT 35.6 % (39.0-53.0); HDW 2.62; HGB 11.5 gm/dL (13.0-17.5); Luc # (Auto) 0.16; Luc % (Auto) 1; Lymphocytes # (A) 0.2 k/uL (1.0-4.8); Lymphocytes % (A) 2 %; MCH 30.6 pg (25.0-35.0); MCHC 32.4 g/dL (31.0-37.0); MCV 94.5 fL (80.0-100.0); Mean Platelet Volume 8.3; Monocytes # (A) 0.5 k/uL (0-1.0); Monocytes % (A) 4 %; Neutrophils % (A) 92 %; RBC 3.76 m/uL (4.30-5.90); RDW 14.7 % (11.5-15.5); WBC 10.8 k/uL (3.8-10.6); WBC (Perox) 11.76
[2017-05-28] MEDS: MORPHINE SULFATE 2 MG/ML SYRINGE IVP PRN (06:40)
[2017-05-28 06:42] LABS: Calcium 7.7 mg/dL (8.4-10.2); Magnesium 2.4 mg/dL (1.6-2.3); Phosphorous 3.9 mg/dL (2.5-4.5)
[2017-05-28] MEDS ORDERED: DEXTROSE 5% IN WATER 100 ML with AMIODARONE 150 MG IV ONE (06:42)
--- NOTE | 2017-05-28 07:06 | XR ---
EXAMINATION TYPE: XR chest 1V DATE OF EXAM: 05/28/2017 COMPARISON: 05/27/2017 HISTORY: Shortness of breath TECHNIQUE: Single frontal view of the chest is obtained. FINDINGS: Again there is engorgement of superior vena cava/azygos confluence and hilar vessels. Ther e are similar appearing bilateral layering small pleural effusions with associated bibasilar airspace disease. Moderate pulmonary vascular congestion is unchanged. Right-sided internal jugular central v enous catheter is stable in positioning. Cardiomegaly remains. Degenerative changes of the glenohumer al joints and thoracic spine are again noted. IMPRESSION: Unchanged sequela of congestive heart failure including pulmonary edema, small layering effusions, cardiomegaly and bibasilar airspace disease most likely related to compressive atelectasis .
[2017-05-28] MEDS: INSULIN LISPRO (humaLOG) 300 UNIT/3 ML VIAL SQ SCH ×4 (07:12→21:00)
[2017-05-28 07:13] LABS: Glucose,Whole Blood 165 mg/dL (75-99)
[2017-05-28 07:21] LABS: Glucose,Whole Blood 161 mg/dL (75-99)
[2017-05-28] MEDS: AMIODARONE 450 MG in DEXTROSE 5% IN WATER 250 ML IV SCH ×6 (07:37→22:08)
[2017-05-28] MEDS: TAMSULOSIN 0.4 MG CAP.ER.24H PO SCH (08:16)
[2017-05-28] MEDS: ASPIRIN 325 MG TAB PO SCH (08:16)
[2017-05-28] MEDS: GLIMEPIRIDE 4 MG TAB PO SCH ×2 (08:16→18:47)
[2017-05-28] MEDS: APIXABAN 2.5 MG TABLET PO SCH ×2 (08:16→21:02)
[2017-05-28] MEDS: guaiFENesin 600 MG TABLET.ER PO SCH ×2 (08:17→21:00)
[2017-05-28] MEDS: DULoxetine HCL 60 MG CAPSULE.DR PO SCH (08:17)
[2017-05-28] MEDS: SENNOSIDES-DOCUSATE SODIUM 1 EACH TAB PO SCH (08:19)
--- NOTE | 2017-05-28 10:38 | P.PN ---
Subjective Progress note dated 05/28/2017 This is an 81-year-old male who was admitted back on May 22. His admission diagnoses included heart failure elevated troponins atrial fibrillation and rapid ventricular response. His nurse today is Noel. The patient's currently on O2 at 3 L. Receiving dobutamine at 1 elle per kilogram per minute norepinephrine at 3 mcg/m appointment 9 IV at KVO and Cordarone at 1 mg/m. I'm not sure what the long-term plan for this patient is. The patient has a very poor cardiac function overall of about 20%. Other medical problems include cardiogenic shock hyperkalemia hypoxemic respiratory failure systolic and diastolic heart failure diabetes peripheral neuropathy secondary to diabetes hyperlipidemia depression skin cancer BPH hearing loss and general medical debility. I did have a chance to speak to the daughter. The is on her way. I made sure that Noel would get them in contact with the apprentice embalmer to review the overall plan long-term. Objective - Vital Signs Vital signs: Vital Signs Temp 98.4 F 05/28/17 08:30 Pulse 105 H 05/28/17 08:30 Resp 31 H 05/28/17 08:30 BP 86/56 05/28/17 08:30 Pulse Ox 99 05/28/17 08:30 Intake & Output 05/27/17 05/28/17 05/28/17 18:59 06:59 18:59 Intake Total 1111.525 295.685 103.3 Output Total 1810 1210 360 Balance -698.475 -914.315 -256.7 Weight 101 kg 103.1 kg Intake: IV 277.5 205.0 70 0.9 NACL 240 130 20 zosyn 37.5 75.0 50 Intake, IV Titration 444.025 90.685 33.3 Amount Amiodarone 450 mg In 33.3 Dextrose 5% in Water 250 ml @ 1 MG/MIN 33.33 mls/ hr IV .[id number] [facility] Rx#: [id number] DOBUTamine DRIP 500 mg In 227.710 Dextrose/Water 1 250ml. bag @ 5 MCG/KG/MIN 14.94 mls/hr IV .[id number] [facility] Rx #:[id number] Norepinephrin 16 mg-0.9% 166.315 90.685 Ns Pmx 16 mg In 250 ml @ Titrate IV .Q0M [facility] Rx#: [id number] Piperacillin-Tazobactam 3 50.0 .375 gm In Dextrose/Water 1 50ml.bag @ 12.5 mls/hr IVPB Q8HR [facility] Rx#: [id number] Oral 390 Output: Urine 1810 1210 360 Other: Voiding Method Indwelling Catheter Indwelling Catheter Indwelling Catheter - Exam No acute distress, the patient appears very weak. Wearing nasal O2 at 3 L. HEENT examination is grossly unremarkable. Mucous membranes are moist. No oral lesions. Neck supple. Full range of motion. No adenopathy or thyromegaly. Cardiovascular examination reveals regular rhythm rate. S1-S2 normal. No S3- S4. Soft systolic murmur noted. Lungs reveal coarse rhonchi. The some bibasilar crackles. Breath sounds are diminished. No wheezes. Abdomen soft bowel sounds are heard. No masses or tenderness. Extremities are intact. Minimal edema. Skin without rash. Neurologic examination is brief but nonfocal. - Labs CBC & Chem 7: 05/28/17 04:50 05/28/17 04:50 Labs: Abnormal Lab Results - Last 24 Hours (Table) 05/27/17 05/27/17 05/27/17 Range/Units 11:54 17:22 20:15 WBC (3.8-10.6) k/uL RBC (4.30-5.90) m/uL Hgb (13.0-17.5) gm/dL Hct (39.0-53.0) % Plt Count (150-450) k/uL Neutrophils # (1.3-7.7) k/uL Lymphocytes # (1.0-4.8) k/uL Sodium (137-145) mmol/L BUN (9-20) mg/dL Creatinine (0.66-1.25) mg/dL Glucose (74-99) mg/dL POC Glucose (mg/dL) 244 H 232 H 281 H (75-99) mg/dL Calcium (8.4-10.2) mg/dL Magnesium (1.6-2.3) mg/dL Creatine Kinase (55-170) U/L 05/28/17 05/28/17 05/28/17 Range/Units 04:50 04:50 04:50 WBC 10.8 H (3.8-10.6) k/uL RBC 3.76 L (4.30-5.90) m/uL Hgb 11.5 L (13.0-17.5) gm/dL Hct 35.6 L (39.0-53.0) % Plt Count 136 L (150-450) k/uL Neutrophils # 10.0 H (1.3-7.7) k/uL Lymphocytes # 0.2 L (1.0-4.8) k/uL Sodium 134 L (137-145) mmol/L BUN 69 H (9-20) mg/dL Creatinine 2.03 H (0.66-1.25) mg/dL Glucose 156 H (74-99) mg/dL POC Glucose (mg/dL) (75-99) mg/dL Calcium 7.7 L (8.4-10.2) mg/dL Magnesium 2.4 H (1.6-2.3) mg/dL Creatine Kinase 36 L (55-170) U/L 05/28/17 05/28/17 Range/Units 07:11 07:20 WBC (3.8-10.6) k/uL RBC (4.30-5.90) m/uL Hgb (13.0-17.5) gm/dL Hct (39.0-53.0) % Plt Count (150-450) k/uL Neutrophils # (1.3-7.7) k/uL Lymphocytes # (1.0-4.8) k/uL Sodium (137-145) mmol/L BUN (9-20) mg/dL Creatinine (0.66-1.25) mg/dL Glucose (74-99) mg/dL POC Glucose (mg/dL) 165 H 161 H (75-99) mg/dL Calcium (8.4-10.2) mg/dL Magnesium (1.6-2.3) mg/dL Creatine Kinase (55-170) U/L Assessment and Plan (1) ARF (acute renal failure) Status: Acute (2) Acute respiratory failure Status: Acute (3) CHF (congestive heart failure) Status: Acute (4) Cardiogenic shock Status: Acute (5) Hypoxia Status: Acute (6) NSTEMI (non-ST elevated myocardial infarction) Status: Acute Plan: Plan dated 05/28/2017 The patient's labs x-rays and medications are all reviewed. We will see if we can decide what to do with this patient long-term. He remains on a lot of different cardiac medications including a dobutamine norepinephrine and Cordarone. We'll see if we can't get cardiology to speak to the daughter and about long-term plans. He appears awfully weak. His overall cardiac function is poor. Remains in the ICU. Prognosis is poor. We'll continue to follow closely. Chest x-rays consistent with pulmonary edema. Critical care time is 33 minutes Time with Patient: Greater than 30
[2017-05-28 12:20] LABS: Glucose,Whole Blood 231 mg/dL (75-99)
[2017-05-28] MEDS: FUROSEMIDE 250 MG in SODIUM CHLORIDE 0.9% 225 ML IVP SCH (12:40)
--- NOTE | 2017-05-28 13:32 | PN ---
PROGRESS NOTE Vishal is an 81-year-old gentleman who was admitted to the hospital with myocardial infarction and had been in cardiogenic shock and renal failure. He is currently on dobutamine, amiodarone, Eliquis, IV Lasix. His urine output is improving, continues to have renal failure. Continues to require pressors to keep up pressure. PHYSICAL EXAMINATION: On exam, heart rate is 96 beats per minute, blood pressure is 100/59, respiratory rate is 18. Chest exam reveals diminished air entry at the bases. Heart exam reveals first and second heart sounds. Regular rhythm. Abdomen is soft. Examination of the extremities reveals trace edema. Peripheral pulses are palpable. LABS: Labs show that the hemoglobin is 11.5. Potassium is 4, BUN is 69, creatinine is 2.0. ASSESSMENT: 1. Ischemic cardiomyopathy. 2. Cardiogenic shock. 3. Hypotension. 4. Renal failure. 5. Atrial fibrillation. PLAN: I will continue the IV amiodarone, Eliquis, IV Lasix, Levophed and dobutamine. Prognosis guarded. MMODL / IJN: [id number] /
--- NOTE | 2017-05-28 14:47 | P.PN ---
Subjective This is an 81-year-old gentleman who is a poor historian, patient of Dr. Burton More. He has underlying history of recent non-ST myocardial infarction recently discharged from our facility from 05/18/2017 to 05/21/2017 at that admission he also had trauma and lumbar contusion from a fall at home, diastolic CHF with elevated troponins, he required management of his hypoxemia with Lasix and BiPAP, he was heparinized. His peak troponin during the last admission was 21.1 Dr. alvarez has seen the patient from cardiology, and medical management was provided for the non-Q-wave DE with increasing dose off metoprolol and resumption of oral Imdur. CAT scan of the chest shows pleural effusion no discrete changes for pneumonia, he has atelectasis during this last admission, echocardiogram was performed with an EF of 45-50%, right ventricle systolic pressure less than 35, borderline concentric LVH, no aortic stenosis, mild TR and mild MR and no pericardial effusion He presented to the ER secondary to inability to walk, has a hard time walking, patient denies any chest pain or shortness of breath most likely has shortness of breath on exertion, patient denies any worsening edema, however patient is up poor historian with that regard. He complained off low back pain from where the trauma was. He she was hypotensive and dyspneic on ER evaluation, he was transferred to ICU for hemodynamic instability, required pressor agents Levophed , and IV Lasix for CHF. IV Zosyn for possible pneumonia. Liver function tests is elevated so his both the troponin and CPKs. Peak troponin is 182, escalating CPK MB with a peak of 65 Patient aortic initial BiPAP treatments at 35% FiO2. And 3 AST of 13 and 37, ALT 979, CK of 735 troponin 60. ABG of 7.47 , pCO2 of 27 [address]icarb [address] Jolly from pulmonary is on consult along with cardiology 05/24: Patient remains in the intensive care unit. He is on vasopressors. Insulin drip will be changed over to glipizide and Humalog scale before meals and at bedtime. Lumbar x-rays to be done once patient is hemodynamically stable. Renal ultrasound shows normal findings. There is minimal fluid adjacent to the liver noted. Patient is eating and drinking well. He has had adequate urine output. Repeat BUN is 77 and creatinine 2.48. He is on heparin drip and now switched to oral amiodarone. Nephrology is following for nonoliguric acute kidney injury secondary to ischemic ATN secondary to cardiogenic shock. He is continued on Lasix 40 mg IV twice daily. Echocardiogram reveals EF of less than 20%, mild mitral regurgitation, trace tricuspid regurgitation, no pulmonary hypertension, global hypokinesia. 05/25 patient remains in ICU, still on Levophed still titrated up to bp currently at 12 mics patient clinically feels better however b but still without appetite , blood sugars elevated, glimepiride increased to3 mg twice a day with coverage , with low titration secondary to CK D 3 patient might need Levemir 05/26: Patient remains in ICU, still on pressor agents 22 mics of Levophed, Proamatine started on 10 mg 3 times a day, albumin infusion given,, xcr CHF changes, patient was more dyspneic last night, marginally low blood pressure still, patient is on maintenance Lasix 40 mg iv every 8 hours. Patient might need to be transitioned to Lasix drip. will discuss with track vehicle repairer. BiPAP treatments given last night patient maintains BiPAP treatments currently. yancey cath. negative balance weight gain 10 kg since admission. 05/27; patients remains in icu on o2 supplementation, chf worse by cxr, lasix increased by nephrology to 80 mg q 8 h, levophed down now to 7 mcg. completed albumin infusions x3. hydrocortisone 100 mg daily 8 hours started, the patient has more conversational dyspnea. Patient has fairly good urine output 05/28: Patient was seen and evaluated today, patient remains in the ICU on dobutamine, norepinephrine and amiodarone. Repeat chest x-ray shows unchanged congestive heart failure, pulmonary edema, and cardiomyopathy. He continues to be followed by nephrology and cardiology. Objective - Vital Signs Vital signs: Vital Signs Temp 98.4 F 05/28/17 08:30 Pulse 105 H 05/28/17 08:30 Resp 31 H 05/28/17 08:30 BP 86/56 05/28/17 08:30 Pulse Ox 99 05/28/17 08:30 Intake & Output 05/27/17 05/28/17 05/28/17 18:59 06:59 18:59 Intake Total 1111.525 295.685 103.3 Output Total 1810 1210 360 Balance -698.475 -914.315 -256.7 Weight 101 kg 103.1 kg Intake: IV 277.5 205.0 70 0.9 NACL 240 130 20 zosyn 37.5 75.0 50 Intake, IV Titration 444.025 90.685 33.3 Amount Amiodarone 450 mg In 33.3 Dextrose 5% in Water 250 ml @ 1 MG/MIN 33.33 mls/ hr IV .Q7H31M KIM Rx#: [id number] DOBUTamine DRIP 500 mg In 227.710 Dextrose/Water 1 250ml. bag @ 5 MCG/KG/MIN 14.94 mls/hr IV .[id number] KIM Rx #:[id number] Norepinephrin 16 mg-0.9% 166.315 90.685 Ns Pmx 16 mg In 250 ml @ Titrate IV .Q0M KIM Rx#: [id number] Piperacillin-Tazobactam 3 50.0 .375 gm In Dextrose/Water 1 50ml.bag @ 12.5 mls/hr IVPB Q8HR KIM Rx#: [id number] Oral 390 Output: Urine 1810 1210 360 Other: Voiding Method Indwelling Catheter Indwelling Catheter Indwelling Catheter - Exam - Constitutional General appearance: Present: cooperative, no acute distress - EENT Eyes: Present: anicteric sclerae, EOMI, PERRLA, normal appearance ENT: Present: hearing grossly normal, NA/AT, normal oropharynx - Neck Neck: Present: normal ROM - Respiratory Respiratory: bilateral: diminished, prolonged expiration, negative: CTA, dullness - Cardiovascular Rhythm: irregularly irregular Heart sounds: normal: S1, S2 Abnormal Heart Sounds: Present: systolic murmur. Absent: diastolic murmur, rub , S3 Gallop, S4 Gallop, click, other - Gastrointestinal General gastrointestinal: Present: normal bowel sounds, soft - Integumentary Integumentary: Present: normal, normal turgor - Neurologic Neurologic: Present: CNII-XII intact - Musculoskeletal Musculoskeletal: Present: gait normal, generalized weakness, strength equal bilaterally - Psychiatric Psychiatric: Present: A&O x's 3, appropriate affect - Labs CBC & Chem 7: 05/28/17 04:50 05/28/17 04:50 Labs: Abnormal Lab Results - Last 24 Hours (Table) 05/27/17 05/27/17 05/27/17 Range/Units 11:54 17:22 20:15 WBC (3.8-10.6) k/uL RBC (4.30-5.90) m/uL Hgb (13.0-17.5) gm/dL Hct (39.0-53.0) % Plt Count (150-450) k/uL Neutrophils # (1.3-7.7) k/uL Lymphocytes # (1.0-4.8) k/uL Sodium (137-145) mmol/L BUN (9-20) mg/dL Creatinine (0.66-1.25) mg/dL Glucose (74-99) mg/dL POC Glucose (mg/dL) 244 H 232 H 281 H (75-99) mg/dL Calcium (8.4-10.2) mg/dL Magnesium (1.6-2.3) mg/dL Creatine Kinase (55-170) U/L 05/28/17 05/28/17 05/28/17 Range/Units 04:50 04:50 04:50 WBC 10.8 H (3.8-10.6) k/uL RBC 3.76 L (4.30-5.90) m/uL Hgb 11.5 L (13.0-17.5) gm/dL Hct 35.6 L (39.0-53.0) % Plt Count 136 L (150-450) k/uL Neutrophils # 10.0 H (1.3-7.7) k/uL Lymphocytes # 0.2 L (1.0-4.8) k/uL Sodium 134 L (137-145) mmol/L BUN 69 H (9-20) mg/dL Creatinine 2.03 H (0.66-1.25) mg/dL Glucose 156 H (74-99) mg/dL POC Glucose (mg/dL) (75-99) mg/dL Calcium 7.7 L (8.4-10.2) mg/dL Magnesium 2.4 H (1.6-2.3) mg/dL Creatine Kinase 36 L (55-170) U/L 05/28/17 05/28/17 Range/Units 07:11 07:20 WBC (3.8-10.6) k/uL RBC (4.30-5.90) m/uL Hgb (13.0-17.5) gm/dL Hct (39.0-53.0) % Plt Count (150-450) k/uL Neutrophils # (1.3-7.7) k/uL Lymphocytes # (1.0-4.8) k/uL Sodium (137-145) mmol/L BUN (9-20) mg/dL Creatinine (0.66-1.25) mg/dL Glucose (74-99) mg/dL POC Glucose (mg/dL) 165 H 161 H (75-99) mg/dL Calcium (8.4-10.2) mg/dL Magnesium (1.6-2.3) mg/dL Creatine Kinase (55-170) U/L Assessment and Plan Plan: 1. Acute hypoxic respiratory failure due to acute on chronic systolic and diastolic heart failure due to non-ST elevation DE, with cardiogenic shock. Continue Eliquis, ASA 325 mg orally once every day, sublingual nitroglycerin, hold off losartan because of his hypotension, oxygen, furosemide 250 mg daily, echocardiogram, cardiology consultation, pulmonary consultation from Dr. Cyr. Patient currently is on norepinephrine and dobutamine. New ejection fraction 20% from previous of 40%. 2. Acute on chronic systolic and diastolic heart failure. Hold off losartan for now due to hypotension , continue furosemide 250 mg daily, continue oxygen support for now. Cardiology and pulmonary medicine following. 3. New non-ST elevation DE with multi-organ failure including acute respiratory failure, acute shock liver, acute kidney injury. Continue aspirin 325 mg orally once every day, statin on hold, cardiology consultation, echocardiogram as above. 4. Possible bilateral pneumonia. Start the patient on Zosyn IV piggyback every 24 hours, with recent hospitalization, hospital acquired pneumonia needs to be covered, nebulized treatment with Xopenex every 4 hours as needed, Continue oxygen support, pulmonary consultation. 5. Shock liver with acute liver failure. Avoid hypotension. Continue to monitor liver function tests. 6. Acute nonoliguric kidney injury secondary to ischemic ATN secondary to cardiogenic shock. Avoid nephrotoxins, maintain systolic blood pressure over 110, patient was seen consultation by Dr. Norman, renal ultrasound was normal. 7. Paroxysmal atrial fibrillation. Patient is now on amiodarone 1mg/min. 8. Diabetes mellitus type 2. Uncontrolled, A1c of 7.6. Hold the patient metformin. Glipizide changed to glimepiride 4 mg twice a day, Levemir 15 units at at bedtime and Humalog. 9. Diabetic polyneuropathy uncontrolled diabetes mellitus2. Stable at this time. With impaired balance and falls, physical therapy will be seeing the patient. 10. Hyperlipidemia. Continue patient on Lipitor 10 mg orally once every day. 11. Anxiety disorder, generalized Depression, recurrent. Continue Cymbalta 60 mg orally once every day. Continue patient on Xanax 1 mg orally twice a day as needed. Would decrease this to 0.5 mg 3 times a day a when necessary 12. Rhabdomoysis secondary to recent fall. Contusion of right flank with bruising, present prior to admission, maintain IV hydration at this time monitor CPKs as well and renal function. Lumbar x-rays ordered and will be done once hemodynamically stable. 13. DVT prophylaxis. On Eliquis 14. GI prophylaxis. Continue PPI. 15. Patient is NO code. 16. Debility with recurrent falls, contusion on the right lumbar flank area, spine x-rays to be obtained, patient would meet needing therapy at post discharge most likely subacute 17. Enlarged prostate. Continue Flomax 0.8 mg orally once every day. 18. addrenal insufficiency hyrocortisone stress dose at 100 mg q 8h started The above impression and plan of care have been discussed and directed by signing physician. Sara Lozoya nurse practitioner acting as scribe for signing physician.
[2017-05-28 17:25] LABS: Glucose,Whole Blood 313 mg/dL (75-99)
--- NOTE | 2017-05-28 19:17 | PN ---
PROGRESS NOTE Patient is seen for followup for acute kidney injury. He remains volume-overloaded. Patient's Lasix was increased to 80 IV q.8 hours yesterday. He has had good urine output of about 3 L. He is negative 1.9 L. Patient is lying in bed. He remains on Levophed at about 9 mcg. He is also on dobutamine now. PHYSICAL EXAMINATION: Blood pressure is 104/61, heart rate 104 per minute. Patient is afebrile. EXAMINATION OF THE HEART: S1, S2. EXAMINATION OF LUNGS: Bilateral breath sounds are heard. ABDOMEN: Soft, non-tender. Examination of lower extremities shows edema 1+ bilaterally. PROGRAMMING SPECIALIST exam is grossly intact. LABS: Sodium 134, potassium 4.0, BUN 69, serum creatinine 2.0, hemoglobin 11.5 g/dL. ASSESSMENT: 1. Acute kidney injury, mainly cardiorenal and initially acute tubular necrosis from hypotension and hypoperfusion as well, slowly improving. Patient remains on Levophed. His serum creatinine is higher today. He is also maintained on dobutamine. I will add Lasix drip instead of IV push Lasix to help improve the volume overload. Overall prognosis is guarded. 2. Congestive heart failure, cardiomyopathy, mainly systolic; ejection fraction less than 20%. 3. Status post acute myocardial infarction. PLAN: Change Lasix to Lasix drip. Monitor electrolytes. Overall prognosis is very guarded. MMODL / IJN: [id number] /
[2017-05-28] MEDS: DOBUTamine DRIP 500 MG in DEXTROSE/WATER 1 250ML.BAG IV SCH (20:16)
[2017-05-28 20:33] LABS: Glucose,Whole Blood 308 mg/dL (75-99)
[2017-05-28] MEDS: INSULIN DETEMIR 100 UNIT/ML 10 ML VIAL SQ SCH (21:00)
[2017-05-28] MEDS: MAG HYDROX/AL HYDROX/SIMETH 30 ML CUP PO PRN (21:01)
[2017-05-28] MEDS: traZODone HCL 100 MG TAB PO SCH (21:01)
[2017-05-29 04:56] LABS: Basophils % (A) 0 %; CH 31.5; CHCM 32.7; Eosinophils % (A) 0 %; HCT 33.3 % (39.0-53.0); HDW 2.57; HGB 10.6 gm/dL (13.0-17.5); Luc # (Auto) 0.18; Luc % (Auto) 1; Lymphocytes # (A) 0.3 k/uL (1.0-4.8); Lymphocytes % (A) 2 %; MCH 30.9 pg (25.0-35.0); MCHC 31.8 g/dL (31.0-37.0); MCV 97.1 fL (80.0-100.0); Mean Platelet Volume 8.2; Monocytes # (A) 0.5 k/uL (0-1.0); Monocytes % (A) 3 %; Neutrophils # (A) 12.9 k/uL (1.3-7.7); Neutrophils % (A) 93 %; RBC 3.43 m/uL (4.30-5.90); RDW 14.7 % (11.5-15.5); WBC 13.8 k/uL (3.8-10.6); WBC (Perox) 14.58
[2017-05-29 05:09] LABS: Calcium 7.7 mg/dL (8.4-10.2); Magnesium 2.3 mg/dL (1.6-2.3); Phosphorous 3.9 mg/dL (2.5-4.5); Potassium 4.3 mmol/L (3.5-5.1)
[2017-05-29] MEDS: AMIODARONE 450 MG in DEXTROSE 5% IN WATER 250 ML IV SCH ×2 (06:12)
[2017-05-29] MEDS: DOBUTamine DRIP 500 MG in DEXTROSE/WATER 1 250ML.BAG IV SCH (06:13)
[2017-05-29 06:18] LABS: Glucose,Whole Blood 216 mg/dL (75-99)
--- NOTE | 2017-05-29 06:46 | XR ---
EXAMINATION TYPE: XR chest 1V DATE OF EXAM: 05/29/2017 CLINICAL HISTORY: Difficulty breathing and pulmonary edema progress study. TECHNIQUE: Single AP portable upright view of the chest is obtained. COMPARISON: Chest x-ray from one day earlier and older studies. FINDINGS: A right internal jugular central venous catheter is stable in appearance. There is persist ent mild cardiomegaly. There is persistent bibasilar opacity consistent with small to moderate-sized bilateral pleural effusions and associated bibasilar atelectasis and/or infiltrate. There is persiste nt moderate central vascular congestion. No sizable pneumothorax is seen bilaterally. Osseous structu res are intact. IMPRESSION: Overall stable findings, findings consistent with CHF exacerbation redemonstrated as th ere is cardiomegaly with moderate central vascular congestion and small to moderate-sized bilateral p leural effusions all redemonstrated.
[2017-05-29] MEDS: GLIMEPIRIDE 4 MG TAB PO SCH (09:52)
[2017-05-29] MEDS: INSULIN LISPRO (humaLOG) 300 UNIT/3 ML VIAL SQ SCH (09:55)
[2017-05-29] MEDS: ASPIRIN 325 MG TAB PO SCH (09:56)
[2017-05-29] MEDS: APIXABAN 2.5 MG TABLET PO SCH (09:56)
[2017-05-29 09:57] LABS: Glucose,Whole Blood 308 mg/dL (75-99)
[2017-05-29] MEDS: TAMSULOSIN 0.4 MG CAP.ER.24H PO SCH (09:57)
[2017-05-29] MEDS: guaiFENesin 600 MG TABLET.ER PO SCH (09:57)
[2017-05-29] MEDS ORDERED: LORazepam 1 MG TAB PO PRN (10:24)
[2017-05-29] MEDS: SENNOSIDES-DOCUSATE SODIUM 1 EACH TAB PO SCH (10:29)
[2017-05-29] MEDS: DULoxetine HCL 60 MG CAPSULE.DR PO SCH (10:29)
[2017-05-29] MEDS: PIPERACILLIN-TAZOBACTAM 3.375 GM in DEXTROSE/WATER 1 50ML.BAG IVPB SCH (10:56)
[2017-05-29] MEDS ORDERED: INSULIN DETEMIR 100 UNIT/ML 10 ML VIAL SQ SCH (11:00)
--- NOTE | 2017-05-29 11:32 | P.PN ---
Subjective This is an 81-year-old male who was admitted back on May 22. His admission diagnoses included heart failure elevated troponins atrial fibrillation and rapid ventricular response. The patient's currently on O2 at 3 L. Receiving dobutamine at 1 elle per kilogram per minute norepinephrine at 3 mcg/m appointment 9 IV at KVO and Cordarone at 1 mg/m. I'm not sure what the long-term plan for this patient is. The patient has a very poor cardiac function overall of about 20%. Other medical problems include cardiogenic shock hyperkalemia hypoxemic respiratory failure systolic and diastolic heart failure diabetes peripheral neuropathy secondary to diabetes hyperlipidemia depression skin cancer BPH hearing loss and general medical debility. I did have a chance to speak to the daughter. The is on her way. I made sure that Noel would get them in contact with the technical assoc to review the overall plan long-term. The patient is seen again today 05/29/2017 in follow-up in the intensive care unit. He is currently awake and alert. He is dyspneic on minimal exertion. He is currently up in a chair at the bedside. He is maintaining O2 saturations in the 90s on 3 L/m per nasal cannula. His chest x-ray continues to show evidence of cardiomegaly and congestive heart failure. He is currently on norepinephrine at 10 mcg/m, dobutamine at 5 mcg/kg/m, Lasix drip at 5 mg per hour. His amiodarone is currently off. He has a 0.9 normal saline at 10 mL's per hour. Current white count 13.8. Hemoglobin 10.6. Sodium 131, BUN 84, creatinine 1.70. Objective - Vital Signs Vital signs: Vital Signs Temp 99.0 F 05/28/17 20:00 Pulse 102 H 05/29/17 07:00 Resp 24 05/29/17 07:00 BP 101/60 05/29/17 07:00 Pulse Ox 83 L 05/29/17 07:00 Intake & Output 05/28/17 05/29/17 05/29/17 18:59 06:59 18:59 Intake Total 703.3 230.0 Output Total 1345 1190 Balance -641.7 -960.0 Weight 103.1 kg 105.2 kg Intake: IV 170 230.0 0.9 NACL 110 130 0.9 nacl bolus 10 zosyn 50 100.0 Intake, IV Titration 533.3 Amount Amiodarone 450 mg In 283.3 Dextrose 5% in Water 250 ml @ 1 MG/MIN 33.33 mls/ hr IV .Q7H31M KIM Rx#: [id number] DOBUTamine DRIP 500 mg In 250 Dextrose/Water 1 250ml. bag @ 5 MCG/KG/MIN 14.94 mls/hr IV .[id number] KIM Rx #:[id number] Output: Urine 1345 1190 Other: Voiding Method Indwelling Catheter Indwelling Catheter - Exam No acute distress, the patient appears very weak. Wearing nasal O2 at 3 L. HEENT examination is grossly unremarkable. Mucous membranes are moist. No oral lesions. Neck supple. Full range of motion. No adenopathy or thyromegaly. Cardiovascular examination reveals regular rhythm rate. S1-S2 normal. No S3- S4. Soft systolic murmur noted. Lungs reveal coarse rhonchi. The some bibasilar crackles. Breath sounds are diminished. No wheezes. Abdomen soft bowel sounds are heard. No masses or tenderness. Extremities are intact. Minimal edema. Skin without rash. Neurologic examination is brief but nonfocal. - Labs CBC & Chem 7: 05/29/17 03:52 05/29/17 03:52 Labs: Abnormal Lab Results - Last 24 Hours (Table) 05/28/17 05/28/17 05/28/17 Range/Units : 17:13 20:30 WBC (3.8-10.6) k/uL RBC (4.30-5.90) m/uL Hgb (13.0-17.5) gm/dL Hct (39.0-53.0) % Neutrophils # (1.3-7.7) k/uL Lymphocytes # (1.0-4.8) k/uL Sodium (137-145) mmol/L Chloride (98-107) mmol/L BUN (9-20) mg/dL Creatinine (0.66-1.25) mg/dL Glucose (74-99) mg/dL POC Glucose (mg/dL) 231 H 313 H 308 H (75-99) mg/dL Calcium (8.4-10.2) mg/dL 05/29/17 05/29/17 05/29/17 Range/Units 03:52 03:52 06:16 WBC 13.8 H (3.8-10.6) k/uL RBC 3.43 L (4.30-5.90) m/uL Hgb 10.6 L (13.0-17.5) gm/dL Hct 33.3 L (39.0-53.0) % Neutrophils # 12.9 H (1.3-7.7) k/uL Lymphocytes # 0.3 L (1.0-4.8) k/uL Sodium 131 L (137-145) mmol/L Chloride 95 L (98-107) mmol/L BUN 84 H* (9-20) mg/dL Creatinine 1.70 H (0.66-1.25) mg/dL Glucose 262 H (74-99) mg/dL POC Glucose (mg/dL) 216 H (75-99) mg/dL Calcium 7.7 L (8.4-10.2) mg/dL 05/29/17 Range/Units 09:55 WBC (3.8-10.6) k/uL RBC (4.30-5.90) m/uL Hgb (13.0-17.5) gm/dL Hct (39.0-53.0) % Neutrophils # (1.3-7.7) k/uL Lymphocytes # (1.0-4.8) k/uL Sodium (137-145) mmol/L Chloride (98-107) mmol/L BUN (9-20) mg/dL Creatinine (0.66-1.25) mg/dL Glucose (74-99) mg/dL POC Glucose (mg/dL) 308 H (75-99) mg/dL Calcium (8.4-10.2) mg/dL Assessment and Plan Plan: Impression: #1 Cardiogenic shock secondary to acute myocardial infarction. #2 Elevated LFTs secondary to above. #3 Hyperkalemia with metabolic lactic acidosis. #4 Acute hypoxic respiratory failure secondary to above currently on BiPAP. #5 Recent discharge following non-ST segment elevation myocardial infarction. 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 Severely impaired left ventricular systolic function with estimated ejection fraction less than 20%. There is global hypokinesia. Severe right ventricular systolic function impairment. #7 Diabetes mellitus, type II with significant hyperglycemia initial blood glucose of 610. #8 Diabetic peripheral neuropathy. #9 Hyperlipidemia. #10 History of depression/anxiety. #11 History of skin cancer. #12 Benign prostatic hypertrophy. #13 Hearing-impaired. #14 Recent fall. #15 Poor overall functional performance based on the above-mentioned multiple comorbidities. Plan: The patient was seen and evaluated by Dr. Valdovinos. His chest x-ray, EKG and labs were all reviewed. He feels this is mostly picture of cardiogenic shock secondary to acute myocardial infarction. The patient's condition this still quite poor and guarded. He is a DO NOT RESUSCITATE/DO NOT INTUBATE. Family is considering palliative/hospice care. In the interim, we'll continue with full supportive care until further decisions are made. He'll remain here in the intensive care unit. We'll continue to follow. Critical care time 36 minutes. Time with Patient: Greater than 30
--- NOTE | 2017-05-29 11:46 | P.PN ---
Progress Note - Text Patient is admitted to hospital with cardiogenic shock. Overall condition has remained essentially unchanged. Still requiring 10 mics of Levophed and he is also on 5 g of dobutamine. Remains hypotensive. Urine output is improving. His prognosis is poor. Had a long conversation with patient's and daughter and 2 sons. Patient has been this way for more than a week now do not believe we have anything else that we can do to alter his prognosis. We are going to consult hospice care. On exam patient is comfortable at rest heart rate is 80-90 bpm blood pressure is 90/60 respirators 16 there is a jugular venous distention chest exam reveals diminished air entry at the bases heart exam reveals first and second heart sounds no gallop exam extremities did not will any edema Status post myocardial infarction with cardiogenic shock Multi-organ failure Renal failure Prognosis is poor continue current measures stop the dobutamine consult hospice
--- NOTE | 2017-05-29 12:05 | P.PN ---
Subjective This is an 81-year-old gentleman who is a poor historian, patient of Dr. Burton More. He has underlying history of recent non-ST myocardial infarction recently discharged from our facility from 05/18/2017 to 05/21/2017 at that admission he also had trauma and lumbar contusion from a fall at home, diastolic CHF with elevated troponins, he required management of his hypoxemia with Lasix and BiPAP, he was heparinized. His peak troponin during the last admission was 21.1 Dr. alvarez has seen the patient from cardiology, and medical management was provided for the non-Q-wave WI with increasing dose off metoprolol and resumption of oral Imdur. CAT scan of the chest shows pleural effusion no discrete changes for pneumonia, he has atelectasis during this last admission, echocardiogram was performed with an EF of 45-50%, right ventricle systolic pressure less than 35, borderline concentric LVH, no aortic stenosis, mild TR and mild MR and no pericardial effusion He presented to the ER secondary to inability to walk, has a hard time walking, patient denies any chest pain or shortness of breath most likely has shortness of breath on exertion, patient denies any worsening edema, however patient is up poor historian with that regard. He complained off low back pain from where the trauma was. He she was hypotensive and dyspneic on ER evaluation, he was transferred to ICU for hemodynamic instability, required pressor agents Levophed , and IV Lasix for CHF. IV Zosyn for possible pneumonia. Liver function tests is elevated so his both the troponin and CPKs. Peak troponin is 182, escalating CPK MB with a peak of 65 Patient aortic initial BiPAP treatments at 35% FiO2. And 3 AST of 13 and 37, ALT 979, CK of 735 troponin 60. ABG of 7.47 , pCO2 of 27 [address]icar[address] Jolly from pulmonary is on consult along with cardiology 05/24: Patient remains in the intensive care unit. He is on vasopressors. Insulin drip will be changed over to glipizide and Humalog scale before meals and at bedtime. Lumbar x-rays to be done once patient is hemodynamically stable. Renal ultrasound shows normal findings. There is minimal fluid adjacent to the liver noted. Patient is eating and drinking well. He has had adequate urine output. Repeat BUN is 77 and creatinine 2.48. He is on heparin drip and now switched to oral amiodarone. Nephrology is following for nonoliguric acute kidney injury secondary to ischemic ATN secondary to cardiogenic shock. He is continued on Lasix 40 mg IV twice daily. Echocardiogram reveals EF of less than 20%, mild mitral regurgitation, trace tricuspid regurgitation, no pulmonary hypertension, global hypokinesia. 05/25 patient remains in ICU, still on Levophed still titrated up to bp currently at 12 mics patient clinically feels better however b but still without appetite , blood sugars elevated, glimepiride increased to3 mg twice a day with coverage , with low titration secondary to CK D 3 patient might need Levemir 05/26: Patient remains in ICU, still on pressor agents 22 mics of Levophed, Proamatine started on 10 mg 3 times a day, albumin infusion given,, xcr CHF changes, patient was more dyspneic last night, marginally low blood pressure still, patient is on maintenance Lasix 40 mg iv every 8 hours. Patient might need to be transitioned to Lasix drip. will discuss with inside sales professional. BiPAP treatments given last night patient maintains BiPAP treatments currently. yancey cath. negative balance weight gain 10 kg since admission. 05/27; patients remains in icu on o2 supplementation, chf worse by cxr, lasix increased by nephrology to 80 mg q 8 h, levophed down now to 7 mcg. completed albumin infusions x3. hydrocortisone 100 mg daily 8 hours started, the patient has more conversational dyspnea. Patient has fairly good urine output 05/28: Patient was seen and evaluated today, patient remains in the ICU on dobutamine, norepinephrine and amiodarone. Repeat chest x-ray shows unchanged congestive heart failure, pulmonary edema, and cardiomyopathy. He continues to be followed by nephrology and cardiology. 05/29: Patient was seen and evaluated today, patient's family members are at the bedside. Overall condition has remain unchanged. He still requires Levophed and dobutamine and currently remains hypotensive. Plan is for cardiology to speak with the family regarding his prognosis and the possibility of palliative or hospice care. Objective - Vital Signs Vital signs: Vital Signs Temp 99.0 F 05/28/17 20:00 Pulse 102 H 05/29/17 07:00 Resp 24 05/29/17 07:00 BP 101/60 05/29/17 07:00 Pulse Ox 83 L 05/29/17 07:00 Intake & Output 05/28/17 05/29/17 05/29/17 18:59 06:59 18:59 Intake Total 703.3 230.0 Output Total 1345 1190 Balance -641.7 -960.0 Weight 103.1 kg 105.2 kg Intake: IV 170 230.0 0.9 NACL 110 130 0.9 nacl bolus 10 zosyn 50 100.0 Intake, IV Titration 533.3 Amount Amiodarone 450 mg In 283.3 Dextrose 5% in Water 250 ml @ 1 MG/MIN 33.33 mls/ hr IV .[id number] KIM Rx#: [id number] DOBUTamine DRIP 500 mg In 250 Dextrose/Water 1 250ml. bag @ 5 MCG/KG/MIN 14.94 mls/hr IV .[id number] KIM Rx #:[id number] Output: Urine 1345 1190 Other: Voiding Method Indwelling Catheter Indwelling Catheter - Exam - Constitutional General appearance: Present: cooperative, no acute distress - EENT Eyes: Present: anicteric sclerae, EOMI, PERRLA, normal appearance ENT: Present: hearing grossly normal, NA/AT, normal oropharynx - Neck Neck: Present: normal ROM - Respiratory Respiratory: bilateral: diminished, prolonged expiration, negative: CTA, dullness - Cardiovascular Rhythm: irregularly irregular Heart sounds: normal: S1, S2 Abnormal Heart Sounds: Present: systolic murmur. Absent: diastolic murmur, rub , S3 Gallop, S4 Gallop, click, other - Gastrointestinal General gastrointestinal: Present: normal bowel sounds, soft - Integumentary Integumentary: Present: normal, normal turgor - Neurologic Neurologic: Present: CNII-XII intact - Musculoskeletal Musculoskeletal: Present: gait normal, generalized weakness, strength equal bilaterally - Psychiatric Psychiatric: Present: A&O x's 3, appropriate affect - Labs CBC & Chem 7: 05/29/17 03:52 05/29/17 03:52 Labs: Abnormal Lab Results - Last 24 Hours (Table) 05/28/17 05/28/17 05/28/17 Range/Units 12:17 17:13 20:30 WBC (3.8-10.6) k/uL RBC (4.30-5.90) m/uL Hgb (13.0-17.5) gm/dL Hct (39.0-53.0) % Neutrophils # (1.3-7.7) k/uL Lymphocytes # (1.0-4.8) k/uL Sodium (137-145) mmol/L Chloride (98-107) mmol/L BUN (9-20) mg/dL Creatinine (0.66-1.25) mg/dL Glucose (74-99) mg/dL POC Glucose (mg/dL) 231 H 313 H 308 H (75-99) mg/dL Calcium (8.4-10.2) mg/dL 05/29/17 05/29/17 05/29/17 Range/Units 03:52 03:52 06:16 WBC 13.8 H (3.8-10.6) k/uL RBC 3.43 L (4.30-5.90) m/uL Hgb 10.6 L (13.0-17.5) gm/dL Hct 33.3 L (39.0-53.0) % Neutrophils # 12.9 H (1.3-7.7) k/uL Lymphocytes # 0.3 L (1.0-4.8) k/uL Sodium 131 L (137-145) mmol/L Chloride 95 L (98-107) mmol/L BUN 84 H* (9-20) mg/dL Creatinine 1.70 H (0.66-1.25) mg/dL Glucose 262 H (74-99) mg/dL POC Glucose (mg/dL) 216 H (75-99) mg/dL Calcium 7.7 L (8.4-10.2) mg/dL 05/29/17 Range/Units 09:55 WBC (3.8-10.6) k/uL RBC (4.30-5.90) m/uL Hgb (13.0-17.5) gm/dL Hct (39.0-53.0) % Neutrophils # (1.3-7.7) k/uL Lymphocytes # (1.0-4.8) k/uL Sodium (137-145) mmol/L Chloride (98-107) mmol/L BUN (9-20) mg/dL Creatinine (0.66-1.25) mg/dL Glucose (74-99) mg/dL POC Glucose (mg/dL) 308 H (75-99) mg/dL Calcium (8.4-10.2) mg/dL Assessment and Plan Plan: 1. Acute hypoxic respiratory failure due to acute on chronic systolic and diastolic heart failure due to non-ST elevation WI, with cardiogenic shock. Continue Eliquis, ASA 325 mg orally once every day, sublingual nitroglycerin, hold off losartan because of his hypotension, oxygen, furosemide 250 mg daily, echocardiogram, cardiology consultation, pulmonary consultation from Dr. Cyr. Patient currently is on norepinephrine and dobutamine. No change in patient's overall condition, prognosis is poor, will discuss hospice or palliative care with family 2. Acute on chronic systolic and diastolic heart failure. Hold off losartan for now due to hypotension , continue furosemide 250 mg daily, continue oxygen support for now. Cardiology and pulmonary medicine following. 3. New non-ST elevation WI with multi-organ failure including acute respiratory failure, acute shock liver, acute kidney injury. Continue aspirin 325 mg orally once every day, statin on hold, cardiology consultation, echocardiogram as above. 4. Possible bilateral pneumonia. Start the patient on Zosyn IV piggyback every 24 hours, with recent hospitalization, hospital acquired pneumonia needs to be covered, nebulized treatment with Xopenex every 4 hours as needed, Continue oxygen support, pulmonary consultation. 5. Shock liver with acute liver failure. Avoid hypotension. Continue to monitor liver function tests. 6. Acute nonoliguric kidney injury secondary to ischemic ATN secondary to cardiogenic shock. Avoid nephrotoxins, maintain systolic blood pressure over 110, patient was seen consultation by Dr. Norman, renal ultrasound was normal. 7. Paroxysmal atrial fibrillation. Patient is now on amiodarone 1mg/min. 8. Diabetes mellitus type 2. Uncontrolled, A1c of 7.6. Hold the patient metformin. Glipizide changed to glimepiride 4 mg twice a day, Levemir 15 units at at bedtime and Humalog. 9. Diabetic polyneuropathy uncontrolled diabetes mellitus2. Stable at this time. With impaired balance and falls, physical therapy will be seeing the patient. 10. Hyperlipidemia. Continue patient on Lipitor 10 mg orally once every day. 11. Anxiety disorder, generalized Depression, recurrent. Continue Cymbalta 60 mg orally once every day. Continue patient on Xanax 1 mg orally twice a day as needed. Would decrease this to 0.5 mg 3 times a day a when necessary 12. Rhabdomoysis secondary to recent fall. Contusion of right flank with bruising, present prior to admission, maintain IV hydration at this time monitor CPKs as well and renal function. Lumbar x-rays ordered and will be done once hemodynamically stable. 13. DVT prophylaxis. On Eliquis 14. GI prophylaxis. Continue PPI. 15. Patient is NO code. 16. Debility with recurrent falls, contusion on the right lumbar flank area, spine x-rays to be obtained, patient would meet needing therapy at post discharge most likely subacute 17. Enlarged prostate. Continue Flomax 0.8 mg orally once every day. 18. addrenal insufficiency hyrocortisone stress dose at 100 mg q 8h started The above impression and plan of care have been discussed and directed by signing physician. Sara Lozoya nurse practitioner acting as scribe for signing physician.
[2017-05-29] MEDS ORDERED: INSULIN LISPRO (humaLOG) 300 UNIT/3 ML VIAL SQ SCH (12:30)
[2017-05-29] MEDS: FUROSEMIDE 250 MG in SODIUM CHLORIDE 0.9% 225 ML IVP SCH (13:16)
[2017-05-29 14:44] VITALS: TEMP 97.6
[2017-05-29 15:39] VITALS: BP 98/62; PULSE 95; RESP 26
[2017-05-29 15:54] LABS: Glucose,Whole Blood 242 mg/dL (75-99)
[2017-05-29] MEDS ORDERED: traZODone HCL 50 MG TAB PO SCH (21:00)
--- NOTE | 2017-05-30 08:27 | PN ---
PROGRESS NOTE Patient is seen for followup for acute kidney injury and cardiorenal syndrome. He remains hypotensive. There is discussion regarding hospice. PHYSICAL EXAMINATION: On examination today, the patient is lying in bed. He states he does not feel any better. Blood pressure is 98/62, heart rate 95 per minute. He is afebrile. EXAMINATION OF THE HEART: S1, S2. EXAMINATION OF THE LUNGS: Decreased breath sounds at bases with basilar crackles heard. Abdomen is soft, nontender. Examination of the lower extremities shows edema 1+ bilaterally. LABS: Labs show serum creatinine 1.7, sodium 131, BUN 84. Hemoglobin 10.6 g/dL. ASSESSMENT: 1. Acute kidney injury, acute tubular necrosis, initially oliguric, currently nonoliguric and currently being diuresed. 2. Chronic hypotension, mainly cardiogenic. 3. Severe cardiomyopathy, status post acute myocardial infarction as well. 4. Congestive heart failure/fluid overload with chest x-ray continuing to show evidence of congestive heart failure. PLAN: Continue with Lasix drip. Overall prognosis is guarded. Hospice consultation is very appropriate. MMODL / IJN: [id number] /
--- NOTE | 2017-05-30 11:39 | P.DS ---
Providers Date of admission: 05/22/17 14:42 Expected date of discharge: 05/30/17 Attending physician: Tate Reynolds Consults: 05/22/17 14:42 Consult Physician Urgent Consulting Provider: Yogesh Cyr Consult Reason/Comments: icu Do you want consulting provider notified?: Yes Consult Physician Urgent Consulting Provider: Solitario Snider Consult Reason/Comments: chf,elevtrop Do you want consulting provider notified?: Yes 05/22/17 14:45 Consult Physician Urgent Consulting Provider: Karis Norman Consult Reason/Comments: arf Do you want consulting provider notified?: Yes Primary care physician: [facility] Course: This is an 81-year-old gentleman who is a poor historian, patient of Dr. Burton More. He has underlying history of recent non-ST myocardial infarction recently discharged from our facility from 05/18/2017 to 05/21/2017 at that admission he also had trauma and lumbar contusion from a fall at home, diastolic CHF with elevated troponins, he required management of his hypoxemia with Lasix and BiPAP, he was heparinized. His peak troponin during the last admission was 21.1 Dr. alvarez has seen the patient from cardiology, and medical management was provided for the non-Q-wave [place] with increasing dose off metoprolol and resumption of oral Imdur. CAT scan of the chest shows pleural effusion no discrete changes for pneumonia, he has atelectasis during this last admission, echocardiogram was performed with an EF of 45-50%, right ventricle systolic pressure less than 35, borderline concentric LVH, no aortic stenosis, mild TR and mild MR and no pericardial effusion He presented to the ER secondary to inability to walk, has a hard time walking, patient denies any chest pain or shortness of breath most likely has shortness of breath on exertion, patient denies any worsening edema, however patient is up poor historian with that regard. He complained off low back pain from where the trauma was. He she was hypotensive and dyspneic on ER evaluation, he was transferred to ICU for hemodynamic instability, required pressor agents Levophed , and IV Lasix for CHF. IV Zosyn for possible pneumonia. Liver function tests is elevated so his both the troponin and CPKs. Peak troponin is 182, escalating CPK MB with a peak of 65 Patient aortic initial BiPAP treatments at 35% FiO2. And 3 AST of 13 and 37, ALT 979, CK of 735 troponin 60. ABG of 7.47 , pCO2 of 27 bicarb [address] Jolly from pulmonary is on consult along with cardiology 05/24: Patient remains in the intensive care unit. He is on vasopressors. Insulin drip will be changed over to glipizide and Humalog scale before meals and at bedtime. Lumbar x-rays to be done once patient is hemodynamically stable. Renal ultrasound shows normal findings. There is minimal fluid adjacent to the liver noted. Patient is eating and drinking well. He has had adequate urine output. Repeat BUN is 77 and creatinine 2.48. He is on heparin drip and now switched to oral amiodarone. Nephrology is following for nonoliguric acute kidney injury secondary to ischemic ATN secondary to cardiogenic shock. He is continued on Lasix 40 mg IV twice daily. Echocardiogram reveals EF of less than 20%, mild mitral regurgitation, trace tricuspid regurgitation, no pulmonary hypertension, global hypokinesia. 05/25 patient remains in ICU, still on Levophed still titrated up to bp currently at 12 mics patient clinically feels better however b but still without appetite , blood sugars elevated, glimepiride increased to3 mg twice a day with coverage , with low titration secondary to CK D 3 patient might need Levemir 05/26: Patient remains in ICU, still on pressor agents 22 mics of Levophed, Proamatine started on 10 mg 3 times a day, albumin infusion given,, xcr CHF changes, patient was more dyspneic last night, marginally low blood pressure still, patient is on maintenance Lasix 40 mg iv every 8 hours. Patient might need to be transitioned to Lasix drip. will discuss with leather stamper. BiPAP treatments given last night patient maintains BiPAP treatments currently. yancey cath. negative balance weight gain 10 kg since admission. 05/27; patients remains in icu on o2 supplementation, chf worse by cxr, lasix increased by nephrology to 80 mg q 8 h, levophed down now to 7 mcg. completed albumin infusions x3. hydrocortisone 100 mg daily 8 hours started, the patient has more conversational dyspnea. Patient has fairly good urine output 05/28: Patient was seen and evaluated today, patient remains in the ICU on dobutamine, norepinephrine and amiodarone. Repeat chest x-ray shows unchanged congestive heart failure, pulmonary edema, and cardiomyopathy. He continues to be followed by nephrology and cardiology. 05/29: Patient was seen and evaluated today, patient's family members are at the bedside. Overall condition has remain unchanged. He still requires Levophed and dobutamine and currently remains hypotensive. Plan is for cardiology to speak with the family regarding his prognosis and the possibility of palliative or hospice care. 05/30: Per the family wishes the patient will be terminally weaned from the dobutamine and norepinephrine drip. He is transferred to hospice. Discharge diagnoses 1. Acute hypoxic respiratory failure due to acute on chronic systolic and diastolic heart failure due to non-ST elevation IN, with cardiogenic shock. 2. Acute on chronic systolic and diastolic heart failure. 3. New non-ST elevation IN with multi-organ failure including acute respiratory failure, acute shock liver, acute kidney injury. 4. Bilateral pneumonia. 5. Shock liver with acute liver failure. 6. Acute nonoliguric kidney injury secondary to ischemic ATN secondary to cardiogenic shock. 7. Paroxysmal atrial fibrillation. 8. Diabetes mellitus type 2. 9. Diabetic polyneuropathy uncontrolled diabetes mellitus type 2. 10. Hyperlipidemia. 11. Anxiety disorder, generalized Depression. 12. Rhabdomoysis secondary to recent fall. 13. Debility with recurrent falls. 14. Enlarged prostate. 18. addrenal insufficiency. The above impression and plan of care have been discussed and directed by signing physician. Sara Lozoya nurse practitioner acting as scribe for signing physician. Patient Condition at Discharge: Serious Plan - Discharge Summary New Discharge Prescriptions: No Action Simvastatin [Zocor] 20 mg PO HS Isosorbide Mononitrate [Isosorbide Mononitrate ER] 30 mg PO DAILY metFORMIN HCL [Glucophage] 500 mg PO TID glyBURIDE [Diabeta] 5 mg PO 5XD Tamsulosin [Flomax] 0.8 mg PO DAILY ALPRAZolam 1 mg PO TID PRN PRN Reason: Anxiety Aspirin 81 mg PO DAILY DULoxetine HCL [Cymbalta] 60 mg PO DAILY traZODone HCL [Desyrel] 100 mg PO HS Vitamin E (Dl,Tocopheryl Acet) [Vitamin E] 400 unit PO DAILY Pyridoxine HCl (Vitamin B6) [Vitamin B-6] 100 mg PO DAILY Glucosam/Samy-Msm1/C/Brant/Bosw [Glucosamine-Chondroitin Tablet] 1 tab PO DAILY Garlic 1 tab PO DAILY Cyanocobalamin (Vitamin B-12) [Vitamin B-12] 1,000 mcg PO DAILY Cholecalciferol [Vitamin D3] 1,000 unit PO DAILY Folic Acid 0.8 mg PO DAILY Furosemide [Lasix] 40 mg PO BID #60 tablet Levofloxacin [Levaquin] 250 mg PO Q24H #4 tab Metoprolol Tartrate [Lopressor] 25 mg PO BID #60 tab Nitroglycerin Sl Tabs [Nitrostat] 0.4 mg SUBLINGUAL Q5M PRN #50 tab PRN Reason: Chest Pain Discharge Medication List ALPRAZolam 1 mg PO TID PRN 12/23/15 [History] Isosorbide Mononitrate [Isosorbide Mononitrate ER] 30 mg PO DAILY 12/23/15 [ History] Simvastatin [Zocor] 20 mg PO HS 12/23/15 [History] Tamsulosin [Flomax] 0.8 mg PO DAILY 12/23/15 [History] glyBURIDE [Diabeta] 5 mg PO 5XD 12/23/15 [History] metFORMIN HCL [Glucophage] 500 mg PO TID 12/23/15 [History] Aspirin 81 mg PO DAILY 05/18/17 [History] Cholecalciferol [Vitamin D3] 1,000 unit PO DAILY 05/18/17 [History] Cyanocobalamin (Vitamin B-12) [Vitamin B-12] 1,000 mcg PO DAILY 05/18/17 [ History] DULoxetine HCL [Cymbalta] 60 mg PO DAILY 05/18/17 [History] Folic Acid 0.8 mg PO DAILY 05/18/17 [History] Garlic 1 tab PO DAILY 05/18/17 [History] Glucosam/Samy-Msm1/C/Brant/Bosw [Glucosamine-Chondroitin Tablet] 1 tab PO DAILY 05/18/17 [History] Pyridoxine HCl (Vitamin B6) [Vitamin B-6] 100 mg PO DAILY 05/18/17 [History] Vitamin E (Dl,Tocopheryl Acet) [Vitamin E] 400 unit PO DAILY 05/18/17 [History] traZODone HCL [Desyrel] 100 mg PO HS 09/01/17 [History] Furosemide [Lasix] 40 mg PO BID #60 tablet 05/21/17 [Rx] Levofloxacin [Levaquin] 250 mg PO Q24H #4 tab 05/21/17 [Rx] Metoprolol Tartrate [Lopressor] 25 mg PO BID #60 tab 05/21/17 [Rx] Nitroglycerin Sl Tabs [Nitrostat] 0.4 mg SUBLINGUAL Q5M PRN #50 tab 05/21/17 [Rx ] Follow up Appointment(s)/Referral(s): Burton More DO [Primary Care Provider] - 1-2 days [facility] Vis[facility] Nurse, [NON-STAFF] - 1 Week Discharge Disposition: [facility] TO [facility]
== END 2017-05-29 15:55 | disposition hospice, inpatient (51) | DRG 280 ==
LOC: EC 13:04 → 6ICU 14:42
PROVIDERS: ADMIT Internal Medicine; ATTEND Internal Medicine
DX: I22.2 Subsequent non-ST elevation (NSTEMI) myocardial infarction (principal); I50.43 Acute on chronic combined systolic (congestive) and diastolic (congestive) heart failure; J96.01 Acute respiratory failure with hypoxia; K72.00 Acute and subacute hepatic failure without coma; N17.0 Acute kidney failure with tubular necrosis; R57.0 Cardiogenic shock; J18.9 Pneumonia, unspecified organism; I13.0 Hypertensive heart and chronic kidney disease with heart failure and stage 1 through stage 4 chronic kidney disease, or unspecified chronic kidney disease; M62.82 Rhabdomyolysis; E27.40 Unspecified adrenocortical insufficiency; E87.2 Acidosis; J98.11 Atelectasis; E11.22 Type 2 diabetes mellitus with diabetic chronic kidney disease; E11.42 Type 2 diabetes mellitus with diabetic polyneuropathy; I21.4 Non-ST elevation (NSTEMI) myocardial infarction; E11.65 Type 2 diabetes mellitus with hyperglycemia; E78.5 Hyperlipidemia, unspecified; E87.5 Hyperkalemia; F32.9 Major depressive disorder, single episode, unspecified; F41.1 Generalized anxiety disorder; H91.90 Unspecified hearing loss, unspecified ear; I25.10 Atherosclerotic heart disease of native coronary artery without angina pectoris; I25.5 Ischemic cardiomyopathy; I44.7 Left bundle-branch block, unspecified; I48.0 Paroxysmal atrial fibrillation; N18.9 Chronic kidney disease, unspecified; N40.0 Benign prostatic hyperplasia without lower urinary tract symptoms; R29.6 Repeated falls; Z51.5 Encounter for palliative care; Z79.82 Long term (current) use of aspirin; Z79.899 Other long term (current) drug therapy; Z80.8 Family history of malignant neoplasm of other organs or systems; Z82.49 Family history of ischemic heart disease and other diseases of the circulatory system; Z83.3 Family history of diabetes mellitus; Z85.828 Personal history of other malignant neoplasm of skin; Z87.891 Personal history of nicotine dependence
CPT/HCPCS: 36415; 36600; 71010; 71020; 72100; 76770; 80048; 80053; 80061; 81003; 82272; 82533; 82550; 82553; 82803; 82805; 83036; 83605; 83690; 83735; 83880; 84100; 84132; 84484; 85025; 85610; 85730; 87086; 93005; 93306; 94640; 94660; 96360; 96365; 96368; 99291

== ENCOUNTER 2017-05-29 16:05 | Inpatient (IN) | payer OTHER ==
[2017-05-29] MEDS ORDERED: ONDANSETRON 4 MG/2 ML VIAL IVP PRN (16:38)
[2017-05-29] MEDS ORDERED: LORazepam 2 MG/ML SYRINGE IV PRN (16:38)
[2017-05-29] MEDS ORDERED: SCOPOLAMINE 1.5MG/72HR PATCH TRANSDERM PRN (16:38)
[2017-05-29] MEDS ORDERED: ATROPINE OPHTH SOLN 1% 5ML BTL SUBLINGUAL PRN (16:38)
[2017-05-29] MEDS ORDERED: ACETAMINOPHEN SUPPOSITORY 650 MG SUPP RECTAL PRN (16:38)
[2017-05-29] MEDS ORDERED: POLYETHYLENE GLYCOL 3350 17 GM POWD.PACK PO PRN (16:38)
[2017-05-29] MEDS ORDERED: ACETAMINOPHEN TAB 325 MG TAB PO PRN (16:38)
[2017-05-29] MEDS ORDERED: MORPHINE ORAL SOLN 20 MG/1 ML ORAL SYRINGE PO PRN (16:45)
[2017-05-29] MEDS: traZODone HCL 50 MG TAB PO SCH (20:05)
[2017-05-29] MEDS: guaiFENesin 600 MG TABLET.ER PO SCH (20:05)
[2017-05-29] MEDS: MORPHINE SULFATE 2 MG/ML SYRINGE IV PRN (20:14)
[2017-05-30] MEDS: MORPHINE SULFATE 2 MG/ML SYRINGE IV PRN ×3 (02:53→10:43)
[2017-05-30 07:51] VITALS: PULSE 80; RESP 18
[2017-05-30] MEDS: guaiFENesin 600 MG TABLET.ER PO SCH (08:10)
[2017-05-30] MEDS: traZODone HCL 50 MG TAB PO SCH (08:10)
[2017-05-30] MEDS ORDERED: DULoxetine HCL 60 MG CAPSULE.DR PO SCH (09:00)
[2017-05-30 10:46] VITALS: BMI 35.2
--- NOTE | 2017-05-30 11:48 | P.PN ---
Subjective This is an 81-year-old gentleman who is a poor historian, patient of Dr. Burton More. He has underlying history of recent non-ST myocardial infarction recently discharged from our facility from 05/18/2017 to 05/21/2017 at that admission he also had trauma and lumbar contusion from a fall at home, diastolic CHF with elevated troponins, he required management of his hypoxemia with Lasix and BiPAP, he was heparinized. His peak troponin during the last admission was 21.1 Dr. alvarez has seen the patient from cardiology, and medical management was provided for the non-Q-wave MD with increasing dose off metoprolol and resumption of oral Imdur. CAT scan of the chest shows pleural effusion no discrete changes for pneumonia, he has atelectasis during this last admission, echocardiogram was performed with an EF of 45-50%, right ventricle systolic pressure less than 35, borderline concentric LVH, no aortic stenosis, mild TR and mild MR and no pericardial effusion He presented to the ER secondary to inability to walk, has a hard time walking, patient denies any chest pain or shortness of breath most likely has shortness of breath on exertion, patient denies any worsening edema, however patient is up poor historian with that regard. He complained off low back pain from where the trauma was. He she was hypotensive and dyspneic on ER evaluation, he was transferred to ICU for hemodynamic instability, required pressor agents Levophed , and IV Lasix for CHF. IV Zosyn for possible pneumonia. Liver function tests is elevated so his both the troponin and CPKs. Peak troponin is 182, escalating CPK MB with a peak of 65 Patient aortic initial BiPAP treatments at 35% FiO2. And 3 AST of 13 and 37, ALT 979, CK of 735 troponin 60. ABG of 7.47 , pCO2 of [address]icar[address] Jolly from pulmonary is on consult along with cardiology 05/24: Patient remains in the intensive care unit. He is on vasopressors. Insulin drip will be changed over to glipizide and Humalog scale before meals and at bedtime. Lumbar x-rays to be done once patient is hemodynamically stable. Renal ultrasound shows normal findings. There is minimal fluid adjacent to the liver noted. Patient is eating and drinking well. He has had adequate urine output. Repeat BUN is 77 and creatinine 2.48. He is on heparin drip and now switched to oral amiodarone. Nephrology is following for nonoliguric acute kidney injury secondary to ischemic ATN secondary to cardiogenic shock. He is continued on Lasix 40 mg IV twice daily. Echocardiogram reveals EF of less than 20%, mild mitral regurgitation, trace tricuspid regurgitation, no pulmonary hypertension, global hypokinesia. 05/25: patient remains in ICU, still on Levophed still titrated up to bp currently at 12 mics patient clinically feels better however b but still without appetite, blood sugars elevated, glimepiride increased to3 mg twice a day with coverage, with low titration secondary to CK D 3 patient might need Levemir 05/26: Patient remains in ICU, still on pressor agents 22 mics of Levophed, Proamatine started on 10 mg 3 times a day, albumin infusion given,, xcr CHF changes, patient was more dyspneic last night, marginally low blood pressure still, patient is on maintenance Lasix 40 mg iv every 8 hours. Patient might need to be transitioned to Lasix drip. will discuss with back panel padder. BiPAP treatments given last night patient maintains BiPAP treatments currently. yancey cath. negative balance weight gain 10 kg since admission. 05/27: patients remains in icu on o2 supplementation, chf worse by cxr, lasix increased by nephrology to 80 mg q 8 h, levophed down now to 7 mcg. completed albumin infusions x3. hydrocortisone 100 mg daily 8 hours started, the patient has more conversational dyspnea. Patient has fairly good urine output 05/28: Patient was seen and evaluated today, patient remains in the ICU on dobutamine, norepinephrine and amiodarone. Repeat chest x-ray shows unchanged congestive heart failure, pulmonary edema, and cardiomyopathy. He continues to be followed by nephrology and cardiology. 05/29: Patient was seen and evaluated today, patient's family members are at the bedside. Overall condition has remain unchanged. He still requires Levophed and dobutamine and currently remains hypotensive. Plan is for cardiology to speak with the family regarding his prognosis and the possibility of palliative or hospice care. 05/30: Patient admitted to hospice for terminal weaning off of his dobutamine and norepinephrine drip. He will continue to be made comfortable. Objective - Vital Signs Vital signs: Vital Signs Temp Pulse 80 05/30/17 07:00 Resp 18 05/30/17 07:00 BP Pulse Ox 95 05/30/17 07:18 Intake & Output 05/29/17 05/30/17 05/30/17 18:59 06:59 18:59 Output Total 650 Balance -650 Weight 105.2 kg 105.2 kg Output: Urine 650 Other: Voiding Method Indwelling Catheter Indwelling Catheter - Exam - Exam - Constitutional General appearance: Present: cooperative - EENT Eyes: Present: anicteric sclerae, EOMI, PERRLA, normal appearance ENT: Present: hearing grossly normal, NA/AT, normal oropharynx - Neck Neck: Present: normal ROM - Respiratory Respiratory: bilateral: diminished, prolonged expiration, negative: CTA, dullness - Cardiovascular Rhythm: irregularly irregular Heart sounds: normal: S1, S2 Abnormal Heart Sounds: Present: systolic murmur. Absent: diastolic murmur, rub , S3 Gallop, S4 Gallop, click, other - Gastrointestinal General gastrointestinal: Present: normal bowel sounds, soft - Integumentary Integumentary: Present: normal, normal turgor - Neurologic Neurologic: Present: CNII-XII intact - Musculoskeletal Musculoskeletal: Present: gait normal, generalized weakness, strength equal bilaterally - Psychiatric Psychiatric: Present: A&O x's 3, appropriate affect Assessment and Plan Plan: 1. Acute on chronic systolic and diastolic heart failure cardiogenic shock. Patient will be terminally weaned off his dobutamine and norepinephrine drip, patient being followed by hospice. 3. Multi-organ failure including acute respiratory failure, acute shock liver, acute kidney injury. Patient followed by hospice. 4. Bilateral pneumonia. 6. Acute nonoliguric kidney injury secondary to ischemic ATN secondary to cardiogenic shock. 7. Paroxysmal atrial fibrillation. 8. Diabetes mellitus type 2. 9. Diabetic polyneuropathy uncontrolled diabetes mellitus type 2. 10. Hyperlipidemia. 11. Anxiety disorder, generalized Depression, recurrent. The above impression and plan of care have been discussed and directed by signing physician. Sara Lozoya nurse practitioner acting as scribe for signing physician.
== END 2017-05-30 12:00 | disposition hospice, inpatient (51) | DRG 280 ==
LOC: 6ICU 16:05 → 4MS4W 18:05
PROVIDERS: ADMIT Internal Medicine; ATTEND Internal Medicine
PROC: 0T9B70Z Drainage of Bladder with Drainage Device, Via Natural or Artificial Opening (ICD-10-PCS; principal; 2017-05-29)
DX: I50.43 Acute on chronic combined systolic (congestive) and diastolic (congestive) heart failure (principal); I21.4 Non-ST elevation (NSTEMI) myocardial infarction; N17.0 Acute kidney failure with tubular necrosis; R57.0 Cardiogenic shock; J96.01 Acute respiratory failure with hypoxia; K72.00 Acute and subacute hepatic failure without coma; I95.9 Hypotension, unspecified; J18.9 Pneumonia, unspecified organism; I42.9 Cardiomyopathy, unspecified; F33.9 Major depressive disorder, recurrent, unspecified; E11.65 Type 2 diabetes mellitus with hyperglycemia; E11.42 Type 2 diabetes mellitus with diabetic polyneuropathy; I48.0 Paroxysmal atrial fibrillation; N18.3 Chronic kidney disease, stage 3 (moderate); I34.0 Nonrheumatic mitral (valve) insufficiency; Z66 Do not resuscitate; Z51.5 Encounter for palliative care; S30.0XXD Contusion of lower back and pelvis, subsequent encounter; R26.2 Difficulty in walking, not elsewhere classified; E78.5 Hyperlipidemia, unspecified; F41.1 Generalized anxiety disorder; R53.1 Weakness; Z71.3 Dietary counseling and surveillance; W19.XXXD Unspecified fall, subsequent encounter